=== PATIENT | male | born 1945 | race Caucasian/White ===

== ENCOUNTER 2016-06-09 14:55 | Emergency (ER) | payer MEDICARE ==
[2016-06-09 15:27] VITALS: BP 154/76; PULSE 91; RESP 18; TEMP 98.7
[2016-06-09] MEDS ORDERED: MAGNESIUM CITRATE 296 ML BOTTLE PO ONE (16:39)
--- NOTE | 2016-06-09 16:41 | ED ---
General Adult HPI - General Chief complaint: Abdominal Pain Stated complaint: constipation x 7 days Time Seen by Provider: 06/09/16 16:27 Source: patient, RN notes reviewed Mode of arrival: ambulatory Limitations: no limitations - History of Present Illness Initial comments: Patient is a 70-year-old male who presents emergency room today with chief complaint constipation. He does admit that he does take opiates for chronic back pain. Does admit that he has been trying stool softeners at home with little relief. States not had a bowel movement in one week. Does admit that he 's been passing gas. Denies any abdominal pain. Denies any other complaints or associated symptoms. Patient denies any recent fever, chills, shortness of breath, chest pain, back pain, abdominal pain, nausea or vomiting, numbness or tingling, dysuria or hematuria, diarrhea, headaches or visual changes, or any other complaints. - Related Data Home Medications Medication Instructions Recorded Confirmed Sertraline HCl [Zoloft] 200 mg PO HS 12/24/14 06/09/16 Methadone [Dolophine] 10 mg PO QID 11/04/15 06/09/16 clonazePAM [KlonoPIN] 0.5 mg PO Q12H 11/11/15 06/09/16 Vitamin B Complex 1 cap PO DAILY 12/30/15 06/09/16 Acetaminophen [Tylenol Arthritis] 1,300 mg PO DAILY 06/09/16 06/09/16 Mirabegron [Myrbetriq] 25 mg PO DAILY 06/09/16 06/09/16 Allergies Allergy/AdvReac Type Severity Reaction Status Date / Time aspirin AdvReac Intermediate ringing in Verified 06/09/16 17:16 the ears Antihistamines - Alkylamine AdvReac Mild shaking Verified 06/09/16 17:16 Review of Systems ROS Statement: Those systems with pertinent positive or pertinent negative responses have been documented in the HPI. ROS Other: All systems not noted in ROS Statement are negative. Past Medical History Past Medical History: GERD/Reflux, Musculoskeletal Disorder, Neurologic Disorder , Osteoarthritis (OA), Skin Disorder Additional Past Medical History / Comment(s): childhood polio, post polio syndrome, chronic low back pain, wounds both legs History of Any Multi-Drug Resistant Organisms: MRSA Date of last positivie culture/infection: 11/11/15 MDRO Source:: RIGHT LEG Past Surgical History: Back Surgery, Bowel Resection, Joint Replacement, Orthopedic Surgery Additional Past Surgical History / Comment(s): right hip replacement, bilateral carpal tunnel, surgery to legs and feet Past Anesthesia/Blood Transfusion Reactions: No Reported Reaction Past Psychological History: Anxiety Additional Psychological History / Comment(s): He is and has 2 children Smoking Status: Former smoker Past Alcohol Use History: None Reported Additional Past Alcohol Use History / Comment(s): has smoked since age 16 quit December 2015 Past Drug Use History: None Reported - Past Family History Mother Family Medical History: No Reported History Additional Family Medical History / Comment(s): pt 14 years of age at time of mothers Father Additional Family Medical History / Comment(s): heart arrythymia Brother(s) Family Medical History: Cancer General Exam - General Exam Comments Initial Comments: General: The patient is awake and alert, in no distress, and does not appear acutely ill. Eye: Pupils are equal, round and reactive to light, extra-ocular movements are intact. No nystagmus. There is normal conjunctiva bilaterally. No signs of icterus. Ears, nose, mouth and throat: There are moist mucous membranes and no oral lesions. Neck: The neck is supple, there is no tenderness or JVD. Cardiovascular: There is a regular rate and rhythm. No murmur, rub or gallop is appreciated. Respiratory: Lungs are clear to auscultation, respirations are non-labored, breath sounds are equal. No wheezes, stridor, rales, or rhonchi. Gastrointestinal: Soft, non-distended, non-tender abdomen without masses or organomegaly noted. There is no rebound or guarding present. No CVA tenderness. Bowel sounds are unremarkable. Musculoskeletal: Normal ROM, no tenderness. Strength 5/5. Sensation intact. Pulses equal bilaterally 2+. Neurological: A&O x 3. CN II-XII intact, There are no obvious motor or sensory deficits. Coordination appears grossly intact. Speech is normal. Skin: Skin is warm and dry and no rashes or lesions are noted. Psychiatric: Cooperative, appropriate mood & affect, normal judgment. Limitations: no limitations Course Vital Signs 06/09/16 15:22 Temperature 98.7 F Pulse Rate 91 Respiratory 18 Rate Blood Pressure 154/76 O2 Sat by Pulse 97 Oximetry Medical Decision Making - Medical Decision Making Patient reexamined at this time shows no signs of distress. Feeling much better after enema. Was able have large bowel movement. Patient denies any complaints currently at this time. Will be discharged home advised to use stool softener. Advised return for any other concerns. Disposition Clinical Impression: Constipation Disposition: HOME SELF-CARE Condition: Good Instructions: Constipation (ED) Additional Instructions: Please use medication as discussed. Please follow-up with family doctor in the next 2 days of symptoms have not improved. Please return to emergency room if the symptoms increase or worsen or for any other concerns. Time of Disposition: 19:19
--- NOTE | 2016-06-09 16:56 | XR ---
EXAMINATION TYPE: XR KUB DATE OF EXAM ORDERED: 06/09/2016 4:49 PM HISTORY: pain. COMPARISON: Previous study dated 02/29/2016. FINDINGS: There is a marked rotoscoliosis of the thoracic and lumbar spines. There is a right hip pr osthesis in place. The abdominal gas pattern is within normal limits. There is no evidence of obstruction or free air. N o unusual calcifications are seen. The lung bases appear clear. IMPRESSION: 1. SEVERE DEFORMITY OF THE SPINE. 2. NO ACUTE INTRA-ABDOMINAL ABNORMALITY.
== END 2016-06-09 20:23 | disposition home or self-care (01) ==
LOC: EC 14:55 → SUPCPDRO 14:55 → EC 20:23
DX: K59.00 Constipation, unspecified (principal); M54.9 Dorsalgia, unspecified; G89.29 Other chronic pain; K21.9 Gastro-esophageal reflux disease without esophagitis; M19.90 Unspecified osteoarthritis, unspecified site; F41.9 Anxiety disorder, unspecified; Z87.891 Personal history of nicotine dependence; Z79.891 Long term (current) use of opiate analgesic; Z79.899 Other long term (current) drug therapy; Z88.6 Allergy status to analgesic agent; Z88.8 Allergy status to other drugs, medicaments and biological substances
CPT/HCPCS: 74000; 99284

== ENCOUNTER 2016-12-07 18:21 | Emergency (ER) | payer MEDICARE ==
--- NOTE | 2016-12-07 18:56 | ED ---
General Adult HPI - General Chief complaint: Abdominal Pain Stated complaint: constipation Time Seen by Provider: 12/07/16 18:26 Source: patient Mode of arrival: ambulatory Limitations: physical limitation - History of Present Illness Initial comments: Is a 71-year-old male with a history of polio with chronic back pain as a result on methadone who presents emergency department for constipation. He states he has not had a bowel movement in 1 week. He has a history of fecal impactions in the past. He does take stool softeners however this has not helped his symptoms. He states he does not drink a lot of water. He does have some mild abdominal discomfort. No nausea or vomiting. He denies any other acute complaints at this time. - Related Data Home Medications Medication Instructions Recorded Confirmed Sertraline HCl [Zoloft] 100 mg PO BID 12/24/14 12/07/16 Methadone [Dolophine] 10 mg PO QID 11/04/15 12/07/16 Mirabegron [Myrbetriq] 50 mg PO DAILY 12/07/16 12/07/16 Tolterodine ER [Detrol LA] 4 mg PO DAILY 12/07/16 12/07/16 Previous Rx's Medication Instructions Recorded Bisacodyl [Dulcolax] 10 mg RECTAL DAILY #30 supp 12/07/16 Allergies Allergy/AdvReac Type Severity Reaction Status Date / Time aspirin AdvReac Intermediate ringing in Verified 12/07/16 18:50 the ears Antihistamines - Alkylamine AdvReac Mild shaking Verified 12/07/16 18:50 Review of Systems ROS Statement: Those systems with pertinent positive or pertinent negative responses have been documented in the HPI. ROS Other: All systems not noted in ROS Statement are negative. Past Medical History Past Medical History: GERD/Reflux, Musculoskeletal Disorder, Neurologic Disorder , Osteoarthritis (OA), Skin Disorder Additional Past Medical History / Comment(s): childhood polio, post polio syndrome, chronic low back pain, wounds both legs History of Any Multi-Drug Resistant Organisms: MRSA Date of last positivie culture/infection: 09/07/16 MDRO Source:: LEG Past Surgical History: Back Surgery, Bowel Resection, Joint Replacement, Orthopedic Surgery Additional Past Surgical History / Comment(s): right hip replacement, bilateral carpal tunnel, surgery to legs and feet Past Anesthesia/Blood Transfusion Reactions: No Reported Reaction Past Psychological History: Anxiety Smoking Status: Former smoker Past Alcohol Use History: None Reported Past Drug Use History: None Reported - Past Family History Mother Family Medical History: No Reported History Additional Family Medical History / Comment(s): pt 14 years of age at time of mothers Father Family Medical History: Coronary Artery Disease (CAD) Additional Family Medical History / Comment(s): heart arrythymia Brother(s) Family Medical History: Cancer General Exam - General Exam Comments Initial Comments: Constitutional: Awake alert Appears comfortable Head: Normocephalic atraumatic Eyes: no conjunctival injection No scleral icterus EOMI Neck: No JVD Supple Heart: Regular rate rhythm normal S1-S2 no murmurs Lungs: Clear to auscultation bilaterally No wheezing No rales Abdomen: Soft nondistended nontender, there is hard stool in the rectal vault Extremities: Non edematous DP pulses intact Radial pulses intact Neuro: A&Ox3 No focal neurologic deficits Psych: Appropriate mood and affect Limitations: physical limitation Course Vital Signs 12/07/16 18:23 Temperature 98.5 F Pulse Rate 96 Respiratory 20 Rate Blood Pressure 158/87 O2 Sat by Pulse 98 Oximetry - Reevaluation(s) Reevaluation #1: 12/07/16 18:56 Fecal disimpaction attempted at bedside. Stool removed however will require, administration as well. Medical Decision Making - Medical Decision Making Is a 71-year-old male who presents emergency department for constipation. Manual disimpaction was performed along with a local molasses enema. The patient had a very large bowel movement after this. Patient will be discharged home. Encouraged to drink plain water. I will give him Dulcolax suppositories as well. He can follow-up with his primary doctor for further evaluation if necessary. All questions are answered. Disposition Clinical Impression: Constipation Disposition: HOME SELF-CARE Condition: Stable Instructions: Constipation (ED) Prescriptions: Bisacodyl [Dulcolax] 10 mg RECTAL DAILY #30 supp Referrals: Holland Nye MD [Primary Care Provider] - 1-2 days
[2016-12-07 20:19] VITALS: BP 138/87; PULSE 87; RESP 18; TEMP 98.4
== END 2016-12-07 20:19 | disposition home or self-care (01) ==
LOC: EC 18:21
DX: K59.00 Constipation, unspecified (principal); F41.9 Anxiety disorder, unspecified; Z87.891 Personal history of nicotine dependence; Z79.891 Long term (current) use of opiate analgesic; Z79.899 Other long term (current) drug therapy; Z88.6 Allergy status to analgesic agent; Z88.8 Allergy status to other drugs, medicaments and biological substances; Z87.39 Personal history of other diseases of the musculoskeletal system and connective tissue; Z90.49 Acquired absence of other specified parts of digestive tract
CPT/HCPCS: 99283

== ENCOUNTER 2017-01-22 19:06 | Emergency (ER) | payer MEDICARE ==
--- NOTE | 2017-01-22 20:19 | XR ---
EXAMINATION TYPE: XR KUB portable DATE OF EXAM: 01/22/2017 COMPARISON: 06/09/2016 HISTORY: Constipation TECHNIQUE: Single view FINDINGS: There is no sign of intestinal obstruction or pneumoperitoneum. I see no significant retain ed fecal material. There is moderate thoracolumbar levoscoliosis. IMPRESSION: Nonacute abdomen. No significant retained fecal material. No adverse change compared to o ld exam.
[2017-01-22 21:50] VITALS: PULSE 91
--- NOTE | 2017-01-22 21:59 | ED ---
General Adult HPI - General Source: patient Mode of arrival: ambulatory Limitations: no limitations <Nash Gonzalez - Last Filed: 01/22/17 23:14> <Haroldo Grullon - Last Filed: 01/23/17 00:28> - General Chief complaint: Abdominal Pain Stated complaint: ABD Pain Time Seen by Provider: 01/22/17 19:15 - History of Present Illness Initial comments: 71-year-old male with past medical history of GERD, osteoarthritis, chronic low back pain, childhood polio, right hip replacement, bilateral carpal tunnel, scoliosis, previous back surgeries, and orthopedic surgeries presented for evaluation of constipation for the last 6-7 days. He states this is happened previously multiple times for the last year the most recent being on which required a digital disimpaction followed by enema. He states that he'll occasionally get colicky abdominal pain with this however he is most distressed by the constipation. Denies nausea vomiting fevers chills chest pain , shortness of breath dysuria. (Nash Gonzalez) - Related Data Home Medications Medication Instructions Recorded Confirmed Sertraline HCl [Zoloft] 200 mg PO DAILY 12/24/14 01/22/17 Methadone [Dolophine] 10 mg PO QID 11/04/15 01/22/17 Lubiprostone [Amitiza] 24 mcg PO BID 01/22/17 01/22/17 Allergies Allergy/AdvReac Type Severity Reaction Status Date / Time aspirin AdvReac Intermediate ringing in Verified 01/22/17 19:29 the ears Antihistamines - Alkylamine AdvReac Mild shaking Verified 01/22/17 19:29 Review of Systems ROS Other: All systems not noted in ROS Statement are negative. Constitutional: Denies: fever, chills Eyes: Denies: eye discharge, vision change ENT: Denies: ear pain, throat pain Respiratory: Denies: cough, dyspnea Cardiovascular: Denies: chest pain, palpitations Gastrointestinal: Reports: abdominal pain, constipation. Denies: nausea, vomiting, diarrhea Genitourinary: Denies: urgency, dysuria Musculoskeletal: Denies: back pain, arthralgia, myalgia Skin: Denies: rash, lesions Neurological: Denies: headache, weakness Psychiatric: Denies: anxiety, depression Hematological/Lymphatic: Denies: easy bleeding, easy bruising <Nash Gonzalez - Last Filed: 01/22/17 23:14> ROS Other: All systems not noted in ROS Statement are negative. <Haroldo Grullon - Last Filed: 01/23/17 00:28> ROS Statement: Those systems with pertinent positive or pertinent negative responses have been documented in the HPI. Past Medical History Past Medical History: GERD/Reflux, Musculoskeletal Disorder, Neurologic Disorder , Osteoarthritis (OA), Skin Disorder Additional Past Medical History / Comment(s): childhood polio, post polio syndrome, chronic low back pain, wounds both legs History of Any Multi-Drug Resistant Organisms: MRSA Date of last positivie culture/infection: 09/07/16 MDRO Source:: LEG Past Surgical History: Back Surgery, Bowel Resection, Joint Replacement, Orthopedic Surgery Additional Past Surgical History / Comment(s): right hip replacement, bilateral carpal tunnel, surgery to legs and feet Past Anesthesia/Blood Transfusion Reactions: No Reported Reaction Past Psychological History: Anxiety Smoking Status: Light tobacco smoker Past Alcohol Use History: None Reported Past Drug Use History: None Reported - Past Family History Mother Family Medical History: No Reported History Additional Family Medical History / Comment(s): pt 14 years of age at time of mothers Father Family Medical History: Coronary Artery Disease (CAD) Additional Family Medical History / Comment(s): heart arrythymia Brother(s) Family Medical History: Cancer <Nash Gonzalez - Last Filed: 01/22/17 23:14> General Exam Limitations: no limitations General appearance: alert, in no apparent distress Head exam: Present: atraumatic, normocephalic, normal inspection Eye exam: Present: normal appearance, PERRL, EOMI. Absent: scleral icterus, conjunctival injection, periorbital swelling ENT exam: Present: normal exam, mucous membranes moist Neck exam: Present: normal inspection. Absent: tenderness, meningismus, lymphadenopathy Respiratory exam: Present: normal lung sounds bilaterally. Absent: respiratory distress, wheezes, rales, rhonchi, stridor Cardiovascular Exam: Present: regular rate, normal rhythm, normal heart sounds. Absent: systolic murmur, diastolic murmur, rubs, gallop, clicks GI/Abdominal exam: Present: soft. Absent: distended, tenderness, guarding, rebound, rigid Rectal exam: Present: fecal impaction, tenderness. Absent: black stool, bloody stool, hemorrhoids Extremities exam: Present: normal inspection, full ROM, normal capillary refill. Absent: tenderness, pedal edema, joint swelling, calf tenderness Back exam: Present: tenderness, other (severe scoliosis) Neurological exam: Present: alert, oriented X3, CN II-XII intact Psychiatric exam: Present: normal affect, normal mood Skin exam: Present: warm, dry, intact, normal color. Absent: rash <Nash Gonzalez - Last Filed: 01/22/17 23:14> Vital Signs 01/22/17 01/22/17 19:09 21:49 Temperature 97.8 F 97.2 F L Pulse Rate 100 91 Respiratory 18 12 Rate Blood Pressure 130/72 119/63 O2 Sat by Pulse 98 98 Oximetry Medical Decision Making <Nash Gonzalez - Last Filed: 01/22/17 23:14> <Haroldo Grullon - Last Filed: 01/23/17 00:28> - Medical Decision Making 71-year-old male with past medical history as noted above presented for evaluation of constipation for the last 6-7 days. He states that there is been associated colicky abdominal pain intermittently present however his symptoms are consistent with previous presentation on 01/08/2017 when he was constipated and required disimpaction as well as an enema. This relieved his symptoms and he was discharged home. On physical examination his abdomen is soft and nontender without peritoneal signs of guarding, rigidity, rebound. Pt offered CT abdomen given recurrence of constipation but refused stating the most he would be comfortable with would be an xray. KUB shows no acute process. The digital rectal exam revealed a large impaction which was partially broken down however a considerable amount remains. We'll order MOM enema. Pt currently attempting to pass bowel movement with MOM enema. Will transfer care to Dr. Grullon at this time. (Nash Gonzalez) Disposition <Nash Gonzalez - Last Filed: 01/22/17 23:14> <Haroldo Grullon - Last Filed: 01/23/17 00:28> Clinical Impression: Constipation Disposition: HOME SELF-CARE Condition: Good Instructions: Constipation (ED) Referrals: Holland Nye MD [Primary Care Provider] - 1-2 days
[2017-01-23] MEDS ORDERED: PEG 3350-NA SULF,BICARB,CL/KCL 4,000 ML BOTTLE PO ONE (00:28)
[2017-01-23 01:02] VITALS: BP 126/78; RESP 18; TEMP 97.9
== END 2017-01-23 01:03 | disposition home or self-care (01) ==
LOC: EC 19:06
DX: K59.00 Constipation, unspecified (principal); F41.9 Anxiety disorder, unspecified; F17.200 Nicotine dependence, unspecified, uncomplicated; Z86.14 Personal history of Methicillin resistant Staphylococcus aureus infection; Z79.891 Long term (current) use of opiate analgesic; Z79.899 Other long term (current) drug therapy; Z88.6 Allergy status to analgesic agent; Z88.8 Allergy status to other drugs, medicaments and biological substances; Z53.29 Procedure and treatment not carried out because of patient's decision for other reasons
CPT/HCPCS: 74000; 99284

== ENCOUNTER 2017-01-24 17:05 | Emergency (ER) | payer MEDICARE ==
--- NOTE | 2017-01-24 17:56 | ED ---
General Adult HPI - General Chief complaint: Abdominal Pain Stated complaint: CONSTIPATION X 7 DAYS Time Seen by Provider: 01/24/17 17:49 Source: patient, RN notes reviewed Mode of arrival: ambulatory Limitations: no limitations - History of Present Illness Initial comments: 71-year-old male presents to the emergency department with a chief complaint of inability to have a bowel movement. Patient states he normally a bowel movement every 3 days with a stool softener however he is not on about 7 days. His doctor didn't x-ray the days ago that didn't show he was backed up he tried a laxative however he still does not have a bowel movement. He states having some pain in his rectum like he has to go he is just unable to. He states that he does not know what else to say came here. He denies any abdominal pain any nausea or vomiting with this. He states he was concerned due to his continued discomfort so he thought that he should be seen. Patient denies any recent fever , chills, shortness of breath, chest pain, back pain, abdominal pain, nausea vomiting, numbness or tingling, dysuria or hematuria, diarrhea, headaches or visual changes, or any other current symptoms. - Related Data Home Medications Medication Instructions Recorded Confirmed Sertraline HCl [Zoloft] 200 mg PO DAILY 12/24/14 01/24/17 Methadone [Dolophine] 10 mg PO QID 11/04/15 01/24/17 Lubiprostone [Amitiza] 24 mcg PO BID 01/22/17 01/24/17 Allergies Allergy/AdvReac Type Severity Reaction Status Date / Time aspirin AdvReac Intermediate ringing in Verified 01/24/17 18:31 the ears Antihistamines - Alkylamine AdvReac Mild shaking Verified 01/24/17 18:31 Review of Systems ROS Statement: Those systems with pertinent positive or pertinent negative responses have been documented in the HPI. ROS Other: All systems not noted in ROS Statement are negative. Past Medical History Past Medical History: GERD/Reflux, Musculoskeletal Disorder, Neurologic Disorder , Osteoarthritis (OA), Skin Disorder Additional Past Medical History / Comment(s): childhood polio, post polio syndrome, chronic low back pain, wounds both legs History of Any Multi-Drug Resistant Organisms: MRSA Date of last positivie culture/infection: 09/07/16 MDRO Source:: LEG Past Surgical History: Back Surgery, Bowel Resection, Joint Replacement, Orthopedic Surgery Additional Past Surgical History / Comment(s): right hip replacement, bilateral carpal tunnel, surgery to legs and feet Past Anesthesia/Blood Transfusion Reactions: No Reported Reaction Past Psychological History: Anxiety Smoking Status: Light tobacco smoker Past Alcohol Use History: None Reported Past Drug Use History: None Reported - Past Family History Mother Family Medical History: No Reported History Additional Family Medical History / Comment(s): pt 14 years of age at time of mothers Father Family Medical History: Coronary Artery Disease (CAD) Additional Family Medical History / Comment(s): heart arrythymia Brother(s) Family Medical History: Cancer General Exam - General Exam Comments Initial Comments: General: The patient is awake and alert, in no distress, and does not appear acutely ill. Eye: Pupils are equal, round and reactive to light, extra-ocular movements are intact; there is normal conjunctiva bilaterally. No signs of icterus. Ears, nose, mouth and throat: There are moist mucous membranes and no oral lesions. Neck: The neck is supple, there is no tenderness. Cardiovascular: There is a regular rate and rhythm. No murmur, rub or gallop is appreciated. Respiratory: Lungs are clear to auscultation, respirations are non-labored, breath sounds are equal. No wheezes, stridor, rales, or rhonchi. Gastrointestinal: Soft, non-distended, non-tender abdomen without masses or organomegaly noted. There is no rebound or guarding present. No CVA tenderness. Bowel sounds are unremarkable. Back: There is no tenderness to palpation in the midline. There is no obvious deformity. No rashes noted. Musculoskeletal: Normal ROM, no tenderness, There is no pedal edema. There is no calf tenderness or swelling. Sensation intact. Pulses equal bilaterally 2+. Neurological: CN II-XII intact, There are no obvious motor or sensory deficits. Coordination appears grossly intact. Speech is normal. Skin: Skin is warm and dry and no rashes or lesions are noted. Psychiatric: Cooperative, appropriate mood & affect, normal judgment. Limitations: no limitations Rectal exam: Present: normal inspection, normal rectal tone, other (impaction) Course Vital Signs 01/24/17 17:26 Temperature 98.8 F Pulse Rate 100 Respiratory 20 Rate Blood Pressure 138/93 O2 Sat by Pulse 98 Oximetry - Reevaluation(s) Reevaluation #1: 01/24/17 19:43 Following enema patient is feeling much better. Procedures - Rectal Disimpaction Consent Obtained: verbal consent Time Out Performed: Yes Indication: fecal impaction Procedural Sedation: No Sedation/Analgesia: none Technique: manual disimpaction with gloved finger Result: significant stool output Complications: none Patient Tolerated Procedure: well Medical Decision Making - Medical Decision Making 71-year-old male presents with chief complaint of constipation. This time x- rays reviewed that does not show an increased amount of stool however digital rectal exam does show impaction. He went with rectal disimpaction as well as enema placement. He is feeling better. We discussed continuing this. Parameters and follow-up and all questions. Patient stated that he understood and he is agreement this plan. All questions have been answered. He will be discharged. - Radiology Data Radiology results: report reviewed, image reviewed Disposition Clinical Impression: Constipation, Fecal impaction in rectum Disposition: HOME SELF-CARE Condition: Stable Instructions: Constipation (ED) Additional Instructions: Please use medication as discussed. Please follow up with family doctor if symptoms have not improved over the next two days. Please return to the emergency room if your symptoms increase or worsen or for any other concerns. Referrals: Holland Nye MD [Primary Care Provider] - 1-2 days Time of Disposition: 19:43
--- NOTE | 2017-01-24 18:14 | XR ---
EXAMINATION TYPE: XR abdomen 1V DATE OF EXAM: 01/24/2017 6:07 PM CLINICAL HISTORY: Abdominal pain per order. Constipation for 7 days. TECHNIQUE: 3 Upright KUB images of the abdomen are obtained. COMPARISON: Abdominal x-ray January 22, 2017. FINDINGS: There is redemonstration of marked underlying rotary scoliosis distorting normal anatomy ma marcos evaluation suboptimal. There is gas noted in scattered slightly prominent but not suspiciously d ilated small and large bowel loops. No pneumoperitoneum is clearly seen. Metallic hardware from right hip surgery is stable in position. Visualized lung bases are grossly clear. IMPRESSION: Suboptimal study. Overall nonspecific but likely nonobstructive bowel gas pattern. No dean ss change from prior.
[2017-01-24 20:27] VITALS: BP 154/89; PULSE 90; RESP 18; TEMP 98.9
== END 2017-01-24 20:27 | disposition home or self-care (01) ==
LOC: EC 17:05
DX: K56.41 Fecal impaction (principal); F41.9 Anxiety disorder, unspecified; F17.200 Nicotine dependence, unspecified, uncomplicated; Z86.14 Personal history of Methicillin resistant Staphylococcus aureus infection; Z79.891 Long term (current) use of opiate analgesic; Z79.899 Other long term (current) drug therapy; Z88.6 Allergy status to analgesic agent; Z88.8 Allergy status to other drugs, medicaments and biological substances
CPT/HCPCS: 74000; 99284

== ENCOUNTER 2017-03-18 00:08 | Emergency (ER) | payer MEDICARE ==
[2017-03-18 00:26] VITALS: TEMP 97.6
--- NOTE | 2017-03-18 01:22 | XR ---
EXAM: XR Cervical Spine, 2 or 3 Views CLINICAL HISTORY: Reason: Pain TECHNIQUE: Frontal and lateral views of the cervical spine. COMPARISON: CT 02/22/2017 FINDINGS: Vertebrae: There is been interval anterior fusion from C2-C6 level (please correlate with operative procedure) with anterior plate with coexisting telescoping interbody cage and corpectomy. There is improved reduction in the anterior angulation of C2 when compared to previous CT examination with diminished kyphosis. Degenerative changes are noted at C5-C6 level with marginal osteophyte formation. Anterior screws appear to be seated in the inferior aspect of C2 and C6. On the open-mouth view, the lateral masses of C1 appear to be well aligned. The odontoid process demonstrates no definite abnormalities. No definite fracture. Disc spaces: No acute findings. No significant narrowing. Soft tissues: Unremarkable. IMPRESSION: Anterior fusion cervical spine with reduced angulation of C2 when compared to preoperative CT.
--- NOTE | 2017-03-18 01:30 | ED ---
Fall HPI - General Chief Complaint: Fall Stated Complaint: fall Time Seen by Provider: 03/18/17 00:17 Source: patient, EMS, RN notes reviewed, old records reviewed Mode of arrival: EMS Limitations: physical limitation - History of Present Illness Initial Comments: 71-year-old male presents emergency Department with chief complaint of fall.. Patient states that he was on his chair lift states he went to move his legs over and states he slid off the chair lift on the ground struck the right side of his head. Patient denies headache, dizziness. Patient complains of neck pain and is concerned has he had cervical fusion 2 weeks ago. Patient states this was performed at [facility]. Patient denies any weakness of his upper extremities denies any paresthesias. Patient currently wears a soft collar states that he has not taken. Patient had anterior approach to his cervical fusion. - Related Data Home Medications Medication Instructions Recorded Confirmed Sertraline HCl [Zoloft] 200 mg PO DAILY 12/24/14 03/18/17 Methadone [Dolophine] 10 mg PO QID 11/04/15 03/18/17 Lubiprostone [Amitiza] 24 mcg PO BID 01/22/17 03/18/17 Tolterodine Tartrate [Detrol LA] 4 mg PO DAILY 02/15/17 03/18/17 Allergies Allergy/AdvReac Type Severity Reaction Status Date / Time aspirin AdvReac Intermediate ringing in Verified 03/18/17 00:27 the ears Antihistamines - Alkylamine AdvReac Mild shaking Verified 03/18/17 00:27 Review of Systems ROS Statement: Those systems with pertinent positive or pertinent negative responses have been documented in the HPI. ROS Other: All systems not noted in ROS Statement are negative. Past Medical History Past Medical History: GERD/Reflux, Musculoskeletal Disorder, Neurologic Disorder , Osteoarthritis (OA), Skin Disorder Additional Past Medical History / Comment(s): childhood polio, post polio syndrome, chronic low back pain, wounds both legs, cervical injury from fall 2016 History of Any Multi-Drug Resistant Organisms: MRSA Date of last positivie culture/infection: 03/2017 MDRO Source:: left LEG Past Surgical History: Back Surgery, Bowel Resection, Joint Replacement, Orthopedic Surgery Additional Past Surgical History / Comment(s): right hip replacement, bilateral carpal tunnel, surgery to legs and feet, cervical fusion of C3-4, spinal fusion as a child, yrs ago Past Anesthesia/Blood Transfusion Reactions: No Reported Reaction Past Psychological History: Anxiety Smoking Status: Light tobacco smoker Past Alcohol Use History: None Reported Past Drug Use History: None Reported - Past Family History Mother Family Medical History: No Reported History Additional Family Medical History / Comment(s): pt 14 years of age at time of mothers Father Family Medical History: Coronary Artery Disease (CAD) Additional Family Medical History / Comment(s): heart arrythymia Brother(s) Family Medical History: Cancer General Exam Limitations: no limitations General appearance: alert, in no apparent distress Head exam: Present: atraumatic, normocephalic, normal inspection Eye exam: Present: normal appearance, PERRL, EOMI. Absent: scleral icterus, conjunctival injection, periorbital swelling ENT exam: Present: normal exam, normal oropharynx, mucous membranes moist, TM's normal bilaterally, normal external ear exam Neck exam: Present: normal inspection (Anterior incision noted), tenderness ( Mild tenderness the posterior region). Absent: meningismus, full ROM ( Decreased range of motion from a recent cervical fusion), lymphadenopathy Respiratory exam: Present: normal lung sounds bilaterally. Absent: respiratory distress, wheezes, rales, rhonchi, stridor Cardiovascular Exam: Present: regular rate, normal rhythm, normal heart sounds. Absent: systolic murmur, diastolic murmur, rubs, gallop, clicks Neurological exam: Present: alert, oriented X3, CN II-XII intact, reflexes normal. Absent: motor sensory deficit Skin exam: Present: warm, dry, intact, normal color. Absent: rash Course Vital Signs 03/18/17 00:15 Temperature 97.6 F Pulse Rate 71 Respiratory 18 Rate Blood Pressure 137/72 O2 Sat by Pulse 96 Oximetry Medical Decision Making - Medical Decision Making 7-year-old male present emergency department for 7 fall off chairlift. Patient is just concerned has he had recent fusion. Patient has minimal increased pain. Patient has a soft collar on. X-ray shows no acute changes. Patient is no focal weakness. Patient will be discharged advised follow-up with surgeon on Sunday return for worsening symptoms. Disposition Clinical Impression: Fall, Neck pain Disposition: HOME SELF-CARE Condition: Stable Instructions: Neck Pain (ED) Additional Instructions: Please return to the Emergency Department if symptoms worsen or any other concerns. Referrals: Holland Nye MD [Primary Care Provider] - 1-2 days Time of Disposition: 01:28
[2017-03-18] MEDS ORDERED: HYDROcodone/APAP 7.5-325MG 1 EACH TAB PO ONE (01:35)
[2017-03-18 02:06] VITALS: BP 138/73; PULSE 73; RESP 16
== END 2017-03-18 02:12 | disposition home or self-care (01) ==
LOC: EC 00:08
DX: M54.2 Cervicalgia (principal); F41.9 Anxiety disorder, unspecified; F17.200 Nicotine dependence, unspecified, uncomplicated; Z86.14 Personal history of Methicillin resistant Staphylococcus aureus infection; Z98.1 Arthrodesis status; Z88.6 Allergy status to analgesic agent; Z88.8 Allergy status to other drugs, medicaments and biological substances; Z79.899 Other long term (current) drug therapy; W07.XXXA Fall from chair, initial encounter
CPT/HCPCS: 72040; 99284

== ENCOUNTER 2017-04-20 09:10 | Emergency (ER) | payer MEDICARE ==
[2017-04-20] MEDS ORDERED: SODIUM CHLORIDE 0.9% 500 ML IV STA (09:32)
[2017-04-20] MEDS ORDERED: MAGNESIUM CITRATE 296 ML BOTTLE PO ONE (09:32)
--- NOTE | 2017-04-20 10:10 | ED ---
General Adult HPI - General Chief complaint: Abdominal Pain Stated complaint: Constipation Time Seen by Provider: 04/20/17 09:21 Source: patient, RN notes reviewed Mode of arrival: EMS Limitations: no limitations - History of Present Illness Initial comments: Patient 71-year-old male who presents emergency room today by EMS, the chief complaint of constipation. He states she's not had a good bowel movement past 10 days. He does admit that he has a history of constipation and this feels similar to him. This that he is passing some gas but feels some pressure. Patient does not that he believes the constipation is due to medications that he is on. States he was not taking a stool softener last few days as his was in the hospital and he kind of lost track of things. Patient denies any other complaints or symptoms at this time. Patient denies any recent fever, chills, shortness of breath, chest pain, back pain, nausea or vomiting, numbness or tingling, dysuria or hematuria, diarrhea, headaches or visual changes, or any other complaints. - Related Data Home Medications Medication Instructions Recorded Confirmed Sertraline HCl [Zoloft] 200 mg PO DAILY 12/24/14 04/20/17 Methadone [Dolophine] 10 mg PO QID 11/04/15 04/20/17 Previous Rx's Medication Instructions Recorded Polyethylene Glycol 3350 [Miralax] 17 gm PO DAILY 7 Days packet 04/20/17 Allergies Allergy/AdvReac Type Severity Reaction Status Date / Time aspirin AdvReac Intermediate ringing in Verified 04/20/17 09:54 the ears Antihistamines - Alkylamine AdvReac Mild shaking Verified 04/20/17 09:54 Review of Systems ROS Statement: Those systems with pertinent positive or pertinent negative responses have been documented in the HPI. ROS Other: All systems not noted in ROS Statement are negative. Past Medical History Past Medical History: GERD/Reflux, Musculoskeletal Disorder, Neurologic Disorder , Osteoarthritis (OA), Skin Disorder Additional Past Medical History / Comment(s): childhood polio, post polio syndrome, chronic low back pain, wounds both legs, cervical injury from fall 2016 History of Any Multi-Drug Resistant Organisms: MRSA Date of last positivie culture/infection: 03/2017 MDRO Source:: left LEG Past Surgical History: Back Surgery, Bowel Resection, Joint Replacement, Orthopedic Surgery Additional Past Surgical History / Comment(s): right hip replacement, bilateral carpal tunnel, surgery to legs and feet, cervical fusion of C3-4, spinal fusion as a child, [id number] yrs ago Past Anesthesia/Blood Transfusion Reactions: No Reported Reaction Past Psychological History: Anxiety Smoking Status: Former smoker Past Alcohol Use History: None Reported Past Drug Use History: None Reported - Past Family History Mother Family Medical History: No Reported History Additional Family Medical History / Comment(s): pt 14 years of age at time of mothers Father Family Medical History: Coronary Artery Disease (CAD) Additional Family Medical History / Comment(s): heart arrythymia Brother(s) Family Medical History: Cancer General Exam - General Exam Comments Initial Comments: General: The patient is awake and alert, in no distress, and does not appear acutely ill. Eye: Pupils are equal, round and reactive to light, extra-ocular movements are intact. No nystagmus. There is normal conjunctiva bilaterally. No signs of icterus. Ears, nose, mouth and throat: There are moist mucous membranes and no oral lesions. Neck: The neck is supple, there is no tenderness or JVD. Cardiovascular: There is a regular rate and rhythm. No murmur, rub or gallop is appreciated. Respiratory: Lungs are clear to auscultation, respirations are non-labored, breath sounds are equal. No wheezes, stridor, rales, or rhonchi. Gastrointestinal: Soft, non-distended, non-tender abdomen without masses or organomegaly noted. There is no rebound or guarding present. No CVA tenderness. Musculoskeletal: Normal ROM, no tenderness. Strength 5/5. Sensation intact. Pulses equal bilaterally 2+. Neurological: A&O x 3. CN II-XII intact, There are no obvious motor or sensory deficits. Coordination appears grossly intact. Speech is normal. Skin: Skin is warm and dry and no rashes or lesions are noted. Psychiatric: Cooperative, appropriate mood & affect, normal judgment. Limitations: no limitations Course Vital Signs 04/20/17 09:17 Temperature 98.8 F Pulse Rate 66 Respiratory 16 Rate Blood Pressure 122/74 O2 Sat by Pulse 99 Oximetry Medical Decision Making - Medical Decision Making Patient reexamined this time shows no signs of distress. He did have minimal disimpaction along with enema. Patient was able have large bowel movement. Feeling much better at this time. Patient's labs and x-ray reviewed unremarkable. Patient discharged home. - Lab Data Result diagrams: 04/20/17 09:53 04/20/17 09:54 Lab Results 04/20/17 04/20/17 Range/Units 09:53 09:54 WBC 4.3 (3.8-10.6) k/uL RBC 3.22 L (4.30-5.90) m/uL Hgb 11.2 L (13.0-17.5) gm/dL Hct 35.4 L (39.0-53.0) % MCV 109.9 H (80.0-100.0) fL MCH 34.9 (25.0-35.0) pg MCHC 31.7 (31.0-37.0) g/dL RDW 15.6 H (11.5-15.5) % Plt Count 324 (150-450) k/uL Neutrophils % 79 % Lymphocytes % 10 % Monocytes % 7 % Eosinophils % 1 % Basophils % 1 % Neutrophils # 3.4 (1.3-7.7) k/uL Lymphocytes # 0.4 L (1.0-4.8) k/uL Monocytes # 0.3 (0-1.0) k/uL Eosinophils # 0.0 (0-0.7) k/uL Basophils # 0.1 (0-0.2) k/uL Poikilocytosis (manual Present Anisocytosis (manual) Present Macrocytosis Marked Sodium 141 (137-145) mmol/L Potassium 4.3 (3.5-5.1) mmol/L Chloride 100 (98-107) mmol/L Carbon Dioxide 32 H (22-30) mmol/L Anion Gap 9 mmol/L BUN 14 (9-20) mg/dL Creatinine 0.54 L (0.66-1.25) mg/dL Est GFR (MDRD) Af Amer >60 (>60 ml/min/1.73 sqM) Est GFR (MDRD) Non-Af >60 (>60 ml/min/1.73 sqM) Glucose 118 H (74-99) mg/dL Calcium 9.2 (8.4-10.2) mg/dL Total Bilirubin 0.6 (0.2-1.3) mg/dL AST 17 (17-59) U/L ALT 18 L (21-72) U/L Alkaline Phosphatase 105 (38-126) U/L Total Protein 6.2 L (6.3-8.2) g/dL Albumin 3.5 (3.5-5.0) g/dL Disposition Clinical Impression: Constipation Disposition: HOME SELF-CARE Condition: Good Instructions: Constipation (ED) Additional Instructions: Please use medication as discussed. Please follow-up with family doctor in the next 2 days of symptoms have not improved. Please return to emergency room if the symptoms increase or worsen or for any other concerns. Prescriptions: Polyethylene Glycol 3350 [Miralax] 17 gm PO DAILY 7 Days packet Referrals: Holland yNe MD [Primary Care Provider] - 1-2 days Time of Disposition: 11:17
[2017-04-20 10:15] LABS: Basophils # (A) 0.1 k/uL (0-0.2); Basophils % (A) 1 %; Eosinophils % (A) 1 %; HCT 35.4 % (39.0-53.0); HGB 11.2 gm/dL (13.0-17.5); Lymphocytes # (A) 0.4 k/uL (1.0-4.8); Lymphocytes % (A) 10 %; MCH 34.9 pg (25.0-35.0); MCHC 31.7 g/dL (31.0-37.0); MCV 109.9 fL (80.0-100.0); Macrocytosis Marked; Mean Platelet Volume 7.2; Monocytes # (A) 0.3 k/uL (0-1.0); Monocytes % (A) 7 %; Neutrophils # (A) 3.4 k/uL (1.3-7.7); Neutrophils % (A) 79 %; Platelet Count 324 k/uL (150-450); RBC 3.22 m/uL (4.30-5.90); RDW 15.6 % (11.5-15.5); WBC 4.3 k/uL (3.8-10.6)
[2017-04-20 10:17] LABS: ALT 18 U/L (21-72); AST 17 U/L (17-59); Albumin 3.5 g/dL (3.5-5.0); Alkaline Phosphatase 105 U/L (38-126); Anion Gap 9 mmol/L; Blood Urea Nitrogen 14 mg/dL (9-20); Calcium 9.2 mg/dL (8.4-10.2); Carbon Dioxide 32 mmol/L (22-30); Chloride 100 mmol/L (98-107); Glucose 118 mg/dL (74-99); Potassium 4.3 mmol/L (3.5-5.1); Sodium 141 mmol/L (137-145); Total Bilirubin 0.6 mg/dL (0.2-1.3); Total Protein 6.2 g/dL (6.3-8.2)
--- NOTE | 2017-04-20 10:22 | XR ---
EXAMINATION TYPE: XR KUB DATE OF EXAM: 04/20/2017 COMPARISON: 01/22/2017 INDICATION: Pain kyphosis constipation TECHNIQUE: Single view abdomen upright view FINDINGS: Nonspecific bowel gas is present. Psoas margins are indistinct. No organomegaly is present. Examination is limited due to patient body habitus. Right hip prosthesis is present. IMPRESSION: 1. Nonspecific abdomen.
[2017-04-20 11:05] LABS: Anisocytosis (M) Present; Poikilocytosis (M) Present
[2017-04-20] MEDS ORDERED: HYDROcodone/APAP 5-325MG 1 EACH TAB PO STA (12:02)
[2017-04-20 12:06] VITALS: BP 133/75; PULSE 70; RESP 18; TEMP 98.3
== END 2017-04-20 12:09 | disposition home or self-care (01) ==
LOC: EC 09:10
DX: K59.00 Constipation, unspecified (principal); M19.90 Unspecified osteoarthritis, unspecified site; F41.9 Anxiety disorder, unspecified; Z86.14 Personal history of Methicillin resistant Staphylococcus aureus infection; Z87.891 Personal history of nicotine dependence; Z79.891 Long term (current) use of opiate analgesic; Z79.899 Other long term (current) drug therapy; Z88.6 Allergy status to analgesic agent; Z88.8 Allergy status to other drugs, medicaments and biological substances
CPT/HCPCS: 36415; 74018; 80053; 85025; 99284

== ENCOUNTER → 2017-06-14 | Outpatient (CLI) | payer MEDICARE ==
--- NOTE | 2017-06-14 17:03 | CT ---
EXAMINATION TYPE: CT cervical spine wo con DATE OF EXAM: 06/14/2017 COMPARISON: 10/29/2015 HISTORY: Follow up cervical fusion, C1 fracture. CT DLP: 454 mGycm. Automated Exposure Control for Dose Reduction was Utilized. TECHNIQUE: CT scan of the cervical spine is obtained without contrast, axial images are obtained, sa gittal and coronal reformatted images are also reviewed. FINDINGS: There has been corpectomies of the C3 and C4 vertebral bodies with interval placement of a disc spacer and anterior fusion device. There remains anterior angulation of the 2 with slight anteri or listhesis in regards to the remaining peripheral C3 vertebral body. There is a reversal usual cerv ical lordosis is seen on the prior. No new acute fracture is seen. Extensive degenerative changes of the lower cervical spine from C5 5 through C7 are demonstrated. 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 Prevertebral tissues are prominent without measurable abnormal thickening. IMPRESSION: 1. Surgical fixation of the previously seen anterior subluxation of C2 on C3 with improved anatomic a lignment and persistent reversal of the usual cervical lordosis throughout the cervical spine. 2. 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 3. Extensive multilevel degenerative changes of the cervical spine.
== END | disposition home or self-care (01) ==
LOC: RADCTMAIN 16:01
PROVIDERS: ATTEND Neurological Surgery
DX: S12.000K Unspecified displaced fracture of first cervical vertebra, subsequent encounter for fracture with nonunion (principal); M47.812 Spondylosis without myelopathy or radiculopathy, cervical region; Z98.1 Arthrodesis status
CPT/HCPCS: 72125

== ENCOUNTER → 2017-06-19 | Outpatient (CLI) | payer MEDICARE ==
--- NOTE | 2017-06-19 15:05 | US ---
Exam: LOWER EXTREMITY BILATERAL VENOUS INSUFFICIENCY Doppler COMPARISON: 09/23/2015 SIDE PERFORMED: Bilateral Findings: 1) Color flow is present and patency is documented in the following vessels. No DVT or SVT is noted . EIV Common Femoral Vein Deep Femoral Vein Femoral Vein Popliteal Vein Proximal Calf Veins Greater Saph Vein Upper Small Saph Vein 2) There is venous reflux noted at the following venous levels: NONE Occupational Therapist'S Assistant notes: Patient would initially shake while doing valsalva maneuver but no reflux was seen throughout exam IMPRESSION: 1. No evidence for DVT within the bilateral lower extremities imaged from the groin to the upper calv es. 2. On the current exam, no venous reflux was identified. Given the findings on the patient's comparis on study, consider future follow-up.
== END | disposition home or self-care (01) ==
LOC: RADUSWWP 12:29
PROVIDERS: ATTEND Internal Medicine Infectious Disease
DX: M79.604 Pain in right leg (principal); M79.605 Pain in left leg
CPT/HCPCS: 93923; 93970

== ENCOUNTER 2017-08-07 16:05 | Emergency (ER) | payer MEDICARE ==
--- NOTE | 2017-08-07 17:16 | ED ---
Recheck HPI - General Chief Complaint: Recheck/Abnormal Lab/Rx Stated Complaint: Constipation Time Seen by Provider: 08/07/17 16:40 Source: patient, RN notes reviewed Mode of arrival: wheelchair Limitations: physical limitation - History of Present Illness Initial Comments: This is a 71-year-old male with a history of postpolio syndrome multiple low back surgeries and chronic pain who is here because of constipation is been going on for the past 10 days. He's had this in the past he has had they have enemas. He relates it to be secondary to his methadone that he takes for his chronic pain. He denies any fevers chills nausea vomiting sweats or other symptoms no other modifying factors MD Complaint: other - Related Data Home Medications Medication Instructions Recorded Confirmed Sertraline HCl [Zoloft] 100 mg PO QAM 12/24/14 08/07/17 Methadone [Dolophine] 10 mg PO QID 11/04/15 08/07/17 Omeprazole [PriLOSEC] 20 mg PO BID 06/18/17 08/07/17 Acetaminophen [Tylenol Extra 1,000 mg PO DAILY 08/07/17 08/07/17 Strength] Fesoterodine Fumarate [Toviaz] 4 mg PO DAILY 08/07/17 08/07/17 buPROPion XL [Wellbutrin Xl] 150 mg PO DAILY 08/07/17 08/07/17 Allergies Allergy/AdvReac Type Severity Reaction Status Date / Time aspirin AdvReac Intermediate ringing in Verified 08/07/17 16:56 the ears Antihistamines - Alkylamine AdvReac Mild shaking Verified 08/07/17 16:56 Review of Systems ROS Statement: Those systems with pertinent positive or pertinent negative responses have been documented in the HPI. ROS Other: All systems not noted in ROS Statement are negative. Past Medical History Past Medical History: GERD/Reflux, Musculoskeletal Disorder, Neurologic Disorder , Osteoarthritis (OA), Skin Disorder Additional Past Medical History / Comment(s): WOUNDS ON BILATERAL LOWER EXTREMITIES. Childhood polio, post polio syndrome, chronic low back pain, wounds both legs, cervical injury from fall 02/2017loose., uses crutches. History of Any Multi-Drug Resistant Organisms: MRSA Date of last positivie culture/infection: 03/2017 MDRO Source:: left LEG Past Surgical History: Back Surgery, Bowel Resection, Joint Replacement, Orthopedic Surgery Additional Past Surgical History / Comment(s): Right hip replacement. Bilateral carpal tunnel. Surgery to legs and feet. Cervical fusion of C3-4, spinal fusion as a child, laminecomy 30 yrs ago. Past Anesthesia/Blood Transfusion Reactions: No Reported Reaction Past Psychological History: Anxiety Smoking Status: Current some day smoker Past Alcohol Use History: None Reported Past Drug Use History: None Reported - Past Family History Mother Family Medical History: No Reported History Additional Family Medical History / Comment(s): pt 14 years of age at time of mothers Father Family Medical History: Coronary Artery Disease (CAD) Additional Family Medical History / Comment(s): heart arrythymia Brother(s) Family Medical History: Cancer General Exam - General Exam Comments Initial Comments: This is a well-developed well-nourished awake alert oriented times 3 male Limitations: physical limitation General appearance: alert, in no apparent distress Head exam: Present: atraumatic, normocephalic, normal inspection Eye exam: Present: normal appearance, PERRL, EOMI. Absent: scleral icterus, conjunctival injection, periorbital swelling ENT exam: Present: mucous membranes dry Neck exam: Present: normal inspection. Absent: tenderness, meningismus, lymphadenopathy Respiratory exam: Present: normal lung sounds bilaterally. Absent: respiratory distress, wheezes, rales, rhonchi, stridor Cardiovascular Exam: Present: regular rate, normal rhythm, normal heart sounds. Absent: systolic murmur, diastolic murmur, rubs, gallop, clicks GI/Abdominal exam: Present: soft, normal bowel sounds. Absent: distended, tenderness, guarding, rebound, rigid Rectal exam: Present: deferred Extremities exam: Present: full ROM, normal capillary refill. Absent: tenderness, pedal edema, joint swelling, calf tenderness Back exam: Absent: tenderness Neurological exam: Present: alert, oriented X3, CN II-XII intact Psychiatric exam: Present: normal affect, normal mood Skin exam: Present: warm, dry, intact, normal color. Absent: rash Course Vital Signs 08/07/17 16:07 Temperature 98.1 F Pulse Rate 90 Respiratory 20 Rate Blood Pressure 139/91 O2 Sat by Pulse 97 Oximetry Procedures - Procedures Initial comment: I did perform a rectal examination did attempt to digitally disimpact him. The patient has stool that is at the consistency of what mehreen it was brownish in color no gross blood. I was able to remove some. Patient did tolerate this well Medical Decision Making - Medical Decision Making The patient ficus some results from the enema. He would like to go home he will be discharged with a bottle of citrate of magnesium. He is a follow-up with his doctor and return when necessary Disposition Clinical Impression: Constipation Disposition: HOME SELF-CARE Condition: Good Instructions: Constipation (ED), High Fiber Diet (ED) Additional Instructions: Citrate of magnesium as directed Is patient prescribed a controlled substance at d/c from ED?: No Referrals: Holland Nye MD [Primary Care Provider] - 1-2 days
[2017-08-07] MEDS ORDERED: MAGNESIUM CITRATE 296 ML BOTTLE PO ONE (20:19)
[2017-08-07 20:31] VITALS: BP 165/76; PULSE 78; RESP 18; TEMP 98.4
== END 2017-08-07 20:42 | disposition home or self-care (01) ==
LOC: EC 16:05
DX: K59.00 Constipation, unspecified (principal); K21.9 Gastro-esophageal reflux disease without esophagitis; M19.90 Unspecified osteoarthritis, unspecified site; F41.9 Anxiety disorder, unspecified; F17.200 Nicotine dependence, unspecified, uncomplicated; Z79.891 Long term (current) use of opiate analgesic; Z79.899 Other long term (current) drug therapy; Z88.6 Allergy status to analgesic agent; Z88.8 Allergy status to other drugs, medicaments and biological substances; Z86.14 Personal history of Methicillin resistant Staphylococcus aureus infection
CPT/HCPCS: 99283

== ENCOUNTER 2017-10-20 11:06 | Emergency (ER) | payer MEDICARE ==
--- NOTE | 2017-10-20 11:47 | ED ---
General Adult HPI - General Chief complaint: Abdominal Pain Stated complaint: Constipation Time Seen by Provider: 10/20/17 11:21 Source: patient, EMS, RN notes reviewed, old records reviewed Mode of arrival: EMS Limitations: physical limitation - History of Present Illness Initial comments: Patient 72-year-old male with chronic pain who takes medications for this. Patient presenting for constipation. States not had a bowel movement 10 days. States he takes daily laxative and stool softeners. He states her last today she's not had a normal bowel movement. Patient does admit to passing gas. Patient denies any other complaints currently. Patient denies any recent fever, chills, shortness of breath, chest pain, back pain, abdominal pain, nausea or vomiting, headaches or visual changes, or any other complaints. - Related Data Home Medications Medication Instructions Recorded Confirmed Sertraline HCl [Zoloft] 100 mg PO QAM 12/24/14 09/25/17 Methadone [Dolophine] 10 mg PO QID 11/04/15 09/25/17 Omeprazole [PriLOSEC] 20 mg PO BID 06/18/17 09/25/17 Acetaminophen [Tylenol Extra 1,000 mg PO DAILY 08/07/17 09/25/17 Strength] Fesoterodine Fumarate [Toviaz] 4 mg PO DAILY 08/07/17 09/25/17 buPROPion XL [Wellbutrin Xl] 150 mg PO DAILY 08/07/17 09/25/17 Previous Rx's Medication Instructions Recorded Triamcinolone 0.1% Cream [Kenalog 1 applicatio TOPICAL BID #30 gm 08/28/17 0.1% Cream] Allergies Allergy/AdvReac Type Severity Reaction Status Date / Time aspirin AdvReac Intermediate ringing in Verified 10/20/17 11:09 the ears Antihistamines - Alkylamine AdvReac Mild shaking Verified 10/20/17 11:09 Review of Systems ROS Statement: Those systems with pertinent positive or pertinent negative responses have been documented in the HPI. ROS Other: All systems not noted in ROS Statement are negative. Past Medical History Past Medical History: GERD/Reflux, Musculoskeletal Disorder, Neurologic Disorder , Osteoarthritis (OA), Skin Disorder Additional Past Medical History / Comment(s): WOUNDS ON BILATERAL LOWER EXTREMITIES. Childhood polio, post polio syndrome, chronic low back pain, wounds both legs, cervical injury from fall 02/2017loose., uses crutches. History of Any Multi-Drug Resistant Organisms: MRSA Date of last positivie culture/infection: 03/2017 MDRO Source:: left LEG Past Surgical History: Back Surgery, Bowel Resection, Joint Replacement, Orthopedic Surgery Additional Past Surgical History / Comment(s): Right hip replacement. Bilateral carpal tunnel. Surgery to legs and feet. Cervical fusion of C3-4, spinal fusion as a child, laminecomy 30 yrs ago. Past Anesthesia/Blood Transfusion Reactions: No Reported Reaction Past Psychological History: Anxiety Smoking Status: Current some day smoker Past Alcohol Use History: None Reported Past Drug Use History: None Reported - Past Family History Mother Family Medical History: No Reported History Additional Family Medical History / Comment(s): pt 14 years of age at time of mothers Father Family Medical History: Coronary Artery Disease (CAD) Additional Family Medical History / Comment(s): heart arrythymia Brother(s) Family Medical History: Cancer General Exam - General Exam Comments Initial Comments: General: The patient is awake and alert, in no distress, and does not appear acutely ill. Eye: extra-ocular movements are intact. No nystagmus. There is normal conjunctiva bilaterally. No signs of icterus. Ears, nose, mouth and throat: There are moist mucous membranes and no oral lesions. Neck: The neck is supple, there is no tenderness or JVD. Cardiovascular: There is a regular rate and rhythm. No murmur, rub or gallop is appreciated. Respiratory: Lungs are clear to auscultation, respirations are non-labored, breath sounds are equal. No wheezes, stridor, rales, or rhonchi. Gastrointestinal: Soft, non-distended, non-tender abdomen without masses or organomegaly noted. There is no rebound or guarding present. No CVA tenderness. Neurological: A&O x 3. CN II-XII intact, There are no obvious motor or sensory deficits. Coordination appears grossly intact. Speech is normal. Skin: Skin is warm and dry and no rashes or lesions are noted. Psychiatric: Cooperative, appropriate mood & affect, normal judgment. Limitations: physical limitation Course Vital Signs 10/20/17 11:06 Temperature 99.4 F Pulse Rate 93 Respiratory 20 Rate Blood Pressure 156/106 O2 Sat by Pulse 97 Oximetry - Reevaluation(s) Reevaluation #1: 10/20/17 1130 Patient states been here to the hospital multiple times for constipation does not feel that there is anything different or new today. Patient refusing any labs or imaging. States needs to be disimpacted with a enema afterwards. 1155: Patient had manual disimpaction with moderate amount of hard firm stool removed. 1230: Nursing staff had started milk and molasses enema. They had some resistance. Another attempt for manual disimpaction was performed and small amount of firm stool removed. 13:10: Patient was able to have a large bowel movement here in the emergency room after enema. Patient feeling much better at this time. Has no complaints. Patient will be discharged home. Disposition Clinical Impression: Constipation Disposition: HOME SELF-CARE Condition: Good Instructions: Constipation (ED) Additional Instructions: Please increase oral fluids as discussed. Please continue with your laxatives and stool softeners. Please return to emergency room if any symptoms increase or worsen or for any other concerns. Is patient prescribed a controlled substance at d/c from ED?: No Referrals: Holland Nye MD [Primary Care Provider] - 1-2 days Time of Disposition: 13:11
[2017-10-20 13:50] VITALS: BP 138/70; PULSE 74; RESP 16; TEMP 97.8
== END 2017-10-20 13:49 | disposition home or self-care (01) ==
LOC: EC 11:06
DX: K59.00 Constipation, unspecified (principal); K21.9 Gastro-esophageal reflux disease without esophagitis; M19.90 Unspecified osteoarthritis, unspecified site; F41.9 Anxiety disorder, unspecified; F17.200 Nicotine dependence, unspecified, uncomplicated; Z86.14 Personal history of Methicillin resistant Staphylococcus aureus infection; Z96.641 Presence of right artificial hip joint; Z53.29 Procedure and treatment not carried out because of patient's decision for other reasons; Z79.891 Long term (current) use of opiate analgesic; Z79.899 Other long term (current) drug therapy; Z88.6 Allergy status to analgesic agent; Z88.8 Allergy status to other drugs, medicaments and biological substances
CPT/HCPCS: 99284

== ENCOUNTER 2017-12-25 09:10 | Emergency (ER) | payer MEDICARE ==
[2017-12-25 09:19] VITALS: RESP 18
[2017-12-25] MEDS ORDERED: SODIUM CHLORIDE 0.9% 1,000 ML IV STA (10:28)
--- NOTE | 2017-12-25 10:36 | ED ---
General Adult HPI - General Chief complaint: Abdominal Pain Stated complaint: Constipation Source: patient Mode of arrival: EMS Limitations: no limitations - History of Present Illness Initial comments: Dictation was produced using [employer] dictation software. please excuse any grammatical, word or spelling errors. Chief Complaint: 72-year-old male with past medical history of constipation, GERD, presents with constipation. History of Present Illness: Patient is 72-year-old male with history of constipation. He states he's had similar symptoms like this in the past. Patient is frequently in our emergency department. Last bowel movement was 10 days ago. He still sometimes passes gas. Denies any nausea vomiting. He does have diffuse abdominal pain. Denies any constitutional symptoms. The ROS documented in this emergency department record has been reviewed and confirmed by me. Those systems with pertinent positive or negative responses have been documented in the HPI. All other systems are other negative and/or noncontributory. - Related Data Home Medications Medication Instructions Recorded Confirmed Sertraline HCl [Zoloft] 100 mg PO QAM 12/24/14 12/25/17 Methadone [Dolophine] 10 mg PO QID PRN 11/04/15 12/25/17 Fesoterodine Fumarate [Toviaz] 8 mg PO DAILY 08/07/17 12/25/17 buPROPion XL [Wellbutrin Xl] 150 mg PO DAILY 08/07/17 12/25/17 Cholecalciferol [Vitamin D3] 5,000 unit PO DAILY 12/25/17 12/25/17 Previous Rx's Medication Instructions Recorded Docusate [Colace] 100 mg PO BID #30 capsule 12/25/17 Allergies Allergy/AdvReac Type Severity Reaction Status Date / Time aspirin AdvReac Intermediate ringing in Verified 12/25/17 09:41 the ears Antihistamines - Alkylamine AdvReac Mild shaking Verified 12/25/17 09:41 Review of Systems ROS Statement: Those systems with pertinent positive or pertinent negative responses have been documented in the HPI. ROS Other: All systems not noted in ROS Statement are negative. Past Medical History Past Medical History: GERD/Reflux, Musculoskeletal Disorder, Neurologic Disorder , Osteoarthritis (OA), Skin Disorder Additional Past Medical History / Comment(s): WOUNDS ON BILATERAL LOWER EXTREMITIES. Childhood polio, post polio syndrome, chronic low back pain, wounds both legs, cervical injury from fall 02/2017loose., uses crutches. History of Any Multi-Drug Resistant Organisms: MRSA Date of last positivie culture/infection: 03/2017 MDRO Source:: left LEG Past Surgical History: Back Surgery, Bowel Resection, Joint Replacement, Orthopedic Surgery Additional Past Surgical History / Comment(s): Right hip replacement. Bilateral carpal tunnel. Surgery to legs and feet. Cervical fusion of C3-4, spinal fusion as a child, laminecomy 30 yrs ago. Past Anesthesia/Blood Transfusion Reactions: No Reported Reaction Past Psychological History: Anxiety Smoking Status: Current some day smoker Past Alcohol Use History: None Reported Past Drug Use History: None Reported - Past Family History Mother Family Medical History: No Reported History Additional Family Medical History / Comment(s): pt 14 years of age at time of mothers Father Family Medical History: Coronary Artery Disease (CAD) Additional Family Medical History / Comment(s): heart arrythymia Brother(s) Family Medical History: Cancer General Exam - General Exam Comments Initial Comments: PHYSICAL EXAM: General Impression: Alert and oriented x3, not in acute distress HEENT: Normocephalic atraumatic, extra-ocular movements intact, pupils equal and reactive to light bilaterally, mucous membranes moist. Cardiovascular: Heart regular rate and rhythm, S1&S2 audible, no murmurs, rubs or gallops Chest: Lungs clear to auscultation bilaterally, no rhonchi, no wheeze, no rales Abdomen: Bowel sounds present, abdomen soft, non-tender, non-distended, no organomegaly Musculoskeletal: Pulses present and equal in all extremities, no peripheral edema Motor: Power 5/5 bilaterally, no focal deficits noted Neurological: CN II-XII grossly intact, no focal motor or sensory deficits noted Skin: Intact with no visualized rashes Psych: Normal affect and mood Limitations: no limitations Course Vital Signs 12/25/17 12/25/17 12/25/17 09:14 11:18 11:54 Temperature 98.8 F 98.5 F Pulse Rate 79 97 77 Respiratory 18 18 18 Rate Blood Pressure 152/95 151/99 127/91 O2 Sat by Pulse 98 97 96 Oximetry Medical Decision Making - Medical Decision Making ED course: 72-year-old male past medical history of constipation presents with lack of bowel movement since 10 days ago. As upon arrival are within acceptable limits. Patient is well-appearing and resting comfortably. Abdomen is soft. He does have some mild tenderness diffusely. X-ray obtained showing some retained stool. Rectal this impaction was performed at bedside patient there was a lot of hard stools that were retrieved manually. Patient reports feeling better after. Patient told to follow-up with his primary care physician. He is told that he needs to ambulate and take bowel regimen in order to prevent constipation future. Is understandable and agreeable to plan. Patient prescription for Colace. - Lab Data Result diagrams: 12/25/17 11:00 12/25/17 11:00 Lab Results 12/25/17 12/25/17 Range/Units 11:00 11:00 WBC 6.3 (3.8-10.6) k/uL RBC 3.93 L (4.30-5.90) m/uL Hgb 13.2 (13.0-17.5) gm/dL Hct 40.3 (39.0-53.0) % MCV 102.4 H (80.0-100.0) fL MCH 33.4 (25.0-35.0) pg MCHC 32.7 (31.0-37.0) g/dL RDW 13.3 (11.5-15.5) % Plt Count 378 (150-450) k/uL Neutrophils % 82 % Lymphocytes % 10 % Monocytes % 5 % Eosinophils % 0 % Basophils % 0 % Neutrophils # 5.1 (1.3-7.7) k/uL Lymphocytes # 0.6 L (1.0-4.8) k/uL Monocytes # 0.3 (0-1.0) k/uL Eosinophils # 0.0 (0-0.7) k/uL Basophils # 0.0 (0-0.2) k/uL Macrocytosis Slight Sodium 141 (137-145) mmol/L Potassium 4.3 (3.5-5.1) mmol/L Chloride 104 (98-107) mmol/L Carbon Dioxide 27 (22-30) mmol/L Anion Gap 10 mmol/L BUN 12 (9-20) mg/dL Creatinine 0.42 L (0.66-1.25) mg/dL Est GFR (CKD-EPI)AfAm >90 (>60 ml/min/1.73 sqM) Est GFR (CKD-EPI)NonAf >90 (>60 ml/min/1.73 sqM) Glucose 126 H (74-99) mg/dL Calcium 9.5 (8.4-10.2) mg/dL Total Bilirubin 0.6 (0.2-1.3) mg/dL AST 23 (17-59) U/L ALT 22 (21-72) U/L Alkaline Phosphatase 115 (38-126) U/L Total Protein 7.9 (6.3-8.2) g/dL Albumin 4.3 (3.5-5.0) g/dL Lipase 119 (23-300) U/L Disposition Clinical Impression: Constipation Disposition: HOME SELF-CARE Condition: Good Prescriptions: Docusate [Colace] 100 mg PO BID #30 capsule Is patient prescribed a controlled substance at d/c from ED?: No Referrals: Holland Nye MD [Primary Care Provider] - 1-2 days Time of Disposition: 13:21
[2017-12-25 11:24] VITALS: TEMP 98.5
[2017-12-25] MEDS ORDERED: MORPHINE SULFATE 2 MG/ML SYRINGE IVP STA (11:25)
[2017-12-25 11:33] LABS: Basophils % (A) 0 %; Eosinophils % (A) 0 %; HCT 40.3 % (39.0-53.0); HGB 13.2 gm/dL (13.0-17.5); Lymphocytes # (A) 0.6 k/uL (1.0-4.8); Lymphocytes % (A) 10 %; MCH 33.4 pg (25.0-35.0); MCHC 32.7 g/dL (31.0-37.0); MCV 102.4 fL (80.0-100.0); Macrocytosis Slight; Mean Platelet Volume 6.8; Monocytes # (A) 0.3 k/uL (0-1.0); Monocytes % (A) 5 %; Neutrophils # (A) 5.1 k/uL (1.3-7.7); Neutrophils % (A) 82 %; Platelet Count 378 k/uL (150-450); RBC 3.93 m/uL (4.30-5.90); RDW 13.3 % (11.5-15.5); WBC 6.3 k/uL (3.8-10.6)
[2017-12-25 11:37] LABS: ALT 22 U/L (21-72); AST 23 U/L (17-59); Albumin 4.3 g/dL (3.5-5.0); Alkaline Phosphatase 115 U/L (38-126); Anion Gap 10 mmol/L; Blood Urea Nitrogen 12 mg/dL (9-20); Calcium 9.5 mg/dL (8.4-10.2); Carbon Dioxide 27 mmol/L (22-30); Chloride 104 mmol/L (98-107); Glucose 126 mg/dL (74-99); Lipase 119 U/L (23-300); Potassium 4.3 mmol/L (3.5-5.1); Sodium 141 mmol/L (137-145); Total Bilirubin 0.6 mg/dL (0.2-1.3); Total Protein 7.9 g/dL (6.3-8.2)
[2017-12-25 11:56] VITALS: BP 127/91; PULSE 77
--- NOTE | 2017-12-25 12:08 | XR ---
Abdomen HISTORY: Constipation Frontal view of the abdomen submitted and correlated to prior exam 04/20/2009 exam is limited by patient body habitus. Large amount of retained fecal debris is thought present wit hin the distribution of the colon. Postop change noted to the right hip status post arthroplasty. Janelle g bases are clear. Surgical clips present in the abdomen. No evident pneumoperitoneum. IMPRESSION: Correlate for fecal stasis. Exam is limited. Postop changes.
--- NOTE | 2017-12-25 13:08 | XR ---
Addendum: Position requested additional views of the abdomen. A total of 2 views of the abdomen submi tted on 3 images. Marked scoliosis is noted. Lung bases are clear. No evident bowel obstruction. Bone mineralization is decreased. IMPRESSION: Marked scoliosis. Nonobstructive bowel gas pattern.
== END 2017-12-25 14:16 | disposition home or self-care (01) ==
LOC: EC 09:10
DX: K59.00 Constipation, unspecified (principal); R10.84 Generalized abdominal pain; F41.9 Anxiety disorder, unspecified; F17.200 Nicotine dependence, unspecified, uncomplicated; Z86.14 Personal history of Methicillin resistant Staphylococcus aureus infection; Z96.641 Presence of right artificial hip joint; Z98.1 Arthrodesis status; Z79.899 Other long term (current) drug therapy; Z88.6 Allergy status to analgesic agent; Z88.8 Allergy status to other drugs, medicaments and biological substances
CPT/HCPCS: 36415; 80053; 83690; 85025; 74018; 74019; 99284; 96374; J2270

== ENCOUNTER 2018-04-15 18:06 | Emergency (ER) | payer MEDICARE ==
[2018-04-15 18:28] VITALS: TEMP 97.9
--- NOTE | 2018-04-15 19:50 | XR ---
EXAMINATION TYPE: XR abdomen 1V DATE OF EXAM: 04/15/2018 7:38 PM CLINICAL HISTORY: Abdominal pain and constipation. TECHNIQUE: 3 upright KUB images of the abdomen are obtained. COMPARISON: Abdominal x-ray December 25, 2017 FINDINGS: Osseous structures are demineralized. There is marked rotary levoconvex scoliosis redemonst rated. There is marked deformity of the thorax with lungs overlying majority of abdomen making evalua tion suboptimal. 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 Visualized lung bases are clear. There is overall nonobstructive bowel gas pattern felt to present extending into the left portion of abdomen similar to prior. No pneumoperitoneum is identified. IMPRESSION: Suboptimal study with overall nonobstructive bowel gas pattern redemonstrated. No signifi cant change from prior x-ray.
[2018-04-15] MEDS ORDERED: NA PHOS,M-B/NA PHOS,DI-BA 133 ML ENEMA RECTAL STA (19:53)
--- NOTE | 2018-04-15 19:59 | ED ---
General Adult HPI - General Chief complaint: Abdominal Pain Stated complaint: Constipation Time Seen by Provider: 04/15/18 18:25 Source: patient, EMS, RN notes reviewed Mode of arrival: EMS Limitations: physical limitation - History of Present Illness Initial comments: Patient is a pleasant 72-year-old male presenting to the emergency Department with complaints of constipation. Patient states this is a chronic problem for him and he occasionally does need to come to the emergency department for enemas. Patient states last bowel movement was a proximally 7-10 days ago. Patient did take stool softeners without improvement. Patient complains of rectal spasms. No abdominal pain. No nausea vomiting. No fever. - Related Data Home Medications Medication Instructions Recorded Confirmed Sertraline HCl [Zoloft] 100 mg PO QAM 12/24/14 04/15/18 Methadone [Dolophine] 10 mg PO QID PRN 11/04/15 04/15/18 Fesoterodine Fumarate [Toviaz] 8 mg PO DAILY 08/07/17 04/15/18 buPROPion XL [Wellbutrin Xl] 150 mg PO DAILY 08/07/17 04/15/18 Cholecalciferol [Vitamin D3] 5,000 unit PO DAILY 12/25/17 04/15/18 Previous Rx's Medication Instructions Recorded Docusate [Colace] 100 mg PO BID #30 capsule 12/25/17 Allergies Allergy/AdvReac Type Severity Reaction Status Date / Time aspirin AdvReac Intermediate ringing in Verified 04/15/18 19:27 the ears Antihistamines - Alkylamine AdvReac Mild shaking Verified 04/15/18 19:27 Review of Systems ROS Statement: Those systems with pertinent positive or pertinent negative responses have been documented in the HPI. ROS Other: All systems not noted in ROS Statement are negative. Constitutional: Denies: fever Eyes: Denies: eye pain ENT: Denies: ear pain Respiratory: Denies: cough Cardiovascular: Denies: chest pain Endocrine: Denies: fatigue Gastrointestinal: Reports: constipation. Denies: abdominal pain, diarrhea Genitourinary: Denies: dysuria Musculoskeletal: Denies: arthralgia Skin: Denies: rash Past Medical History Past Medical History: GERD/Reflux, Musculoskeletal Disorder, Neurologic Disorder , Osteoarthritis (OA), Skin Disorder Additional Past Medical History / Comment(s): WOUNDS ON BILATERAL LOWER EXTREMITIES. Childhood polio, post polio syndrome, chronic low back pain, wounds both legs, cervical injury from fall 02/2017loose., uses crutches. History of Any Multi-Drug Resistant Organisms: MRSA Date of last positivie culture/infection: 01/15/18 MDRO Source:: left LEG Past Surgical History: Back Surgery, Bowel Resection, Joint Replacement, Orthopedic Surgery Additional Past Surgical History / Comment(s): Right hip replacement. Bilateral carpal tunnel. Surgery to legs and feet. Cervical fusion of C3-4, spinal fusion as a child, laminecomy 30 yrs ago. Past Anesthesia/Blood Transfusion Reactions: No Reported Reaction Past Psychological History: Anxiety Smoking Status: Current some day smoker Past Alcohol Use History: None Reported Past Drug Use History: None Reported - Past Family History Mother Family Medical History: No Reported History Additional Family Medical History / Comment(s): pt 14 years of age at time of mothers Father Family Medical History: Coronary Artery Disease (CAD) Additional Family Medical History / Comment(s): heart arrythymia Brother(s) Family Medical History: Cancer General Exam Limitations: physical limitation General appearance: alert, in no apparent distress Head exam: Present: atraumatic Eye exam: Present: normal appearance Neck exam: Present: normal inspection Respiratory exam: Present: normal lung sounds bilaterally Cardiovascular Exam: Present: regular rate, normal rhythm Rectal exam: Present: fecal impaction Extremities exam: Present: other (Bilateral lower extremity wraps.) Back exam: Present: other (Severe scoliosis) Neurological exam: Present: alert Psychiatric exam: Present: normal affect, normal mood Skin exam: Present: normal color Course Vital Signs 04/15/18 18:22 Temperature 97.9 F Pulse Rate 104 H Respiratory 16 Rate Blood Pressure 143/104 O2 Sat by Pulse 94 L Oximetry Procedures - Rectal Disimpaction Consent Obtained: verbal consent Indication: fecal impaction Sedation/Analgesia: none Technique: manual disimpaction with gloved finger Complications: none Patient Tolerated Procedure: well, no complications Additional Comments: Mild amount of stool was disimpacted. Medical Decision Making - Medical Decision Making Patient reevaluated and feels much better following bowel movement. Patient is comfortable with discharge home. - Radiology Data Radiology results: image reviewed (Abdominal x-ray is limited, nonobstructive pattern.) Disposition Clinical Impression: Constipation Disposition: HOME SELF-CARE Condition: Stable Instructions (If sedation given, give patient instructions): Constipation (ED) , High Fiber Diet (ED) Additional Instructions: Please follow-up with primary care physician in the next couple days for recheck. High-fiber diet. Return for abdominal pain, fevers, worsening symptoms or other concerns. Is patient prescribed a controlled substance at d/c from ED?: No Referrals: Holland Nye MD [Primary Care Provider] - 1-2 days Time of Disposition: 21:01
[2018-04-15 21:28] VITALS: BP 110/91; PULSE 102; RESP 14
== END 2018-04-15 21:30 | disposition home or self-care (01) ==
LOC: EC 18:06
DX: K59.00 Constipation, unspecified (principal); M41.9 Scoliosis, unspecified; M19.90 Unspecified osteoarthritis, unspecified site; G89.29 Other chronic pain; F41.9 Anxiety disorder, unspecified; F17.200 Nicotine dependence, unspecified, uncomplicated; Z79.891 Long term (current) use of opiate analgesic; Z79.899 Other long term (current) drug therapy; Z88.6 Allergy status to analgesic agent; Z88.8 Allergy status to other drugs, medicaments and biological substances; Z96.641 Presence of right artificial hip joint
CPT/HCPCS: 74018; 99284

== ENCOUNTER → 2018-07-17 | Outpatient (CLI) | payer MEDICARE ==
--- NOTE | 2018-07-17 15:47 | US ---
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 Bilateral wounds. No pain. No blood thinners. No red ness. No hx of DVT. SIDE PERFORMED: Bilateral TECHNIQUE: The lower extremity deep venous system is examined utilizing real time linear array sonog arfa with graded compression, doppler sonography and color-flow sonography. FINDINGS: VESSELS IMAGED: External Iliac Vein (EIV) Common Femoral Vein Deep Femoral Vein Greater Saphenous Vein * Femoral Vein Popliteal Vein Small Saphenous Vein * Proximal Calf Veins (* superficial vessels) Right Leg: Negative for DVT Left Leg: Negative for DVT IMPRESSION: No evidence for DVT within the bilateral lower extremities imaged from the groin to the upper calves. Some mild soft tissue swelling noted in the left popliteal region.
== END | disposition home or self-care (01) ==
LOC: RADUSWWP 13:56
PROVIDERS: ATTEND Nurse Practitioner Family
DX: M79.89 Other specified soft tissue disorders (principal)
CPT/HCPCS: 93922; 93970

== ENCOUNTER 2020-01-15 18:36 | Inpatient (IN) | payer MEDICARE ==
[2020-01-15] MEDS ORDERED: ACETAMINOPHEN TAB 500 MG TAB PO STA (18:45)
[2020-01-15] MEDS ORDERED: IPRATROPIUM-ALBUTEROL 3 ML NEB INHALATION PRN (18:45)
[2020-01-15] MEDS ORDERED: PNEUMONIA PROTOCOL UTILIZED 1 EACH MISC PO PRN (18:45)
[2020-01-15] MEDS ORDERED: IBUPROFEN 600 MG TAB PO STA (18:49)
--- NOTE | 2020-01-15 19:10 | ED ---
SOB HPI - General Chief Complaint: Shortness of Breath Stated Complaint: kali Time Seen by Provider: 01/15/20 18:44 Source: family, RN notes reviewed, old records reviewed Mode of arrival: wheelchair Limitations: physical limitation - History of Present Illness Initial Comments: this is a 74-year-old male DF for evaluation patient Dese for shortness of b reath and fever. Patient has had persistent fever for a day or 2 as well as antacid outpatient for coronavirus and was negative. Patient is without pain. Denying any other complaints sick contacts travel history nausea vomiting or diarrhea MD Complaint: shortness of breath, cough -: days(s) Severity: moderate Severity scale (1-10): 4 Consistency: constant Improves With: nothing Worsens With: nothing Known History Of: COPD, congestive heart failure Context: recent URI Associated Symptoms: denies other symptoms Treatments Prior to Arrival: none - Related Data Home Medications Medication Instructions Recorded Confirmed Sertraline HCl [Zoloft] 100 mg PO DAILY 12/24/14 01/15/20 Methadone [Dolophine] 10 mg PO QID 11/04/15 01/15/20 buPROPion XL [Wellbutrin Xl] 150 mg PO DAILY 01/15/20 01/15/20 Allergies Allergy/AdvReac Type Severity Reaction Status Date / Time aspirin AdvReac Intermediate ringing in Verified 01/15/20 19:49 the ears Antihistamines - Alkylamine AdvReac Mild shaking Verified 01/15/20 19:49 Review of Systems ROS Statement: Those systems with pertinent positive or pertinent negative responses have been documented in the HPI. ROS Other: All systems not noted in ROS Statement are negative. Past Medical History Past Medical History: GERD/Reflux, Musculoskeletal Disorder, Neurologic Disorder, Osteoarthritis (OA), Skin Disorder, Vascular Disorder Additional Past Medical History / Comment(s): WOUNDS ON BILATERAL LOWER EXTREMITIES and feet, Childhood polio, post polio syndrome, chronic low back pain, wounds both legs, cervical injury from fall 02/2017, uses crutches. History of Any Multi-Drug Resistant Organisms: MRSA Date of last positivie culture/infection: 09/03/18 MDRO Source:: left LEG Past Surgical History: Back Surgery, Bowel Resection, Joint Replacement, Orthopedic Surgery Additional Past Surgical History / Comment(s): Right hip replacement. Bilateral carpal tunnel. Surgery to legs and feet. Cervical fusion of C3-4, spinal fusion as a child, laminecomy 30 yrs ago. Past Anesthesia/Blood Transfusion Reactions: No Reported Reaction Past Psychological History: Anxiety Smoking Status: Current every day smoker Past Alcohol Use History: None Reported Past Drug Use History: None Reported - Past Family History Father Family Medical History: Coronary Artery Disease (CAD) Additional Family Medical History / Comment(s): heart arrythymia Brother(s) Family Medical History: Cancer General Exam Limitations: physical limitation General appearance: alert, in no apparent distress Head exam: Present: atraumatic, normocephalic, normal inspection Eye exam: Present: normal appearance, PERRL, EOMI. Absent: scleral icterus, conjunctival injection, periorbital swelling ENT exam: Present: normal exam, mucous membranes moist Neck exam: Present: normal inspection. Absent: tenderness, meningismus, lymphadenopathy Respiratory exam: Present: decreased breath sounds, prolonged expiratory. Absent: respiratory distress, wheezes, rales, rhonchi, stridor Cardiovascular Exam: Present: regular rate, normal rhythm, normal heart sounds. Absent: systolic murmur, diastolic murmur, rubs, gallop, clicks GI/Abdominal exam: Present: soft, normal bowel sounds. Absent: distended, te nderness, guarding, rebound, rigid Extremities exam: Present: normal inspection, full ROM, normal capillary refill. Absent: tenderness, pedal edema, joint swelling, calf tenderness Back exam: Present: normal inspection Neurological exam: Present: alert, oriented X3, CN II-XII intact Psychiatric exam: Present: normal affect, normal mood Skin exam: Present: warm, dry, intact, normal color. Absent: rash Course Vital Signs 01/15/20 18:38 Temperature 100.4 F H Pulse Rate 60 Respiratory 18 Rate Blood Pressure 159/88 O2 Sat by Pulse 93 L Oximetry - Reevaluation(s) Reevaluation #1: 01/15/20 19:09 medical records reviewed 01/15/20 19:09 prior negative coronavirus test Medical Decision Making - Medical Decision Making 74 male DF for evaluation patient has likely coronavirus, patient will be admitted cardiopulmonary support supportive care - Lab Data Result diagrams: 01/15/20 19:11 01/15/20 19:11 - EKG Data -: EKG Interpreted by Me (EKG is sinus rhythm 97. NC 120 QRS 88 QTc 482) - Radiology Data Radiology results: report reviewed (CXR BL infiltrates), image reviewed Critical Care Time Critical Care Time: Yes Total Critical Care Time: 31 Disposition Clinical Impression: Coronavirus infection, Pneumonia due to COVID-19 virus Disposition: ADMITTED IP TO THIS HOSP Condition: Serious Is patient prescribed a controlled substance at d/c from ED?: No
[2020-01-15 19:28] LABS: Basophils % (A) 0 %; Eosinophils % (A) 0 %; HCT 42.5 % (39.0-53.0); HGB 13.2 gm/dL (13.0-17.5); Lymphocytes # (A) 0.3 k/uL (1.0-4.8); Lymphocytes % (A) 5 %; MCH 32.5 pg (25.0-35.0); MCHC 31.1 g/dL (31.0-37.0); MCV 104.6 fL (80.0-100.0); Macrocytosis Slight; Mean Platelet Volume 7.6; Monocytes # (A) 0.4 k/uL (0-1.0); Monocytes % (A) 5 %; Neutrophils # (A) 6.1 k/uL (1.3-7.7); Neutrophils % (A) 87 %; Platelet Count 437 k/uL (150-450); RBC 4.06 m/uL (4.30-5.90); RDW 12.9 % (11.5-15.5); WBC 7.1 k/uL (3.8-10.6)
[2020-01-15 19:37] LABS: ALT 18 U/L (4-49); AST 27 U/L (17-59); African American GFR (CKD) >90 (>60 ml/min/1.73 sqM); Albumin 3.7 g/dL (3.5-5.0); Alkaline Phosphatase 87 U/L (38-126); Anion Gap 7 mmol/L; Blood Urea Nitrogen 12 mg/dL (9-20); Calcium 8.9 mg/dL (8.4-10.2); Carbon Dioxide 33 mmol/L (22-30); Chloride 96 mmol/L (98-107); Glucose 115 mg/dL (74-99); LDH 408 U/L (313-618); Magnesium 1.7 mg/dL (1.6-2.3); Non-African American GFR(CKD) >90 (>60 ml/min/1.73 sqM); Potassium 3.8 mmol/L (3.5-5.1); Sodium 136 mmol/L (137-145); Total Protein 7.3 g/dL (6.3-8.2)
[2020-01-15 19:40] LABS: INR 1.5 (<1.2); Partial Thromboplastin Time 36.4 sec (22.0-30.0); Prothrombin Time 15.2 sec (9.0-12.0)
--- NOTE | 2020-01-15 19:55 | XR ---
EXAMINATION: XR chest 2V portable DATE AND TIME: 01/15/2020 7:32 PM CLINICAL INDICATION: Dyspnea, chest congestion, cough for one week;suspected COVID-19 pneumonia TECHNIQUE: 2 AP upright portable radiographs were obtained. COMPARISON: No chest radiograph or CT available, but images from abdominal radiographs 04/15/2018 were utilized. FINDINGS: Chronic architectural distortion redemonstrated, providing artifactual summation of the lesly g bases. There is evidence suggesting left mid lung zone and right lower lung zone groundglass opacity. There are small scattered streak-like ill-defined added opacities in the lung bases bilaterally. The pleural spaces are negative. The cardiac silhouette appears mildly enlarged, similar to the 2019 radiographic appearance. The jennifer liang of the mediastinal silhouette is unremarkable as seen. The skeletal structures and soft tissues are negative for acute findings. IMPRESSION: Bilateral pulmonary findings evident, which can be further characterized with noncontrast CT if clini mary lou necessary.
[2020-01-15 20:06] LABS: C Reactive Protein 137.6 mg/L (<10.0)
[2020-01-15] MEDS ORDERED: AZITHROMYCIN 500 MG in SODIUM CHLORIDE 0.9% 250 ML IVPB STA (20:15)
--- NOTE | 2020-01-16 07:58 | XR ---
EXAMINATION TYPE: XR chest 1V portable DATE OF EXAM: 01/16/2020 COMPARISON: 01/15/2020 INDICATION: Pneumonia TECHNIQUE: Single frontal view of the chest is obtained. FINDINGS: The heart size is normal. The pulmonary vasculature is normal. Right lower lobe infiltrate is worsening. Some mild atelectasis may be at the left base. Scoliosis is present. IMPRESSION: 1. Bibasilar infiltrates, worsening on the right. Correlate for pneumonia. Small pleural effusion may be developing. Continued follow-up is recommended.
[2020-01-16] MEDS: ALBUTEROL HFA INHALER INHALATION PRN ×2 (08:37→12:08)
[2020-01-16] MEDS: ENOXAPARIN 40 MG/0.4 ML SYRINGE SQ SCH (08:55)
[2020-01-16] MEDS: SERTRALINE 100 MG TAB PO SCH (10:43)
[2020-01-16] MEDS: buPROPion XL 150 MG TAB.ER.24H PO SCH (10:43)
[2020-01-16] MEDS: METHADONE 10 MG TAB PO SCH ×3 (10:43→21:05)
[2020-01-16] MEDS: AZITHROMYCIN 500 MG TAB PO SCH (12:17)
[2020-01-16] MEDS ORDERED: IPRATROPIUM-ALBUTEROL 3 ML NEB INHALATION PRN (15:09)
--- NOTE | 2020-01-16 15:52 | P.HPIM ---
History of Present Illness H&P Date: 01/16/20 Chief Complaint: Fever, cough, shortness of breath His is a 74-year-old gentleman with history of gastroesophageal reflux disease, ankylosis spondylosis , osteoarthritis, vascular disorder, wounds on bilateral lower extremities and feet, chronic back pain, cervical injury 2016, gait dysfunction, uses crutches, anxiety, ongoing nicotine dependence and multiple other medical issues presented to the ER with worsening shortness of breath, cough, fever. Apparently over 1 week ago patient was having respiratory symptoms of cough congestion fevers and chills, followed up with his PCP reports testing negative for both influenza as well as covid. Denies chest pain, palpitations. On admission temperature is 100.4, blood cultures obtained, pending. Currently afebrile, normal WBC. Bilateral lower extremity dressings were placed by wound care center on Sunday. INR 1.5, sodium 136, BUN 12, creatinine 0.47. Glucose 1:15, lactic acid 1.8, magnesium 1.7. LDH 408, C-reac tive protein 137.6. Pro-calcitonin 0.05. Covid pending, influenza A and B not detected. Chest x-ray reporting left midlung zone and right lower lung zone groundglass opacity with small scattered streak-like ill-defined added opacity's in the bases bilaterally, pleural spaces negative. Follow-up chest x-ray reported bibasilar infiltrates worsening on the right, correlate for pneumonia with small pleural effusion developing. EKG reporting sinus rhythm with Review of Systems ROS Statement: Those systems with pertinent positive or pertinent negative responses have been documented in the HPI. ROS Other: All systems not noted in ROS Statement are negative. Past Medical History Past Medical History: GERD/Reflux, Musculoskeletal Disorder, Neurologic Disorder, Osteoarthritis (OA), Skin Disorder, Vascular Disorder Additional Past Medical History / Comment(s): WOUNDS ON BILATERAL LOWER EXTREMITIES and feet, Childhood polio, post polio syndrome, chronic low back pain, wounds both legs, cervical injury from fall 02/2017, uses crutches. History of Any Multi-Drug Resistant Organisms: MRSA Date of last positivie culture/infection: 09/03/18 MDRO Source:: left LEG Past Surgical History: Back Surgery, Bowel Resection, Joint Replacement, Orthopedic Surgery Additional Past Surgical History / Comment(s): Right hip replacement. Bilateral carpal tunnel. Surgery to legs and feet. Cervical fusion of C3-4, spinal fusion as a child, laminecomy 30 yrs ago. Past Anesthesia/Blood Transfusion Reactions: No Reported Reaction Past Psychological History: Anxiety Additional Psychological History / Comment(s): RECENTLY DIAGNOSED WITH BONE MARROW CANCER. Smoking Status: Current every day smoker Past Alcohol Use History: None Reported Additional Past Alcohol Use History / Comment(s): has smoked since age 16 less than 1ppd Past Drug Use History: None Reported - Past Family History Father Family Medical History: Coronary Artery Disease (CAD) Additional Family Medical History / Comment(s): heart arrythymia Brother(s) Family Medical History: Cancer Medications and Allergies Home Medications Medication Instructions Recorded Confirmed Type Sertraline HCl [Zoloft] 100 mg PO DAILY 12/24/14 01/15/20 History Methadone [Dolophine] 10 mg PO QID 11/04/15 01/15/20 History buPROPion XL [Wellbutrin Xl] 150 mg PO DAILY 01/15/20 01/15/20 History Allergies Allergy/AdvReac Type Severity Reaction Status Date / Time aspirin AdvReac Intermediate ringing in Verified 01/15/20 19:49 the ears Antihistamines - Alkylamine AdvReac Mild shaking Verified 01/15/20 19:49 Physical Exam Vitals: Vital Signs Temp Pulse Pulse Resp BP BP Pulse Ox 01/16/20 07:00 98.3 F 79 16 128/80 99 01/16/20 00:45 98.3 F 82 20 119/69 98 01/16/20 00:00 16 01/15/20 20:44 98.8 F 62 16 129/78 96 01/15/20 18:45 96 01/15/20 18:38 100.4 F H 60 18 159/88 93 L Intake and Output 01/15/20 01/16/20 01/16/20 22:59 06:59 14:59 Intake Total 300 400 120 Balance 300 400 120 Intake: Oral 300 400 120 Other: Voiding Method Diaper # Voids 2 Weight 58.967 kg PHYSICAL EXAM: VITAL SIGNS: [As above] GENERAL: Sitting up in bed, no acute distress HEENT: Conjunctivae normal. eyes normal. NECK: No JVD. No thyroid enlargement. No LNs CARDIOVASCULAR: S1, S2 regular.. No murmur RESPIRATION: Breath sounds diminished in the bases. No rhonchi or crackles. Prolonged expiration, weak cough. ABDOMEN: Soft, nontender . No guarding. no masses palpable. No ascites, No hepatosplenomegaly.Bowel sounds heard. LEGS: Bilateral lower extremities wrapped on Sunday at wound care center. Please refer to pictures as per nursing PSYCHIATRY: Alert and oriented X3, mood and affect normal. NERVOUS SYSTEM: Cranial N 2-12 grossly normal.Diffuse weakness No focal deficits. Strength and sensation grossly intact. Skin: Warm and dry, no rash Results CBC & Chem 7: 01/15/20 19:11 01/15/20 19:11 Labs: Abnormal Lab Results - Last 24 Hours (Table) 01/15/20 01/15/20 01/15/20 Range/Units 19:11 19:11 19:11 RBC 4.06 L (4.30-5.90) m/uL MCV 104.6 H (80.0-100.0) fL Lymphocytes # 0.3 L (1.0-4.8) k/uL PT 15.2 H (9.0-12.0) sec INR 1.5 H (<1.2) APTT 36.4 H (22.0-30.0) sec Sodium 136 L (137-145) mmol/L Chloride 96 L (98-107) mmol/L Carbon Dioxide 33 H (22-30) mmol/L Creatinine 0.47 L (0.66-1.25) mg/dL Glucose 115 H (74-99) mg/dL C-Reactive Protein 137.6 H (<10.0) mg/L Thrombosis Risk Factor Assmnt - Choose All That Apply Each Risk Factor Represents 2 Points: Age 61-74 years Thrombosis Risk Factor Assessment Total Risk Factor Score: 2 Thrombosis Risk Factor Assessment Level: Low Risk Assessment and Plan Assessment: Acute hypoxic respiratory failure, secondary to bibasilar pneumonia, COVID pending Gastroesophageal reflux disease Osteoarthritis Vascular disorder with chronic wounds on bilateral lower extremities. Pictures being obtained. Chronic back pain Chronic Cervical injury Anxiety Ongoing nicotine dependence ankylosis spondylosis Plan: Continue on current medication regime monitoring and symptomatic treatment. Maintain on gentle IV fluid hydration, Zithromax and Rocephin, nebulized bronchodilator treatments. Blood cultures obtained, pending. Sputum culture pending. ID and pulmonary consults in place, recommendations pending. The impression and plan of care has been dictated as directed. : I performed a history and examination of this patient, discussed the same with the dictator. I agree with the dictator's note ,documented as a scribe. Any additional findings or plans will be noted.
[2020-01-16] MEDS ORDERED: IPRATROPIUM-ALBUTEROL 3 ML NEB INHALATION SCH (16:00)
[2020-01-16] MEDS: ALBUTEROL HFA INHALER INHALATION SCH ×2 (16:34→18:51)
--- NOTE | 2020-01-16 16:49 | P.CNPUL ---
History of Present Illness Consult date: 01/16/20 Requesting physician: Holland Nye Reason for consult: dyspnea Chief complaint: Shortness of breath, fever History of present illness: This is a pleasant 74-year-old gentleman with a known history of childhood polio, post polio syndrome, ankylosing spondylosis, chronic low back pain, chronic wounds to the lower extremities, severe scoliosis, chronic and ongoing tobacco dependence. He follows with Dr. Nye is his primary care provider. He presented to the emergency room last evening with complaints of a persistent fever lasting over 2 days. He was admitted with suspicion of mondragon virus. Asked x-ray does show evidence of bibasilar infiltrates right greater than left. Small pleural effusion. T-max 100.4. O2 saturation 93% on room air. White count 7.1. Hemoglobin 13.2. Lymphocytes 0.3. Sodium 136. Potassium 3.8. Creatinine 0.47. LDH 408. C-reactive protein 137. Pro-calcitonin 0.05. Influenza screen negative. Covid 19 screen pending. He is seen today in consu ltation on the regular medical floor. He is currently sitting up in a chair at the bedside. Awake and alert in no acute distress. He has a loose nonproductive cough. Dyspnea with minimal exertion. Currently afebrile. He has been initiated on ceftriaxone, azithromycin, bronchodilators and Spiriva. He is on methadone. Lovenox for DVT prophylaxis. Review of Systems REVIEW OF SYSTEMS: CONSTITUTIONAL: Fever. Denies any recent significant weight loss or weight gain . EYES: Denies change in vision. EARS, NOSE, MOUTH, THROAT: Denies headaches, denies sore throat. CARDIOVASCULAR: Denies chest pain, palpitations or syncopal episodes. RESPIRATORY: Acid of 4 shortness of breath, cough, congestion no hemoptysis. GASTROINTESTINAL: Denies change in appetite, denies abdominal pain GENITOURINARY: Denies hematuria, denies infections. MUSKULOSKELETAL: Denies pain, denies swelling. INTEGUMENTARY: Denies rash, denies eczema. NEUROLOGICAL: Denies recent memory loss, no recent seizure activity. PSYCHIATRIC: Denies anxiety, denies depression. HEMATOLOGIC/LYMPHATIC: Denies anemia, denies enlarged lymph nodes. Past Medical History Past Medical History: GERD/Reflux, Musculoskeletal Disorder, Neurologic Disorder, Osteoarthritis (OA), Skin Disorder, Vascular Disorder Additional Past Medical History / Comment(s): WOUNDS ON BILATERAL LOWER EXTREMITIES and feet, Childhood polio, post polio syndrome, chronic low back pain, wounds both legs, cervical injury from fall 02/2017, uses crutches. History of Any Multi-Drug Resistant Organisms: MRSA Date of last positivie culture/infection: 09/03/18 MDRO Source:: left LEG Past Surgical History: Back Surgery, Bowel Resection, Joint Replacement, Orthopedic Surgery Additional Past Surgical History / Comment(s): Right hip replacement. Bilateral carpal tunnel. Surgery to legs and feet. Cervical fusion of C3-4, spinal fusion as a child, laminecomy 30 yrs ago. Past Anesthesia/Blood Transfusion Reactions: No Reported Reaction Past Psychological History: Anxiety Additional Psychological History / Comment(s): RECENTLY DIAGNOSED WITH BONE MARROW CANCER. Smoking Status: Current every day smoker Past Alcohol Use History: None Reported Additional Past Alcohol Use History / Comment(s): has smoked since age 16 less than 1ppd Past Drug Use History: None Reported - Past Family History Father Family Medical History: Coronary Artery Disease (CAD) Additional Family Medical History / Comment(s): heart arrythymia Brother(s) Family Medical History: Cancer Medications and Allergies Home Medications Medication Instructions Recorded Confirmed Type Sertraline HCl [Zoloft] 100 mg PO DAILY 12/24/14 01/15/20 History Methadone [Dolophine] 10 mg PO QID 11/04/15 01/15/20 History buPROPion XL [Wellbutrin Xl] 150 mg PO DAILY 01/15/20 01/15/20 History Allergies Allergy/AdvReac Type Severity Reaction Status Date / Time aspirin AdvReac Intermediate ringing in Verified 01/15/20 19:49 the ears Antihistamines - Alkylamine AdvReac Mild shaking Verified 01/15/20 19:49 Physical Exam Vitals: Vital Signs Temp Pulse Pulse Resp BP BP Pulse Ox 01/16/20 15:00 98.9 F 84 20 120/68 93 L 01/16/20 07:00 98.3 F 79 16 128/80 99 01/16/20 00:45 98.3 F 82 20 119/69 98 01/16/20 00:00 16 01/15/20 20:44 98.8 F 62 16 129/78 96 01/15/20 18:45 96 01/15/20 18:38 100.4 F H 60 18 159/88 93 L Intake and Output 01/16/20 01/16/20 01/16/20 06:59 14:59 22:59 Intake Total 400 170 Balance 400 170 Intake: IV 50 cefTRIAXone 1 gm In 50 Sodium Chloride 0.9% 50 ml @ 100 mls/hr IVPB Q24HR [facility] Rx#:[id number] Oral 400 120 Other: Voiding Method Diaper # Voids 2 GENERAL EXAM: Alert, pleasant 74-year-old gentleman, on 2 L nasal cannula, comfortable in no apparent distress. HEAD: Normocephalic. EYES: Normal reaction of pupils, equal size. NOSE: Clear with pink turbinates. THROAT: No erythema or exudates. NECK: No masses, no JVD. CHEST: No significant anterior chest wall abnormalities LUNGS: Equal air entry with basilar crackles, right greater than left. CVS: S1 and S2 normal with no audible murmur, regular rhythm. ABDOMEN: No hepatosplenomegaly, normal bowel sounds, no guarding or rigidity. SPINE: Positive for scoliosis, severe deformities SKIN: Her neck wounds of the lower extremities CENTRAL NERVOUS SYSTEM: No focal deficits, tone is normal in all 4 extremities. EXTREMITIES: Seen in the wound clinic for multiple areas of chronic wounds. There is no peripheral edema. No clubbing, no cyanosis. Peripheral pulses are intact. Results - Laboratory Findings CBC and BMP: 01/15/20 19:11 01/15/20 19:11 PT/INR, D-dimer PT 15.2 sec (9.0-12.0) H 01/15/20 19:11 INR 1.5 (<1.2) H 01/15/20 19:11 Abnormal lab findings: Abnormal Labs 01/15/20 01/15/20 01/15/20 19:11 19:11 19:11 RBC 4.06 L MCV 104.6 H Lymphocytes # 0.3 L PT 15.2 H INR 1.5 H APTT 36.4 H Sodium 136 L Chloride 96 L Carbon Dioxide 33 H Creatinine 0.47 L Glucose 115 H C-Reactive Protein 137.6 H - Diagnostic Findings Chest x-ray: image reviewed Assessment and Plan Assessment: 1 Acute hypoxic respiratory failure secondary to suspected community-acquired pneumonia versus CoVID 19 pneumonitis, testing pending, earlier outpatient testing negative 2 Febrile illness secondary to above 3 Ankylosing spondylitis 4 Chronic back pain with severe deformities 5 Chronic tobacco dependency 6 Chronic obstructive pulmonary disease 7 Chronic wounds of the lower extremities 8 Post polio syndrome 9 Multiple orthopedic surgeries 10 History of anxiety Plan: The patient was seen and evaluated by Dr. Obrien Chest x-ray and labs reviewed Suspect community-acquired pneumonia more so on the right lower lobe Continue ceftriaxone and azithromycin Covid 19 screen pending Continue isolation precautions for now Continue bronchodilators Titrate the FiO2 as tolerated Continue to follow make further recommendations based on his clinical status I, the cosigning physician, performed a history & physical examination of the patient. Lungs sounds basilar crackles right greater than left. Maintaining good O2 saturations in the 90s on 2 L/m per nasal cannula. I discussed the assessment and plan of care with my nurse practitioner, Latoya Mansfield. I attest to the above consultation as dictated by her. Time with Patient: Greater than 30
--- NOTE | 2020-01-16 23:27 | P.CONS ---
History of Present Illness - Reason for Consult Consult date: 01/16/20 Suspected Covid Requesting physician: Holland Nye - Chief Complaint Fever and cough x few days - History of Present Illness Patient is 74 year old male with a past medical history significant for childhood polio/post polio syndrome and cognizant spondylitis presenting to the ER with chief complaints of fever for the last 2 days patient is also complaining of cough which has been moderate intensity and bringing up some white sputum and no hemoptysis. Denies having any pleuritic chest pain, patient did mention some of the family member tested positive for Covid 19, patient on presentation the hospital did have a low-grade fever 100.4 patient did have a O2 sat of 93% on room air subsequently 99% on 2 L, patient did have a normal white count with lymphopenia liver enzymes are normal CRP is elevated and pro- calcitonin is normal, patient did have a chest x-ray with evidence of bibasilar infiltrate worsening on the right correlated for pneumonia, patient has been started on Rocephin and Zithromax patient did have a nasopharyngeal swab for Covid impending influenza screening was negative Review of Systems Positive point has been mentioned in the HPI rest of the systems are negative Past Medical History Past Medical History: GERD/Reflux, Musculoskeletal Disorder, Neurologic Dis order, Osteoarthritis (OA), Skin Disorder, Vascular Disorder Additional Past Medical History / Comment(s): WOUNDS ON BILATERAL LOWER EXTREMITIES and feet, Childhood polio, post polio syndrome, chronic low back pain, wounds both legs, cervical injury from fall 02/2017, uses crutches. History of Any Multi-Drug Resistant Organisms: MRSA Year Discovered:: 09/03/18 MDRO Source:: left LEG Past Surgical History: Back Surgery, Bowel Resection, Joint Replacement, Orthopedic Surgery Additional Past Surgical History / Comment(s): Right hip replacement. Bilateral carpal tunnel. Surgery to legs and feet. Cervical fusion of C3-4, spinal fusion as a child, laminecomy 30 yrs ago. Past Anesthesia/Blood Transfusion Reactions: No Reported Reaction Past Psychological History: Anxiety Additional Psychological History / Comment(s): RECENTLY DIAGNOSED WITH BONE MARROW CANCER. Smoking Status: Current every day smoker Past Alcohol Use History: None Reported Additional Past Alcohol Use History / Comment(s): has smoked since age 16 less than 1ppd Past Drug Use History: None Reported - Past Family History Father Family Medical History: Coronary Artery Disease (CAD) Additional Family Medical History / Comment(s): heart arrythymia Brother(s) Family Medical History: Cancer Medications and Allergies Home Medications Medication Instructions Recorded Confirmed Type Sertraline HCl [Zoloft] 100 mg PO DAILY 12/24/14 01/15/20 History Methadone [Dolophine] 10 mg PO QID 11/04/15 01/15/20 History buPROPion XL [Wellbutrin Xl] 150 mg PO DAILY 01/15/20 01/15/20 History Allergies Allergy/AdvReac Type Severity Reaction Status Date / Time aspirin AdvReac Intermediate ringing in Verified 01/15/20 19:49 the ears Antihistamines - Alkylamine AdvReac Mild shaking Verified 01/15/20 19:49 Physical Exam Vitals: Vital Signs Temp Pulse Resp BP Pulse Ox 01/16/20 19:35 99.4 F 87 20 129/70 94 L 01/16/20 15:00 98.9 F 84 20 120/68 93 L 01/16/20 07:00 98.3 F 79 16 128/80 99 01/16/20 00:45 98.3 F 82 20 119/69 98 01/16/20 00:00 16 Intake and Output 01/16/20 01/16/20 01/17/20 14:59 22:59 06:59 Intake Total 170 100 Balance 170 100 Intake: IV 50 cefTRIAXone 1 gm In 50 Sodium Chloride 0.9% 50 ml @ 100 mls/hr IVPB Q24HR [facility] Rx#:[id number] Oral 120 100 GENERAL DESCRIPTION: An elderly male up in the chair, no distress. No tachypnea or accessory muscle of respiration use. HEENT: Shows Pallor , no scleral icterus. Oral mucous membrane is dry. No pharyngeal erythema or thrush NECK: Trachea central, no thyromegaly. LUNGS: Unlabored breathing. Decreased intensity of breath sounds. No wheeze or crackle. HEART: S1, S2, regular rate and rhythm. No loud murmur ABDOMEN: Soft, no tenderness , guarding or rigidity, no organomegaly EXTREMITIES: No edema of feet. SKIN: No rash, no masses palpable. NEUROLOGICAL: The patient is awake, alert, oriented x3, mood and affect normal. Results CBC & Chem 7: 01/15/20 19:11 01/15/20 19:11 Labs: Microbiology - Last 24 Hours (Table) 01/15/20 19:11 Blood Culture - Preliminary Blood No Growth after 24 hours Assessment and Plan Assessment: 1- patient is 74-year-old male presenting to the hospital with fever increasing shortness of breath and cough in this patient who did have evidence of bilateral infiltrate normal white count with lymphopenia elevated CRP and normal pro-calcitonin high clinical suspicious for acute covid 19 infection (1) Pneumonia due to COVID-19 virus Current Visit: Yes Status: Acute Code(s): U07.1 - COVID-19; J12.89 - OTHER VIRAL PNEUMONIA SNOMED Code(s): 602558533864410967 Plan: 1- we will wait for the covid 19 test to be finalized 2- patient is currently on Zithromax. Will add dexamethasone lovenox and zinc sulfate 3- droplet isolation and respiratory support We will follow on clinical condition and cultures to further adjust medication if needed Thank you for this consultation will follow this patient with you Time with Patient: Greater than 30
[2020-01-17] MEDS: methylPREDNISolone SOD SUCCI 40 MG/ML 1 ML VIAL IV SCH ×3 (00:47→21:05)
[2020-01-17] MEDS: ACETAMINOPHEN TAB 325 MG TAB PO PRN ×2 (00:51→16:21)
[2020-01-17 07:14] LABS: Glucose,Whole Blood 160 mg/dL (75-99)
[2020-01-17] MEDS: SERTRALINE 100 MG TAB PO SCH (08:29)
[2020-01-17] MEDS: buPROPion XL 150 MG TAB.ER.24H PO SCH (08:29)
[2020-01-17] MEDS: ENOXAPARIN 40 MG/0.4 ML SYRINGE SQ SCH (08:29)
[2020-01-17] MEDS: METHADONE 10 MG TAB PO SCH ×4 (08:29→21:05)
[2020-01-17] MEDS: ZINC SULFATE 220 MG CAP PO SCH (08:29)
[2020-01-17] MEDS: AZITHROMYCIN 500 MG TAB PO SCH (08:30)
[2020-01-17] MEDS: ALBUTEROL HFA INHALER INHALATION SCH ×4 (08:45→20:48)
[2020-01-17] MEDS: TIOTROPIUM 18 MCG/PUFF INHALER INHALATION SCH (08:46)
--- NOTE | 2020-01-17 09:57 | XR ---
EXAMINATION TYPE: XR chest 1V portable DATE OF EXAM: 01/17/2020 CLINICAL HISTORY: Pneumonia. TECHNIQUE: Portable frontal view of the chest. COMPARISON: 01/16/2020 chest radiograph FINDINGS: Scoliosis. The cardiomediastinal silhouette is unchanged. Pulmonary vasculature is normal. There is increased haziness over the left mid lung versus 01/16/2020. Redemonstrated right basilar ai rspace and pleural opacities. No pneumothorax. IMPRESSION: 1. Increased haziness of the left midlung versus 01/16/2020. 2. Right basilar airspace opacities and right pleural effusion unchanged.
--- NOTE | 2020-01-17 13:12 | P.PN ---
Subjective Progress Note Date: 01/17/20 Principal diagnosis: Suspect covid 19 Known history of post polio syndrome, fever for the last 2 days with cough denies chest pain sats 99% on 2 L nasal cannula, normal white count and liver enzymes are normal CRP was elevated pro calcitonin was normal chest x-ray evidence of basilar infiltrates Objective - Vital Signs Vital signs: Vital Signs Temp 98.3 F 01/17/20 07:00 Pulse 76 01/17/20 01:45 Resp 16 01/17/20 08:00 BP 117/68 01/17/20 07:00 Pulse Ox 91 L 01/17/20 07:00 Intake & Output 01/16/20 01/17/20 01/17/20 18:59 06:59 18:59 Intake Total 170 300 Output Total 2 Balance 170 298 Intake: IV 50 cefTRIAXone 1 gm In 50 Sodium Chloride 0.9% 50 ml @ 100 mls/hr IVPB Q24HR [facility] Rx#:[id number] Oral 120 300 Output: Urine/Stool Mix 2 Other: Voiding Method Diaper Diaper # Voids 1 # Bowel Movements 1 - Exam General: [Patient awake, alert and oriented times 3. Patient in no acute distress.] HEENT: [PERRL. EOMI. No pharyngeal erythema or exudate.] Neck: [No adenopathy.] Cardiac: [Heart regular in rate and rhythm. No S3. No S4. No clicks, rubs. No murmur.] Lungs: [Clear to auscultation bilaterally.] Abdomen: [No mass. No organomegaly. Bowel sounds presnt and normoactive in all 4 quadrants.] Extremes: [No edema no cyanosis no claudication normal pulses] : Normal male genitalia Musculoskeletal: [No joint erythema, edema or tenderness.] Skin: [No rash.] Neurologic: [No lateralizing deficits. CN II - XII grossly intact.] Lymphatic: [No adenopathy.] - Labs CBC & Chem 7: 01/15/20 19:11 01/15/20 19:11 Labs: Abnormal Lab Results - Last 24 Hours (Table) 01/17/20 Range/Units 07:13 POC Glucose (mg/dL) 160 H (75-99) mg/dL Microbiology - Last 24 Hours (Table) 01/15/20 19:11 Blood Culture - Preliminary Blood No Growth after 24 hours Assessment and Plan (1) Coronavirus infection Current Visit: Yes Status: Acute Code(s): B34.2 - CORONAVIRUS INFECTION, UNSPECIFIED SNOMED Code(s): 890034414 (2) Pneumonia due to COVID-19 virus Current Visit: Yes Status: Acute Code(s): U07.1 - COVID-19; J12.89 - OTHER VIRAL PNEUMONIA SNOMED Code(s): 740392584792229993 (3) Cellulitis Current Visit: No Status: Acute Code(s): L03.90 - CELLULITIS, UNSPECIFIED SNOMED Code(s): 596817041 (4) Post-polio syndrome Current Visit: No Status: Acute Code(s): G14 - POSTPOLIO SYNDROME SNOMED Code(s): 56745976 Plan: Patient admitted to the hospital Consultation with pulmonary medicine Consultation with infectious disease Patient started on dexamethasone IV Lovenox zinc sulfate Continue droplet isolation Time with Patient: Greater than 30
--- NOTE | 2020-01-17 14:28 | P.PN ---
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 He follows with Dr. Nye is his primary care provider. He presented to the emergency room last evening with complaints of a persistent fever lasting over 2 days. He was admitted with suspicion of mondragon virus. Asked x-ray does show evidence of bibasilar infiltrates right greater than left. Small pleural effusion. T-max 100.4. O2 saturation 93% on room air. White count 7.1. Hemoglobin 13.2. Lymphocytes 0.3. Sodium 136. Potassium 3.8. Creatinine 0.47. LDH 408. C-reactive protein 137. Pro-calcitonin 0.05. Influenza screen negative. Covid 19 screen pending. He is seen today in c onsultation on the regular medical floor. He is currently sitting up in a chair at the bedside. Awake and alert in no acute distress. He has a loose nonproductive cough. Dyspnea with minimal exertion. Currently afebrile. He has been initiated on ceftriaxone, azithromycin, bronchodilators and Spiriva. He is on methadone. Lovenox for DVT prophylaxis. The patient is seen today 01/17/2020 in follow-up on the regular medical floor. He is currently resting comfortably in bed. Awake and alert in no acute distress. He denies any worsening shortness of breath, cough or congestion. He is maintaining O2 saturations in the 90s on 2 L/m per nasal cannula. He remains afebrile. Blood glucose 160. Covid 19 screen still pending. Chest x-ray reveals left midlung haziness and right basilar airspace opacities with right pleural effusion. He is continued on antibiotics in the form of ceftriaxone and azithromycin. Remains on Lovenox, IV Solu-Medrol, bronchodilators. Objective - Vital Signs Vital signs: Vital Signs Temp 98.3 F 01/17/20 07:00 Pulse 76 01/17/20 01:45 Resp 16 01/17/20 08:00 BP 117/68 01/17/20 07:00 Pulse Ox 91 L 01/17/20 07:00 Intake & Output 01/16/20 01/17/20 01/17/20 18:59 06:59 18:59 Intake Total 170 300 Output Total 2 Balance 170 298 Intake: IV 50 cefTRIAXone 1 gm In 50 Sodium Chloride 0.9% 50 ml @ 100 mls/hr IVPB Q24HR [facility] Rx#:[id number] Oral 120 300 Output: Urine/Stool Mix 2 Other: Voiding Method Diaper Diaper # Voids 1 # Bowel Movements 1 - Exam GENERAL EXAM: Alert, pleasant 74-year-old gentleman, on 2 L nasal cannula, comfortable in no apparent distress. HEAD: Normocephalic. EYES: Normal reaction of pupils, equal size. NOSE: Clear with pink turbinates. THROAT: No erythema or exudates. NECK: No masses, no JVD. CHEST: No significant anterior chest wall abnormalities LUNGS: Equal air entry with basilar crackles, right greater than left. CVS: S1 and S2 normal with no audible murmur, regular rhythm. ABDOMEN: No hepatosplenomegaly, normal bowel sounds, no guarding or rigidity. SPINE: Positive for scoliosis, severe deformities SKIN: Her neck wounds of the lower extremities CENTRAL NERVOUS SYSTEM: No focal deficits, tone is normal in all 4 extremities. EXTREMITIES: Seen in the wound clinic for multiple areas of chronic wounds. There is no peripheral edema. No clubbing, no cyanosis. Peripheral pulses are intact. - Labs CBC & Chem 7: 01/15/20 19:11 01/15/20 19:11 Labs: Abnormal Lab Results - Last 24 Hours (Table) 01/17/20 Range/Units 07:13 POC Glucose (mg/dL) 160 H (75-99) mg/dL Microbiology - Last 24 Hours (Table) 01/15/20 19:11 Blood Culture - Preliminary Blood No Growth after 24 hours Assessment and Plan Assessment: 1 Acute hypoxic respiratory failure secondary to suspected community-acquired pneumonia versus CoVID 19 pneumonitis, testing pending, earlier outpatient testing negative 2 Febrile illness secondary to above, recovered 3 Ankylosing spondylitis 4 Chronic back pain with severe deformities 5 Chronic tobacco dependency 6 Chronic obstructive pulmonary disease 7 Chronic wounds of the lower extremities 8 Post polio syndrome 9 Multiple orthopedic surgeries 10 History of anxiety Plan: The patient was seen and evaluated by Dr. Obrien Chest x-ray and labs reviewed Suspect community-acquired pneumonia Continue ceftriaxone and azithromycin Covid 19 screen pending Continue isolation precautions for now Continue bronchodilators Titrate the FiO2 as tolerated We will continue to follow and make further recommendations based on his clinical status I, the cosigning physician, performed a history & physical examination of the patient. Lungs sounds basilar crackles. Maintaining good O2 saturations in the 90s on 2 L/m per nasal cannula. I discussed the assessment and plan of care with my nurse practitioner, Latoya Mansfield. I attest to the above note as dictated by her.
[2020-01-17 21:33] LABS: Glucose,Whole Blood 122 mg/dL (75-99)
--- NOTE | 2020-01-17 23:56 | PN ---
PROGRESS NOTE DATE OF SERVICE: 01/17/2020. REASON FOR FOLLOWUP: Pneumonia. INTERVAL HISTORY: Patient is currently afebrile. The patient is breathing more comfortably. Denies any chest pain. Did have a cough, not bringing up any sputum. No nausea, no vomiting. No abdominal pain. No diarrhea. PHYSICAL EXAMINATION: Blood pressure 129/74 with a pulse of 87, temperature 98.1. He is 94% on 2 L nasal cannula. General description is an elderly male up in the bed in no distress. Respiratory system: Unlabored breathing, decreased intensity of breath sounds. No wheeze. Heart S1, S2. Regular rate and rhythm. ABDOMEN: Soft. No tenderness. LABS: No new labs have been obtained today. Blood culture has been negative. Hayes PCR is pending. DIAGNOSTIC IMPRESSION AND PLAN: Patient admitted to the hospital with pneumonia with concern for possible community- acquired versus Covid-19. Hayes PCR is still pending. Patient is currently covered on Rocephin and Zithromax with overall clinical improvement, to continue and monitor clinical course closely. MMODL / IJN: [id number] /
[2020-01-18] MEDS: SERTRALINE 100 MG TAB PO SCH (07:06)
[2020-01-18] MEDS: METHADONE 10 MG TAB PO SCH ×4 (07:06→20:55)
[2020-01-18] MEDS: ZINC SULFATE 220 MG CAP PO SCH (07:06)
[2020-01-18] MEDS: AZITHROMYCIN 500 MG TAB PO SCH (07:06)
[2020-01-18] MEDS: buPROPion XL 150 MG TAB.ER.24H PO SCH (07:06)
[2020-01-18] MEDS: methylPREDNISolone SOD SUCCI 40 MG/ML 1 ML VIAL IV SCH ×2 (07:07→20:55)
[2020-01-18] MEDS: ENOXAPARIN 40 MG/0.4 ML SYRINGE SQ SCH (07:07)
[2020-01-18 07:21] LABS: Glucose,Whole Blood 140 mg/dL (75-99)
[2020-01-18] MEDS: TIOTROPIUM 18 MCG/PUFF INHALER INHALATION SCH (07:44)
[2020-01-18] MEDS: ALBUTEROL HFA INHALER INHALATION SCH ×4 (07:44→20:49)
--- NOTE | 2020-01-18 11:55 | P.PN ---
Subjective Progress Note Date: 01/18/20 Principal diagnosis: Suspect covid 19 versus community-acquired pneumonia Known history of post polio syndrome, fever for the last 2 days with cough denies chest pain sats 99% on 2 L nasal cannula, normal white count and liver enzymes are normal CRP was elevated pro calcitonin was normal chest x-ray evidence of basilar infiltrates 01/18/2020 Patient symptoms have improved currently in isolation covid 19 PCR testing pending Objective - Vital Signs Vital signs: Vital Signs Temp 97.6 F 01/18/20 07:00 Pulse 88 01/18/20 07:07 Resp 18 01/18/20 07:07 BP 141/74 01/18/20 07:00 Pulse Ox 95 01/18/20 07:00 Intake & Output 01/17/20 01/18/20 01/18/20 18:59 06:59 18:59 Intake Total 100 1000 Balance 100 1000 Intake: Intake, IV Titration 100 Amount cefTRIAXone 1 gm In 100 Sodium Chloride 0.9% 50 ml @ 100 mls/hr IVPB Q24HR [facility] Rx#:[id number] Oral 1000 Other: Voiding Method Diaper Diaper Diaper # Voids 2 # Bowel Movements 1 - Exam General: [Patient awake, alert and oriented times 3. Patient in no acute distress.] HEENT: [PERRL. EOMI. No pharyngeal erythema or exudate.] Neck: [No adenopathy.] Cardiac: [Heart regular in rate and rhythm. No S3. No S4. No clicks, rubs. No murmur.] Lungs: Mild congestion bilateral lung [place] Abdomen: [No mass. No organomegaly. Bowel sounds presnt and normoactive in all 4 quadrants.] Extremes: [No edema no cyanosis no claudication normal pulses] : Normal male genitalia Musculoskeletal: [No joint erythema, edema or tenderness.] Skin: [No rash.] Neurologic: [No lateralizing deficits. CN II - XII grossly intact.] Lymphatic: [No adenopathy.] - Labs CBC & Chem 7: 01/15/20 19:11 01/15/20 19:11 Labs: Abnormal Lab Results - Last 24 Hours (Table) 01/17/20 01/18/20 Range/Units 21:31 07:20 POC Glucose (mg/dL) 122 H 140 H (75-99) mg/dL Microbiology - Last 24 Hours (Table) 01/15/20 19:11 Blood Culture - Preliminary Blood No Growth after 48 hours Assessment and Plan (1) Coronavirus infection Current Visit: Yes Status: Acute Code(s): B34.2 - CORONAVIRUS INFECTION, UNSPECIFIED SNOMED Code(s): 031415150 (2) Pneumonia due to COVID-19 virus Current Visit: Yes Status: Acute Code(s): U07.1 - COVID-19; J12.89 - OTHER VIRAL PNEUMONIA SNOMED Code(s): 521867587946970604 (3) Cellulitis Current Visit: No Status: Acute Code(s): L03.90 - CELLULITIS, UNSPECIFIED SNOMED Code(s): 505262167 (4) Post-polio syndrome Current Visit: No Status: Acute Code(s): G14 - POSTPOLIO SYNDROME SNOMED Code(s): 18318981 Plan: Patient admitted to the hospital Consultation with pulmonary medicine Consultation with infectious disease Patient started on dexamethasone IV Lovenox zinc sulfate Currently getting Rocephin and Zithromax her community-acquired pneumonia protocol Continue droplet isolation Waiting on Covid 19 PCR testing results Time with Patient: Greater than 30
--- NOTE | 2020-01-18 15:26 | P.PN ---
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 He follows with Dr. Nye is his primary care provider. He presented to the emergency room last evening with complaints of a persistent fever lasting over 2 days. He was admitted with suspicion of mondragon virus. Asked x-ray does show evidence of bibasilar infiltrates right greater than left. Small pleural effusion. T-max 100.4. O2 saturation 93% on room air. White count 7.1. Hemoglobin 13.2. Lymphocytes 0.3. Sodium 136. Potassium 3.8. Creatinine 0.47. LDH 408. C-reactive protein 137. Pro-calcitonin 0.05. Influenza screen negative. Covid 19 screen pending. He is seen today in c onsultation on the regular medical floor. He is currently sitting up in a chair at the bedside. Awake and alert in no acute distress. He has a loose nonproductive cough. Dyspnea with minimal exertion. Currently afebrile. He has been initiated on ceftriaxone, azithromycin, bronchodilators and Spiriva. He is on methadone. Lovenox for DVT prophylaxis. The patient is seen today 01/17/2020 in follow-up on the regular medical floor. He is currently resting comfortably in bed. Awake and alert in no acute distress. He denies any worsening shortness of breath, cough or congestion. He is maintaining O2 saturations in the 90s on 2 L/m per nasal cannula. He remains afebrile. Blood glucose 160. Covid 19 screen still pending. Chest x-ray reveals left midlung haziness and right basilar airspace opacities with right pleural effusion. He is continued on antibiotics in the form of ceftriaxone and azithromycin. Remains on Lovenox, IV Solu-Medrol, bronchodilators. The patient is seen today 01/18/2020 in follow-up on the regular medical floor. He is currently sitting up in bed. Awake and alert in no acute distress. No worsening shortness of breath, cough or congestion. Continues to maintain good O2 saturations in the 90s on room air. He's afebrile. Hemodynamically stable. Covid 19 screen still pending. He remains on ceftriaxone and azithromycin along with bronchodilators. Lovenox for DVT prophylaxis. IV Solu-Medrol. Objective - Vital Signs Vital signs: Vital Signs Temp 97.6 F 01/18/20 15:00 Pulse 77 01/18/20 15:00 Resp 16 01/18/20 15:00 BP 117/77 01/18/20 15:00 Pulse Ox 94 L 01/18/20 15:00 Intake & Output 01/17/20 01/18/20 01/18/20 18:59 06:59 18:59 Intake Total 100 1000 100 Balance 100 1000 100 Intake: Intake, IV Titration 100 100 Amount cefTRIAXone 1 gm In 100 100 Sodium Chloride 0.9% 50 ml @ 100 mls/hr IVPB Q24HR [facility] Rx#:[id number] Oral 1000 Other: Voiding Method Diaper Diaper Diaper # Voids 2 # Bowel Movements 1 - Exam GENERAL EXAM: Alert, pleasant 74-year-old gentleman, on room air, comfortable in no apparent distress. HEAD: Normocephalic. EYES: Normal reaction of pupils, equal size. NOSE: Clear with pink turbinates. THROAT: No erythema or exudates. NECK: No masses, no JVD. CHEST: No significant anterior chest wall abnormalities LUNGS: Equal air entry with basilar crackles, right greater than left. CVS: S1 and S2 normal with no audible murmur, regular rhythm. ABDOMEN: No hepatosplenomegaly, normal bowel sounds, no guarding or rigidity. SPINE: Positive for scoliosis, severe deformities SKIN: Her neck wounds of the lower extremities CENTRAL NERVOUS SYSTEM: No focal deficits, tone is normal in all 4 extremities. EXTREMITIES: Seen in the wound clinic for multiple areas of chronic wounds. There is no peripheral edema. No clubbing, no cyanosis. Peripheral pulses are intact. - Labs CBC & Chem 7: 01/15/20 19:11 01/15/20 19:11 Labs: Abnormal Lab Results - Last 24 Hours (Table) 01/17/20 01/18/20 Range/Units 21:31 07:20 POC Glucose (mg/dL) 122 H 140 H (75-99) mg/dL Microbiology - Last 24 Hours (Table) 01/15/20 19:11 Blood Culture - Preliminary Blood No Growth after 48 hours Assessment and Plan Assessment: 1 Acute hypoxic respiratory failure secondary to suspected community-acquired pneumonia versus CoVID 19 pneumonitis, testing pending, earlier outpatient te sting negative 2 Febrile illness secondary to above, recovered 3 Ankylosing spondylitis 4 Chronic back pain with severe deformities 5 Chronic tobacco dependency 6 Chronic obstructive pulmonary disease 7 Chronic wounds of the lower extremities 8 Post polio syndrome 9 Multiple orthopedic surgeries 10 History of anxiety Plan: The patient was seen and evaluated by Dr. Obrien Cleared for discharge from the pulmonary standpoint Covid 19 screen pending Continue isolation precautions for now Antibiotics per ID service I, the cosigning physician, performed a history & physical examination of the patient. Lungs sounds basilar crackles. Maintaining good O2 saturations in the 90s on room air. I discussed the assessment and plan of care with my nurse practitioner, Latoya Mansfield. I attest to the above note as dictated by her.
[2020-01-18] MEDS: ACETAMINOPHEN TAB 325 MG TAB PO PRN (20:56)
[2020-01-18 21:07] LABS: Glucose,Whole Blood 118 mg/dL (75-99)
--- NOTE | 2020-01-19 06:54 | PN ---
PROGRESS NOTE DATE OF SERVICE: 01/18/2020 REASON FOR FOLLOWUP: Pneumonia. INTERVAL HISTORY: The patient is currently afebrile. The patient is breathing comfortably. The patient denies having any chest pain. Did have a cough decreased intensity, but no purulent sputum. No hemoptysis. No nausea, no vomiting. No abdominal pain or diarrhea. PHYSICAL EXAMINATION: Blood pressure 117/77 with a pulse of 77, temperature 97.6. He is 94% on room air. General description is an elderly male up in the bed in no distress. RESPIRATORY SYSTEM: Unlabored breathing, decreased intensity of breath sounds. No wheeze. HEART: S1, S2. Regular rate and rhythm. ABDOMEN: Soft, no tenderness. LABS: No new labs have been obtained today. DIAGNOSTIC IMPRESSION AND PLAN: Patient admitted to the hospital with fever with pneumonia, possible community- acquired. This patient overall improvement with Rocephin and Zithromax. If patient continues to improve, finish therapy with a short course of Zithromax. Continue with supportive care. MMODL / IJN: [id number] /
[2020-01-19 07:09] LABS: Glucose,Whole Blood 123 mg/dL (75-99)
[2020-01-19] MEDS: methylPREDNISolone SOD SUCCI 40 MG/ML 1 ML VIAL IV SCH (07:35)
[2020-01-19] MEDS: SERTRALINE 100 MG TAB PO SCH (07:36)
[2020-01-19] MEDS: METHADONE 10 MG TAB PO SCH ×2 (07:36→11:48)
[2020-01-19] MEDS: ZINC SULFATE 220 MG CAP PO SCH (07:37)
[2020-01-19] MEDS: buPROPion XL 150 MG TAB.ER.24H PO SCH (07:38)
[2020-01-19] MEDS: AZITHROMYCIN 500 MG TAB PO SCH (07:38)
[2020-01-19] MEDS: ENOXAPARIN 40 MG/0.4 ML SYRINGE SQ SCH (07:38)
[2020-01-19] MEDS: ALBUTEROL HFA INHALER INHALATION SCH ×2 (07:56→11:21)
[2020-01-19] MEDS: TIOTROPIUM 18 MCG/PUFF INHALER INHALATION SCH (07:57)
[2020-01-19 11:29] LABS: Glucose,Whole Blood 98 mg/dL (75-99)
--- NOTE | 2020-01-19 12:29 | P.DS ---
Providers Date of admission: 01/15/20 18:47 Attending physician: Holland Nye Consults: 01/15/20 20:14 Consult Physician Routine Consulting Provider: Ladi Espinoza Consult Reason/Comments: covid Do you want consulting provider notified?: Yes Consult Physician Urgent Consulting Provider: Kristy Villagomez Consult Reason/Comments: covid Do you want consulting provider notified?: Yes Primary care physician: Holland Nye Hospital Course: Final Diagnoses: Acute hypoxic respiratory failure, secondary to bibasilar pneumonia, COVID pending, suspect community-acquired pneumonia, significantly improved. 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 Pictures being obtained. Chronic back pain Chronic Cervical injury Anxiety Ongoing nicotine dependence ankylosis spondylosis Hospital course:This is a 74-year-old gentleman with history of gastroesophageal reflux disease, ankylosis spondylosis , osteoarthritis, vascular disorder, wounds on bilateral lower extremities and feet, chronic back pain, cervical injury 2016, gait dysfunction, uses crutches, anxiety, ongoing nicotine dependence and multiple other medical issues presented to the ER with worsening shortness of breath, cough, fever. Apparently over 1 week ago patient was having respiratory symptoms of cough congestion fevers and chills, followed up with his PCP reports testing negative for both influenza as well as covid. Denies chest pain, palpitations. On admission temperature is 100.4, blood cultures obtained, pending. Currently afebrile, normal WBC. Bilateral lower extremity dressings were placed by wound care center on Sunday. INR 1.5, sodium 136, BUN 12, creatinine 0.47. Glucose 1:15, lactic acid 1.8, magnesium 1.7. LDH 408, C-reactive protein 137.6. Pro-calcitonin 0.05. Covid pending, influenza A and B not detected. Chest x-ray reporting left midlung zone and right lower lung zone groundglass opacity with small scattered streak-like ill- defined added opacity's in the bases bilaterally, pleural spaces negative. Follow-up chest x-ray reported bibasilar infiltrates worsening on the right, correlate for pneumonia with small pleural effusion developing. EKG reporting sinus rhythm with Evaluated by infectious disease and pulmonary. Maintained on IV antibiotics of ceftriaxone, azithromycin as per infectious disease, in addition to steroids, bronchodilators. Covid testing pending. Significant clinical improvement. Cleared by infectious disease and pulmonary for discharge. Patient is being discharged home in a stable condition with guarded prognosis. The impression and plan of care has been dictated as directed. : I performed a history and examination of this patient, discussed the same with the dictator. I agree with the dictator's note ,documented as a scribe. Any additional findings or plans will be noted. Patient Condition at Discharge: Stable Plan - Discharge Summary Discharge Rx Participant: No New Discharge Prescriptions: New Zinc Sulfate [Orazinc] 220 mg PO DAILY cap predniSONE 10 mg PO DIRECTED #30 tab Tiotropium 18 Mcg/Puff [Spiriva] 1 puff INHALATION RT-DAILY #1 inhaler Albuterol Inhaler [Ventolin Hfa Inhaler] 2 puff INHALATION RT-QID #1 inh Azithromycin [Zithromax] 500 mg PO DAILY #4 tab Continue Sertraline HCl [Zoloft] 100 mg PO DAILY Methadone [Dolophine] 10 mg PO QID buPROPion XL [Wellbutrin XL] 150 mg PO DAILY Discharge Medication List Sertraline HCl [Zoloft] 100 mg PO DAILY 12/24/14 [History] Methadone [Dolophine] 10 mg PO QID 11/04/15 [History] buPROPion XL [Wellbutrin XL] 150 mg PO DAILY 01/15/20 [History] Albuterol Inhaler [Ventolin Hfa Inhaler] 2 puff INHALATION RT-QID #1 inh 01/19/20 [Rx] Azithromycin [Zithromax] 500 mg PO DAILY #4 tab 01/19/20 [Rx] Tiotropium 18 Mcg/Puff [Spiriva] 1 puff INHALATION RT-DAILY #1 inhaler 01/19/20 [Rx] Zinc Sulfate [Orazinc] 220 mg PO DAILY cap 01/19/20 [Rx] predniSONE 10 mg PO DIRECTED #30 tab 01/19/20 [Rx] Follow up Appointment(s)/Referral(s): [facility] [NON-STAFF] - (Call to inquire about a bedside commode. ) [facility], [NON-STAFF] - Holland Nye MD [Primary Care Provider] - 1-2 days (Please call office after results from COVID test) [facility] [NON-STAFF] - (Call to inquire about a bedside commode. )
[2020-01-19 15:13] VITALS: BP 136/79; PULSE 82; RESP 16; TEMP 98.4
--- NOTE | 2020-01-19 16:46 | PN ---
PROGRESS NOTE DATE OF SERVICE: 01/19/2020 REASON FOR FOLLOWUP: Pneumonia. INTERVAL HISTORY: The patient is currently afebrile. The patient is feeling better and breathing comfortably. The patient's cough has decreased in intensity. No abdominal pain or diarrhea. Overall he is feeling better and wants to go home. PHYSICAL EXAMINATION: Blood pressure 113/73 with a pulse of 58, temperature 97.7. He is 97% on room air. General description is an elderly male decreased intensity of breath sounds. ABDOMEN: Soft. EXTREMITIES: No edema of the feet. LABS: White count 7.1. DIAGNOSTIC IMPRESSION AND PLAN: Patient with pneumonia, possibly community-acquired. responded to the close outpatient followup. MMODL / IJN: [id number] /
--- NOTE | 2020-01-19 22:58 | PN ---
PROGRESS NOTE PULMONARY/CRITICAL CARE PROGRESS NOTE: DATE OF SERVICE: 01/19/2020 This is a 74-year-old gentleman admitted on January 14. He was admitted with a diagnosis of acute hypoxemic respiratory failure secondary to community-acquired pneumonia versus COVID-19 pneumonitis. His current COVID-19 test is pending. In addition, the patient has a history of febrile illness secondary to #1 above, ankylosing spondylitis, chronic back pain, chronic tobacco dependence, COPD, chronic wounds of the lower extremities, post-polio syndrome and anxiety. Currently the patient is doing well. He has no major complaints. He is not requiring any oxygen therapy. Vital signs are stable. His temperature is 98.4, heart rate 82, respiratory rate 16, blood pressure 136/79, mean 98, and room-air saturation between 91% and 97%. GENERAL APPEARANCE: He appears in no acute distress. HEENT: Examination is grossly unremarkable. NECK: Supple. CARDIOVASCULAR: Examination reveals regular rhythm and rate. S1, S2 normal. No S3, S4 or murmur. LUNGS: Lungs are clear, breath sounds equal. No wheezes, rhonchi or crackles. ABDOMEN: Soft. EXTREMITIES: Intact. There is no cyanosis, clubbing or edema. SKIN: Without rash. NEUROLOGIC: Neurologic examination is brief but nonfocal. LABS/IMAGING: Reviewed. Nothing from today as yet. Microbiology is currently pending or negative. The most recent chest x-ray from January 16 shows left mid lung infiltrate and right basilar infiltrate. Medications are reviewed. ASSESSMENT: 1. Acute hypoxemic respiratory failure secondary to community-acquired pneumonia versus COVID-19 pneumonitis. Current COVID-19 test pending. 2. Stable respiratory status at this time. 3. History of ankylosing spondylitis. 4. Chronic back pain. 5. Chronic tobacco dependency. 6. Chronic obstructive pulmonary disease, stable. 7. Chronic wounds of the lower extremities. 8. Post-polio syndrome. 9. History of anxiety. PLAN: Currently the patient is doing well. Will continue to follow. Prognosis is guarded. Antibiotics per ID. Discharge planning underway. MMODL / IJN: [id number] /
--- NOTE | 2020-01-21 01:15 | CDI ---
Documentation Clarification Form Date: 01/21/2020 From: Celio Parker Phone: If you have a question about this query, please contact Gisella Macdonald, Senior Manufacturing Technician at [phone] between 8am and 5pm. Admit Date: 01/15/2020 Discharge Date: 01/19/2020 Patient Name: Carlin Garduno Visit Number: [id number] ATTENTION: The Clinical Documentation Specialists (CDI) and [facility] Coding Staff appreciate your assistance in clarifying documentation. Please respond to the clarification below the line at the bottom and electronically sign. The CDI & [facility] Coding staff will review the response and follow-up if needed. Please note: Queries are made part of the Legal Health Record. If you have any questions, please contact the author of this message via ITS. Dear Holland Medellin MD., Covid 19 suspected is documented in through out medical record. Patient history/risk factors: COPD, Acute respiratory failure. CXR:Right basilar airspace opacities and right pleural effusion unchanged. Labs: COVID- NOT DETECTED Vital Signs:01/16/20 07:00 98.3 F 79 16 128/80 99 Per 01/15 Consult note by Ladi Espinoza MD " patient is 74-year-old male presenting to the hospital with fever increasing shortness of breath and cough in this patient who did have evidence of bilateral infiltrate normal white count with lymphopenia elevated CRP and normal pro-calcitonin high clinical suspicious for acute covid 19 infection". Acute hypoxic respiratory failure, secondary to bibasilar pneumonia, COVID pending, suspect community-acquired pneumonia, significantly improved. In order to capture the severity of condition, please clarify if the above treatment/clinical indicators signify: COVID-19 Suspected COVID-19 ruled out COVID-19 confirmed Other, please specify Unable to determine ___ MTDD
--- NOTE | 2020-01-25 20:33 | CDI ---
Documentation Clarification Form Date: 02/09/2020 From: Celio Parker Phone: If you have a question about this query, please contact Gisella Macdonald, Power And Recovery Shift Engineer at [phone] between 8am and 5pm. Admit Date: 01/15/2020 Discharge Date: 01/19/2020 Patient Name: Carlin Garduno Visit Number: [id number] ATTENTION: The Clinical Documentation Specialists (CDI) and [facility] Coding Staff appreciate your assistance in clarifying documentation. Please respond to the clarification below the line at the bottom and electronically sign. The CDI & [facility] Coding staff will review the response and follow-up if needed. Please note: Queries are made part of the Legal Health Record. If you have any questions, please contact the author of this message via ITS. Dear Dr Bearden, Covid 19 suspected is documented in through out medical record. Patient history/risk factors: COPD, Acute respiratory failure. CXR:Right basilar airspace opacities and right pleural effusion unchanged. Labs: COVID- NOT DETECTED Vital Signs:01/16/20 07:00 98.3 F 79 16 128/80 99 Per 01/15 Consult note by Ladi Espinoza MD " patient is 74-year-old male presenting to the hospital with fever increasing shortness of breath and cough in this patient who did have evidence of bilateral infiltrate normal white count with lymphopenia elevated CRP and normal pro-calcitonin high clinical suspicious for acute covid 19 infection". Acute hypoxic respiratory failure, secondary to bibasilar pneumonia, COVID pending, suspect community-acquired pneumonia, significantly improved. In order to capture the severity of condition, please clarify if the above treatment/clinical indicators signify: COVID-19 Suspected COVID-19 ruled out COVID-19 confirmed Other, please specify Unable to determine _Novel coronavirus /covid19 initially suspected, ruled out, diagnosis of community acquired pneumonia confirmed appropriately treated patient appropriately discharged home on appropriate medications MTDD
== END 2020-01-19 15:36 | disposition home health service (06) | DRG 193 ==
LOC: EC 18:36 → 4SSUR 18:47
PROVIDERS: ADMIT Family Medicine; ATTEND Family Medicine
DX: J18.9 Pneumonia, unspecified organism (principal); J96.01 Acute respiratory failure with hypoxia; J44.0 Chronic obstructive pulmonary disease with (acute) lower respiratory infection; L03.90 Cellulitis, unspecified; K21.9 Gastro-esophageal reflux disease without esophagitis; M19.90 Unspecified osteoarthritis, unspecified site; Z96.641 Presence of right artificial hip joint; F17.200 Nicotine dependence, unspecified, uncomplicated; D72.810 Lymphocytopenia; F41.9 Anxiety disorder, unspecified; G89.29 Other chronic pain; Z20.828 Contact with and (suspected) exposure to other viral communicable diseases; M41.9 Scoliosis, unspecified; M45.9 Ankylosing spondylitis of unspecified sites in spine; G14 Postpolio syndrome; Z98.1 Arthrodesis status; Z79.899 Other long term (current) drug therapy; Z79.52 Long term (current) use of systemic steroids; Z88.6 Allergy status to analgesic agent; Z88.8 Allergy status to other drugs, medicaments and biological substances; Z82.49 Family history of ischemic heart disease and other diseases of the circulatory system; Z98.890 Other specified postprocedural states; Z86.14 Personal history of Methicillin resistant Staphylococcus aureus infection; Z80.9 Family history of malignant neoplasm, unspecified
CPT/HCPCS: 36415; 71045; 80053; 83605; 83615; 83735; 84145; 85025; 85610; 85730; 86140; 87040; 87502; 93005; 94640; 99291

== ENCOUNTER 2020-04-18 00:44 | Emergency (ER) | payer MEDICARE ==
[2020-04-18] MEDS ORDERED: SODIUM CHLORIDE 0.9% 500 ML 500 ML IV ONE (01:35)
--- NOTE | 2020-04-18 02:05 | ED ---
Skin/Abscess/FB HPI - General Chief complaint: Skin/Abscess/Foreign Body Stated complaint: cellulitis Time Seen by Provider: 04/18/20 00:49 Source: patient, EMS Mode of arrival: EMS Limitations: no limitations - History of Present Illness Initial comments: 74 year-old male patient with past history significant for chronic leg wounds and venous insufficiency presents to the emergency department for evaluation of possible cellulitis to the right lower extremity. Patient states that he receives care at the wound care center. He last saw them about a week ago and they wrapped his left leg, but wanted him to be seen in ER for redness to the right lower leg. Patient states that he has had weeping from the right leg. States that it does appear to be more red than usual. He denies any fever or chills. Denies nausea, vomiting, dizzines, or weakness. Patient denies any recent rash, cough, shortness of breath, chest pain, abdominal pain, diarrhea, constipation, back pain, numbness, tingling, hematuria, dysuria, urinary urgency, urinary frequency, headache, visual changes, or any other complaints. - Related Data Home Medications Medication Instructions Recorded Confirmed Sertraline HCl [Zoloft] 100 mg PO DAILY 12/24/14 01/15/20 Methadone [Dolophine] 10 mg PO QID 11/04/15 01/15/20 buPROPion XL [Wellbutrin XL] 150 mg PO DAILY 01/15/20 01/15/20 Previous Rx's Medication Instructions Recorded Albuterol Inhaler [Ventolin Hfa 2 puff INHALATION RT-QID #1 inh 01/19/20 Inhaler] Azithromycin [Zithromax] 500 mg PO DAILY #4 tab 01/19/20 Tiotropium 18 Mcg/Puff [Spiriva] 1 puff INHALATION RT-DAILY #1 01/19/20 inhaler Zinc Sulfate [Orazinc] 220 mg PO DAILY cap 01/19/20 predniSONE 10 mg PO DIRECTED #30 tab 01/19/20 Clindamycin [Cleocin] 450 mg PO Q6H #120 cap 04/18/20 Allergies Allergy/AdvReac Type Severity Reaction Status Date / Time aspirin AdvReac Intermediate ringing in Verified 04/18/20 01:53 the ears Antihistamines - Alkylamine AdvReac Mild shaking Verified 04/18/20 01:53 Review of Systems ROS Statement: Those systems with pertinent positive or pertinent negative responses have been documented in the HPI. ROS Other: All systems not noted in ROS Statement are negative. Past Medical History Past Medical History: GERD/Reflux, Musculoskeletal Disorder, Neurologic Disorder, Osteoarthritis (OA), Skin Disorder, Vascular Disorder Additional Past Medical History / Comment(s): WOUNDS ON BILATERAL LOWER EXTREMITIES and feet, Childhood polio, post polio syndrome, chronic low back pain, wounds both legs, cervical injury from fall 02/2017, uses crutches. History of Any Multi-Drug Resistant Organisms: MRSA Date of last positivie culture/infection: 09/03/18 MDRO Source:: left LEG Past Surgical History: Back Surgery, Bowel Resection, Joint Replacement, Orthopedic Surgery Additional Past Surgical History / Comment(s): Right hip replacement. Bilateral carpal tunnel. Surgery to legs and feet. Cervical fusion of C3-4, spinal fusion as a child, laminecomy 30 yrs ago. Past Anesthesia/Blood Transfusion Reactions: No Reported Reaction Past Psychological History: Anxiety Smoking Status: Current every day smoker Past Alcohol Use History: None Reported Past Drug Use History: None Reported - Past Family History Father Family Medical History: Coronary Artery Disease (CAD) Additional Family Medical History / Comment(s): heart arrythymia Brother(s) Family Medical History: Cancer General Exam Limitations: no limitations General appearance: alert, in no apparent distress, other (this is a well- developed, well-nourished adult male patient in no acute distress.) Eye exam: Present: normal appearance, PERRL, EOMI. Absent: scleral icterus, conjunctival injection, periorbital swelling Respiratory exam: Present: normal lung sounds bilaterally. Absent: respiratory distress, wheezes, rales, rhonchi, stridor Cardiovascular Exam: Present: regular rate, normal rhythm, normal heart sounds. Absent: systolic murmur, diastolic murmur, rubs, gallop, clicks GI/Abdominal exam: Present: soft, normal bowel sounds. Absent: distended, tenderness, guarding, rebound, rigid Extremities exam: Present: full ROM, normal capillary refill, other (Right lower extremity erythema, weeping, purulent drainage, skin flaking and crusting. Left lower extremity weeping, purulence, skin flaking and crusting.). Absent: normal inspection, tenderness, pedal edema, joint swelling, calf tenderness Neurological exam: Present: alert, oriented X3, CN II-XII intact Psychiatric exam: Present: normal affect, normal mood Skin exam: Present: warm, dry, intact, normal color. Absent: rash Course Vital Signs 04/18/20 04/18/20 04/18/20 00:45 01:56 03:50 Temperature 98.3 F 97.9 F 98.2 F Pulse Rate 106 H 98 91 Respiratory 16 16 18 Rate Blood Pressure 131/57 99/63 113/71 O2 Sat by Pulse 99 98 97 Oximetry Medical Decision Making - Medical Decision Making 74-year-old male patient presented to the emergency department today for evaluation of possible cellulitis to the right lower extremity. Patient has chronic wounds and changes related to chronic venous insufficiency to the lower extremities. Physical examination did reveal crusting, flaking of skin. There is erythema noted over the right lower leg with small areas of weeping and purulence. He is afebrile, vital signs. Labs reviewed and are unremarkable white blood cell count is normal. Patient was started on clindamycin. He'll be instructed to follow-up with the wound care center as soon as possible. I did offer admission for IV antibiotics however patient states his has cancer and he is her primary caregiver and would really like to be discharged home. Return parameters were discussed in detail. He verbalizes understanding and agrees with this plan. Case discussed with my attending Dr. Grullon. - Lab Data Result diagrams: 04/18/20 01:43 04/18/20 01:43 Lab Results 04/18/20 04/18/20 04/18/20 Range/Units 01:43 01:43 01:43 WBC 4.3 (3.8-10.6) k/uL RBC 4.00 L (4.30-5.90) m/uL Hgb 13.5 (13.0-17.5) gm/dL Hct 43.2 (39.0-53.0) % MCV 107.8 H (80.0-100.0) fL MCH 33.8 (25.0-35.0) pg MCHC 31.4 (31.0-37.0) g/dL RDW 14.2 (11.5-15.5) % Plt Count 311 (150-450) k/uL MPV 7.2 Neutrophils % (Manual) 60 % Band Neuts % (Manual) 1 % Lymphocytes % (Manual) 26 % Monocytes % (Manual) 7 % Eosinophils % (Manual) 6 % Neutrophils # (Manual) 2.60 (1.3-7.7) k/uL Lymphocytes # (Manual) 1.12 (1.0-4.8) k/uL Monocytes # (Manual) 0.30 (0-1.0) k/uL Eosinophils # (Manual) 0.26 (0-0.7) k/uL Nucleated RBCs 0 (0-0) /100 WBC Manual Slide Review Performed Large Platelets Present Anisocytosis (manual) Present Macrocytosis Moderate Sodium 139 (137-145) mmol/L Potassium 4.3 (3.5-5.1) mmol/L Chloride 100 (98-107) mmol/L Carbon Dioxide 31 H (22-30) mmol/L Anion Gap 8 mmol/L BUN 14 (9-20) mg/dL Creatinine 0.51 L (0.66-1.25) mg/dL Est GFR (CKD-EPI)AfAm >90 (>60 ml/min/1.73 sqM) Est GFR (CKD-EPI)NonAf >90 (>60 ml/min/1.73 sqM) Glucose 110 H (74-99) mg/dL Plasma Lactic Acid Kaden 1.5 (0.7-2.0) mmol/L Calcium 9.1 (8.4-10.2) mg/dL Total Bilirubin 0.4 (0.2-1.3) mg/dL AST 31 (17-59) U/L ALT 19 (4-49) U/L Alkaline Phosphatase 119 (38-126) U/L Total Protein 7.2 (6.3-8.2) g/dL Albumin 3.8 (3.5-5.0) g/dL Disposition Clinical Impression: Cellulitis of right lower extremity Disposition: HOME SELF-CARE Condition: Good Instructions (If sedation given, give patient instructions): Cellulitis (ED), Chronic Wound Care (ED) Additional Instructions: Follow up with wound care center as soon as possible. Return immediately if you develop fever or vomiting. Return for any new, worsening, or concerning symptoms. Prescriptions: Clindamycin [Cleocin] 450 mg PO Q6H #120 cap Is patient prescribed a controlled substance at d/c from ED?: No Referrals: Holland Nye MD [Primary Care Provider] - 1-2 days
[2020-04-18 02:17] LABS: ALT 19 U/L (4-49); AST 31 U/L (17-59); African American GFR (CKD) >90 (>60 ml/min/1.73 sqM); Albumin 3.8 g/dL (3.5-5.0); Alkaline Phosphatase 119 U/L (38-126); Anion Gap 8 mmol/L; Blood Urea Nitrogen 14 mg/dL (9-20); Calcium 9.1 mg/dL (8.4-10.2); Carbon Dioxide 31 mmol/L (22-30); Chloride 100 mmol/L (98-107); Glucose 110 mg/dL (74-99); Non-African American GFR(CKD) >90 (>60 ml/min/1.73 sqM); Potassium 4.3 mmol/L (3.5-5.1); Sodium 139 mmol/L (137-145); Total Bilirubin 0.4 mg/dL (0.2-1.3); Total Protein 7.2 g/dL (6.3-8.2)
[2020-04-18 03:07] LABS: HCT 43.2 % (39.0-53.0); HGB 13.5 gm/dL (13.0-17.5); MCH 33.8 pg (25.0-35.0); MCHC 31.4 g/dL (31.0-37.0); MCV 107.8 fL (80.0-100.0); Macrocytosis Moderate; Mean Platelet Volume 7.2; Platelet Count 311 k/uL (150-450); RDW 14.2 % (11.5-15.5); WBC 4.3 k/uL (3.8-10.6)
[2020-04-18 03:26] LABS: Band Neutrophils % 1 %; Eosinophils # (M) 0.26 k/uL (0-0.7); Lymphocytes # (M) 1.12 k/uL (1.0-4.8); Neutrophils % (M) 60 %; Nucleated Red Blood Cells 0 /100 WBC (0-0); Total Cells Counted 100
[2020-04-18 03:27] LABS: Anisocytosis (M) Present
[2020-04-18 03:29] LABS: Large Platelets Present
[2020-04-18 04:31] VITALS: BP 113/71; PULSE 91; RESP 18; TEMP 98.2
== END 2020-04-18 04:10 | disposition home or self-care (01) ==
LOC: EC 00:44
DX: L03.115 Cellulitis of right lower limb (principal); F41.9 Anxiety disorder, unspecified; M19.90 Unspecified osteoarthritis, unspecified site; F17.200 Nicotine dependence, unspecified, uncomplicated; Z79.899 Other long term (current) drug therapy; Z96.641 Presence of right artificial hip joint; Z88.6 Allergy status to analgesic agent; Z88.8 Allergy status to other drugs, medicaments and biological substances
CPT/HCPCS: 36415; 80053; 83605; 85025; 96360; 99283

== ENCOUNTER 2020-04-28 00:27 | Observation (INO) | payer MEDICARE ==
[2020-04-28] MEDS ORDERED: SODIUM CHLORIDE 0.9% 1,000 ML IV STA (00:38)
[2020-04-28 00:54] LABS: Basophils # (A) 0.1 k/uL (0-0.2); Basophils % (A) 1 %; Eosinophils # (A) 0.2 k/uL (0-0.7); Eosinophils % (A) 4 %; Lymphocytes # (A) 0.7 k/uL (1.0-4.8); Lymphocytes % (A) 14 %; MCH 34.7 pg (25.0-35.0); MCHC 32.5 g/dL (31.0-37.0); MCV 106.9 fL (80.0-100.0); Macrocytosis Moderate; Mean Platelet Volume 7.6; Monocytes # (A) 0.5 k/uL (0-1.0); Monocytes % (A) 10 %; Neutrophils # (A) 3.3 k/uL (1.3-7.7); Neutrophils % (A) 67 %; Platelet Count 430 k/uL (150-450); RBC 3.75 m/uL (4.30-5.90); RDW 13.1 % (11.5-15.5)
[2020-04-28 01:05] LABS: ALT 20 U/L (4-49); AST 33 U/L (17-59); African American GFR (CKD) >90 (>60 ml/min/1.73 sqM); Albumin 3.6 g/dL (3.5-5.0); Alkaline Phosphatase 119 U/L (38-126); Anion Gap 6 mmol/L; Blood Urea Nitrogen 11 mg/dL (9-20); Carbon Dioxide 31 mmol/L (22-30); Chloride 98 mmol/L (98-107); Creatine Kinase 223 U/L (55-170); Glucose 109 mg/dL (74-99); Non-African American GFR(CKD) >90 (>60 ml/min/1.73 sqM); Phosphorus 3.2 mg/dL (2.5-4.5); Potassium 4.4 mmol/L (3.5-5.1); Sodium 135 mmol/L (137-145); Total Bilirubin 0.4 mg/dL (0.2-1.3); Total Protein 7.2 g/dL (6.3-8.2)
[2020-04-28 01:08] LABS: Partial Thromboplastin Time 30.3 sec (22.0-30.0); Prothrombin Time 10.7 sec (9.0-12.0)
--- NOTE | 2020-04-28 01:08 | ED ---
Extremity Problem HPI - General Chief complaint: Extremity Problem,Nontraumatic Stated complaint: Weakness Time Seen by Provider: 04/28/20 00:31 Source: patient, EMS, RN notes reviewed, old records reviewed Mode of arrival: EMS Limitations: physical limitation - History of Present Illness Initial comments: This is a 74-year-old male DF for evaluation patient presents today for evaluation of altered mental status not acting appropriately argumentative and combative, patient is failure to thrive unable to give himself at home wasn't is alone sitting in his own stool and feces, his own urine. He cannot make it to the bathroom presents today with son son concerned for patient's well-being, patient does have clue fracture of lower extremities with altered mental status and failure to thrive MD Complaint: extremity pain, extremity swelling -: days(s) Location: left, right, bilateral lower extremity History of Same: Yes Radiation: proximal Severity scale (1-10): 5 Quality: aching Consistency: constant Improves with: nothing Worsens with: nothing Associated Symptoms: denies other symptoms - Related Data Home Medications Medication Instructions Recorded Confirmed Sertraline HCl [Zoloft] 100 mg PO DAILY 12/24/14 04/28/20 Methadone [Dolophine] 10 mg PO QID 11/04/15 04/28/20 buPROPion XL [Wellbutrin XL] 150 mg PO DAILY 01/15/20 04/28/20 Albuterol Inhaler [Ventolin Hfa 2 puff INHALATION RT-QID PRN 04/28/20 04/28/20 Inhaler] Previous Rx's Medication Instructions Recorded Acetaminophen Tab [Tylenol] 650 mg PO Q6HR PRN tab 04/29/20 Clopidogrel [Plavix] 75 mg PO DAILY tab 04/29/20 Menthol-Zinc Oxide Oint 1 applic TOPICAL DAILY applic 04/29/20 [Calmoseptine Oint] Metoprolol Succinate (ER) [Toprol 12.5 mg PO DAILY tab.er.24h 04/29/20 XL] Pantoprazole [Protonix] 40 mg PO [id number]-[id number] tablet. 04/29/20 Sulfamethox-Tmp 400-80Mg [Bactrim 1 tab PO Q12HR 14 Days #28 tablet 04/29/20 SS 400-80 mg] Allergies Allergy/AdvReac Type Severity Reaction Status Date / Time aspirin AdvReac Intermediate ringing in Verified 04/18/20 01:53 the ears Antihistamines - Alkylamine AdvReac Mild shaking Verified 04/18/20 01:53 Review of Systems ROS Statement: Those systems with pertinent positive or pertinent negative responses have been documented in the HPI. ROS Other: All systems not noted in ROS Statement are negative. Past Medical History Past Medical History: GERD/Reflux, Musculoskeletal Disorder, Neurologic Disorder, Osteoarthritis (OA), Skin Disorder, Vascular Disorder Additional Past Medical History / Comment(s): WOUNDS ON BILATERAL LOWER EXTREMITIES and feet, Childhood polio, post polio syndrome, chronic low back pain, wounds both legs, cervical injury from fall 02/2017, uses crutches. History of Any Multi-Drug Resistant Organisms: MRSA Date of last positivie culture/infection: 09/03/18 MDRO Source:: left LEG Past Surgical History: Back Surgery, Bowel Resection, Joint Replacement, Or thopedic Surgery Additional Past Surgical History / Comment(s): Right hip replacement. Bilateral carpal tunnel. Surgery to legs and feet. Cervical fusion of C3-4, spinal fusion as a child, laminecomy 30 yrs ago. Past Anesthesia/Blood Transfusion Reactions: No Reported Reaction Past Psychological History: Anxiety Smoking Status: Current every day smoker Past Alcohol Use History: None Reported Past Drug Use History: None Reported - Past Family History Father Family Medical History: Coronary Artery Disease (CAD) Additional Family Medical History / Comment(s): heart arrythymia Brother(s) Family Medical History: Cancer General Exam Limitations: physical limitation General appearance: alert, in no apparent distress Head exam: Present: atraumatic, normocephalic, normal inspection Eye exam: Present: normal appearance, PERRL, EOMI. Absent: scleral icterus, conjunctival injection, periorbital swelling ENT exam: Present: normal exam, mucous membranes moist Neck exam: Present: normal inspection. Absent: tenderness, meningismus, lymphadenopathy Respiratory exam: Present: normal lung sounds bilaterally. Absent: respiratory distress, wheezes, rales, rhonchi, stridor Cardiovascular Exam: Present: regular rate, normal rhythm, normal heart sounds. Absent: systolic murmur, diastolic murmur, rubs, gallop, clicks GI/Abdominal exam: Present: soft, normal bowel sounds. Absent: distended, tend erness, guarding, rebound, rigid Extremities exam: Present: normal inspection, full ROM, normal capillary refill, other (Bilateral lower extremity cellulitis infection wound drainage swelling). Absent: tenderness, pedal edema, joint swelling, calf tenderness Back exam: Present: normal inspection Neurological exam: Present: alert, oriented X3, CN II-XII intact Psychiatric exam: Present: normal affect, normal mood Skin exam: Present: warm, dry, intact, normal color. Absent: rash Course Vital Signs 04/28/20 04/28/20 00:29 03:42 Temperature 98.2 F Pulse Rate 104 H 93 Respiratory 17 16 Rate Blood Pressure 121/84 122/67 O2 Sat by Pulse 100 98 Oximetry - Reevaluation(s) Reevaluation #1: Medical record is reviewed Patient still having symptoms of altered mental status here in the ER Patient family informed of need for admission reviewed. - Consultations Consultation #1: Soap with Dr. Nye agrees to admit the patient Medical Decision Making - Medical Decision Making 74 male DF for evaluation of recheck lower extremity wounds. Patient has significant infection of lower extremity wounds with drainage inability to ambulate inability take care of himself patient's been sitting in his own stool and he does live alone. Patient is very agitated and admission but family does agree the necessity of this - Lab Data Result diagrams: 04/29/20 07:27 04/30/20 07:43 Lab Results 04/28/20 04/28/20 04/28/20 Range/Units 00:47 00:47 00:47 WBC 5.0 (3.8-10.6) k/uL RBC 3.75 L (4.30-5.90) m/uL Hgb 13.0 (13.0-17.5) gm/dL Hct 40.0 (39.0-53.0) % MCV 106.9 H (80.0-100.0) fL MCH 34.7 (25.0-35.0) pg MCHC 32.5 (31.0-37.0) g/dL RDW 13.1 (11.5-15.5) % Plt Count 430 (150-450) k/uL MPV 7.6 Neutrophils % 67 % Lymphocytes % 14 % Monocytes % 10 % Eosinophils % 4 % Basophils % 1 % Neutrophils # 3.3 (1.3-7.7) k/uL Lymphocytes # 0.7 L (1.0-4.8) k/uL Monocytes # 0.5 (0-1.0) k/uL Eosinophils # 0.2 (0-0.7) k/uL Basophils # 0.1 (0-0.2) k/uL Macrocytosis Moderate PT 10.7 (9.0-12.0) sec INR 1.0 (<1.2) APTT 30.3 H (22.0-30.0) sec Sodium 135 L (137-145) mmol/L Potassium 4.4 (3.5-5.1) mmol/L Chloride 98 (98-107) mmol/L Carbon Dioxide 31 H (22-30) mmol/L Anion Gap 6 mmol/L BUN 11 (9-20) mg/dL Creatinine 0.47 L (0.66-1.25) mg/dL Est GFR (CKD-EPI)AfAm >90 (>60 ml/min/1.73 sqM) Est GFR (CKD-EPI)NonAf >90 (>60 ml/min/1.73 sqM) Glucose 109 H (74-99) mg/dL Plasma Lactic Acid Kaden (0.7-2.0) mmol/L Calcium 9.0 (8.4-10.2) mg/dL Phosphorus 3.2 (2.5-4.5) mg/dL Magnesium 2.0 (1.6-2.3) mg/dL Total Bilirubin 0.4 (0.2-1.3) mg/dL AST 33 (17-59) U/L ALT 20 (4-49) U/L Alkaline Phosphatase 119 (38-126) U/L Creatine Kinase 223 H (55-170) U/L Troponin I (0.000-0.034) ng/mL NT-Pro-B Natriuret Pep pg/mL Total Protein 7.2 (6.3-8.2) g/dL Albumin 3.6 (3.5-5.0) g/dL TSH 1.960 (0.465-4.680) mIU/L Coronavirus (PCR) (Not Detectd) 04/28/20 04/28/20 04/28/20 Range/Units 00:47 00:47 00:47 WBC (3.8-10.6) k/uL RBC (4.30-5.90) m/uL Hgb (13.0-17.5) gm/dL Hct (39.0-53.0) % MCV (80.0-100.0) fL MCH (25.0-35.0) pg MCHC (31.0-37.0) g/dL RDW (11.5-15.5) % Plt Count (150-450) k/uL MPV Neutrophils % % Lymphocytes % % Monocytes % % Eosinophils % % Basophils % % Neutrophils # (1.3-7.7) k/uL Lymphocytes # (1.0-4.8) k/uL Monocytes # (0-1.0) k/uL Eosinophils # (0-0.7) k/uL Basophils # (0-0.2) k/uL Macrocytosis PT (9.0-12.0) sec INR (<1.2) APTT (22.0-30.0) sec Sodium (137-145) mmol/L Potassium (3.5-5.1) mmol/L Chloride (98-107) mmol/L Carbon Dioxide (22-30) mmol/L Anion Gap mmol/L BUN (9-20) mg/dL Creatinine (0.66-1.25) mg/dL Est GFR (CKD-EPI)AfAm (>60 ml/min/1.73 sqM) Est GFR (CKD-EPI)NonAf (>60 ml/min/1.73 sqM) Glucose (74-99) mg/dL Plasma Lactic Acid Kaden 1.7 (0.7-2.0) mmol/L Calcium (8.4-10.2) mg/dL Phosphorus (2.5-4.5) mg/dL Magnesium (1.6-2.3) mg/dL Total Bilirubin (0.2-1.3) mg/dL AST (17-59) U/L ALT (4-49) U/L Alkaline Phosphatase (38-126) U/L Creatine Kinase (55-170) U/L Troponin I 0.055 H* (0.000-0.034) ng/mL NT-Pro-B Natriuret Pep 3320 pg/mL Total Protein (6.3-8.2) g/dL Albumin (3.5-5.0) g/dL TSH (0.465-4.680) mIU/L Coronavirus (PCR) (Not Detectd) 04/28/20 Range/Units 01:44 WBC (3.8-10.6) k/uL RBC (4.30-5.90) m/uL Hgb (13.0-17.5) gm/dL Hct (39.0-53.0) % MCV (80.0-100.0) fL MCH (25.0-35.0) pg MCHC (31.0-37.0) g/dL RDW (11.5-15.5) % Plt Count (150-450) k/uL MPV Neutrophils % % Lymphocytes % % Monocytes % % Eosinophils % % Basophils % % Neutrophils # (1.3-7.7) k/uL Lymphocytes # (1.0-4.8) k/uL Monocytes # (0-1.0) k/uL Eosinophils # (0-0.7) k/uL Basophils # (0-0.2) k/uL Macrocytosis PT (9.0-12.0) sec INR (<1.2) APTT (22.0-30.0) sec Sodium (137-145) mmol/L Potassium (3.5-5.1) mmol/L Chloride (98-107) mmol/L Carbon Dioxide (22-30) mmol/L Anion Gap mmol/L BUN (9-20) mg/dL Creatinine (0.66-1.25) mg/dL Est GFR (CKD-EPI)AfAm (>60 ml/min/1.73 sqM) Est GFR (CKD-EPI)NonAf (>60 ml/min/1.73 sqM) Glucose (74-99) mg/dL Plasma Lactic Acid Kaden (0.7-2.0) mmol/L Calcium (8.4-10.2) mg/dL Phosphorus (2.5-4.5) mg/dL Magnesium (1.6-2.3) mg/dL Total Bilirubin (0.2-1.3) mg/dL AST (17-59) U/L ALT (4-49) U/L Alkaline Phosphatase (38-126) U/L Creatine Kinase (55-170) U/L Troponin I (0.000-0.034) ng/mL NT-Pro-B Natriuret Pep pg/mL Total Protein (6.3-8.2) g/dL Albumin (3.5-5.0) g/dL TSH (0.465-4.680) mIU/L Coronavirus (PCR) Not Detected (Not Detectd) - EKG Data -: EKG Interpreted by Me (EKG shows sinus rhythm 100 IN 140 QRS 84 QTc 479) - Radiology Data Radiology results: report reviewed (X-ray foot negative for acute disease), image reviewed Disposition Clinical Impression: Venous stasis of lower extremity, Venous insufficiency, Cellulitis, Cellulitis of right lower extremity, Venous stasis ulcer of right lower extremity, Post- polio syndrome Disposition: ADMITTED IP TO THIS HOSP Condition: Fair Is patient prescribed a controlled substance at d/c from ED?: No
[2020-04-28] MEDS ORDERED: VANCOMYCIN IV PER PHARMACY 1 EACH MISC MISCELLANE PRN (01:57)
--- NOTE | 2020-04-28 02:01 | XR ---
EXAM: XR Left Foot, 2 Views CLINICAL HISTORY: pain TECHNIQUE: Frontal and lateral views of the left foot. COMPARISON: No relevant prior studies available. FINDINGS: Limitations: Evaluation of the digits are limited by positioning and flexion. Bones/joints: Diffuse osteopenia noted. No obvious fracture. Suspected ankylosis at the first interphalangeal joint. A hallucis valgus configuration is noted involving the first digit. Soft tissues: Marked soft tissue swelling in the mid to forefoot noted on the lateral projection. No radiopaque foreign body. IMPRESSION: Diffuse osteopenia. No definite acute traumatic injury. Hallucis valgus configuration of the first digit. Prominent soft tissue fullness in the mid to forefoot. This may represent traumatic soft tissue injury or cellulitis. Please correlate clinically.
[2020-04-28] MEDS ORDERED: VANCOMYCIN 1,000 MG in SODIUM CHLORIDE 0.9% 250 ML IVPB STA (02:06)
[2020-04-28] MEDS ORDERED: NALOXONE 0.4 MG/ML 1 ML VIAL IV PRN (02:21)
[2020-04-28] MEDS ORDERED: ONDANSETRON 4 MG/2 ML VIAL IVP PRN (02:21)
[2020-04-28] MEDS ORDERED: MORPHINE SULFATE 4 MG/ML SYRINGE IV PRN (02:21)
[2020-04-28] MEDS ORDERED: PANTOPRAZOLE 40 MG/10 ML VIAL IVP SCH (10:45)
[2020-04-28 11:12] LABS: Appearance,Urine Clear (Clear); Bilirubin,Urine Negative (Negative); Blood,Urine Negative (Negative); Color,Urine Light Yellow; Glucose,Urine (UA) Negative (Negative); Ketones,Urine Negative (Negative); Leukocyte Esterase,Urine Negative (Negative); Nitrite,Urine Negative (Negative); Protein,Urine Negative (Negative)
[2020-04-28] MEDS ORDERED: MENTHOL-ZINC OXIDE OINT 113 GM TUBE TOPICAL PRN (12:42)
[2020-04-28] MEDS: SODIUM CHLORIDE 0.9% 1,000 ML IV SCH ×2 (12:49→23:04)
[2020-04-28] MEDS ORDERED: ALBUTEROL NEBULIZED 2.5 MG/3 ML INHALATION PRN (13:09)
--- NOTE | 2020-04-28 13:19 | P.HPIM ---
History of Present Illness H&P Date: 04/28/20 Chief Complaint: Chest pain, cellulitis bilateral lower extremities This is 74-year-old gentleman with past medical history of gastroesophageal reflux disease, ankylosis spondylosis , osteoarthritis, vascular disorder, chronic wounds on bilateral lower extremities and feet, chronic back pain, cervical injury 2017, gait dysfunction, uses crutches, anxiety, ongoing nicotine dependence and multiple other medical issues presented to the ER with chest pain, chronic bilateral lower extremity wounds with purulent drainage, odiferous. Son apparently discovered his father covered in feces, missed his wound care center appointments, stopped taking his antibiotics as they were causing him diarrhea and chest pain. Afebrile, normal WBC, lactic acid 1.7, creatinine kinase 223, BUN 11, creatinine 0.47. Electrolytes within normal limits. EKG reported sinus rhythm with PACs, septal infarct age undetermined .Troponins elevated 0.055, 0.061, BNP 3320. Received 1 L of IV fluids and antibiotics of Rocephin and vancomycin initiated. Left foot x-ray reports diffuse osteopenia, no definite acute traumatic injury, prominent soft tissue fullness in the mid to 4 foot representing possibly traumatic soft tissue injury or cellulitis. Denies chest pain, palpitations or shortness of breath currently. Reports increasing weakness, specifically right lower extremity. Vague historian, majority of information obtained from staff and chart. Review of Systems ROS Statement: Those systems with pertinent positive or pertinent negative responses have been documented in the HPI. ROS Other: All systems not noted in ROS Statement are negative. Past Medical History Past Medical History: GERD/Reflux, Musculoskeletal Disorder, Neurologic Disorder, Osteoarthritis (OA), Skin Disorder, Vascular Disorder Additional Past Medical History / Comment(s): WOUNDS ON BILATERAL LOWER EXTREMITIES and feet, Childhood polio, post polio syndrome, chronic low back pain, wounds both legs, cervical injury from fall 02/2017, uses crutches. History of Any Multi-Drug Resistant Organisms: MRSA Date of last positivie culture/infection: 09/03/18 MDRO Source:: left LEG Past Surgical History: Back Surgery, Bowel Resection, Joint Replacement, Orthopedic Surgery Additional Past Surgical History / Comment(s): Right hip replacement. Bilateral carpal tunnel. Surgery to legs and feet. Cervical fusion of C3-4, spinal fusion as a child, laminecomy 30 yrs ago. Past Anesthesia/Blood Transfusion Reactions: No Reported Reaction Past Psychological History: Anxiety Additional Psychological History / Comment(s): RECENTLY DIAGNOSED WITH BONE MARROW CANCER. Smoking Status: Current every day smoker Past Alcohol Use History: None Reported Additional Past Alcohol Use History / Comment(s): has smoked since age 16 less than 1ppd Past Drug Use History: None Reported - Past Family History Father Family Medical History: Coronary Artery Disease (CAD) Additional Family Medical History / Comment(s): heart arrythymia Brother(s) Family Medical History: Cancer Medications and Allergies Home Medications Medication Instructions Recorded Confirmed Type Sertraline HCl [Zoloft] 100 mg PO DAILY 12/24/14 04/28/20 History Methadone [Dolophine] 10 mg PO QID 11/04/15 04/28/20 History buPROPion XL [Wellbutrin XL] 150 mg PO DAILY 01/15/20 04/28/20 History Albuterol Inhaler [Ventolin Hfa 2 puff INHALATION RT-QID PRN 04/28/20 04/28/20 History Inhaler] Allergies Allergy/AdvReac Type Severity Reaction Status Date / Time aspirin AdvReac Intermediate ringing in Verified 04/18/20 01:53 the ears Antihistamines - Alkylamine AdvReac Mild shaking Verified 04/18/20 01:53 Physical Exam Vitals: Vital Signs Temp Pulse Pulse Resp BP BP Pulse Ox 04/28/20 04:19 98.2 F 100 16 145/70 96 04/28/20 03:42 93 16 122/67 98 04/28/20 00:29 98.2 F 104 H 17 121/84 100 Intake and Output 04/27/20 04/28/20 04/28/20 22:59 06:59 14:59 Other: Voiding Method Urinal Incontinent # Voids 4 Weight 66 kg PHYSICAL EXAM: VITAL SIGNS: [As above] GENERAL: Sitting up in chair, no acute distress HEENT: Conjunctivae normal. eyes normal. NECK: No JVD. No thyroid enlargement. No LNs CARDIOVASCULAR: S1, S2 regular..No murmur RESPIRATION: Breath sounds diminished in the bases. No rhonchi or crackle. No expiratory wheeze. ABDOMEN: Soft, nontender . No guarding. no masses palpable. No ascites, No hepatosplenomegaly.Bowel sounds heard. SPINE: Scoliosis. LEGS: Bilateral lower extremities mildly reddened,scaly, crusty PSYCHIATRY: Alert and oriented X3, mood and affect normal. NERVOUS SYSTEM: Cranial N 2-12 grossly normal. Generalized diffuse weakness, No focal deficits. Strength and sensation grossly intact. Skin: Warm and dry, no rash Results CBC & Chem 7: 04/28/20 00:47 04/28/20 00:47 Labs: Abnormal Lab Results - Last 24 Hours (Table) 04/28/20 04/28/20 04/28/20 Range/Units 00:47 00:47 00:47 RBC 3.75 L (4.30-5.90) m/uL MCV 106.9 H (80.0-100.0) fL Lymphocytes # 0.7 L (1.0-4.8) k/uL APTT 30.3 H (22.0-30.0) sec Sodium 135 L (137-145) mmol/L Carbon Dioxide 31 H (22-30) mmol/L Creatinine 0.47 L (0.66-1.25) mg/dL Glucose 109 H (74-99) mg/dL Creatine Kinase 223 H (55-170) U/L Troponin I (0.000-0.034) ng/mL 04/28/20 04/28/20 Range/Units 00:47 08:06 RBC (4.30-5.90) m/uL MCV (80.0-100.0) fL Lymphocytes # (1.0-4.8) k/uL APTT (22.0-30.0) sec Sodium (137-145) mmol/L Carbon Dioxide (22-30) mmol/L Creatinine (0.66-1.25) mg/dL Glucose (74-99) mg/dL Creatine Kinase (55-170) U/L Troponin I 0.055 H* 0.061 H* (0.000-0.034) ng/mL Thrombosis Risk Factor Assmnt - Choose All That Apply Each Risk Factor Represents 2 Points: Age 61-74 years Thrombosis Risk Factor Assessment Total Risk Factor Score: 2 Thrombosis Risk Factor Assessment Level: Low Risk Assessment and Plan Assessment: Chest pain, mildly elevated troponins, rule out acute coronary syndrome Vascular disorder with chronic wound cellulitis on bilateral lower extremities. Diffuse osteopenia. Possible early rhabdomyolysis, elevated CK COPD Ongoing nicotine dependence Gastroesophageal reflux disease Osteoarthritis Post Polio syndrome Chronic back pain with severe deformities Chronic Cervical injury Multiple orthopedic surgeries Anxiety Ongoing nicotine dependence Ankylosis spondylosis Anxiety Plan: Continue on current medication regime ,monitoring and symptomatic treatment. IV fluid hydration ordered. Maintain IV antibiotics of vancomycin, Rocephin. Wound cultures & wound care ordered . Cardiology consulted. PT/OT consulted. Discussed subacute rehab with patient at [facility], where his currently resides, and patient is agreeable to. The impression and plan of care has been dictated as directed. : I performed a history and examination of this patient, discussed the same with the dictator. I agree with the dictator's note ,documented as a scribe. Any additional findings or plans will be noted.
[2020-04-28] MEDS: buPROPion XL 150 MG TAB.ER.24H PO SCH (14:05)
[2020-04-28] MEDS: MENTHOL-ZINC OXIDE OINT 113 GM TUBE TOPICAL SCH (14:06)
[2020-04-28] MEDS: VANCOMYCIN 1,250 MG in SODIUM CHLORIDE 0.9% 250 ML IVPB SCH (14:06)
[2020-04-28] MEDS: METHADONE 10 MG TAB PO SCH ×3 (14:25→23:02)
--- NOTE | 2020-04-28 14:28 | P.CRDCN ---
History of Present Illness Consult date: 04/28/20 Chief complaint: Chest pain History of present illness: This is a 74-year-old gentleman who we requested to see as a consult for further evaluation of chest discomfort. The patient does have a history off ankylosis spondylitis as well as peripheral arterial disease and chronic lower extremities skin changes. We requested to see the patient for further evaluation of chest discomfort. When I came in to see the patient the patient was surprised that I need to see him because he stated that he never had any chest pain or chest discomfort and overall does not believe that I need to see him. On further questioning the patient denies any shortness of breath. Denies any dizziness or lightheadedness or any feeling of heart racing or fluttering or syncope. No history of coronary artery disease or congestive heart failure or cardiac arrhy thmia. The EKG showed sinus rhythm but the EKG was of poor quality. The cardiac enzymes were checked and came in to be slightly abnormal. The BNP came in to be also slightly abnormal. The rest of blood work overall came in to be unremarkable. The patient currently is chest pain-free. He stated that he never seen any machine room engineer in the past. Past Medical History Past Medical History: GERD/Reflux, Musculoskeletal Disorder, Neurologic Disorder, Osteoarthritis (OA), Skin Disorder, Vascular Disorder Additional Past Medical History / Comment(s): WOUNDS ON BILATERAL LOWER EXTREMITIES and feet, Childhood polio, post polio syndrome, chronic low back pain, wounds both legs, cervical injury from fall 02/2017, uses crutches. History of Any Multi-Drug Resistant Organisms: MRSA Date of last positivie culture/infection: 09/03/18 MDRO Source:: left LEG Past Surgical History: Back Surgery, Bowel Resection, Joint Replacement, Orthope dic Surgery Additional Past Surgical History / Comment(s): Right hip replacement. Bilateral carpal tunnel. Surgery to legs and feet. Cervical fusion of C3-4, spinal fusion as a child, laminecomy 30 yrs ago. Past Anesthesia/Blood Transfusion Reactions: No Reported Reaction Past Psychological History: Anxiety Additional Psychological History / Comment(s): RECENTLY DIAGNOSED WITH BONE MARROW CANCER. Smoking Status: Current every day smoker Past Alcohol Use History: None Reported Additional Past Alcohol Use History / Comment(s): has smoked since age 16 less than 1ppd Past Drug Use History: None Reported - Past Family History Father Family Medical History: Coronary Artery Disease (CAD) Additional Family Medical History / Comment(s): heart arrythymia Brother(s) Family Medical History: Cancer Medications and Allergies Home Medications Medication Instructions Recorded Confirmed Type Sertraline HCl [Zoloft] 100 mg PO DAILY 12/24/14 04/28/20 History Methadone [Dolophine] 10 mg PO QID 11/04/15 04/28/20 History buPROPion XL [Wellbutrin XL] 150 mg PO DAILY 01/15/20 04/28/20 History Albuterol Inhaler [Ventolin Hfa 2 puff INHALATION RT-QID PRN 04/28/20 04/28/20 History Inhaler] Allergies Allergy/AdvReac Type Severity Reaction Status Date / Time aspirin AdvReac Intermediate ringing in Verified 04/18/20 01:53 the ears Antihistamines - Alkylamine AdvReac Mild shaking Verified 04/18/20 01:53 Physical Exam Vitals: Vital Signs Temp Pulse Pulse Pulse Pulse Resp BP 04/28/20 12:00 98.6 F 104 H 16 04/28/20 09:57 74 04/28/20 08:00 98.3 F 102 H 16 04/28/20 04:19 98.2 F 100 16 04/28/20 03:42 93 16 122/67 04/28/20 00:29 98.2 F 104 H 17 121/84 BP Pulse Ox Pulse Ox 04/28/20 12:00 136/72 96 04/28/20 09:57 99 04/28/20 08:00 132/79 98 04/28/20 04:19 145/70 96 04/28/20 03:42 98 04/28/20 00:29 100 Intake and Output 04/27/20 04/28/20 04/28/20 22:59 06:59 14:59 Intake Total 280 Output Total 400 Balance -120 Intake: IV 20 Invasive Line 1 20 Oral 260 Output: Urine 400 Other: Voiding Method Urinal Urinal Incontinent # Voids 4 1 # Bowel Movements 1 Weight 66 kg - Constitutional General appearance: no acute distress - Respiratory Respiratory: bilateral: diminished - Cardiovascular Rhythm: regular Heart sounds: normal: S1, S2 Results 04/28/20 00:47 04/28/20 00:47 Cardiac Enzymes 04/28/20 04/28/2021 Range/Units 00:47 00:47 08:06 AST 33 (17-59) U/L Troponin I 0.055 H* 0.061 H* (0.000-0.034) ng/mL Coagulation 04/28/20 Range/Units 00:47 PT 10.7 (9.0-12.0) sec APTT 30.3 H (22.0-30.0) sec CBC 04/28/20 Range/Units 00:47 WBC 5.0 (3.8-10.6) k/uL RBC 3.75 L (4.30-5.90) m/uL Hgb 13.0 (13.0-17.5) gm/dL Hct 40.0 (39.0-53.0) % Plt Count 430 (150-450) k/uL Comprehensive Metabolic Panel 04/28/20 Range/Units 00:47 Sodium 135 L (137-145) mmol/L Potassium 4.4 (3.5-5.1) mmol/L Chloride 98 (98-107) mmol/L Carbon Dioxide 31 H (22-30) mmol/L BUN 11 (9-20) mg/dL Creatinine 0.47 L (0.66-1.25) mg/dL Glucose 109 H (74-99) mg/dL Calcium 9.0 (8.4-10.2) mg/dL AST 33 (17-59) U/L ALT 20 (4-49) U/L Alkaline Phosphatase 119 (38-126) U/L Total Protein 7.2 (6.3-8.2) g/dL Albumin 3.6 (3.5-5.0) g/dL Current Medications Generic Name Dose Route Start Last Admin Trade Name Freq PRN Reason Stop Dose Admin Albuterol Sulfate 2.5 mg 04/28/20 13:09 Albuterol Nebulized 2.5 Mg/3 Ml INHALATION RT-QID PRN Shortness Of Breath Bupropion HCl 150 mg 04/28/20 13:30 04/28/20 14:05 Bupropion Xl 150 Mg Tab.Er.24h PO 150 mg DAILY RANJEET Administration Calamine/Phenol 1 applic 04/28/20 12:45 04/28/20 14:06 Menthol-Zinc Oxide Oint 113 Gm Tube TOPICAL 1 applic DAILY RANJEET Administration Ceftriaxone Sodium 1 gm/ 50 mls @ 100 mls/hr 04/28/20 14:00 04/28/20 12:52 Sodium Chloride IVPB 100 mls/hr Q12H RANJEET Administration Vancomycin HCl 1,250 mg/ 250 mls @ 125 mls/hr 04/28/20 14:00 04/28/20 14:06 Sodium Chloride IVPB 125 mls/hr Q12H RANJEET Administration Sodium Chloride 1,000 mls @ 75 mls/hr 04/28/20 10:45 04/28/20 12:49 Saline 0.9% IV 75 mls/hr .[id number] RANJEET Administration Methadone HCl 10 mg 04/28/20 14:20 04/28/20 14:25 Methadone 10 Mg Tab PO 10 mg QID RANJEET Administration Naloxone HCl 0.2 mg 04/28/20 02:21 Naloxone 0.4 Mg/Ml 1 Ml Vial IV Q2M PRN Opioid Reversal Ondansetron HCl 4 mg 04/28/20 02:21 Ondansetron 4 Mg/2 Ml Vial IVP Q8HR PRN Nausea And Vomiting Pantoprazole Sodium 40 mg 04/29/20 07:30 Pantoprazole 40 Mg Tablet PO AC-BRKFST RANJEET Sertraline HCl 100 mg 04/29/20 09:00 Sertraline 100 Mg Tab PO DAILY RANJEET Intake and Output 04/27/20 04/28/20 04/28/20 22:59 06:59 14:59 Intake Total 280 Output Total 400 Balance -120 Intake: IV 20 Invasive Line 1 20 Oral 260 Output: Urine 400 Other: Voiding Method Urinal Urinal Incontinent # Voids 4 1 # Bowel Movements 1 Weight 66 kg 04/28/20 00:47 04/28/20 00:47 Assessment and Plan Assessment: Assessment #1 chronic bilateral lower extremities skin changes #2 mildly abnormal cardiac enzymes #3 ankylosis spondylitis #4 multiple comorbid conditions Plan #1 the patient reports no chest pain or chest discomfort #2 I am going to obtain an echocardiogram was Doppler #3 add aspirin to the current medical regimen #4 add a small dose of beta hamida to the current medical regimen #5 follow-up with the patient
[2020-04-28] MEDS: ACETAMINOPHEN TAB 325 MG TAB PO PRN ×2 (15:21→23:54)
[2020-04-28] MEDS: SERTRALINE 100 MG TAB PO SCH (15:26)
[2020-04-28] MEDS ORDERED: METHADONE 10 MG TAB PO SCH ×2 (18:00)
[2020-04-28 21:10] VITALS: RESP 18
[2020-04-29] MEDS: VANCOMYCIN 1,250 MG in SODIUM CHLORIDE 0.9% 250 ML IVPB SCH ×2 (02:18→14:27)
[2020-04-29] MEDS: ACETAMINOPHEN TAB 325 MG TAB PO PRN ×3 (06:03→23:16)
[2020-04-29] MEDS: METHADONE 10 MG TAB PO SCH ×4 (06:03→23:16)
[2020-04-29] MEDS: PANTOPRAZOLE 40 MG TABLET PO SCH (06:28)
[2020-04-29] MEDS: MENTHOL-ZINC OXIDE OINT 113 GM TUBE TOPICAL SCH (07:38)
[2020-04-29 08:21] LABS: Basophils % (A) 1 %; Eosinophils # (A) 0.1 k/uL (0-0.7); Eosinophils % (A) 3 %; HCT 34.2 % (39.0-53.0); HGB 10.9 gm/dL (13.0-17.5); Lymphocytes # (A) 0.5 k/uL (1.0-4.8); Lymphocytes % (A) 10 %; MCH 34.3 pg (25.0-35.0); MCHC 31.9 g/dL (31.0-37.0); MCV 107.6 fL (80.0-100.0); Macrocytosis Moderate; Mean Platelet Volume 7.4; Monocytes # (A) 0.4 k/uL (0-1.0); Monocytes % (A) 8 %; Neutrophils # (A) 3.6 k/uL (1.3-7.7); Neutrophils % (A) 77 %; Platelet Count 354 k/uL (150-450); RBC 3.17 m/uL (4.30-5.90); RDW 13.4 % (11.5-15.5); WBC 4.7 k/uL (3.8-10.6)
[2020-04-29 08:34] LABS: ALT 15 U/L (4-49); AST 23 U/L (17-59); African American GFR (CKD) >90 (>60 ml/min/1.73 sqM); Albumin 2.5 g/dL (3.5-5.0); Alkaline Phosphatase 85 U/L (38-126); Anion Gap 2 mmol/L; Blood Urea Nitrogen 6 mg/dL (9-20); Carbon Dioxide 29 mmol/L (22-30); Chloride 104 mmol/L (98-107); Glucose 98 mg/dL (74-99); Non-African American GFR(CKD) >90 (>60 ml/min/1.73 sqM); Potassium 3.9 mmol/L (3.5-5.1); Sodium 135 mmol/L (137-145); Total Bilirubin 0.3 mg/dL (0.2-1.3); Total Protein 5.2 g/dL (6.3-8.2)
[2020-04-29] MEDS: SERTRALINE 100 MG TAB PO SCH (08:53)
[2020-04-29] MEDS: METOPROLOL SUCCINATE (ER) 25 MG TAB.ER.24H PO SCH ×3 (08:53→11:29)
[2020-04-29] MEDS: buPROPion XL 150 MG TAB.ER.24H PO SCH (08:53)
[2020-04-29] MEDS: ASPIRIN 81 MG PO SCH ×2 (08:53→08:59)
[2020-04-29] MEDS ORDERED: SERTRALINE 100 MG TAB PO SCH (09:00)
--- NOTE | 2020-04-29 10:14 | P.PN ---
Progress Note - Text Progress Note Date: 04/29/20 This is a 74-year-old gentleman who we are consulted yesterday for further evaluation of abnormal cardiac enzymes and elevated troponin. I attempted to see the patient today. The patient was very inappropriate and refused any cardiac care. He refused to take any beta hamida. He did have mul tiple episodes of narrow complex tachycardia consistent with SVT last night. I explained to him the need to be on beta hamida but he refused. I explained to him the need for aspirin and he refused. Overall he refused to be seen by the cardiology service. With that being seen I am going to sign off on the patient
--- NOTE | 2020-04-29 10:59 | ECHOF ---
Referral Reason:LV fx MEASUREMENTS -------- HEIGHT: 167.6 cm WEIGHT: 65.8 kg BP: 145/70 RVIDd: 2.8 cm (< 3.3) IVSd: 1.6 cm (0.6 - 1.1) LVIDd: 3.9 cm (3.9 - 5.3) LVPWd: 1.5 cm (0.6 - 1.1) IVSs: 1.7 cm LVIDs: 3.5 cm LVPWs: 1.6 cm LA Diam: 2.4 cm (2.7 - 3.8) Ao Diam: 3.4 cm (2.0 - 3.7) AV Cusp: 1.9 cm (1.5 - 2.6) MV EXCURSION: 23.427 mm (> 18.000) MV EF SLOPE: 146 mm/s (70 - 150) EPSS: 0.8 cm MV E Orville: 0.82 m/s MV DecT: 234 ms MV A Orville: 0.72 m/s MV E/A Ratio: 1.14 RAP: 5.00 mmHg RVSP: 41.36 mmHg FINDINGS -------- This was a technically adequate study. The left ventricular size is normal. There is moderate concentric left ventricular hypertrophy. O verall left ventricular systolic function is mildly impaired with, an EF between 45 - 50 %. The right ventricle is normal in size. The left atrium is normal in size. The right atrium is normal in size. Interatrial and interventricular septum intact. Aortic valve is trileaflet and is mildly thickened. Mild mitral regurgitation is present. Mild tricuspid regurgitation present. There is mild pulmonary hypertension. The right ventricular systolic pressure, as measured by Doppler, is 41.36mmHg. Trace/mild (physiologic) pulmonic regurgitation. The aortic root size is normal. Normal inferior vena cava with normal inspiratory collapse consistent with estimated right atrial pre ssure of 5 mmHg. There is no pericardial effusion. CONCLUSIONS -------- 1. The left ventricular size is normal. 2. There is moderate concentric left ventricular hypertrophy. 3. Overall left ventricular systolic function is mildly impaired with, an EF between 45 - 50 %. 4. Aortic valve is trileaflet and is mildly thickened. 5. Mild mitral regurgitation is present. 6. Mild tricuspid regurgitation present. 7. There is mild pulmonary hypertension. 8. The right ventricular systolic pressure, as measured by Doppler, is 41.36mmHg. 9. Trace/mild (physiologic) pulmonic regurgitation. 10. Normal inferior vena cava with normal inspiratory collapse consistent with estimated right atrial pressure of 5 mmHg. 11. There is no pericardial effusion. MANUFACTURING ENGINEERING TECHNICIAN: Maira English RDCS
[2020-04-29] MEDS: CLOPIDOGREL 75 MG TAB PO SCH (11:29)
[2020-04-29] MEDS: SODIUM CHLORIDE 0.9% 1,000 ML IV SCH (11:30)
--- NOTE | 2020-04-29 12:21 | P.DS ---
Providers Date of admission: 04/28/20 02:22 Attending physician: Holland Nye Consults: 04/28/20 10:37 Consult Physician Routine Consulting Provider: Wayne Fernandez Consult Reason/Comments: CP Do you want consulting provider notified?: Yes Primary care physician: Holland Nye Hospital Course: Final Diagnoses: Chest pain, mildly elevated troponins, multiple runs of nonsustained SVT, beta hamida and Plavix initiated. Currently sinus rhythm. Vascular disorder with chronic wound cellulitis on bilateral lower extremities. Diffuse osteopenia. Possible early rhabdomyolysis, elevated CK COPD Ongoing nicotine dependence Gastroesophageal reflux disease Osteoarthritis Post Polio syndrome Chronic back pain with severe deformities Chronic Cervical injury Multiple orthopedic surgeries Anxiety Ongoing nicotine dependence Ankylosis spondylosis Anxiety Hospital course: This is 74-year-old gentleman with past medical history of gastroesophageal reflux disease, ankylosis spondylosis , osteoarthritis, vascular disorder, chronic wounds on bilateral lower extremities and feet, chronic back pain, cervical injury 2016, gait dysfunction, uses crutches, anxiety, ongoing nicotine dependence and multiple other medical issues presented to the ER with chest pain, chronic bilateral lower extremity wounds with purulent drainage, odiferous. Son apparently discovered his father covered in feces, missed his wound care center appointments, stopped taking his antibiotics as they were causing him diarrhea and chest pain. Afebrile, normal WBC, lactic acid 1.7, creatinine kinase 223, BUN 11, creatinine 0.47. Electrolytes within normal limits. EKG reported sinus rhythm with PACs, septal infarct age undetermined .Troponins elevated 0.055, 0.061, BNP 3320. Received 1 L of IV fluids and antibiotics of Rocephin and vancomycin initiated. Left foot x-ray reports diffuse osteopenia, no definite acute traumatic injury, prominent soft tissue fullness in the mid to 4 foot representing possibly traumatic soft tissue injury or cellulitis. Denies chest pain, palpitations or shortness of breath currently. Reports increasing weakness, specifically right lower extremity. Vague historian, majority of information obtained from staff and chart. 04/29/2020 Last night and this morning developed multiple runs of nonsustained narrow complex tachycardia/SVT, asymptomatic. Cardiology recommending beta b locker and baby aspirin. Patient inappropriate with cardiology and refused any further cardiac care. Patient currently consenting to beta hamida. States unable to take aspirin, causes, tinnunitis, therefore willing to try Plavix . Speech therapy consulted regarding patient reporting becoming more forgetfulness, in need of dementia workup. Denies chest pain, palpitations or shortness of breath. Wound cultures in progress currently reporting gram- negative bacilli. Maintained on Rocephin and vancomycin. Creatinine stable 0.44. Hemoglobin 10.9. Denies chest pain, palpitations or increased shortness of breath. Patient will be discharged to [facility] subacute rehab today in a stable condition with guarded prognosis. Final culture results to be faxed to Dr. Nye. Per Dr. Nye, patient will be discharged on single strength Bactrim twice a day 14 days, close monitoring of renal function. Microbiology 04/28/20 12:37 Leg - Right Gram Stain - Preliminary 04/28/20 12:37 Leg - Right Wound Culture - Preliminary Gram Neg Bacilli 04/28/20 12:37 Leg - Right Anaerobic Culture - Preliminary The impression and plan of care has been dictated as directed. : I performed a history and examination of this patient, discussed the same with the dictator. I agree with the dictator's note ,documented as a scribe. Any additional findings or plans will be noted. Patient Condition at Discharge: Stable Plan - Discharge Summary Discharge Rx Participant: No New Discharge Prescriptions: New Menthol-Zinc Oxide Oint [Calmoseptine Oint] 1 applic TOPICAL DAILY applic Clopidogrel [Plavix] 75 mg PO DAILY tab Pantoprazole [Protonix] 40 mg PO AC-BRKFST tablet. Metoprolol Succinate (ER) [Toprol XL] 12.5 mg PO DAILY tab.er.24h Acetaminophen Tab [Tylenol] 650 mg PO Q6HR PRN tab PRN Reason: Fever And/ Or Pain Sulfamethox-Tmp 400-80Mg [Bactrim SS 400-80 mg] 1 tab PO Q12HR 14 Days #28 tablet Continue Sertraline HCl [Zoloft] 100 mg PO DAILY Methadone [Dolophine] 10 mg PO QID buPROPion XL [Wellbutrin XL] 150 mg PO DAILY Albuterol Inhaler [Ventolin Hfa Inhaler] 2 puff INHALATION RT-QID PRN PRN Reason: Shortness Of Breath Discharge Medication List Sertraline HCl [Zoloft] 100 mg PO DAILY 12/24/14 [History] Methadone [Dolophine] 10 mg PO QID 11/04/15 [History] buPROPion XL [Wellbutrin XL] 150 mg PO DAILY 01/15/20 [History] Albuterol Inhaler [Ventolin Hfa Inhaler] 2 puff INHALATION RT-QID PRN 04/28/20 [History] Acetaminophen Tab [Tylenol] 650 mg PO Q6HR PRN tab 04/29/20 [Rx] Clopidogrel [Plavix] 75 mg PO DAILY tab 04/29/20 [Rx] Menthol-Zinc Oxide Oint [Calmoseptine Oint] 1 applic TOPICAL DAILY applic 04/29/20 [Rx] Metoprolol Succinate (ER) [Toprol XL] 12.5 mg PO DAILY tab.er.24h 04/29/20 [Rx] Pantoprazole [Protonix] 40 mg PO AC-BRKFST tablet. 04/29/20 [Rx] Sulfamethox-Tmp 400-80Mg [Bactrim SS 400-80 mg] 1 tab PO Q12HR 14 Days #28 tablet 04/29/20 [Rx] Follow up Appointment(s)/Referral(s): Holland Nye MD [Primary Care Provider] - 3 Days Activity/Diet/Wound Care/Special Instructions: Medi PH CBC,BMP in days Fax final Wound culture results to Dr. Nye Discharge Disposition: TRANSFER TO SNF/F
[2020-04-30] MEDS: SODIUM CHLORIDE 0.9% 1,000 ML IV SCH (02:10)
[2020-04-30] MEDS: VANCOMYCIN 1,250 MG in SODIUM CHLORIDE 0.9% 250 ML IVPB SCH (02:10)
[2020-04-30] MEDS: METHADONE 10 MG TAB PO SCH ×2 (06:28→11:00)
[2020-04-30] MEDS: ACETAMINOPHEN TAB 325 MG TAB PO PRN ×2 (06:28→11:00)
[2020-04-30] MEDS: PANTOPRAZOLE 40 MG TABLET PO SCH (06:30)
[2020-04-30 08:25] VITALS: BP 117/71; PULSE 68; TEMP 97
[2020-04-30] MEDS: MENTHOL-ZINC OXIDE OINT 113 GM TUBE TOPICAL SCH (08:25)
[2020-04-30] MEDS: buPROPion XL 150 MG TAB.ER.24H PO SCH (08:28)
[2020-04-30] MEDS: METOPROLOL SUCCINATE (ER) 25 MG TAB.ER.24H PO SCH (08:29)
[2020-04-30] MEDS: CLOPIDOGREL 75 MG TAB PO SCH (08:29)
[2020-04-30] MEDS: SERTRALINE 100 MG TAB PO SCH (08:29)
[2020-04-30 08:31] LABS: African American GFR (CKD) >90 (>60 ml/min/1.73 sqM); Non-African American GFR(CKD) >90 (>60 ml/min/1.73 sqM)
[2020-04-30] MEDS ORDERED: VANCOMYCIN TROUGH DUE 1 EACH MISC MISCELLANE ONE (13:00)
== END 2020-04-30 14:22 ==
LOC: EC 00:27 → INTOOBSV 02:22 → 3SCARD 02:22 → UNDODISIN 04-30 14:22
PROVIDERS: ADMIT Family Medicine; ATTEND Family Medicine
DX: R07.89 Other chest pain (principal); I47.1 Supraventricular tachycardia; L03.116 Cellulitis of left lower limb; L03.115 Cellulitis of right lower limb; I87.2 Venous insufficiency (chronic) (peripheral); R79.89 Other specified abnormal findings of blood chemistry; F03.90 Unspecified dementia, unspecified severity, without behavioral disturbance, psychotic disturbance, mood disturbance, and anxiety; I73.9 Peripheral vascular disease, unspecified; G14 Postpolio syndrome; R74.8 Abnormal levels of other serum enzymes; M85.80 Other specified disorders of bone density and structure, unspecified site; M19.90 Unspecified osteoarthritis, unspecified site; J44.9 Chronic obstructive pulmonary disease, unspecified; F17.210 Nicotine dependence, cigarettes, uncomplicated; K21.9 Gastro-esophageal reflux disease without esophagitis; G89.29 Other chronic pain; M54.5 Low back pain; M47.9 Spondylosis, unspecified; F41.9 Anxiety disorder, unspecified; R62.7 Adult failure to thrive; Z20.822 Contact with and (suspected) exposure to COVID-19; Z79.02 Long term (current) use of antithrombotics/antiplatelets; Z79.899 Other long term (current) drug therapy; Z88.6 Allergy status to analgesic agent; Z88.8 Allergy status to other drugs, medicaments and biological substances; Z86.14 Personal history of Methicillin resistant Staphylococcus aureus infection; Z96.641 Presence of right artificial hip joint; Z98.1 Arthrodesis status; Z98.890 Other specified postprocedural states; Z80.9 Family history of malignant neoplasm, unspecified; Z82.49 Family history of ischemic heart disease and other diseases of the circulatory system
CPT/HCPCS: 96361 ×3; 96366 ×3; 96375; 96365; 96367; 99285; 36415; 93005; 93306; 97162; 97535; 97166; 92523; 83880; 80053 ×2; 82565; 82550; 83605; 83735 ×2; 84100; 84443; 84484; 85025 ×2; 85610; 85730; 81003; 87070; 87205; 87075; 87077; 87186; 87635; 73620; G0378 ×3; J3370 ×3; J0696 ×4; S0109 ×3; C9113

== ENCOUNTER 2021-02-22 12:47 | Inpatient (IN) | payer MEDICARE ==
[2021-02-22] MEDS ORDERED: SODIUM CHLORIDE 0.9% 1,000 ML IV ONE (13:32)
[2021-02-22] MEDS ORDERED: ONDANSETRON 4 MG/2 ML VIAL IVP STA ×2 (13:32→15:31)
[2021-02-22 13:53] LABS: Basophils % (A) 0 %; Eosinophils % (A) 0 %; HCT 47.3 % (39.0-53.0); HGB 15.4 gm/dL (13.0-17.5); Lymphocytes # (A) 0.3 k/uL (1.0-4.8); Lymphocytes % (A) 3 %; MCHC 32.5 g/dL (31.0-37.0); MCV 101.7 fL (80.0-100.0); Mean Platelet Volume 7.4; Monocytes # (A) 0.5 k/uL (0-1.0); Monocytes % (A) 6 %; Neutrophils # (A) 7.7 k/uL (1.3-7.7); Neutrophils % (A) 89 %; Platelet Count 492 k/uL (150-450); RBC 4.65 m/uL (4.30-5.90); RDW 12.8 % (11.5-15.5); WBC 8.6 k/uL (3.8-10.6)
--- NOTE | 2021-02-22 13:59 | ED ---
General Adult HPI - General Source: patient, EMS, RN notes reviewed, old records reviewed Mode of arrival: EMS Limitations: physical limitation <Juaquin Butler - Last Filed: 02/22/21 13:56> <Carlin Haider - Last Filed: 02/22/21 18:49> - General Chief complaint: Nausea/Vomiting/Diarrhea Stated complaint: failure to thrive Time Seen by Provider: 02/22/21 12:55 - History of Present Illness Initial comments: This is a 75-year-old male with a post polio syndrome. Patient comes in today because she's been nauseated and vomiting over the last 3 days. Patient denies any fever chills. Patient denies cough patient denies any shortness of breath or difficulty breathing. Patient states he has some abdominal achiness. Patient denies any diarrhea. Patient denies any dysuria or hematuria. Patient states he does not ambulate. Patient denies any headache patient denies numbness weakness. (Juaquin Butler) - Related Data Home Medications Medication Instructions Recorded Confirmed Sertraline HCl [Zoloft] 100 mg PO DAILY 12/24/14 02/22/21 Methadone [Dolophine] 10 mg PO Q6H 11/04/15 02/22/21 Albuterol Nebulized [Ventolin 2.5 mg INHALATION RT-Q6H PRN 02/22/21 02/22/21 Nebulized] Healthshake 1 dose PO TID-W/MEALS 02/22/21 02/22/21 Magic Cup 1 dose PO TID-W/MEALS 02/22/21 02/22/21 Magnesium Hydroxide [Milk of 2,400 mg PO DAILY PRN 02/22/21 02/22/21 Magnesia] Multivitamins, Thera [Multivitamin 1 tab PO DAILY@0800 02/22/21 02/22/21 (formulary)] Proheal 30 ml PO BID 02/22/21 02/22/21 Sennosides-Docusate Sodium 1 tab PO DAILY 02/22/21 02/22/21 [Senokot-S] Sertraline [Zoloft] 50 mg PO DAILY 02/22/21 02/22/21 buPROPion HCL [Wellbutrin XL] 300 mg PO DAILY@0500 02/22/21 02/22/21 Previous Rx's Medication Instructions Recorded Acetaminophen Tab [Tylenol] 650 mg PO Q6HR PRN tab 04/29/20 Clopidogrel [Plavix] 75 mg PO DAILY tab 04/29/20 Metoprolol Succinate (ER) [Toprol 12.5 mg PO DAILY tab.er.24h 04/29/20 XL] Pantoprazole [Protonix] 40 mg PO AC-BRKFST tablet. 04/29/20 Allergies Allergy/AdvReac Type Severity Reaction Status Date / Time aspirin AdvReac Intermediate ringing in Verified 04/18/20 01:53 the ears Antihistamines - Alkylamine AdvReac Mild shaking Verified 04/18/20 01:53 Review of Systems ROS Other: All systems not noted in ROS Statement are negative. <Juaquin Butler - Last Filed: 02/22/21 13:56> ROS Other: All systems not noted in ROS Statement are negative. <Carlin Haider - Last Filed: 02/22/21 18:49> ROS Statement: Those systems with pertinent positive or pertinent negative responses have been documented in the HPI. Past Medical History Past Medical History: GERD/Reflux, Musculoskeletal Disorder, Neurologic Disorder, Osteoarthritis (OA), Skin Disorder, Vascular Disorder Additional Past Medical History / Comment(s): WOUNDS ON BILATERAL LOWER EXTREMITIES and feet, Childhood polio, post polio syndrome, chronic low back pain, wounds both legs, cervical injury from fall 02/2017, uses crutches. History of Any Multi-Drug Resistant Organisms: MRSA Date of last positivie culture/infection: 09/03/18 MDRO Source:: left LEG Past Surgical History: Back Surgery, Bowel Resection, Joint Replacement, Orthopedic Surgery Additional Past Surgical History / Comment(s): Right hip replacement. Bilateral carpal tunnel. Surgery to legs and feet. Cervical fusion of C3-4, spinal fusion as a child, laminecomy 30 yrs ago. Past Anesthesia/Blood Transfusion Reactions: No Reported Reaction Past Psychological History: Anxiety Smoking Status: Former smoker Past Alcohol Use History: None Reported Past Drug Use History: None Reported - Past Family History Father Family Medical History: Coronary Artery Disease (CAD) Additional Family Medical History / Comment(s): heart arrythymia Brother(s) Family Medical History: Cancer <Juaquin Butler - Last Filed: 02/22/21 13:56> General Exam Limitations: physical limitation <Juaquin Butler - Last Filed: 02/22/21 13:56> - General Exam Comments Initial Comments: GENERAL: Patient is very cachectic in appearance.. Patient is nontoxic and well-hydrated and is in mild distress. ENT: Neck is soft and supple. No significant lymphadenopathy is noted. Oropharynx is clear. Moist mucous membranes. Neck has full range of motion without eliciting any pain. EYES: The sclera were anicteric and conjunctiva were pink and moist. Extraocular movements were intact and pupils were equal round and reactive to light. Eyelids were unremarkable. PULMONARY: Unlabored respirations. Good breath sounds bilaterally. No audible rales rhonchi or wheezing was noted. CARDIOVASCULAR: There is a regular rate and rhythm without any murmurs gallops or rubs. ABDOMEN: Patient has a soft left flank mass which is tender to palpation SKIN: Skin is clear with no lesions or rashes and otherwise unremarkable. NEUROLOGIC: Patient is alert and oriented x3. Cranial nerves II through XII are grossly intact. Motor and sensory are also intact. Normal speech, volume and content. Symmetrical smile. MUSCULOSKELETAL: Normal extremities with adequate strength and full range of motion. LYMPHATICS: No significant lymphadenopathy is noted PSYCHIATRIC: Normal psychiatric evaluation. (Juaquin Butler) Course Vital Signs 02/22/21 12:53 Temperature 97.5 F L Pulse Rate 69 Respiratory 16 Rate Blood Pressure 152/87 O2 Sat by Pulse 97 Oximetry Medical Decision Making - Lab Data Result diagrams: 02/22/21 13:44 <Juaquin Butler - Last Filed: 02/22/21 13:56> - Lab Data Result diagrams: 02/22/21 13:44 02/22/21 13:44 <Carlin Haider - Last Filed: 02/22/21 18:49> - Medical Decision Making The patient was seen and examined. All diagnostics are reviewed. The laboratory shows some minor abnormalities. Patient is unable to give a urinalysis as of yet. The patient also had a computed tomography scan of the abdomen and pelvis. This showed evidence of left hydronephrosis and suspected distal ureteral stone. It also showed some fecal impaction. It showed possible dilation of the biliary system but his liver function studies are normal and he is nontender in this region. He does appear to be tender of his left flank and kidney region. He appears to be dehydrated. He receives 2 L of IV fluids. He was having increased pain and receives 4 mg of morphine with some moderate relief. He received Zofran for nausea. Case is discussed with Dr. Emery and he would like patient admitted and have urology consult, IV hydration, and Rocephin daily. The patient also does have fecal impaction noted on the computed tomography scan. Upon questioning the patient further he does relate a long history of constipation. Medications will be ordered in this regard. Patient is agreeable with this plan and will be admitted to the general medical floor for further treatment. (Carlin Haider) - Lab Data Lab Results 02/22/21 02/22/21 02/22/21 Range/Units 13:44 13:44 13:44 WBC 8.6 (3.8-10.6) k/uL RBC 4.65 (4.30-5.90) m/uL Hgb 15.4 (13.0-17.5) gm/dL Hct 47.3 (39.0-53.0) % MCV 101.7 H (80.0-100.0) fL MCH 33.0 (25.0-35.0) pg MCHC 32.5 (31.0-37.0) g/dL RDW 12.8 (11.5-15.5) % Plt Count 492 H (150-450) k/uL MPV 7.4 Neutrophils % 89 % Lymphocytes % 3 % Monocytes % 6 % Eosinophils % 0 % Basophils % 0 % Neutrophils # 7.7 (1.3-7.7) k/uL Lymphocytes # 0.3 L (1.0-4.8) k/uL Monocytes # 0.5 (0-1.0) k/uL Eosinophils # 0.0 (0-0.7) k/uL Basophils # 0.0 (0-0.2) k/uL Sodium 141 (137-145) mmol/L Potassium 3.1 L (3.5-5.1) mmol/L Chloride 95 L (98-107) mmol/L Carbon Dioxide 31 H (22-30) mmol/L Anion Gap 15 mmol/L BUN 26 H (9-20) mg/dL Creatinine 0.52 L (0.66-1.25) mg/dL Est GFR (CKD-EPI)AfAm >90 (>60 ml/min/1.73 sqM) Est GFR (CKD-EPI)NonAf >90 (>60 ml/min/1.73 sqM) Glucose 116 H (74-99) mg/dL Plasma Lactic Acid Kaden 1.1 (0.7-2.0) mmol/L Calcium 8.9 (8.4-10.2) mg/dL Total Bilirubin 0.6 (0.2-1.3) mg/dL AST 24 (17-59) U/L ALT 16 (4-49) U/L Alkaline Phosphatase 113 (38-126) U/L Total Protein 7.3 (6.3-8.2) g/dL Albumin 3.6 (3.5-5.0) g/dL Disposition <Juaquin Butler - Last Filed: 02/22/21 13:56> Is patient prescribed a controlled substance at d/c from ED?: No Time of Disposition: 18:49 <Carlin Haider - Last Filed: 02/22/21 18:49> Clinical Impression: Ureteral stone, Hydronephrosis, Nausea and vomiting, Flank pain, Constipation, Fecal impaction, Dehydration Disposition: ADMITTED IP TO THIS HOSP Condition: Fair Referrals: Holland Nye MD [Primary Care Provider] - 1-2 days
[2021-02-22 14:10] LABS: ALT 16 U/L (4-49); AST 24 U/L (17-59); African American GFR (CKD) >90 (>60 ml/min/1.73 sqM); Albumin 3.6 g/dL (3.5-5.0); Alkaline Phosphatase 113 U/L (38-126); Anion Gap 15 mmol/L; Blood Urea Nitrogen 26 mg/dL (9-20); Calcium 8.9 mg/dL (8.4-10.2); Carbon Dioxide 31 mmol/L (22-30); Chloride 95 mmol/L (98-107); Glucose 116 mg/dL (74-99); Non-African American GFR(CKD) >90 (>60 ml/min/1.73 sqM); Potassium 3.1 mmol/L (3.5-5.1); Sodium 141 mmol/L (137-145); Total Bilirubin 0.6 mg/dL (0.2-1.3); Total Protein 7.3 g/dL (6.3-8.2)
[2021-02-22] MEDS ORDERED: MORPHINE SULFATE 4 MG/ML SYRINGE IV STA (16:20)
--- NOTE | 2021-02-22 17:43 | CT ---
Note that there was a technical error with this exam. It was retrieved as an incomplete dictation. So me additions are being made and it is being signed off by a different radiologist. EXAMINATION TYPE: CT abdomen pelvis w con DATE OF EXAM: 02/22/2021 COMPARISON: None HISTORY: failure to thrive, abdominal pain CT DLP: 799.1 mGycm Automated exposure control for dose reduction was used. CONTRAST: CT scan of the abdomen pelvis is performed with IV Contrast, patient injected with 100 mL of Isovue 3 00. FINDINGS- Exam limited due to artifact and motion. Rotatory scoliosis noted. There is hydronephrosis noted on t he left. Postsurgical change involving the right hip and severe arthropathy of the left hip. Artifact from the hip prostheses obscures the pelvis and results are nondiagnostic exam. Correlate for fecal impaction of the rectum. Appendix not seen. Exam essentially nondiagnostic. Mild intrahepatic biliary ductal dilation. Spleen limited in assessment. Aorta of normal caliber. Adrenal glands and pancreas are nondiagnostic. IMPRESSION- 1. Nearly nondiagnostic exam due to motion and artifact. There appears to be evidence of a moderate l eft hydronephrosis with is 3 mm calcification seen posterior to the bladder on the left which could p otentially be in the course of the distal left ureter or UVJ resulting in ureteral obstruction. 2. Mild central intrahepatic biliary ductal dilation. This may be chronic for the patient. Correlate with alkaline phosphatase and bilirubin levels to exclude biliary obstruction. 3. Correlate for fecal impaction of the rectum which is distended up to 7.9 cm wide with stool. The p atient may need rectal fecal disimpaction.
[2021-02-22] MEDS ORDERED: SODIUM CHLORIDE 0.9% 1,000 ML IV STA (18:02)
[2021-02-22] MEDS ORDERED: MAGNESIUM CITRATE 296 ML BOTTLE PO ONE (18:49)
[2021-02-22] MEDS ORDERED: ONDANSETRON 4 MG/2 ML VIAL IVP PRN (18:50)
[2021-02-22] MEDS ORDERED: DOCUSATE 100 MG CAP PO PRN (18:50)
[2021-02-22] MEDS ORDERED: MORPHINE ORAL SOLN 10 MG/5 ML CUP PO PRN (18:50)
[2021-02-22] MEDS ORDERED: ACETAMINOPHEN TAB 325 MG TAB PO PRN (18:50)
[2021-02-22] MEDS ORDERED: NALOXONE 0.4 MG/ML 1 ML VIAL IV PRN (18:50)
[2021-02-22] MEDS ORDERED: MAGNESIUM HYDROXIDE 2,400 MG/10 ML CUP PO PRN (18:55)
[2021-02-22] MEDS ORDERED: ALBUTEROL NEBULIZED 2.5 MG/3 ML INHALATION PRN (18:55)
[2021-02-22 19:13] LABS: Appearance,Urine Cloudy (Clear); Bilirubin,Urine Negative (Negative); Blood,Urine Large (Negative); Color,Urine Light Red; Glucose,Urine (UA) Negative (Negative); Hyaline Casts,Urine 12 /lpf (0-2); Ketones,Urine 2+ (Negative); Leukocyte Esterase,Urine Small (Negative); Mucus,Urine Rare /hpf; Nitrite,Urine Negative (Negative); PH, Urine 5.5 (5.0-8.0); Protein,Urine 1+ (Negative); RBC,Urine >182 /hpf (0-5); Squamous Epithelial Cell,Urine 1 /hpf (0-4); Urobilinogen,Urine <2.0 mg/dL (<2.0); WBC,Urine 32 /hpf (0-5)
[2021-02-22 19:33] LABS: Specific Gravity,Urine 1.048 (1.001-1.035)
[2021-02-22] MEDS: PANTOPRAZOLE 40 MG/10 ML VIAL IV SCH (20:30)
[2021-02-22] MEDS: SODIUM CHLORIDE 0.9% 1,000 ML IV SCH (20:30)
[2021-02-22] MEDS: METHADONE 10 MG TAB PO SCH (20:37)
[2021-02-22] MEDS ORDERED: PROHEAL PO SCH (21:00)
[2021-02-23] MEDS: METHADONE 10 MG TAB PO SCH ×4 (03:33→19:50)
[2021-02-23] MEDS: SODIUM CHLORIDE 0.9% 1,000 ML IV SCH ×3 (03:34→16:35)
[2021-02-23] MEDS: buPROPion XL 300 MG TAB.ER.24H PO SCH (05:43)
[2021-02-23] MEDS: HYDROmorphone 0.5 MG/0.5 ML SYRINGE IVP PRN ×2 (05:43→20:01)
[2021-02-23] MEDS ORDERED: PANTOPRAZOLE 40 MG TABLET PO SCH (07:30)
[2021-02-23] MEDS ORDERED: NON FORMULARY DRUG (Magic Cup 1 EACH Ml) PO SCH (07:30)
[2021-02-23] MEDS ORDERED: NON FORMULARY DRUG (Healthshake 1 DOSE) PO SCH (07:30)
[2021-02-23] MEDS: METOPROLOL SUCCINATE (ER) 25 MG TAB.ER.24H PO SCH (10:03)
[2021-02-23] MEDS: SERTRALINE 100 MG TAB PO SCH (10:03)
[2021-02-23] MEDS: MULTIVITAMINS, THERA 1 EACH TAB PO SCH (10:03)
[2021-02-23] MEDS: PANTOPRAZOLE 40 MG/10 ML VIAL IV SCH (10:03)
[2021-02-23] MEDS: CLOPIDOGREL 75 MG TAB PO SCH (10:24)
[2021-02-23] MEDS: SERTRALINE 50 MG TAB PO SCH (10:40)
[2021-02-23] MEDS: ENOXAPARIN 40 MG/0.4 ML SYRINGE SQ SCH (10:40)
[2021-02-23] MEDS: SENNOSIDES-DOCUSATE SODIUM 1 EACH TAB PO SCH (14:13)
[2021-02-23] MEDS: TAMSULOSIN 0.4 MG CAP.ER.24H PO SCH (14:42)
[2021-02-23] MEDS ORDERED: Potassium Replacement Protocol 1 EACH MISC MISCELLANE PRN ×2 (14:49→16:20)
[2021-02-23 14:53] VITALS: BMI 17.4
--- NOTE | 2021-02-23 15:13 | P.HPIM ---
History of Present Illness H&P Date: 02/23/21 This is 74-year-old gentleman with past medical history of gastroesophageal reflux disease, ankylosis spondylosis , osteoarthritis, vascular disorder, chronic wounds on bilateral lower extremities and feet, chronic back pain, cervical injury 2016, gait dysfunction, uses crutches, anxiety, ongoing ni cotine dependence and multiple other medical issues presented to the ER with left flank abdominal pain, nausea, vomiting 3 days. Tested negative for coronavirus.Patient denies any dysuria or hematuria. Denies any lightheadedness dizziness or focal deficits.CT of abdomen and pelvis reported evidence of moderate left hydronephrosis with a 3 mm calcification seen posterior to the bladder on the left which could potentially be in the course of the distal left ureter or UVJ resulting in ureteral obstruction, mild central intrahepatic biliary ductal dilation, maybe chronic possible biliary obstruction-LFTs within normal limits., Fecal impaction of the rectum. Afebrile, normal WBCs. Potassium 3.1, bicarbonate 31, BUN 26, creatinine 0.52. Lactic acid 1.1. Repeat BMP pending. UA reporting small leukocytes, 32 wbc's, negative nitrates. Denies any chest pain, palpitations or shortness of breath. Received IV fluid hydration with Rocephin initiated. Nausea and emesis has subsided. Review of Systems ROS Statement: Those systems with pertinent positive or pertinent negative responses have been documented in the HPI. ROS Other: All systems not noted in ROS Statement are negative. 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/they use [employer] every 3 days, pt has skin wounds L knee, ankylosis spondylosis, constipation/last BM 02/20/21, diverticulitis, History of Any Multi-Drug Resistant Organisms: MRSA Date of last positivie culture/infection: 09/03/18 MDRO Source:: left LEG Past Surgical History: Back Surgery, Bowel Resection, Joint Replacement, O rthopedic Surgery Additional Past Surgical History / Comment(s): Back laminectomy, spinal fusion as a child, pt denies cervical surgery as documented in previous record, total R hip arthroplasty, multiple bilateral legs/feet surgery, back pain procedures, bowel resection d/t diverticulitis, colonoscopy, incontinence of urine/stool. Past Anesthesia/Blood Transfusion Reactions: No Reported Reaction Smoking Status: Former smoker - Past Family History Father Family Medical History: Coronary Artery Disease (CAD) Additional Family Medical History / Comment(s): heart arrythymia Brother(s) Family Medical History: Cancer Medications and Allergies Home Medications Medication Instructions Recorded Confirmed Type Sertraline HCl [Zoloft] 100 mg PO DAILY 12/24/14 02/22/21 History Methadone [Dolophine] 10 mg PO Q6H 11/04/15 02/22/21 History Acetaminophen Tab [Tylenol] 650 mg PO Q6HR PRN tab 04/29/20 02/22/21 Rx Clopidogrel [Plavix] 75 mg PO DAILY tab 04/29/20 02/22/21 Rx Metoprolol Succinate (ER) [Toprol 12.5 mg PO DAILY tab.er.24h 04/29/20 02/22/21 Rx XL] Pantoprazole [Protonix] 40 mg PO AC-BRKFST tablet.dr 04/29/20 02/22/21 Rx Albuterol Nebulized [Ventolin 2.5 mg INHALATION RT-Q6H PRN 02/22/21 02/22/21 History Nebulized] Healthshake 1 dose PO TID-W/MEALS 02/22/21 02/22/21 History Magic Cup 1 dose PO TID-W/MEALS 02/22/21 02/22/21 History Magnesium Hydroxide [Milk of 2,400 mg PO DAILY PRN 02/22/21 02/22/21 History Magnesia] Multivitamins, Thera [Multivitamin 1 tab PO DAILY@0800 02/22/21 02/22/21 History (formulary)] Proheal 30 ml PO BID 02/22/21 02/22/21 History Sennosides-Docusate Sodium 1 tab PO DAILY 02/22/21 02/22/21 History [Senokot-S] Sertraline [Zoloft] 50 mg PO DAILY 02/22/21 02/22/21 History buPROPion HCL [Wellbutrin XL] 300 mg PO DAILY@0500 02/22/21 02/22/21 History Allergies Allergy/AdvReac Type Severity Reaction Status Date / Time aspirin AdvReac Intermediate ringing in Verified 02/23/21 09:24 the ears Antihistamines - Alkylamine AdvReac Mild shaking Verified 02/23/21 09:24 Physical Exam Vitals: Vital Signs Temp Pulse Pulse Resp BP BP BP 02/23/21 09:47 16 02/23/21 09:27 97.9 F 77 16 159/81 02/23/21 08:34 98.4 F 76 18 154/104 02/23/21 03:32 98.1 F 80 16 150/72 02/23/21 00:03 97.8 F 80 18 137/107 02/22/21 23:00 18 Pulse Ox 02/23/21 09:47 02/23/21 09:27 96 02/23/21 08:34 98 02/23/21 03:32 96 02/23/21 00:03 97 02/22/21 23:00 Intake and Output 02/22/21 02/23/21 02/23/21 22:59 06:59 14:59 Intake Total 1560 200 Balance 1560 200 Intake: Intake, IV Titration 1560 Amount Sodium Chloride 0.9% 1, 1560 000 ml @ 130 mls/hr IV . Q7H42M [facility] Rx#:[id number] Oral 200 Other: Voiding Method Diaper Diaper Incontinent # Voids 1 Weight 50.349 kg PHYSICAL EXAM: VITAL SIGNS: [As above] GENERAL: Sitting up in chair, no acute distress HEENT: Conjunctivae normal. eyes normal. NECK: No JVD. No thyroid enlargement. No LNs CARDIOVASCULAR: S1, S2 regular..No murmur RESPIRATION: Breath sounds diminished in the bases. No rhonchi or crackle. No expiratory wheeze. ABDOMEN: Soft, nontender . No guarding. no masses palpable. No ascites, No hepatosplenomegaly.Bowel sounds heard. SPINE: Scoliosis. LEGS: Bilateral lower extremities mildly reddened,scaly, crusty PSYCHIATRY: Alert and oriented X3, mood and affect normal. NERVOUS SYSTEM: Cranial N 2-12 grossly normal. Generalized diffuse weakness, No focal deficits. Strength and sensation grossly intact. Skin: Warm and dry, scrotum redness with barrier cream. Left back optifoam dressing, coccyx reddened with barrier cream, Bilateral lower extremities dry. Bilateral feet with very dry cracked skin. Results CBC & Chem 7: 02/22/21 13:44 02/22/21 13:44 Labs: Abnormal Lab Results - Last 24 Hours (Table) 02/22/21 02/22/21 Range/Units 13:44 19:00 Potassium 3.1 L (3.5-5.1) mmol/L Chloride 95 L (98-107) mmol/L Carbon Dioxide 31 H (22-30) mmol/L BUN 26 H (9-20) mg/dL Creatinine 0.52 L (0.66-1.25) mg/dL Glucose 116 H (74-99) mg/dL Ur Specific Commerce 1.048 H (1.001-1.035) Urine Protein 1+ H (Negative) Urine Ketones 2+ H (Negative) Urine Blood Large H (Negative) Ur Leukocyte Esterase Small H (Negative) Urine RBC >182 H (0-5) /hpf Urine WBC 32 H (0-5) /hpf Urine WBC Clumps Occasional H (None) /hpf Hyaline Casts 12 H (0-2) /lpf Urine Mucus Rare H (None) /hpf Thrombosis Risk Factor Assmnt - Choose All That Apply Any of the Below Risk Factors Present?: Yes Each Factor Represents 1 point: Abnormal pulmonary function (COPD) Other Risk Factors: Yes Each Risk Factor Represents 3 Points: Age 75 years or older Other congenital or acquired thrombophilia - If yes, enter type in comment: No Thrombosis Risk Factor Assessment Total Risk Factor Score: 4 Thrombosis Risk Factor Assessment Level: Moderate Risk Assessment and Plan Assessment: Diffuse abdominal pain ,moderate left hydronephrosis with a 3 mm calcification seen posterior to the bladder on the left , possible obstruction Possible acute UTI, culture pending. Denies dysuria or hematuria. Constipation, in a patient on methadone with history of chronic constipation. Dehydration Vascular disorder with chronic cellulitis bilateral lower extremities. COPD Ongoing nicotine dependence Gastroesophageal reflux disease Osteoarthritis Post Polio syndrome Chronic back pain with severe deformities Chronic Cervical injury Multiple orthopedic surgeries Anxiety Ongoing nicotine dependence Ankylosis spondylosis Anxiety Plan: Continue on current medication regime ,monitoring and symptomatic treatment. Urology consult in place. Maintain IV fluid hydration with Flomax added to med regimen. Potassium replacement protocol ordered. Discharge planning in progress for return back to [facility] pending labs ,urology recommendations, clearance. The impression and plan of care has been dictated as directed. : I performed a history and examination of this patient, discussed the same with the dictator. I agree with the dictator's note ,documented as a scribe. Any additional findings or plans will be noted.
[2021-02-23 16:09] LABS: African American GFR (CKD) >90 (>60 ml/min/1.73 sqM); Anion Gap 10 mmol/L; Blood Urea Nitrogen 15 mg/dL (9-20); Calcium 7.9 mg/dL (8.4-10.2); Carbon Dioxide 31 mmol/L (22-30); Chloride 98 mmol/L (98-107); Glucose 122 mg/dL (74-99); Non-African American GFR(CKD) >90 (>60 ml/min/1.73 sqM); Sodium 139 mmol/L (137-145)
[2021-02-23 16:12] LABS: Potassium 2.1 mmol/L (3.5-5.1)
[2021-02-23] MEDS: POTASSIUM CHLORIDE 10 MEQ in WATER FOR INJECTION 1 100ML.BAG IVPB SCH ×4 (18:14→23:05)
[2021-02-23] MEDS: bisacodyL 10 MG SUPP RECTAL SCH (19:51)
[2021-02-24] MEDS: POTASSIUM CHLORIDE 10 MEQ in WATER FOR INJECTION 1 100ML.BAG IVPB SCH ×8 (00:29→23:21)
[2021-02-24] MEDS: METHADONE 10 MG TAB PO SCH ×4 (02:47→21:02)
[2021-02-24] MEDS: SODIUM CHLORIDE 0.9% 1,000 ML IV SCH ×3 (02:50→23:20)
[2021-02-24] MEDS: buPROPion XL 300 MG TAB.ER.24H PO SCH (04:47)
[2021-02-24 06:18] LABS: Basophils % (A) 0 %; Eosinophils % (A) 0 %; Lymphocytes # (A) 0.3 k/uL (1.0-4.8); Lymphocytes % (A) 2 %; MCH 32.5 pg (25.0-35.0); MCHC 31.5 g/dL (31.0-37.0); Macrocytosis Slight; Mean Platelet Volume 7.7; Monocytes # (A) 0.6 k/uL (0-1.0); Monocytes % (A) 4 %; Neutrophils % (A) 92 %; Platelet Count 356 k/uL (150-450); RBC 3.78 m/uL (4.30-5.90); RDW 12.8 % (11.5-15.5); WBC 14.1 k/uL (3.8-10.6)
[2021-02-24 06:34] LABS: HGB 12.3 gm/dL (13.0-17.5)
[2021-02-24] MEDS: ENOXAPARIN 40 MG/0.4 ML SYRINGE SQ SCH (08:11)
[2021-02-24] MEDS: PANTOPRAZOLE 40 MG/10 ML VIAL IV SCH (08:12)
[2021-02-24] MEDS: METOPROLOL SUCCINATE (ER) 25 MG TAB.ER.24H PO SCH (08:13)
[2021-02-24] MEDS: TAMSULOSIN 0.4 MG CAP.ER.24H PO SCH (08:13)
[2021-02-24] MEDS: MULTIVITAMINS, THERA 1 EACH TAB PO SCH (08:57)
[2021-02-24] MEDS: SENNOSIDES-DOCUSATE SODIUM 1 EACH TAB PO SCH (08:58)
[2021-02-24] MEDS: CLOPIDOGREL 75 MG TAB PO SCH (08:58)
[2021-02-24] MEDS: SERTRALINE 100 MG TAB PO SCH (08:58)
[2021-02-24] MEDS: SERTRALINE 50 MG TAB PO SCH (08:58)
[2021-02-24 10:21] LABS: Anion Gap 17.3 mmol/L (10.00-18.00); BUN/Creat Ratio 18.67 Ratio (12.00-20.00); Blood Urea Nitrogen 11.2 mg/dL (9.0-27.0); Calcium 8.3 mg/dL (8.7-10.3); Carbon Dioxide 24.7 mmol/L (20.0-27.5); Non-African American GFR(CKD) 98.4 (60.0-200.0); Potassium 2.9 mmol/L (3.5-5.5)
[2021-02-24] MEDS ORDERED: Potassium Replacement Protocol 1 EACH MISC MISCELLANE PRN (12:54)
--- NOTE | 2021-02-24 15:12 | P.PN ---
Subjective Progress Note Date: 02/24/21 This is 74-year-old gentleman with past medical history of gastroesophageal reflux disease, ankylosis spondylosis , osteoarthritis, vascular disorder, chronic wounds on bilateral lower extremities and feet, chronic back pain, cervical injury 2017, gait dysfunction, uses crutches, anxiety, ongoing nicotine dependence and multiple other medical issues presented to the ER with left flank abdominal pain, nausea, vomiting 3 days. Tested negative for coronavirus.Patient denies any dysuria or hematuria. Denies any lightheadedness dizziness or focal deficits.CT of abdomen and pelvis reported evidence of moderate left hydronephrosis with a 3 mm calcification seen posterior to the bladder on the left which could potentially be in the course of the distal left ureter or UVJ resulting in ureteral obstruction, mild central intrahepatic biliary ductal dilation, maybe chronic possible biliary obstruction-LFTs within normal limits., Fecal impaction of the rectum. Afebrile, normal WBCs. Potassium 3.1, bicarbonate 31, BUN 26, creatinine 0.52. Lactic acid 1.1. Repeat BMP pending. UA reporting small leukocytes, 32 wbc's, negative nitrates. Denies any chest pain, palpitations or shortness of breath. Received IV fluid hydration with Rocephin initiated. Nausea and emesis has subsided. 02/24/2021 maintained on IV fluids, Rocephin. Afebrile, WBC increased up to 14.1. UA suggestive of possible UTI, culture pending. Potassium 2.9, potassium supplements in progress. Renal function stable. Urology consult in place, recommendations pending. Continues to have left flank pain. Objective - Vital Signs Vital signs: Vital Signs Temp 98.9 F 02/24/21 12:46 Pulse 84 02/24/21 12:46 Resp 18 02/24/21 12:46 BP 149/73 02/24/21 12:46 Pulse Ox 97 02/24/21 12:46 Intake & Output 02/23/21 02/24/21 02/24/21 18:59 06:59 18:59 Intake Total 200 Balance 200 Weight 50.349 kg Intake: Oral 200 Other: Voiding Method Diaper Diaper Diaper # Voids 1 2 - Exam PHYSICAL EXAM: VITAL SIGNS: [As above] GENERAL: Alert and oriented 3, Sitting up in bed, no acute distress HEENT: Conjunctivae normal. eyes normal. NECK: No JVD. No thyroid enlargement. No LNs CARDIOVASCULAR: S1, S2 regular.No murmur RESPIRATION: Breath sounds diminished in the bases. No rhonchi or crackle. No expiratory wheeze. ABDOMEN: Soft, nontender . No guarding. no masses palpable. Left flank tenderness Bowel sounds heard. SPINE: Scoliosis. LEGS: Bilateral lower extremities dressings clean dry and intact NERVOUS SYSTEM: Cranial N 2-12 grossly normal. Generalized diffuse weakness. Skin: Warm and dry, scrotum redness with barrier cream. Left back optifoam dressing, coccyx reddened with barrier cream. - Labs CBC & Chem 7: 02/24/21 05:39 02/24/21 05:39 Labs: Abnormal Lab Results - Last 24 Hours (Table) 02/23/21 02/24/21 02/24/21 Range/Units 15:40 05:39 05:39 WBC 14.1 H (3.8-10.6) k/uL RBC 3.78 L (4.30-5.90) m/uL Hgb 12.3 L D (13.0-17.5) gm/dL MCV 103.0 H (80.0-100.0) fL Neutrophils # 13.0 H (1.3-7.7) k/uL Lymphocytes # 0.3 L (1.0-4.8) k/uL Potassium 2.1 L* 2.9 L (3.5-5.1) mmol/L Carbon Dioxide 31 H (22-30) mmol/L Glucose 122 H (74-99) mg/dL Calcium 7.9 L 8.3 L (8.4-10.2) mg/dL Assessment and Plan Assessment: Diffuse abdominal pain , positive renal colic ,moderate left hydronephrosis with a 3 mm calcification seen posterior to the bladder on the left , possible obstruction Possible acute UTI, culture pending. Denies dysuria or hematuria. Constipation, in a patient on methadone with history of chronic constipation. Dehydration Vascular disorder with chronic cellulitis bilateral lower extremities. COPD Ongoing nicotine dependence Gastroesophageal reflux disease Osteoarthritis Post Polio syndrome Chronic back pain with severe deformities Chronic Cervical injury Multiple orthopedic surgeries Anxiety Ongoing nicotine dependence Ankylosis spondylosis Anxiety Hypokalemic Plan: Continue on current medication regime ,monitoring and symptomatic treat ment. Urology consult in place, recommendations pending. Maintain IV fluid hydration with Flomax added to med regimen. Potassium replacement as per protocol prev.ordered. Discharge planning in progress for tomorrow for return back to [facility] pending urology recommendations, clearance. The impression and plan of care has been dictated as directed. : I performed a history and examination of this patient, discussed the same with the dictator. I agree with the dictator's note ,documented as a scribe. Any additional findings or plans will be noted.
--- NOTE | 2021-02-24 15:13 | P.GSCN ---
History of Present Illness Consult date: 02/24/21 History of present illness: This is 74-year-old gentleman with post polio syndrome. that is admitted to the hospital with 3mm left sided ureteral stone associated with nausea/vomiting. .Patient denies any dysuria or hematuria. He indicated he's having persistent left lower quadrant abdominal pain, with nausea and vomiting. No previous history of stones. Denies any fevers, chills Review of Systems - Constitutional Denies chills, Denies fever, Denies weight loss - EENT Ears, nose, mouth and throat: Denies dysphagia - Cardiovascular Denies chest pain, Denies shortness of breath - Respiratory Denies cough, Denies 7 - Gastrointestinal Reports abdominal pain, Reports nausea, Reports vomiting - Genitourinary Reports flank pain, Denies dysuria, Denies kidney stones - Neurological Denies headaches, Denies syncope Past Medical History Past Medical History: COPD, GERD/Reflux, Musculoskeletal Disorder, Neurologic Disorder, Osteoarthritis (OA), Pneumonia, Skin Disorder, Vascular Disorder Additional Past Medical History / Comment(s): Diagnosed with childhood polio at age 7 yrs, scoliosis/deformity, osteopenia, chronic back pain but pt denies cervical injury/pain d/t fall as stated in previous medical records, vascular disorder/has had wounds to bilateral feet and legs in past, current L back ulcer/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/they use [employer] every 3 days, pt has skin wounds L knee, ankylosis spondylosis, constipation/last BM 02/20/21, diverticulitis, History of Any Multi-Drug Resistant Organisms: MRSA Year Discovered:: 09/03/18 MDRO Source:: left LEG Past Surgical History: Back Surgery, Bowel Resection, Joint Replacement, Orthopedic Surgery Additional Past Surgical History / Comment(s): Back laminectomy, spinal fusion as a child, pt denies cervical surgery as documented in previous record, total R hip arthroplasty, multiple bilateral legs/feet surgery, back pain procedures, bowel resection d/t diverticulitis, colonoscopy, incontinence of urine/stool. Past Anesthesia/Blood Transfusion Reactions: No Reported Reaction Smoking Status: Former smoker - Past Family History Father Family Medical History: Coronary Artery Disease (CAD) Additional Family Medical History / Comment(s): heart arrythymia Brother(s) Family Medical History: Cancer Medications and Allergies Home Medications Medication Instructions Recorded Confirmed Type Sertraline HCl [Zoloft] 100 mg PO DAILY 12/24/14 02/22/21 History Methadone [Dolophine] 10 mg PO Q6H 11/04/15 02/22/21 History Acetaminophen Tab [Tylenol] 650 mg PO Q6HR PRN tab 04/29/20 02/22/21 Rx Clopidogrel [Plavix] 75 mg PO DAILY tab 04/29/20 02/22/21 Rx Metoprolol Succinate (ER) [Toprol 12.5 mg PO DAILY tab.er.24h 04/29/20 02/22/21 Rx XL] Pantoprazole [Protonix] 40 mg PO AC-BRKFST tablet. 04/29/20 02/22/21 Rx Albuterol Nebulized [Ventolin 2.5 mg INHALATION RT-Q6H PRN 02/22/21 02/22/21 History Nebulized] Healthshake 1 dose PO TID-W/MEALS 02/22/21 02/22/21 History Magic Cup 1 dose PO TID-W/MEALS 02/22/21 02/22/21 History Magnesium Hydroxide [Milk of 2,400 mg PO DAILY PRN 02/22/21 02/22/21 History Magnesia] Multivitamins, Thera [Multivitamin 1 tab PO DAILY@0800 02/22/21 02/22/21 History (formulary)] Proheal 30 ml PO BID 02/22/21 02/22/21 History Sennosides-Docusate Sodium 1 tab PO DAILY 02/22/21 02/22/21 History [Senokot-S] Sertraline [Zoloft] 50 mg PO DAILY 02/22/21 02/22/21 History buPROPion HCL [Wellbutrin XL] 300 mg PO DAILY@0500 02/22/21 02/22/21 History Allergies Allergy/AdvReac Type Severity Reaction Status Date / Time aspirin AdvReac Intermediate ringing in Verified 02/23/21 09:24 the ears Antihistamines - Alkylamine AdvReac Mild shaking Verified 02/23/21 09:24 Surgical - Exam Vital Signs Temp Pulse Resp BP Pulse Ox 97.5 F L 69 16 152/87 97 02/22/21 12:53 02/22/21 12:53 02/22/21 12:53 02/22/21 12:53 02/22/21 12:53 - General no distress, no pain - Eyes PERRL, normal ocular movement - ENT normal nares, normal mucosa - Respiratory normal expansion, normal respiratory effort - Abdomen Abdomen: soft, non tender - Psychiatric oriented to time, oriented to person, oriented to place, speech is normal Results - Labs 02/24/21 05:39 02/24/21 05:39 Abnormal Lab Results - Last 24 Hours (Table) 02/23/21 Range/Units 15:40 Potassium 2.1 L* (3.5-5.1) mmol/L Carbon Dioxide 31 H (22-30) mmol/L Glucose 122 H (74-99) mg/dL Calcium 7.9 L (8.4-10.2) mg/dL Diabetes panel 02/23/21 Range/Units 15:40 Sodium 139 (137-145) mmol/L Potassium 2.1 L* (3.5-5.1) mmol/L Chloride 98 (98-107) mmol/L Carbon Dioxide 31 H (22-30) mmol/L BUN 15 (9-20) mg/dL Creatinine 0.66 (0.66-1.25) mg/dL Glucose 122 H (74-99) mg/dL Calcium 7.9 L (8.4-10.2) mg/dL Calcium panel 02/23/21 Range/Units 15:40 Calcium 7.9 L (8.4-10.2) mg/dL Pituitary panel 02/23/21 Range/Units 15:40 Sodium 139 (137-145) mmol/L Potassium 2.1 L* (3.5-5.1) mmol/L Chloride 98 (98-107) mmol/L Carbon Dioxide 31 H (22-30) mmol/L BUN 15 (9-20) mg/dL Creatinine 0.66 (0.66-1.25) mg/dL Glucose 122 H (74-99) mg/dL Calcium 7.9 L (8.4-10.2) mg/dL Adrenal panel 02/23/21 Range/Units 15:40 Sodium 139 (137-145) mmol/L Potassium 2.1 L* (3.5-5.1) mmol/L Chloride 98 (98-107) mmol/L Carbon Dioxide 31 H (22-30) mmol/L BUN 15 (9-20) mg/dL Creatinine 0.66 (0.66-1.25) mg/dL Glucose 122 H (74-99) mg/dL Calcium 7.9 L (8.4-10.2) mg/dL Assessment and Plan Assessment: 75 yo male admitted to the hospital with 3mm left sided ureteral stone. Patient continues to have pain with nausea and vomiting. He has been on ceftriaxone for greater than 24 hours. Discussed with him given his intractable pain and recommend proceeding with left-sided ureteroscopy. Discussed the risk which includes but not limited to bleeding, infection, injury to the ureter -Keep NPO -Continue ceftriaxone -Or for left-sided ureteroscopy with holmium laser lithotripsy, stone basketing and stent insertion
[2021-02-24] MEDS ORDERED: fentaNYL (PF) 50 MCG/ML 2 ML AMP ONE (19:13)
[2021-02-24] MEDS ORDERED: LIDOCAINE 1% INJ 10MG/ML (20 ML MDV) ONE (19:13)
[2021-02-24] MEDS ORDERED: ROCURONIUM 10 MG/ML (5 ML VIAL) IV ONE (19:13)
[2021-02-24] MEDS ORDERED: ETOMIDATE 2 MG/ML 10 ML VIAL ONE (19:13)
[2021-02-24] MEDS ORDERED: LACTATED RINGERS 1,000 ML IV ONE (19:16)
[2021-02-24] MEDS ORDERED: SODIUM CHLORIDE 0.9% 1,000 ML IV ONE ×2 (19:16→20:02)
[2021-02-24] MEDS ORDERED: SODIUM CHLORIDE 0.9% 100 ML with ceFAZolin 2,000 MG IV ONE ×2 (19:29)
--- NOTE | 2021-02-24 20:11 | P.OP ---
Date of Procedure: 02/24/21 Preoperative Diagnosis: Left-sided ureteral stone Postoperative Diagnosis: Same Procedure(s) Performed: Cystoscopy, left ureteroscopy, holmium laser lithotripsy, stone basketing and stent insertion Implants: 6-Czech by 26 cm stent in the left ureter, left on a string Anesthesia: GRETCHEN Surgeon: Gabe Green Estimated Blood Loss (ml): 5 Pathology: other (Left ureteral stone) Condition: stable Disposition: PACU Indications for Procedure: 75 yo male admitted to the hospital with 3mm left sided ureteral stone. Patient continues to have pain with nausea and vomiting. He has been on ceftriaxone for greater than 24 hours. Discussed with him given his intractable pain and recommend proceeding with left-sided ureteroscopy. Discussed the risk which includes but not limited to bleeding, infection, injury to the ureter Operative Findings: Left distal ureteral stone Description of Procedure: Patient was brought to the operating room, general anesthesia was induced. He was prepped and draped in sterile fashion a placement dorsal lithotomy position. Cystoscopy fitted with 21-Czech sheath was inserted per urethra, cystoscopy was performed showed a heavily trabeculated bladder, but there was no suspicious lesions. Attention was then carried to the left ureteral orifice which was intubated with a sensor wire. Next a ureteral catheter was passed over the wire, the renal urine was aspirated, it was hematuric but it was not cloudy. At this time the wire was readvanced and the catheter was removed with the wire in place. Next a semirigid ureteroscope was inserted and advanced up the left ureteral orifice, a stone was seen in the distal ureter. Using the holmium laser the stone was fragmented into small fragments, sizable fragments were removed and sent to pathology. The the ureteroscope was advanced to the proximal ureter which showed no additional stones, pullback ureteroscopy showed no injury to the ureter or sizable fragments. At this time a ureteral stent was passed over the wire, the proximal curl was visualized on fluoroscopy and the distal curl was visualized using the cystoscope. The stent was left on a string and taped to the patient penis. Patient tolerated the procedure well was taken to recovery in stable condition
[2021-02-24] MEDS ORDERED: ONDANSETRON 4 MG/2 ML VIAL IVP ONE (20:12)
[2021-02-24] MEDS: HYDROmorphone 0.5 MG/0.5 ML SYRINGE IVP PRN ×6 (20:20→23:51)
[2021-02-24] MEDS: fentaNYL (PF) 50 MCG/ML 5 ML AMP IV ONE ×2 (20:41→20:49)
[2021-02-25] MEDS: bisacodyL 10 MG SUPP RECTAL SCH (03:03)
[2021-02-25] MEDS: METHADONE 10 MG TAB PO SCH ×3 (03:05→14:05)
[2021-02-25] MEDS: SODIUM CHLORIDE 0.9% 1,000 ML IV SCH ×2 (03:08→09:29)
[2021-02-25] MEDS: HYDROmorphone 0.5 MG/0.5 ML SYRINGE IVP PRN (03:29)
[2021-02-25 04:33] VITALS: RESP 20
[2021-02-25] MEDS ORDERED: POTASSIUM CHLORIDE ER 20 MEQ TAB.ER PO STA (06:06)
--- NOTE | 2021-02-25 06:10 | FL ---
EXAMINATION TYPE: FL guidance operating room DATE OF EXAM: 02/24/2021 CLINICAL HISTORY: Kidney stone TECHNIQUE: Fluoroscopy. COMPARISON: CT abdomen and pelvis 2 days earlier. FINDINGS: Fluoroscopic guidance was provided during left sided lithotripsy and ureter stent insertio n procedure performed by Dr. Jenkins. A total of 4 seconds of fluoroscopic time was utilized during t he procedure and 2 spot images was acquired. Images acquired show partial visualization of left urete r stent. IMPRESSION: As Above.
[2021-02-25] MEDS: buPROPion XL 300 MG TAB.ER.24H PO SCH (06:28)
[2021-02-25] MEDS: PANTOPRAZOLE 40 MG/10 ML VIAL IV SCH (09:25)
[2021-02-25] MEDS: SERTRALINE 50 MG TAB PO SCH ×2 (09:26→09:27)
[2021-02-25] MEDS: MULTIVITAMINS, THERA 1 EACH TAB PO SCH (09:27)
[2021-02-25] MEDS: SERTRALINE 100 MG TAB PO SCH (09:28)
[2021-02-25] MEDS: TAMSULOSIN 0.4 MG CAP.ER.24H PO SCH (09:28)
[2021-02-25] MEDS: CLOPIDOGREL 75 MG TAB PO SCH (09:28)
[2021-02-25] MEDS: METOPROLOL SUCCINATE (ER) 25 MG TAB.ER.24H PO SCH (09:28)
[2021-02-25] MEDS: SENNOSIDES-DOCUSATE SODIUM 1 EACH TAB PO SCH (09:29)
[2021-02-25] MEDS: ENOXAPARIN 40 MG/0.4 ML SYRINGE SQ SCH (09:30)
--- NOTE | 2021-02-25 10:22 | P.DS ---
Providers Date of admission: 02/22/21 18:50 Expected date of discharge: 02/25/21 Attending physician: Kev Bearden Consults: 02/22/21 18:51 Consult Physician Routine Consulting Provider: Gabe Green Consult Reason/Comments: ureteral stone Do you want consulting provider notified?: Yes Primary care physician: [facility] Course: Diffuse abdominal pain , positive renal colic ,moderate left hydronephrosis with a 3 mm calcification seen posterior to the bladder on the left , possible obstruction Possible acute UTI, culture pending. Urinary retention, post cystoscopy, left ureteroscopy, lithotripsy, stone basketing and stent placement. Goldstein catheter placed and to be left in, stent removal pending with follow-up in one week with urology-. Constipation, in a patient on methadone with history of chronic constipation. Dehydration Vascular disorder with chronic cellulitis bilateral lower extremities. COPD Ongoing nicotine dependence Gastroesophageal reflux disease Osteoarthritis Post Polio syndrome Chronic back pain with severe deformities Chronic Cervical injury Multiple orthopedic surgeries Anxiety Ongoing nicotine dependence Ankylosis spondylosis Anxiety Hypokalemic Hospital course:This is 74-year-old gentleman with past medical history of gastroesophageal reflux disease, ankylosis spondylosis , osteoarthritis, vascular disorder, chronic wounds on bilateral lower extremities and feet, chronic back pain, cervical injury 2016, gait dysfunction, uses crutches, anxiety, ongoing nicotine dependence and multiple other medical issues presented to the ER with left flank abdominal pain, nausea, vomiting 3 days. Tested negative for coronavirus.Patient denies any dysuria or hematuria. Denies any lightheadedness dizziness or focal deficits.CT of abdomen and pelvis reported evidence of moderate left hydronephrosis with a 3 mm calcification seen posterior to the bladder on the left which could potentially be in the course of the distal left ureter or UVJ resulting in ureteral obstruction, mild central intrahepatic biliary ductal dilation, maybe chronic possible biliary obstruction-LFTs within normal limits., Fecal impaction of the rectum. Afebrile, normal WBCs. Potassium 3.1, bicarbonate 31, BUN 26, creatinine 0.52. Lactic acid 1.1. Repeat BMP pending. UA reporting small leukocytes, 32 wbc's, negative nitrates. Denies any chest pain, palpitations or shortness of breath. Received IV fluid hydration with Rocephin initiated. Nausea and emesis has subsided. 02/24/2021 maintained on IV fluids, Rocephin. Afebrile, WBC increased up to 14.1. UA suggestive of possible UTI, culture pending. Potassium 2.9, potassium supplements in progress. Renal function stable. Urology consult in place, recommendations pending. Continues to have left flank pain. Evaluated by urology, underwent cystoscopy, left ureteroscopy, lithotripsy, stone basketing and stent placement. The stent was left on a string and taped to the patient penis.Tolerated procedure well. Developed urinary retention. Goldstein catheter inserted and to be left in place, cleared for discharge with follow-up in 1 week as per urology. Since Goldstein catheter insertion, the patient denies pain. Patient will be discharged to [facility] in a stable condition with guarded prognosis pending labs. The impression and plan of care has been dictated as directed. : I performed a history and examination of this patient, discussed the same with the dictator. I agree with the dictator's note ,documented as a scribe. Any additional findings or plans will be noted. Patient Condition at Discharge: Stable Plan - Discharge Summary Discharge Rx Participant: No New Discharge Prescriptions: New Cefuroxime Axetil [Ceftin] 500 mg PO BID 7 Days #14 tab Docusate [Colace] 100 mg PO BID PRN cap PRN Reason: Constipation Tamsulosin [Flomax] 0.4 mg PO PC-BRKFST capsule Continue Sertraline HCl [Zoloft] 100 mg PO DAILY Methadone [Dolophine] 10 mg PO Q6H Clopidogrel [Plavix] 75 mg PO DAILY tab Pantoprazole [Protonix] 40 mg PO AC-BRKFST tablet. Metoprolol Succinate (ER) [Toprol XL] 12.5 mg PO DAILY tab.er.24h Acetaminophen Tab [Tylenol] 650 mg PO Q6HR PRN tab PRN Reason: Fever And/ Or Pain Healthshake 1 dose PO TID-W/MEALS Proheal 30 ml PO BID Sertraline [Zoloft] 50 mg PO DAILY buPROPion HCL [Wellbutrin XL] 300 mg PO DAILY@0500 Albuterol Nebulized [Ventolin Nebulized] 2.5 mg INHALATION RT-Q6H PRN PRN Reason: Wheezing Magic Cup 1 dose PO TID-W/MEALS Sennosides-Docusate Sodium [Senokot-S] 1 tab PO DAILY Multivitamins, Thera [Multivitamin (formulary)] 1 tab PO DAILY@0800 Magnesium Hydroxide [Milk of Magnesia] 2,400 mg PO DAILY PRN PRN Reason: Constipation Discharge Medication List Sertraline HCl [Zoloft] 100 mg PO DAILY 12/24/14 [History] Methadone [Dolophine] 10 mg PO Q6H 11/04/15 [History] Acetaminophen Tab [Tylenol] 650 mg PO Q6HR PRN tab 04/29/20 [Rx] Clopidogrel [Plavix] 75 mg PO DAILY tab 04/29/20 [Rx] Metoprolol Succinate (ER) [Toprol XL] 12.5 mg PO DAILY tab.er.24h 04/29/20 [Rx] Pantoprazole [Protonix] 40 mg PO AC-BRKFST tablet.dr 04/29/20 [Rx] Albuterol Nebulized [Ventolin Nebulized] 2.5 mg INHALATION RT-Q6H PRN 02/22/21 [History] Healthshake 1 dose PO TID-W/MEALS 02/22/21 [History] Magic Cup 1 dose PO TID-W/MEALS 02/22/21 [History] Magnesium Hydroxide [Milk of Magnesia] 2,400 mg PO DAILY PRN 02/22/21 [History] Multivitamins, Thera [Multivitamin (formulary)] 1 tab PO DAILY@0800 02/22/21 [History] Proheal 30 ml PO BID 02/22/21 [History] Sennosides-Docusate Sodium [Senokot-S] 1 tab PO DAILY 02/22/21 [History] Sertraline [Zoloft] 50 mg PO DAILY 02/22/21 [History] buPROPion HCL [Wellbutrin XL] 300 mg PO DAILY@0500 02/22/21 [History] Cefuroxime Axetil [Ceftin] 500 mg PO BID 7 Days #14 tab 02/25/21 [Rx] Docusate [Colace] 100 mg PO BID PRN cap 02/25/21 [Rx] Tamsulosin [Flomax] 0.4 mg PO PC-BRKFST capsule 02/25/21 [Rx] Follow up Appointment(s)/Referral(s): Gabe Green MD [STAFF PHYSICIAN] - 1 Week Holland Nye MD [Primary Care Provider] - 3 Days Activity/Diet/Wound Care/Special Instructions: [facility] Leave goldstein in and F/U with urology in week for stent removal Empiric antibiotics, final urine culture pending. CBC BMP in 3 days. Discharge Disposition: TRANSFER TO SNF/ECF
[2021-02-25] MEDS ORDERED: NA PHOS,M-B/NA PHOS,DI-BA 133 ML ENEMA RECTAL ONE (11:06)
[2021-02-25 11:08] LABS: HCT 38.7 % (39.0-53.0); HGB 12.2 gm/dL (13.0-17.5); Hypochromasia Slight; MCH 32.8 pg (25.0-35.0); MCHC 31.5 g/dL (31.0-37.0); MCV 104.2 fL (80.0-100.0); Macrocytosis Slight; Mean Platelet Volume 7.7; Platelet Count 378 k/uL (150-450); RBC 3.72 m/uL (4.30-5.90); RDW 13.5 % (11.5-15.5)
[2021-02-25 11:28] LABS: African American GFR (CKD) >90 (>60 ml/min/1.73 sqM); Anion Gap 15 mmol/L; Blood Urea Nitrogen 10 mg/dL (9-20); Carbon Dioxide 23 mmol/L (22-30); Chloride 99 mmol/L (98-107); Glucose 94 mg/dL (74-99); Non-African American GFR(CKD) >90 (>60 ml/min/1.73 sqM); Potassium 3.1 mmol/L (3.5-5.1); Sodium 137 mmol/L (137-145)
[2021-02-25 12:08] VITALS: BP 158/80; PULSE 89; TEMP 98
--- NOTE | 2021-02-25 15:46 | CDI ---
Documentation Clarification Form Date: 02/25/2021 03:25:01 PM From: Elodia Flores RN, CCDS Admit Date: 02/22/2021 06:50:00 PM Patient Name: Carlin Garduno Visit Number: [id number] Discharge Date: ATTENTION: The Clinical Documentation Specialists (CDI) and [facility] Coding Staff appreciate your assistance in clarifying documentation. Please respond to the clarification below the line at the bottom and electronically sign. The CDI & [facility] Coding staff will review the response and follow-up if needed. Please note: Queries are made part of the Legal Health Record. If you have any questions, please contact the author of this message via ITS. Dr. Kev Bearden The Registered Dietitian assessment on 02/23/21, indicates this patient meets criteria for malnutrition, severe chronic. Based on this information and the findings below, is there an additional diagnosis that is clinically appropriate for this patient? History/Risk Factors: GERD, Polio syndrome, Skin Disorder, Vascular Disorder Clinical Indicators: 12-opak-cooy present with nausea and vomiting over the last 3 days. He appears to be dehydrated and very cachectic in appearance per emergency department assessment RD Consult Assessment: Emaciated, severe temporal, orbital, clavicle wasting 02/22 Labs BUN 26, CR 0.52, Current BMI: 17.4 Insufficient energy intake: Yes, Poor Weight Loss: Underweight Loss of subcutaneous fat: Yes Loss of muscle mass: Yes Treatment: Dietary Consult: Yes Supplements: Ensure Enlive TID .9NS IV X2 Liters Zofran 4MG IV Q4 H PRN Is there an additional diagnosis that is clinically appropriate for this patient? [ ] Mild Protein-Calorie Malnutrition [ ] Moderate Protein-Calorie Malnutrition [ ] Severe Protein-Calorie Malnutrition [ ] Other condition, please specify [ ] Unable to Determine (Template Last Revised: May 2020) ____Patient has post polio syndrome requiring enormous amounts of energy to survive _and move subsequently developed kidney stones which were obstructive in nature causing him to vomit and not eat over the past week MTDD
--- NOTE | 2021-02-25 19:28 | P.PN ---
Subjective Progress Note Date: 02/25/21 patient's left lower quadrant abdominal pain, nausea has improved. He accidentally removed his stent this morning, postvoid residual is 900 this a.m. Objective - Vital Signs Vital signs: Vital Signs Temp 98 F 02/25/21 12:07 Pulse 89 02/25/21 12:07 Resp 20 02/25/21 12:07 BP 158/80 02/25/21 12:07 Pulse Ox 98 02/25/21 12:07 Intake & Output 02/25/21 02/25/21 02/26/21 06:59 18:59 06:59 Intake Total 1900 Output Total 5 500 Balance 1895 -500 Weight 50.349 kg Intake: IV 1500 Oral 400 Output: Urine 500 Estimated Blood Loss 5 Other: Voiding Method Diaper Diaper # Voids 5 - Constitutional General appearance: Present: no acute distress - Labs CBC & Chem 7: 02/25/21 09:55 02/25/21 09:49 Labs: Abnormal Lab Results - Last 24 Hours (Table) 02/25/21 02/25/21 Range/Units 09:49 09:55 WBC 20.0 H (3.8-10.6) k/uL RBC 3.72 L (4.30-5.90) m/uL Hgb 12.2 L (13.0-17.5) gm/dL Hct 38.7 L (39.0-53.0) % MCV 104.2 H (80.0-100.0) fL Potassium 3.1 L (3.5-5.1) mmol/L Creatinine 0.57 L (0.66-1.25) mg/dL Calcium 8.0 L (8.4-10.2) mg/dL Assessment and Plan Assessment: 75 yo male admitted to the hospital with 3mm left sided ureteral stone. patient underwent left-sided ureteroscopy on 02/24 for intractable pain and nausea. accidentally remove his stent this morning. also developed postoperative urinary retention -place a Moore catheter, given the elevated postvoid residual, we'll start him on Flomax. Can follow-up in 1 week for trial of void -okay for discharge from urology standpoint
--- NOTE | 2021-03-01 10:22 | CDI ---
Documentation Clarification Form Date: 03/01/2021 09:48:29 AM From: Elodia Flores RN, CCDS Admit Date: 02/22/2021 06:50:00 PM Patient Name: Carlin Garduno Visit Number: [id number] Discharge Date: 02/25/2021 04:16:00 PM ATTENTION: The Clinical Documentation Specialists (CDI) and [facility] Coding Staff appreciate your assistance in clarifying documentation. Please respond to the clarification below the line at the bottom and electronically sign. The CDI & [facility] Coding staff will review the response and follow-up if needed. Please note: Queries are made part of the Legal Health Record. If you have any questions, please contact the author of this message via ITS. Dr. Gabe Green Postoperative Urinary retention, is documented progress note on 02/25/21 and patient had Cystoscopy, Left-sided ureteroscopy, holmium laser lithotripsy, stone basketing and stent insertion. Additional clarification is requested regarding the relationship, if any, that exists between the diagnosis and the procedure. Patients Admitting Diagnosis: Left-sided ureteral stone Post-Operative Diagnosis: same Procedure performed: Cystoscopy, Left-sided ureteroscopy, holmium laser lithotripsy, stone basketing and stent insertion. History/Risk Factors: Post-Polio syndrome, Osteoarthritis, cervical injury from fall 02/2017 Clinical Indicators: 75-year-old male present with complaints of nausea and vomiting over the last 3 days. He denies any dysuria or hematuria. 02/22 CT abdomen/pelvis: Left hydronephrosis and suspected distal ureteral stone. He indicated he's having persistent left lower quadrant abdominal pain. He appears to be dehydrated . Labs: BUN 26, CR 0, 52 Treatment: Monitor I/O Moore catheter placement 02/25/21 Rocephin 1 GM IVPB Daily 02/22-02/25 Flomax 0.4 MP PO PC-BRKFST 02/23 Follow up in 1 week for trial of void What relationship, if any, exists between the diagnosis of Postoperative urinary retention and the procedure? [ ] Postoperative urinary retention is a complication of surgical procedure [ ] Postoperative urinary retention is an expected outcome of the surgical procedure [ ] Postoperative urinary retention] is related to patients co-morbid condition(s) of [insert co-morbid dxs] & not a complication of the procedure [ ] Other please specify ____ [ ] Unable to determine (Template Last Revised: May 2020) Complication of the procedure, patient increased risk of post operative complication given his immobility MTDD
== END 2021-02-25 16:16 | DRG 660 ==
LOC: EC 12:47 → 5NMEDONC 18:50 → 3NCARDOBS 02-23 08:03 → 5NMEDONC 02-23 18:00
PROVIDERS: ADMIT Family Medicine; ATTEND Family Medicine
PROC: 0T778DZ Dilation of Left Ureter with Intraluminal Device, Via Natural or Artificial Opening Endoscopic (ICD-10-PCS; principal; 2021-02-24 12:45)
PROC: 0TC78ZZ Extirpation of Matter from Left Ureter, Via Natural or Artificial Opening Endoscopic (ICD-10-PCS; principal; 2021-02-24 12:45)
DX: N13.6 Pyonephrosis (principal); R64 Cachexia; Z68.1 Body mass index [BMI] 19.9 or less, adult; L03.115 Cellulitis of right lower limb; L03.116 Cellulitis of left lower limb; L89.142 Pressure ulcer of left lower back, stage 2; M41.40 Neuromuscular scoliosis, site unspecified; R62.7 Adult failure to thrive; K56.41 Fecal impaction; J44.9 Chronic obstructive pulmonary disease, unspecified; N99.89 Other postprocedural complications and disorders of genitourinary system; R33.8 Other retention of urine; Z20.822 Contact with and (suspected) exposure to COVID-19; G14 Postpolio syndrome; E86.0 Dehydration; R32 Unspecified urinary incontinence; E87.6 Hypokalemia; K21.9 Gastro-esophageal reflux disease without esophagitis; G89.29 Other chronic pain; F41.9 Anxiety disorder, unspecified; M54.50 Low back pain, unspecified; M85.88 Other specified disorders of bone density and structure, other site; R26.9 Unspecified abnormalities of gait and mobility; I99.9 Unspecified disorder of circulatory system; M19.90 Unspecified osteoarthritis, unspecified site; Z79.02 Long term (current) use of antithrombotics/antiplatelets; Z79.899 Other long term (current) drug therapy; Z87.891 Personal history of nicotine dependence; Z86.14 Personal history of Methicillin resistant Staphylococcus aureus infection; Z90.49 Acquired absence of other specified parts of digestive tract; Z87.19 Personal history of other diseases of the digestive system; Z96.641 Presence of right artificial hip joint; Z98.1 Arthrodesis status; Z87.39 Personal history of other diseases of the musculoskeletal system and connective tissue; Z87.01 Personal history of pneumonia (recurrent); Z87.2 Personal history of diseases of the skin and subcutaneous tissue; Z98.890 Other specified postprocedural states; Z88.6 Allergy status to analgesic agent; Z88.8 Allergy status to other drugs, medicaments and biological substances; Z82.49 Family history of ischemic heart disease and other diseases of the circulatory system; Z80.9 Family history of malignant neoplasm, unspecified
CPT/HCPCS: 36415; 74177; 80048; 80053; 81001; 82365; 83605; 83735; 84132; 85025; 85027; 87635; 93005; 96365; 96375; 99284

== ENCOUNTER 2021-03-02 05:51 | Inpatient (IN) | payer MEDICARE ==
--- NOTE | 2021-03-02 06:03 | ED ---
GI Bleed HPI <Curry Whittington - Last Filed: 03/02/21 11:52> - History of Present Illness MD complaint: gross hematochezia -: hour(s) Quality: cramping Consistency: constant Improves with: none Worsens with: none Associated Symptoms: denies other symptoms <Haroldo Grullon - Last Filed: 03/08/21 10:26> - General Stated complaint: GI Bleed Time Seen by Provider: 03/02/21 05:55 - History of Present Illness Initial comments: 's patient is a 75-year-old man sent here from his long-term care facility after he had passed 2 bloody bowel movements with dark red blood. Patient states she has been having some abdominal crampy type pain. penitentiary staff also noticed blood in patient's Moore catheter output, but he did have recent ureteral stent placement for ureteral stone. Patient denies chest pain or dyspnea. (Haroldo Grullon) - Related Data Home Medications Medication Instructions Recorded Confirmed Sertraline HCl [Zoloft] 100 mg PO DAILY@0800 12/24/14 03/02/21 Methadone [Dolophine] 10 mg PO Q6H 11/04/15 03/02/21 Albuterol Nebulized [Ventolin 2.5 mg INHALATION RT-QID PRN 02/22/21 03/02/21 Nebulized] Healthshake 1 dose PO TID@0800,1200,1800 02/22/21 03/02/21 Magic Cup 1 dose PO TID@0800,1200,1800 02/22/21 03/02/21 Magnesium Hydroxide [Milk of 2,400 mg PO DAILY PRN 02/22/21 03/02/21 Magnesia] Multivitamins, Thera [Multivitamin 1 tab PO DAILY 02/22/21 03/02/21 (formulary)] Proheal 30 ml PO BID 02/22/21 03/02/21 Sennosides-Docusate Sodium 1 tab PO DAILY 02/22/21 03/02/21 [Senokot-S] Sertraline [Zoloft] 50 mg PO DAILY@0800 02/22/21 03/02/21 buPROPion HCL [Wellbutrin XL] 300 mg PO DAILY@0500 02/22/21 03/02/21 Acetaminophen Tab [Tylenol] 650 mg PO Q6H PRN 03/02/21 03/02/21 Clopidogrel [Plavix] 75 mg PO DAILY@0800 03/02/21 03/02/21 Docusate [Colace] 100 mg PO BID 03/02/21 03/02/21 Metoprolol Succinate (ER) [Toprol 12.5 mg PO DAILY@0800 03/02/21 03/02/21 XL] Omeprazole 20 mg PO DAILY 03/02/21 03/02/21 Tamsulosin [Flomax] 0.4 mg PO DAILY 03/02/21 03/02/21 Previous Rx's Medication Instructions Recorded Cefuroxime Axetil [Ceftin] 500 mg PO BID 7 Days #14 tab 02/25/21 Allergies Allergy/AdvReac Type Severity Reaction Status Date / Time aspirin AdvReac Intermediate ringing in Verified 03/02/21 07:38 the ears Antihistamines - Alkylamine AdvReac Mild shaking Verified 03/02/21 07:38 Review of Systems ROS Other: All systems not noted in ROS Statement are negative. <Curry Whittington - Last Filed: 03/02/21 11:52> ROS Other: All systems not noted in ROS Statement are negative. Constitutional: Denies: fever Respiratory: Denies: cough, dyspnea Cardiovascular: Denies: chest pain, syncope Gastrointestinal: Reports: abdominal pain, constipation, hematochezia. Denies: vomiting, melena Genitourinary: Reports: other (Moore catheter present) Musculoskeletal: Denies: back pain Skin: Denies: rash Neurological: Denies: headache, weakness <Haroldo Grullon - Last Filed: 03/08/21 10:26> ROS Statement: Those systems with pertinent positive or pertinent negative responses have been documented in the HPI. Past Medical History Past Medical History: COPD, GERD/Reflux, Musculoskeletal Disorder, Neurologic Disorder, Osteoarthritis (OA), Pneumonia, Skin Disorder, Vascular Disorder Additional Past Medical History / Comment(s): Diagnosed with childhood polio at age 7 yrs, scoliosis/deformity, osteopenia, chronic back pain but pt denies cervical injury/pain d/t fall as stated in previous medical records, vascular disorder/has had wounds to bilateral feet and legs in past, current L back ulcer/staff at [facility] state it is a stage II/they use [employer] every 3 days, pt has skin wounds L knee, ankylosis spondylosis, constipation/last BM 02/20/21, diverticulitis, History of Any Multi-Drug Resistant Organisms: MRSA Date of last positivie culture/infection: 09/03/18 MDRO Source:: left LEG Past Surgical History: Back Surgery, Bowel Resection, Joint Replacement, Orthopedic Surgery Additional Past Surgical History / Comment(s): Back laminectomy, spinal fusion as a child, pt denies cervical surgery as documented in previous record, total R hip arthroplasty, multiple bilateral legs/feet surgery, back pain procedures, bowel resection d/t diverticulitis, colonoscopy, incontinence of urine/stool. Past Anesthesia/Blood Transfusion Reactions: No Reported Reaction Smoking Status: Former smoker - Past Family History Father Family Medical History: Coronary Artery Disease (CAD) Additional Family Medical History / Comment(s): heart arrythymia Brother(s) Family Medical History: Cancer <Haroldo Grullon - Last Filed: 03/08/21 10:26> General Exam General appearance: alert, in no apparent distress, cachectic Head exam: Present: atraumatic, normocephalic Eye exam: Present: normal appearance Respiratory exam: Present: normal lung sounds bilaterally. Absent: respiratory distress, wheezes, rales, rhonchi, stridor Cardiovascular Exam: Present: tachycardia, irregular rhythm, normal heart so unds. Absent: systolic murmur, diastolic murmur, rubs, gallop GI/Abdominal exam: Present: soft. Absent: distended, tenderness, guarding, rebound, rigid, mass Rectal exam: Present: bloody stool. Absent: hemorrhoids, mass, tenderness By manual exam: Present: other (Moore catheter present with bloody urine present) Extremities exam: Present: normal capillary refill. Absent: pedal edema, calf tenderness Back exam: Present: other (Scoliosis) Neurological exam: Present: alert Skin exam: Present: warm, dry, normal color, other (Stage II decubitus left mid back. Bilateral lower extremity decubitus.) <Haroldo Grullon - Last Filed: 03/08/21 10:26> Course Vital Signs 03/02/21 03/02/21 03/02/21 05:53 06:33 07:24 Temperature 97.8 F Pulse Rate 111 H 123 H 122 H Pulse Rate [ Domestic Maid ] Respiratory 18 18 18 Rate Blood Pressure 95/81 97/52 104/81 Blood Pressure [Right Arm] O2 Sat by Pulse 97 97 98 Oximetry 03/02/21 03/02/21 03/02/21 08:34 10:02 10:12 Temperature 97.7 F 97.6 F Pulse Rate 105 H 113 H 112 H Pulse Rate [ Domestic Maid ] Respiratory 18 18 18 Rate Blood Pressure 114/84 113/90 91/51 Blood Pressure [Right Arm] O2 Sat by Pulse 95 94 L 97 Oximetry 03/02/21 03/02/21 03/02/21 10:42 12:10 14:26 Temperature 98 F Pulse Rate 126 H 106 H 116 H Pulse Rate [ Domestic Maid ] Respiratory 16 18 18 Rate Blood Pressure 104/75 111/87 112/96 Blood Pressure [Right Arm] O2 Sat by Pulse 97 94 L Oximetry 03/02/21 15:06 Temperature 97.2 F L Pulse Rate Pulse Rate [ 106 H Domestic Maid ] Respiratory 16 Rate Blood Pressure Blood Pressure 142/95 [Right Arm] O2 Sat by Pulse 93 L Oximetry Medical Decision Making - Lab Data Result diagrams: 03/02/21 06:02 03/02/21 06:02 <Curry Whittington - Last Filed: 03/02/21 11:52> - Lab Data Result diagrams: 03/07/21 06:51 03/07/21 06:51 <Haroldo Grullon - Last Filed: 03/08/21 10:26> - Medical Decision Making Patient was signed out to me pending results of imaging, laboratory studies. Patient was already admitted under Dr. Nye by the previous physician. There is concern for melanotic stools. She also has new-onset atrial fibrillation for which he was started on amiodarone. Laboratory studies were remarkable for a stable hemoglobin of 11.7 with a history of macrocytic anemia. This is slightly below his baseline of 12.2. Patient has an elevated INR of unknown etiology as he is not on Coumadin and does not appear to have liver dysfunction based on labs. INR is over 10. He was administered Kcentra as well as vitamin K by myself due to the elevated INR, as the patient's PCP was concerned that he may have accidentally been receiving Coumadin at his nursing facility. Laboratory studies are as are remarkable for a mild hypokalemia of 2.4 which is replenished. Patient's troponin is elevated to 0.8-2. No acute ischemic changes on EKG. UDS is positive for methadone and opiates. Occult blood of the stool is negative. Covid is negative. Patient's CT imaging did not reveal any obvious sign of acute GI bleed. There is mild intrahepatic ductal dilation. There is also distention of the rectum with wall thickening which could be related to neoplastic or inflammatory process. Recommend direct visualization per radiology. After the patient results of his labs and imaging. He is already admitted to the hospital. I spoke with Dr. Padgett of general surgery who agreed to evaluate the patient is a consult. I also spoke with Dr. Clark cardiology who agreed to evaluate patient as a consult. Patient was therefore admitted in serious condition. (Curry Whittington) - Lab Data Lab Results 03/02/21 03/02/21 03/02/21 Range/Units 06:02 06:02 06:02 WBC 8.9 (3.8-10.6) k/uL RBC 3.61 L (4.30-5.90) m/uL Hgb 11.7 L (13.0-17.5) gm/dL Hct 36.2 L (39.0-53.0) % MCV 100.3 H (80.0-100.0) fL MCH 32.5 (25.0-35.0) pg MCHC 32.4 (31.0-37.0) g/dL RDW 13.1 (11.5-15.5) % Plt Count 546 H (150-450) k/uL MPV 7.8 Neutrophils % 89 % Lymphocytes % 5 % Monocytes % 4 % Eosinophils % 1 % Basophils % 0 % Neutrophils # 7.9 H (1.3-7.7) k/uL Lymphocytes # 0.5 L (1.0-4.8) k/uL Monocytes # 0.4 (0-1.0) k/uL Eosinophils # 0.1 (0-0.7) k/uL Basophils # 0.0 (0-0.2) k/uL PT >130.0 H (9.0-12.0) sec INR >10.0 H* (<1.2) APTT 93.7 H (22.0-30.0) sec Sodium 137 (137-145) mmol/L Potassium 2.4 L* (3.5-5.1) mmol/L Chloride 95 L (98-107) mmol/L Carbon Dioxide 33 H (22-30) mmol/L Anion Gap 9 mmol/L BUN 19 (9-20) mg/dL Creatinine 0.73 (0.66-1.25) mg/dL Est GFR (CKD-EPI)AfAm >90 (>60 ml/min/1.73 sqM) Est GFR (CKD-EPI)NonAf >90 (>60 ml/min/1.73 sqM) Glucose 88 (74-99) mg/dL Plasma Lactic Acid Kaden (0.7-2.0) mmol/L Calcium 7.8 L (8.4-10.2) mg/dL Total Bilirubin 0.8 (0.2-1.3) mg/dL AST 21 (17-59) U/L ALT 14 (4-49) U/L Alkaline Phosphatase 98 (38-126) U/L Troponin I (0.000-0.034) ng/mL Total Protein 6.0 L (6.3-8.2) g/dL Albumin 2.9 L (3.5-5.0) g/dL Stool Occult Blood (Negative) Blood Type Blood Type Confirm Blood Type Recheck Bld Type Recheck Status Antibody Screen Crossmatch Spec Expiration Date 03/02/21 03/02/21 03/02/21 Range/Units 06:02 06:02 06:02 WBC (3.8-10.6) k/uL RBC (4.30-5.90) m/uL Hgb (13.0-17.5) gm/dL Hct (39.0-53.0) % MCV (80.0-100.0) fL MCH (25.0-35.0) pg MCHC (31.0-37.0) g/dL RDW (11.5-15.5) % Plt Count (150-450) k/uL MPV Neutrophils % % Lymphocytes % % Monocytes % % Eosinophils % % Basophils % % Neutrophils # (1.3-7.7) k/uL Lymphocytes # (1.0-4.8) k/uL Monocytes # (0-1.0) k/uL Eosinophils # (0-0.7) k/uL Basophils # (0-0.2) k/uL PT (9.0-12.0) sec INR (<1.2) APTT (22.0-30.0) sec Sodium (137-145) mmol/L Potassium (3.5-5.1) mmol/L Chloride (98-107) mmol/L Carbon Dioxide (22-30) mmol/L Anion Gap mmol/L BUN (9-20) mg/dL Creatinine (0.66-1.25) mg/dL Est GFR (CKD-EPI)AfAm (>60 ml/min/1.73 sqM) Est GFR (CKD-EPI)NonAf (>60 ml/min/1.73 sqM) Glucose (74-99) mg/dL Plasma Lactic Acid Kaden 1.3 (0.7-2.0) mmol/L Calcium (8.4-10.2) mg/dL Total Bilirubin (0.2-1.3) mg/dL AST (17-59) U/L ALT (4-49) U/L Alkaline Phosphatase (38-126) U/L Troponin I 0.822 H* (0.000-0.034) ng/mL Total Protein (6.3-8.2) g/dL Albumin (3.5-5.0) g/dL Stool Occult Blood (Negative) Blood Type O Positive Blood Type Confirm Blood Type Recheck No Previous Record Bld Type Recheck Status CABO Indicated Antibody Screen NEGATIVE Crossmatch See Detail Spec Expiration Date 03/05/2021 - 230103/02/21 03/02/21 Range/Units 06:05 06:40 WBC (3.8-10.6) k/uL RBC (4.30-5.90) m/uL Hgb (13.0-17.5) gm/dL Hct (39.0-53.0) % MCV (80.0-100.0) fL MCH (25.0-35.0) pg MCHC (31.0-37.0) g/dL RDW (11.5-15.5) % Plt Count (150-450) k/uL MPV Neutrophils % % Lymphocytes % % Monocytes % % Eosinophils % % Basophils % % Neutrophils # (1.3-7.7) k/uL Lymphocytes # (1.0-4.8) k/uL Monocytes # (0-1.0) k/uL Eosinophils # (0-0.7) k/uL Basophils # (0-0.2) k/uL PT (9.0-12.0) sec INR (<1.2) APTT (22.0-30.0) sec Sodium (137-145) mmol/L Potassium (3.5-5.1) mmol/L Chloride (98-107) mmol/L Carbon Dioxide (22-30) mmol/L Anion Gap mmol/L BUN (9-20) mg/dL Creatinine (0.66-1.25) mg/dL Est GFR (CKD-EPI)AfAm (>60 ml/min/1.73 sqM) Est GFR (CKD-EPI)NonAf (>60 ml/min/1.73 sqM) Glucose (74-99) mg/dL Plasma Lactic Acid Kaden (0.7-2.0) mmol/L Calcium (8.4-10.2) mg/dL Total Bilirubin (0.2-1.3) mg/dL AST (17-59) U/L ALT (4-49) U/L Alkaline Phosphatase (38-126) U/L Troponin I (0.000-0.034) ng/mL Total Protein (6.3-8.2) g/dL Albumin (3.5-5.0) g/dL Stool Occult Blood Negative (Negative) Blood Type Blood Type Confirm O Positive Blood Type Recheck Bld Type Recheck Status Antibody Screen Crossmatch Spec Expiration Date Critical Care Time Critical Care Time: Yes (30 minutes) <Haroldo Grullon - Last Filed: 03/08/21 10:26> Disposition <Curry Whittington - Last Filed: 03/02/21 11:52> <Haroldo Grullon - Last Filed: 03/08/21 10:26> Clinical Impression: Hematochezia, Melena, Elevated INR, Atrial fibrillation Disposition: ADMITTED IP TO THIS [facility] Condition: Serious
[2021-03-02] MEDS ORDERED: DEXTROSE 5% IN WATER 100 ML with AMIODARONE 150 MG IV ONE (06:45)
[2021-03-02] MEDS ORDERED: SODIUM CHLORIDE 0.9% 500 ML 500 ML IV STA ×3 (06:46→08:18)
[2021-03-02 06:49] LABS: Basophils % (A) 0 %; Eosinophils # (A) 0.1 k/uL (0-0.7); Eosinophils % (A) 1 %; HCT 36.2 % (39.0-53.0); HGB 11.7 gm/dL (13.0-17.5); Lymphocytes # (A) 0.5 k/uL (1.0-4.8); Lymphocytes % (A) 5 %; MCH 32.5 pg (25.0-35.0); MCHC 32.4 g/dL (31.0-37.0); MCV 100.3 fL (80.0-100.0); Mean Platelet Volume 7.8; Monocytes # (A) 0.4 k/uL (0-1.0); Monocytes % (A) 4 %; Neutrophils # (A) 7.9 k/uL (1.3-7.7); Neutrophils % (A) 89 %; Platelet Count 546 k/uL (150-450); RBC 3.61 m/uL (4.30-5.90); RDW 13.1 % (11.5-15.5); WBC 8.9 k/uL (3.8-10.6)
[2021-03-02] MEDS ORDERED: AMIODARONE IN DEXTROSE,ISO-OSM 150 MG/100 ML PLAST..BAG IV ONE (07:22)
[2021-03-02] MEDS ORDERED: AMIODARONE IN DEXTROSE,ISO-OSM 360 MG/200 ML PLAST..BAG IV ONE (07:22)
[2021-03-02] MEDS ORDERED: fentaNYL (PF) 50 MCG/ML 2 ML AMP IV STA (07:27)
[2021-03-02] MEDS ORDERED: AMIODARONE 360 MG in DEXTROSE 5% IN WATER 200 ML IV ONE ×2 (07:29)
[2021-03-02] MEDS ORDERED: NALOXONE 0.4 MG/ML 1 ML VIAL IV PRN (07:30)
[2021-03-02] MEDS ORDERED: ONDANSETRON 4 MG/2 ML VIAL IVP PRN (07:30)
[2021-03-02 07:36] LABS: ALT 14 U/L (4-49); AST 21 U/L (17-59); African American GFR (CKD) >90 (>60 ml/min/1.73 sqM); Albumin 2.9 g/dL (3.5-5.0); Alkaline Phosphatase 98 U/L (38-126); Anion Gap 9 mmol/L; Blood Urea Nitrogen 19 mg/dL (9-20); Calcium 7.8 mg/dL (8.4-10.2); Carbon Dioxide 33 mmol/L (22-30); Chloride 95 mmol/L (98-107); Glucose 88 mg/dL (74-99); Non-African American GFR(CKD) >90 (>60 ml/min/1.73 sqM); Prothrombin Time >130.0 sec (9.0-12.0); Sodium 137 mmol/L (137-145); Total Bilirubin 0.8 mg/dL (0.2-1.3)
[2021-03-02 07:37] LABS: INR >10.0 (<1.2)
[2021-03-02 07:38] LABS: Partial Thromboplastin Time 93.7 sec (22.0-30.0)
[2021-03-02 07:42] LABS: Potassium 2.4 mmol/L (3.5-5.1)
[2021-03-02] MEDS ORDERED: Kcentra PER PHARMACY 1 EACH MISC MISCELLANE PRN (07:52)
[2021-03-02] MEDS ORDERED: PHYTONADIONE 10 MG in SODIUM CHLORIDE 0.9% 50 ML IVPB STA (07:52)
[2021-03-02] MEDS ORDERED: HUMAN PROTHROMBIN COMPLX IV ONE (08:15)
[2021-03-02] MEDS ORDERED: HUMAN PROTHROMBIN COMPLX 500 UNIT/16 ML VIAL IV ONE (08:23)
[2021-03-02] MEDS: SODIUM CHLORIDE 0.9% 1,000 ML IV SCH ×2 (08:28→21:52)
--- NOTE | 2021-03-02 08:32 | CT ---
EXAMINATION TYPE: CT angio abdomen pelvis DATE OF EXAM: 03/02/2021 COMPARISON: 02/22/2021 HISTORY: GI bleed CT DLP: 1950.9 mGycm Automated exposure control for dose reduction was used. CONTRAST: Performed without and with IV Contrast, patient injected with 100 mL of Isovue 370. FINDINGS: Exam is severely limited due to extreme motion artifact. Bilateral consolidation and pleural effusion noted. Rotatory scoliosis seen. Heart size is stable. Mi ld intrahepatic biliary dilation is seen. There is left-sided mild hydronephrosis. Assessment of the bowel is severely limited grossly no evidence of obstruction. Artifact from patient's hip prostheses results in nondiagnostic assessment of the lower abdomen and pelvis. There is a fluid-filled structur e in the pelvis which appear to represent the bladder with a Moore catheter and air contained within the bladder. Marked prominence of the rectoanal junction correlate clinically is recommended. This ar ea is obscured by artifact. Visualized portion of the aorta is of normal caliber. Adrenal glands not well seen. Spleen appears ho mogeneous. Pancreas markedly limited.. IMPRESSION: 1. Nearly nondiagnostic exam due to motion and severe artifact particular limitation of the lower abd omen and pelvis due to the hip prostheses and artifact. 2. Bilateral lower lobe infiltrate and small effusion. 3. Mild intrahepatic ductal dilation. 4. Persistent distention of the rectum and possible wall thickening which is obscured by artifact. Fe chris impaction as well as inflammatory or neoplastic conditions in the differential diagnosis. Recomme nd clinical correlation to exclude abnormality of the rectum or rectosigmoid junction. Perhaps direct visualization could BE obtained. 5. Mild left hydronephrosis.
[2021-03-02] MEDS: PANTOPRAZOLE 40 MG/10 ML VIAL IV SCH (08:34)
[2021-03-02] MEDS: METOPROLOL SUCCINATE (ER) 25 MG TAB.ER.24H PO SCH (08:39)
[2021-03-02] MEDS: POTASSIUM CHLORIDE 10 MEQ in WATER FOR INJECTION 1 100ML.BAG IVPB SCH ×4 (08:48→14:25)
[2021-03-02 10:01] LABS: Amphetamine Screen,Urine Not Detected (NotDetected); Barbiturate Screen,Urine Not Detected (NotDetected); Benzodiazepines Screen,Urine Not Detected (NotDetected); Cocaine Screen,Urine Not Detected (NotDetected); Methadone Screen, Urine Detected (NotDetected); Opiate Screen,Urine Detected (NotDetected); Oxycodone Screen, Urine Not Detected (NotDetected); Phencyclidine Screen,Urine Not Detected (NotDetected); Tricyclic Antidepressant,Urine Not Detected (NotDetected); Urn Cannabinoid Scrn Not Detected (NotDetected)
--- NOTE | 2021-03-02 10:24 | CONS ---
ALANNAH Gillis is a 75-year-old gentleman with history of COPD and dementia who currently lives in a half-way. He is brought into hospital because of two episodes of dark red blood. Cardiology has been consulted because of new-onset atrial fibrillation. Patient was in the hospital in the last two weeks, had urinary stones and had a stent placed within the ureter. At the time of my evaluation, patient is in atrial fibrillation with rapid ventricular rate, which is responding with the intravenous amiodarone that was started by the ER physician. Patient is not a candidate for anticoagulation because of the concern with GI bleed. PAST MEDICAL HISTORY: Significant for COPD, GERD, musculoskeletal disorder, neurological disorder, polio. There is history of back surgery, joint replacement, laminectomy and spinal fusion, total right hip arthroplasty and bowel resection. He recently had urinary stent placed. MEDICATIONS: Medications at home included Zoloft, Ventolin, Senokot and Wellbutrin. ALLERGIC: ASPIRIN and ANTIHISTAMINES. Family history, social history, review of systems: I am unable to obtain from the patient. PHYSICAL EXAMINATION: Heart rate is 105 beats per minute, irregular. Blood pressure is 114/84, respiratory 18, O2 saturation is 95% on room air. There is no jugular venous distention. Carotid upstroke is normal. There is no bruit. Chest exam reveals diminished air entry at the bases. Heart exam reveals first and second heart sounds, irregular rhythm, and a systolic murmur at the apex. Abdomen is soft. Examination of extremities revealed mild edema bilaterally. LABS: The troponin is 0.8, creatinine is 0.7, hemoglobin is 11.7. INR is elevated at more than 10. EKG shows atrial fibrillation with nonspecific ST-T wave changes of subendocardial ischemia. Patient had an echocardiogram in April of this year that revealed mild LV dysfunction, aortic sclerosis without any stenosis. ASSESSMENT: 1. Persistent atrial fibrillation with poorly controlled ventricular rate. 2. Elevated troponin, probably related to supply/demand mismatch. 3. Multiple musculoskeletal debilities. 4. Melanotic stools. Rule out GI bleed. PLAN: Patient is not a candidate for anticoagulation. I will obtain a 2D echo to assess LV function. I will put him on Toprol-XL for rate control and continue the amiodarone that he is currently on. MMODL / IJN: [id number] /
--- NOTE | 2021-03-02 11:57 | P.GSCN ---
<Emilia Atwood - Last Filed: 03/02/21 11:41> History of Present Illness Consult date: 03/02/21 History of present illness: CHIEF COMPLAINT: GI bleed HISTORY OF PRESENT ILLNESS: This is a 75-year-old male who presented from [facility]. He had 2 bloody bowel movements with dark red blood. He did have lower crampy abdominal pain. Patient has also had hematuria through his Moore catheter. He had recent ureteral stent placed for ureteral stone. Patient was hypotensive and tachycardic on admission. He's had no further bloody bowel movements since being in the ER. He did have some bright red blood noted around the rectum per nursing staff. His last colonoscopy was 4-5 years ago. Patient denies any history of peptic ulcer disease or alcohol use. He does have a prior history of diverticulitis with bowel resection. Hemoglobin on admission is 11.7 INR greater than 10. Patient also has atrial fibrillation with rapid ventricular response and cardiology is placed him on IV amiodarone. Patient denies being on any blood thinners. Surgical service consulted for GI bleed. PAST MEDICAL HISTORY: See list. PAST SURGICAL HISTORY: See list. MEDICATIONS: See list. ALLERGIES: See list. SOCIAL HISTORY: No illicit drug use. REVIEW OF SYSTEMS: CONSTITUTIONAL: Denies fever or chills. HEENT: Denies blurred vision, vision changes, or eye pain. Denies hemoptysis CARDIOVASCULAR: Denies chest pain or pressure. RESPIRATORY: No shortness of breath. GASTROINTESTINAL: See HPI for pertinent findings HEMATOLOGIC: Denies bleeding disorders. GENITOURINARY: Denies any blood in urine or increased urinary frequency. SKIN: Denies pruitis. Denies rash. PHYSICAL EXAM: VITAL SIGNS: Reviewed GENERAL: Well-developed in no acute distress. HEENT: No sclera icterus. Extraocular movements grossly intact. Moist buccal mucosa. Head is atraumatic, normocephalic. No nasal drainage. ABDOMEN: Soft. Nondistended. Minimal tenderness to palpation of lower abdomen NEUROLOGIC: Alert and oriented. Cranial nerves II through XII grossly intact. LABORATORY DATA: WBC 8.9 Hgb 11.7 platelets 456 INR greater than 10 Sodium 137 potassium 2.4 BUN 19 creatinine 0.73 LFTs normal Lactic acid 1.3 Troponin 0.8-2 Fecal occult blood negative Urine drug screen positive for opiates and methadone Covid not detected IMAGING: CT abdomen and pelvis nearly nondiagnostic exam due to motion and severe artifact particularly limitation of lower abdomen and pelvis due to hip prosthesis and artifact. Bilateral lower lobe infiltrate and small effusion. Mild intrahepatic ductal dilation. Persistent distention of the rectum and possible wall thickening which is obscured by artifact. Fecal impaction as well as inflammatory or neoplastic conditions is in the differential diagnosis. Recommend clinical correlation to exclude abnormality of the rectum or rectosigmoid junction. Mild left hydronephrosis ASSESSMENT: 1. Acute GI bleed 2. Distention of the rectum and possible wall thickening noted on computed tomography scan 2. Atrial fibrillation followed by cardiology 3. Coagulopathy 4. History of diverticulosis PLAN: -No endoscopies planned at this time -Continue to monitor for signs or symptoms of bleeding -Continue to monitor hemoglobin -Patient will eventually need colonoscopy -Start clear liquids -Continue supportive care -Continue IV fluids -Hold off on any anticoagulation -Patient receiving 1 unit of blood -Agree with vitamin K -Atrial fibrillation management per cardiology Thank you for this consultation Physician Technical Data Analyst note has been reviewed by physician. Signing provider agrees with the documented findings, assessment, and plan of care. Past Medical History Past Medical History: COPD, GERD/Reflux, Musculoskeletal Disorder, Neurologic Disorder, Osteoarthritis (OA), Pneumonia, Skin Disorder, Vascular Disorder Additional Past Medical History / Comment(s): Diagnosed with childhood polio at age 7 yrs, scoliosis/deformity, osteopenia, chronic back pain but pt denies cervical injury/pain d/t fall as stated in previous medical records, vascular disorder/has had wounds to bilateral feet and legs in past, current L back ulcer/staff at [facility] state it is a stage II/they use [employer] every 3 days, pt has skin wounds L knee, ankylosis spondylosis, constipation/last BM 02/20/21, diverticulitis, History of Any Multi-Drug Resistant Organisms: MRSA Year Discovered:: 09/03/18 MDRO Source:: left LEG Past Surgical History: Back Surgery, Bowel Resection, Joint Replacement, Orthopedic Surgery Additional Past Surgical History / Comment(s): Back laminectomy, spinal fusion as a child, pt denies cervical surgery as documented in previous record, total R hip arthroplasty, multiple bilateral legs/feet surgery, back pain procedures, bowel resection d/t diverticulitis, colonoscopy, incontinence of urine/stool. Past Anesthesia/Blood Transfusion Reactions: No Reported Reaction Smoking Status: Former smoker - Past Family History Father Family Medical History: Coronary Artery Disease (CAD) Additional Family Medical History / Comment(s): heart arrythymia Brother(s) Family Medical History: Cancer Medications and Allergies Home Medications Medication Instructions Recorded Confirmed Type Sertraline HCl [Zoloft] 100 mg PO DAILY@0800 12/24/14 03/02/21 History Methadone [Dolophine] 10 mg PO Q6H 11/04/15 03/02/21 History Albuterol Nebulized [Ventolin 2.5 mg INHALATION RT-QID PRN 02/22/21 03/02/21 History Nebulized] Healthshake 1 dose PO TID@0800,1200,1800 02/22/21 03/02/21 History Magic Cup 1 dose PO TID@0800,1200,1800 02/22/21 03/02/21 History Magnesium Hydroxide [Milk of 2,400 mg PO DAILY PRN 02/22/21 03/02/21 History Magnesia] Multivitamins, Thera [Multivitamin 1 tab PO DAILY 02/22/21 03/02/21 History (formulary)] Proheal 30 ml PO BID 02/22/21 03/02/21 History Sennosides-Docusate Sodium 1 tab PO DAILY 02/22/21 03/02/21 History [Senokot-S] Sertraline [Zoloft] 50 mg PO DAILY@0800 02/22/21 03/02/21 History buPROPion HCL [Wellbutrin XL] 300 mg PO DAILY@0500 02/22/21 03/02/21 History Cefuroxime Axetil [Ceftin] 500 mg PO BID 7 Days #14 tab 02/25/21 03/02/21 Rx Acetaminophen Tab [Tylenol] 650 mg PO Q6H PRN 03/02/21 03/02/21 History Clopidogrel [Plavix] 75 mg PO DAILY@0800 03/02/21 03/02/21 History Docusate [Colace] 100 mg PO BID 03/02/21 03/02/21 History Metoprolol Succinate (ER) [Toprol 12.5 mg PO DAILY@0800 03/02/21 03/02/21 History XL] Omeprazole 20 mg PO DAILY 03/02/21 03/02/21 History Tamsulosin [Flomax] 0.4 mg PO DAILY 03/02/21 03/02/21 History Allergies Allergy/AdvReac Type Severity Reaction Status Date / Time aspirin AdvReac Intermediate ringing in Verified 03/02/21 07:38 the ears Antihistamines - Alkylamine AdvReac Mild shaking Verified 03/02/21 07:38 Surgical - Exam Vital Signs Temp Pulse Resp BP Pulse Ox 97.8 F 111 H 18 95/81 97 03/02/21 05:53 03/02/21 05:53 03/02/21 05:53 03/02/21 05:53 03/02/21 05:53 Results - Labs 03/02/21 06:02 03/02/21 06:02 Abnormal Lab Results - Last 24 Hours (Table) 03/02/21 03/02/21 03/02/21 Range/Units 06:02 06:02 06:02 RBC 3.61 L (4.30-5.90) m/uL Hgb 11.7 L (13.0-17.5) gm/dL Hct 36.2 L (39.0-53.0) % MCV 100.3 H (80.0-100.0) fL Plt Count 546 H (150-450) k/uL Neutrophils # 7.9 H (1.3-7.7) k/uL Lymphocytes # 0.5 L (1.0-4.8) k/uL PT >130.0 H (9.0-12.0) sec INR >10.0 H* (<1.2) APTT 93.7 H (22.0-30.0) sec Potassium 2.4 L* (3.5-5.1) mmol/L Chloride 95 L (98-107) mmol/L Carbon Dioxide 33 H (22-30) mmol/L Calcium 7.8 L (8.4-10.2) mg/dL Troponin I (0.000-0.034) ng/mL Total Protein 6.0 L (6.3-8.2) g/dL Albumin 2.9 L (3.5-5.0) g/dL Urine Opiates Screen (NotDetected) Urine Methadone Screen (NotDetected) Crossmatch 03/02/21 03/02/21 03/02/21 Range/Units 06:02 06:02 09:28 RBC (4.30-5.90) m/uL Hgb (13.0-17.5) gm/dL Hct (39.0-53.0) % MCV (80.0-100.0) fL Plt Count (150-450) k/uL Neutrophils # (1.3-7.7) k/uL Lymphocytes # (1.0-4.8) k/uL PT (9.0-12.0) sec INR (<1.2) APTT (22.0-30.0) sec Potassium (3.5-5.1) mmol/L Chloride (98-107) mmol/L Carbon Dioxide (22-30) mmol/L Calcium (8.4-10.2) mg/dL Troponin I 0.822 H* (0.000-0.034) ng/mL Total Protein (6.3-8.2) g/dL Albumin (3.5-5.0) g/dL Urine Opiates Screen Detected H (NotDetected) Urine Methadone Screen Detected H (NotDetected) Crossmatch See Detail Diabetes panel 03/02/21 Range/Units 06:02 Sodium 137 (137-145) mmol/L Potassium 2.4 L* (3.5-5.1) mmol/L Chloride 95 L (98-107) mmol/L Carbon Dioxide 33 H (22-30) mmol/L BUN 19 (9-20) mg/dL Creatinine 0.73 (0.66-1.25) mg/dL Glucose 88 (74-99) mg/dL Calcium 7.8 L (8.4-10.2) mg/dL AST 21 (17-59) U/L ALT 14 (4-49) U/L Alkaline Phosphatase 98 (38-126) U/L Total Protein 6.0 L (6.3-8.2) g/dL Albumin 2.9 L (3.5-5.0) g/dL Calcium panel 03/02/21 Range/Units 06:02 Calcium 7.8 L (8.4-10.2) mg/dL Albumin 2.9 L (3.5-5.0) g/dL Pituitary panel 03/02/21 Range/Units 06:02 Sodium 137 (137-145) mmol/L Potassium 2.4 L* (3.5-5.1) mmol/L Chloride 95 L (98-107) mmol/L Carbon Dioxide 33 H (22-30) mmol/L BUN 19 (9-20) mg/dL Creatinine 0.73 (0.66-1.25) mg/dL Glucose 88 (74-99) mg/dL Calcium 7.8 L (8.4-10.2) mg/dL Adrenal panel 03/02/21 Range/Units 06:02 Sodium 137 (137-145) mmol/L Potassium 2.4 L* (3.5-5.1) mmol/L Chloride 95 L (98-107) mmol/L Carbon Dioxide 33 H (22-30) mmol/L BUN 19 (9-20) mg/dL Creatinine 0.73 (0.66-1.25) mg/dL Glucose 88 (74-99) mg/dL Calcium 7.8 L (8.4-10.2) mg/dL Total Bilirubin 0.8 (0.2-1.3) mg/dL AST 21 (17-59) U/L ALT 14 (4-49) U/L Alkaline Phosphatase 98 (38-126) U/L Total Protein 6.0 L (6.3-8.2) g/dL Albumin 2.9 L (3.5-5.0) g/dL <Ja Padgett - Last Filed: 03/02/21 12:03> History of Present Illness History of present illness: As above. Patient presents with significant colonic a lot but the. Was having some bloody stools. CAT scan from admission demonstrates marked thickening of the rectum. Recent CAT scan showed possible impaction. Agree that endoscopic evaluation will be necessary at some point in the near future. We'll follow to determine whether that will be during this hospitalization or not. Surgical - Exam Vital Signs Temp Pulse Resp BP Pulse Ox 97.8 F 111 H 18 95/81 97 03/02/21 05:53 03/02/21 05:53 03/02/21 05:53 03/02/21 05:53 03/02/21 05:53 Results - Labs 03/02/21 06:02 03/02/21 06:02 Abnormal Lab Results - Last 24 Hours (Table) 12/03/02/21 03/02/21 Range/Units 06:02 06:02 06:02 RBC 3.61 L (4.30-5.90) m/uL Hgb 11.7 L (13.0-17.5) gm/dL Hct 36.2 L (39.0-53.0) % MCV 100.3 H (80.0-100.0) fL Plt Count 546 H (150-450) k/uL Neutrophils # 7.9 H (1.3-7.7) k/uL Lymphocytes # 0.5 L (1.0-4.8) k/uL PT >130.0 H (9.0-12.0) sec INR >10.0 H* (<1.2) APTT 93.7 H (22.0-30.0) sec Potassium 2.4 L* (3.5-5.1) mmol/L Chloride 95 L (98-107) mmol/L Carbon Dioxide 33 H (22-30) mmol/L Calcium 7.8 L (8.4-10.2) mg/dL Troponin I (0.000-0.034) ng/mL Total Protein 6.0 L (6.3-8.2) g/dL Albumin 2.9 L (3.5-5.0) g/dL Urine Opiates Screen (NotDetected) Urine Methadone Screen (NotDetected) Crossmatch 03/02/21 03/02/21 03/02/21 Range/Units 06:02 06:02 09:28 RBC (4.30-5.90) m/uL Hgb (13.0-17.5) gm/dL Hct (39.0-53.0) % MCV (80.0-100.0) fL Plt Count (150-450) k/uL Neutrophils # (1.3-7.7) k/uL Lymphocytes # (1.0-4.8) k/uL PT (9.0-12.0) sec INR (<1.2) APTT (22.0-30.0) sec Potassium (3.5-5.1) mmol/L Chloride (98-107) mmol/L Carbon Dioxide (22-30) mmol/L Calcium (8.4-10.2) mg/dL Troponin I 0.822 H* (0.000-0.034) ng/mL Total Protein (6.3-8.2) g/dL Albumin (3.5-5.0) g/dL Urine Opiates Screen Detected H (NotDetected) Urine Methadone Screen Detected H (NotDetected) Crossmatch See Detail Diabetes panel 03/02/21 Range/Units 06:02 Sodium 137 (137-145) mmol/L Potassium 2.4 L* (3.5-5.1) mmol/L Chloride 95 L (98-107) mmol/L Carbon Dioxide 33 H (22-30) mmol/L BUN 19 (9-20) mg/dL Creatinine 0.73 (0.66-1.25) mg/dL Glucose 88 (74-99) mg/dL Calcium 7.8 L (8.4-10.2) mg/dL AST 21 (17-59) U/L ALT 14 (4-49) U/L Alkaline Phosphatase 98 (38-126) U/L Total Protein 6.0 L (6.3-8.2) g/dL Albumin 2.9 L (3.5-5.0) g/dL Calcium panel 03/02/21 Range/Units 06:02 Calcium 7.8 L (8.4-10.2) mg/dL Albumin 2.9 L (3.5-5.0) g/dL Pituitary panel 03/02/21 Range/Units 06:02 Sodium 137 (137-145) mmol/L Potassium 2.4 L* (3.5-5.1) mmol/L Chloride 95 L (98-107) mmol/L Carbon Dioxide 33 H (22-30) mmol/L BUN 19 (9-20) mg/dL Creatinine 0.73 (0.66-1.25) mg/dL Glucose 88 (74-99) mg/dL Calcium 7.8 L (8.4-10.2) mg/dL Adrenal panel 03/02/21 Range/Units 06:02 Sodium 137 (137-145) mmol/L Potassium 2.4 L* (3.5-5.1) mmol/L Chloride 95 L (98-107) mmol/L Carbon Dioxide 33 H (22-30) mmol/L BUN 19 (9-20) mg/dL Creatinine 0.73 (0.66-1.25) mg/dL Glucose 88 (74-99) mg/dL Calcium 7.8 L (8.4-10.2) mg/dL Total Bilirubin 0.8 (0.2-1.3) mg/dL AST 21 (17-59) U/L ALT 14 (4-49) U/L Alkaline Phosphatase 98 (38-126) U/L Total Protein 6.0 L (6.3-8.2) g/dL Albumin 2.9 L (3.5-5.0) g/dL
[2021-03-02 12:20] LABS: Basophils % (A) 0 %; Eosinophils % (A) 0 %; HCT 34.5 % (39.0-53.0); HGB 11.5 gm/dL (13.0-17.5); Lymphocytes # (A) 0.3 k/uL (1.0-4.8); Lymphocytes % (A) 3 %; MCH 33.1 pg (25.0-35.0); MCHC 33.2 g/dL (31.0-37.0); MCV 99.9 fL (80.0-100.0); Macrocytosis Slight; Mean Platelet Volume 7.7; Monocytes # (A) 0.4 k/uL (0-1.0); Monocytes % (A) 5 %; Neutrophils # (A) 7.5 k/uL (1.3-7.7); Neutrophils % (A) 90 %; Platelet Count 466 k/uL (150-450); RBC 3.46 m/uL (4.30-5.90); RDW 14.4 % (11.5-15.5); WBC 8.4 k/uL (3.8-10.6)
[2021-03-02] MEDS: AMIODARONE 450 MG in DEXTROSE 5% IN WATER 250 ML IV SCH ×2 (16:04)
--- NOTE | 2021-03-02 17:18 | P.HPIM ---
History of Present Illness Chief Complaint: hematochezia Paddy is a 75-year-old white male well known to me. He was in the hospital last month for abdominal pain. He was found to have right sided hydronephrosis and stone. He underwent a uretal stent placement and stone retrieval. He had a Goldstein catheter placed and had some gross hematuria noted.HE is a resident of [facility] since 04/2020. Staff contacted me early this morning about several large blood clots passed per rectum. Hes not had anything like this before. He is not on any Coumadin or other anticoagulation. At the nursing facility he was found to be tachycardic and borderline hypotensive. He was sent to the emergency room to be seen in evaluated. His INR was found to be greater than 10. Hemoglobin at that time was 11.7. He was significantly hypokalemic a 2.4. His heart rate was tachycardic and found to be in atrial fibrillation per EKG.His last colonoscopy was 5+ years ago. Since hes been in the facility does not drink it does not have any issues other than the recent pain from hydronephrosis and stone. Currently he denies any chest pains pressures or shortness of breath. He has midepigastric abdominal pain. Hes been on Plavix for SVT and NSTEMI since April 2020 Review of Systems All systems: negative Past Medical History Past Medical History: COPD, GERD/Reflux, Musculoskeletal Disorder, Neurologic Disorder, Osteoarthritis (OA), Pneumonia, Renal Disease, Skin Disorder, Vascular Disorder Additional Past Medical History / Comment(s): Pt recently admitted to [facility] on 02/22/21 with abdominal pain/renal colic/moderate L hydronephrosis/stone/possible UTI/urinary retention with goldstein/constipation/chronic bilateral lower extremity cellulitis. 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, scoliosis/deformity, osteopenia, chronic back pain but pt denies cervical injury/pain d/t fall as stated in previous medical records, vascular disorder/has had wounds to bilateral feet and legs in past, current L back ulcer/staff at [facility] state it is a stage II/they use [employer] every 3 days, pt has skin wounds L knee, ankylosis spondylosis, constipation/last BM 02/20/21, diverticulitis, History of Any Multi-Drug Resistant Organisms: MRSA Date of last positivie culture/infection: 09/03/18 MDRO Source:: left LEG Past Surgical History: Back Surgery, Bowel Resection, Joint Replacement, Orthopedic Surgery Additional Past Surgical History / Comment(s): 02/24/21 L ureteroscopy with laser lithotripsy/stone basketing/stenting, back laminectomy, spinal fusion as a child, pt denies cervical surgery as documented in previous record, total R hip arthroplasty, multiple bilateral legs/feet surgery, back pain procedures, bowel resection d/t diverticulitis, colonoscopy, incontinence of urine/stool. Past Anesthesia/Blood Transfusion Reactions: No Reported Reaction Smoking Status: Former smoker - Past Family History Father Family Medical History: Coronary Artery Disease (CAD) Additional Family Medical History / Comment(s): heart arrythymia Brother(s) Family Medical History: Cancer Medications and Allergies Home Medications Medication Instructions Recorded Confirmed Type Sertraline HCl [Zoloft] 100 mg PO DAILY@0800 12/24/14 03/02/21 History Methadone [Dolophine] 10 mg PO Q6H 11/04/15 03/02/21 History Albuterol Nebulized [Ventolin 2.5 mg INHALATION RT-QID PRN 02/22/21 03/02/21 History Nebulized] Healthshake 1 dose PO TID@0800,1200,1800 02/22/21 03/02/21 History Magic Cup 1 dose PO TID@0800,1200,1800 02/22/21 03/02/21 History Magnesium Hydroxide [Milk of 2,400 mg PO DAILY PRN 02/22/21 03/02/21 History Magnesia] Multivitamins, Thera [Multivitamin 1 tab PO DAILY 02/22/21 03/02/21 History (formulary)] Proheal 30 ml PO BID 02/22/21 03/02/21 History Sennosides-Docusate Sodium 1 tab PO DAILY 02/22/21 03/02/21 History [Senokot-S] Sertraline [Zoloft] 50 mg PO DAILY@0800 02/22/21 03/02/21 History buPROPion HCL [Wellbutrin XL] 300 mg PO DAILY@0500 02/22/21 03/02/21 History Cefuroxime Axetil [Ceftin] 500 mg PO BID 7 Days #14 tab 02/25/21 03/02/21 Rx Acetaminophen Tab [Tylenol] 650 mg PO Q6H PRN 03/02/21 03/02/21 History Clopidogrel [Plavix] 75 mg PO DAILY@0800 03/02/21 03/02/21 History Docusate [Colace] 100 mg PO BID 03/02/21 03/02/21 History Metoprolol Succinate (ER) [Toprol 12.5 mg PO DAILY@0800 03/02/21 03/02/21 History XL] Omeprazole 20 mg PO DAILY 03/02/21 03/02/21 History Tamsulosin [Flomax] 0.4 mg PO DAILY 03/02/21 03/02/21 History Allergies Allergy/AdvReac Type Severity Reaction Status Date / Time aspirin AdvReac Intermediate ringing in Verified 03/02/21 07:38 the ears Antihistamines - Alkylamine AdvReac Mild shaking Verified 03/02/21 07:38 Physical Exam Vitals: Vital Signs Temp Pulse Pulse Resp BP BP Pulse Ox 03/02/21 15:06 97.2 F L 106 H 16 142/95 93 L 03/02/21 14:26 116 H 18 112/96 94 L 03/02/21 12:10 98 F 106 H 18 111/87 03/02/21 10:42 126 H 16 104/75 97 03/02/21 10:12 97.6 F 112 H 18 91/51 97 03/02/21 10:02 97.7 F 113 H 18 113/90 94 L 03/02/21 08:34 105 H 18 114/84 95 03/02/21 07:24 122 H 18 104/81 98 03/02/21 06:33 123 H 18 97/52 97 03/02/21 05:53 97.8 F 111 H 18 95/81 97 Intake and Output 03/02/21 03/02/21 03/02/21 06:59 14:59 22:59 Intake Total 310 Balance 310 Intake: Blood Product 310 Rc Pheresis 2 As3 Unit 310 [id number] Other: Voiding Method Indwelling Catheter Weight 58.967 kg 58.967 kg General: The patient is awake in no distress, and appears fatigued. 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 Cardiovascular: S1S2is normal, There is a tachy rate and apparent regular rhythm. No murmur, rub or gallop is appreciated. Respiratory: Lungs clear to auscultation bilaterally, respirations are non- labored, breath sounds are equal. No wheezes, rales or crackles. Gastrointestinal: Soft,distended tender abdomen to the midepigatrum without masses or organomegaly noted. There is no rebound tenderness or guarding present. Bowel sounds are unremarkable. Musculoskeletal: Limited ROM (post polio syndrome), thoracic spine contracted, lower extremities withmuscle atrophy. no tenderness, There is no pedal edema. There is no calf tenderness or swelling. No cords were appreciated. Wheelchair dependent, can transfer independently. Neurological: CNII-XII intact, there are no obvious motor or sensory deficits.Coordination appears grossly intact. Speech is normal. He is awake alert and oriented 3 today. groin: goldstein to gravity, blood noted Skin: Bilateral chronic vascular leg wounds, resolved at this time. left lower back pressure ulcer dressing intact (stage 3) Results CBC & Chem 7: 03/02/21 11:57 03/02/21 06:02 Labs: Abnormal Lab Results - Last 24 Hours (Table) 03/02/21 03/02/21 03/02/21 Range/Units 06:02 06:02 06:02 RBC 3.61 L (4.30-5.90) m/uL Hgb 11.7 L (13.0-17.5) gm/dL Hct 36.2 L (39.0-53.0) % MCV 100.3 H (80.0-100.0) fL Plt Count 546 H (150-450) k/uL Neutrophils # 7.9 H (1.3-7.7) k/uL Lymphocytes # 0.5 L (1.0-4.8) k/uL PT >130.0 H (9.0-12.0) sec INR >10.0 H* (<1.2) APTT 93.7 H (22.0-30.0) sec Potassium 2.4 L* (3.5-5.1) mmol/L Chloride 95 L (98-107) mmol/L Carbon Dioxide 33 H (22-30) mmol/L Calcium 7.8 L (8.4-10.2) mg/dL Troponin I (0.000-0.034) ng/mL Total Protein 6.0 L (6.3-8.2) g/dL Albumin 2.9 L (3.5-5.0) g/dL Urine Opiates Screen (NotDetected) Urine Methadone Screen (NotDetected) Crossmatch 03/02/21 03/02/21 03/02/21 Range/Units 06:02 06:02 09:28 RBC (4.30-5.90) m/uL Hgb (13.0-17.5) gm/dL Hct (39.0-53.0) % MCV (80.0-100.0) fL Plt Count (150-450) k/uL Neutrophils # (1.3-7.7) k/uL Lymphocytes # (1.0-4.8) k/uL PT (9.0-12.0) sec INR (<1.2) APTT (22.0-30.0) sec Potassium (3.5-5.1) mmol/L Chloride (98-107) mmol/L Carbon Dioxide (22-30) mmol/L Calcium (8.4-10.2) mg/dL Troponin I 0.822 H* (0.000-0.034) ng/mL Total Protein (6.3-8.2) g/dL Albumin (3.5-5.0) g/dL Urine Opiates Screen Detected H (NotDetected) Urine Methadone Screen Detected H (NotDetected) Crossmatch See Detail 03/02/21 Range/Units 11:57 RBC 3.46 L (4.30-5.90) m/uL Hgb 11.5 L (13.0-17.5) gm/dL Hct 34.5 L (39.0-53.0) % MCV (80.0-100.0) fL Plt Count 466 H (150-450) k/uL Neutrophils # (1.3-7.7) k/uL Lymphocytes # 0.3 L (1.0-4.8) k/uL PT (9.0-12.0) sec INR (<1.2) APTT (22.0-30.0) sec Potassium (3.5-5.1) mmol/L Chloride (98-107) mmol/L Carbon Dioxide (22-30) mmol/L Calcium (8.4-10.2) mg/dL Troponin I (0.000-0.034) ng/mL Total Protein (6.3-8.2) g/dL Albumin (3.5-5.0) g/dL Urine Opiates Screen (NotDetected) Urine Methadone Screen (NotDetected) Crossmatch CT scan - abdomen: report reviewed Thrombosis Risk Factor Assmnt - DVT/VTE Prophylaxis DVT/VTE Prophylaxis: Contraindicated - See note (active bleeding) - Choose All That Apply Any of the Below Risk Factors Present?: Yes Each Factor Represents 1 point: Abnormal pulmonary function (COPD), Medical pt on bed rest Other Risk Factors: Yes Each Risk Factor Represents 3 Points: Age 75 years or older Other congenital or acquired thrombophilia - If yes, enter type in comment: No Thrombosis Risk Factor Assessment Total Risk Factor Score: 5 Thrombosis Risk Factor Assessment Level: High Risk Assessment and Plan (1) Acute GI bleeding Current Visit: Yes Status: Acute Code(s): K92.2 - GASTROINTESTINAL HEMORRHAGE, UNSPECIFIED SNOMED Code(s): 70984871 (2) Hypokalemia Current Visit: Yes Status: Acute Code(s): E87.6 - HYPOKALEMIA SNOMED Code(s): 79478290 (3) New onset atrial fibrillation Current Visit: Yes Status: Acute Code(s): I48.91 - UNSPECIFIED ATRIAL FIBRILLATION SNOMED Code(s): 49091584 (4) Elevated INR Current Visit: Yes Status: Acute Code(s): R79.1 - ABNORMAL COAGULATION PROFILE SNOMED Code(s): 993398977 (5) buttermaker prescription opiate use Current Visit: Yes Status: Acute Code(s): Z79.891 - ASSISTED (CURRENT) USE OF OPIATE ANALGESIC SNOMED Code(s): 698123087 (6) Stage III pressure ulcer of back Current Visit: Yes Status: Acute Code(s): L89.103 - PRESSURE ULCER OF UNSPECIFIED PART OF BACK, STAGE 3 SNOMED Code(s): 224422204 (7) Protein calorie malnutrition Current Visit: Yes Status: Acute Code(s): E46 - UNSPECIFIED PROTEIN-CALORIE MALNUTRITION SNOMED Code(s): 779393124 (8) Fecal impaction Current Visit: No Status: Acute Code(s): K56.41 - FECAL IMPACTION SNOMED Code(s): 94573718 (9) Post-polio syndrome Current Visit: No Status: Acute Code(s): G14 - POSTPOLIO SYNDROME SNOMED Code(s): 51581354 (10) Venous stasis ulcer of left lower extremity Current Visit: No Status: Acute Code(s): I83.029 - VARICOSE VEINS OF LEFT LOWER EXTREMITY W ULCER OF UNSP SITE SNOMED Code(s): 615228719 (11) Venous stasis ulcer of right lower extremity Current Visit: No Status: Acute Code(s): I83.019 - VARICOSE VEINS OF RIGHT LOWER EXTREMITY W ULCER OF UNSP SITE SNOMED Code(s): 544213661 (12) GERD (gastroesophageal reflux disease) Current Visit: Yes Status: Acute Code(s): K21.9 - GASTRO-ESOPHAGEAL REFLUX DISEASE WITHOUT ESOPHAGITIS SNOMED Code(s): 278472946 Plan: consult Surgery regarding furhter eval for GIBLEED contule cvardiology for new Afib stop plavix due to active bleeding s/p Kcentra infusion vitamin K Potassium replacement repeat labs q12hrs and H+H q6hrs x 4 I will reevaulate in 24 hours
--- NOTE | 2021-03-02 17:25 | ECHOF ---
Referral Reason:afib MEASUREMENTS -------- HEIGHT: 170.2 cm WEIGHT: 59.0 kg BP: 91/51 IVSd: 1.8 cm (0.6 - 1.1) LVIDd: 3.5 cm (3.9 - 5.3) LVPWd: 1.6 cm (0.6 - 1.1) IVSs: 2.4 cm LVIDs: 2.7 cm LVPWs: 1.8 cm Ao Diam: 3.0 cm (2.0 - 3.7) AV Cusp: 1.7 cm (1.5 - 2.6) LA Diam: 3.8 cm (2.7 - 3.8) RAP: 5.00 mmHg RVSP: 31.26 mmHg FINDINGS -------- Sinus rhythm. This was a technically adequate study. Pt. has a pectus chest. Parasternal and apical views unabl e to be obtained. Entire study performed from subcostal window. The left ventricular size is normal. There is severe concentric left ventricular hypertrophy. Ove rall left ventricular systolic function is mildly impaired with, an EF between 45 - 50 %. The RV was not well visualized. Normal LA size by volume 22+/-6 ml/m2. The right atrium was not well visualized. Interatrial and interventricular septum intact. There is no evidence of aortic regurgitation. There is no evidence of aortic stenosis. Mild mitral regurgitation is present. Moderate tricuspid regurgitation present. There is no evidence of pulmonary hypertension. The rig ht ventricular systolic pressure, as measured by Doppler, is 31.26mmHg. There is no pulmonic regurgitation present. The aortic root size is normal. IVC Not well visulized. There is a small pericardial effusion located near the left ventricle. CONCLUSIONS -------- 1. The left ventricular size is normal. 2. There is severe concentric left ventricular hypertrophy. 3. Overall left ventricular systolic function is mildly impaired with, an EF between 45 - 50 %. 4. Mild mitral regurgitation is present. 5. Moderate tricuspid regurgitation present. 6. There is a small pericardial effusion located near the left ventricle. CORPORATE STRATEGY ANALYST: Adry Rodriguez RUBIN
[2021-03-02 20:38] LABS: Glucose,Whole Blood 123 mg/dL (75-99)
[2021-03-02 21:11] LABS: Basophils % (A) 0 %; Eosinophils % (A) 0 %; HCT 38.3 % (39.0-53.0); HGB 12.2 gm/dL (13.0-17.5); INR 1.1 (<1.2); Lymphocytes # (A) 0.3 k/uL (1.0-4.8); Lymphocytes % (A) 3 %; MCH 32.4 pg (25.0-35.0); MCV 101.2 fL (80.0-100.0); Macrocytosis Slight; Mean Platelet Volume 7.7; Monocytes # (A) 0.4 k/uL (0-1.0); Monocytes % (A) 4 %; Neutrophils # (A) 8.2 k/uL (1.3-7.7); Neutrophils % (A) 92 %; Platelet Count 510 k/uL (150-450); Prothrombin Time 11.2 sec (9.0-12.0); RBC 3.78 m/uL (4.30-5.90); RDW 14.6 % (11.5-15.5)
[2021-03-02] MEDS: Acetaminophen-Codeine 300-30mg TAB PO PRN (21:53)
[2021-03-03 06:18] LABS: Glucose,Whole Blood 119 mg/dL (75-99)
[2021-03-03 07:28] LABS: Basophils % (A) 0 %; Eosinophils # (A) 0.1 k/uL (0-0.7); Eosinophils % (A) 1 %; HCT 36.8 % (39.0-53.0); HGB 11.7 gm/dL (13.0-17.5); Lymphocytes # (A) 0.3 k/uL (1.0-4.8); Lymphocytes % (A) 3 %; MCH 31.9 pg (25.0-35.0); MCHC 31.8 g/dL (31.0-37.0); MCV 100.5 fL (80.0-100.0); Mean Platelet Volume 7.7; Monocytes # (A) 0.4 k/uL (0-1.0); Monocytes % (A) 5 %; Neutrophils # (A) 7.6 k/uL (1.3-7.7); Neutrophils % (A) 89 %; Platelet Count 465 k/uL (150-450); RBC 3.66 m/uL (4.30-5.90); RDW 13.8 % (11.5-15.5); WBC 8.5 k/uL (3.8-10.6)
[2021-03-03 07:44] LABS: ALT 13 U/L (4-49); AST 19 U/L (17-59); African American GFR (CKD) >90 (>60 ml/min/1.73 sqM); Albumin 2.5 g/dL (3.5-5.0); Alkaline Phosphatase 83 U/L (38-126); Anion Gap 7 mmol/L; Blood Urea Nitrogen 12 mg/dL (9-20); Calcium 7.2 mg/dL (8.4-10.2); Carbon Dioxide 31 mmol/L (22-30); Chloride 99 mmol/L (98-107); Glucose 101 mg/dL (74-99); Magnesium 1.3 mg/dL (1.6-2.3); Non-African American GFR(CKD) >90 (>60 ml/min/1.73 sqM); Sodium 137 mmol/L (137-145); Total Bilirubin 0.8 mg/dL (0.2-1.3); Total Protein 5.3 g/dL (6.3-8.2)
[2021-03-03 08:13] LABS: Potassium 2.7 mmol/L (3.5-5.1)
[2021-03-03] MEDS: SODIUM CHLORIDE 0.9% 1,000 ML IV SCH (08:16)
[2021-03-03] MEDS: METOPROLOL SUCCINATE (ER) 25 MG TAB.ER.24H PO SCH (08:17)
[2021-03-03] MEDS: PANTOPRAZOLE 40 MG/10 ML VIAL IV SCH (08:17)
[2021-03-03] MEDS: AMIODARONE 450 MG in DEXTROSE 5% IN WATER 250 ML IV SCH ×2 (08:22)
--- NOTE | 2021-03-03 08:22 | US ---
EXAMINATION TYPE: US abdomen complete DATE OF EXAM: 03/03/2021 COMPARISON: Correlation CT 03/02/2021 CLINICAL HISTORY: 75-year-old male GI bleeding, abnormal INR. TECHNIQUE: Multiple sonographic images of the abdomen are obtained. FINDINGS: EXAM MEASUREMENTS: Liver Length: 12.0 cm Gallbladder Wall: 0.2 cm CBD: 0.8 cm Spleen: 8.2 cm Right Kidney: 10.6 x 5.8 x 5.4 cm Left Kidney: 13.8 x 5.8 x 5.4 cm Project Associate notes: Extremely difficult and limited study due to patient thin Pancreas: obscured by overlying midline bowel gas Liver: limited visualization, mildly heterogeneous. Some images suggest slight contour nodularity. N o focal lesion identified. Gallbladder: No abnormal distention, wall thickening, pericholecystic fluid, shadowing calculi. Evidence for sonographic Hanson's sign: no CBD: dilated, may be chronic, age related change. Spleen: wnl Right Kidney: wnl Left Kidney: enlarged, moderate hydronephrosis Upper IVC: obscured by overlying midline bowel gas Abd Aorta: obscured by overlying midline bowel gas Mild right upper quadrant perihepatic ascites. IMPRESSION: 1. Limited visualization of the liver due to technically difficult scan. Some images suggest slight c ontour nodularity. Assess for possible underlying cirrhosis. 2. Bile duct mildly dilated at 8 mm. This may be chronic, age related change. Correlate with alkaline phosphatase and bilirubin levels. 3. Moderate left-sided hydronephrosis. Further workup as clinically indicated. 4. The moderate to severe rectal wall thickening seen on the patient's recent CT is not assessed on u ltrasound. Further workup for colitis or neoplasm recommended. 5. Mild perihepatic ascites.
[2021-03-03] MEDS ORDERED: Potassium Replacement Protocol 1 EACH MISC MISCELLANE PRN (08:28)
[2021-03-03] MEDS: POTASSIUM CHLORIDE ER 20 MEQ TAB.ER PO SCH ×5 (08:34→12:21)
[2021-03-03 08:41] LABS: HCT 41.3 % (39.0-53.0); MCH 32.2 pg (25.0-35.0); MCHC 31.4 g/dL (31.0-37.0); MCV 102.6 fL (80.0-100.0); Macrocytosis Slight; Mean Platelet Volume 7.7; Platelet Count 508 k/uL (150-450); RBC 4.02 m/uL (4.30-5.90); RDW 14.6 % (11.5-15.5); WBC 10.6 k/uL (3.8-10.6)
[2021-03-03] MEDS ORDERED: METOPROLOL SUCCINATE (ER) 25 MG TAB.ER.24H PO STA (10:00)
--- NOTE | 2021-03-03 10:03 | P.PN ---
<Emilia Atwood - Last Filed: 03/03/21 09:46> Subjective Progress Note Date: 03/03/21 CHIEF COMPLAINT: GI bleeding HISTORY OF PRESENT ILLNESS: The patient sitting up in bed comfortably. Patient reports that occasionally has lower abdominal discomfort. He did tolerate his breakfast. Per nursing staff no further bleeding reported. He did have a bowel movement yesterday afebrile. Hemoglobin 13 INR normalized at 1.1 from 10. potassium remains low at 2.7 and magnesium 1.3 Abdominal ultrasound limited visualization of the liver due to technically difficult scan. Some images suggest slight contour nodularity. Assessment possible underling cirrhosis. Bile duct mildly dilated at 8 mm. This may be chronic, age-related change. Moderate left-sided hydronephrosis. Moderate severe rectal wall thickening seen on patient's recent CT not assessed on ultrasound mild perihepatic ascites PHYSICAL EXAM: VITAL SIGNS: Reviewed. GENERAL: Well-developed in no acute distress. HEENT: No sclera icterus. Extraocular movements grossly intact. Moist buccal mucosa. Head is atraumatic, normocephalic. ABDOMEN: Soft. Nondistended. Nontender. NEUROLOGIC: Alert and alert. Confused Cranial nerves II through XII grossly intact. ASSESSMENT: 1. Acute GI bleed 2. Distention of the rectum and possible wall thickening and fecal impaction noted on computed tomography scan 2. Atrial fibrillation followed by cardiology 3. Coagulopathy 4. History of diverticulosis 5. Hypokalemia and hypomagnesemia PLAN: -No endoscopies planned at this time -Patient will need colonoscopy in the near future for further evaluation of rectum thickening -Continue to monitor for signs or symptoms of bleeding -Continue to monitor hemoglobin -Advance to full liquids -Continue supportive care -Hold off on any anticoagulation -Electrolytes being replaced Physician Director Of Property Management note has been reviewed by physician. Signing provider agrees with the documented findings, assessment, and plan of care. Objective - Vital Signs Vital signs: Vital Signs Temp 98.2 F 03/03/21 08:00 Pulse 117 H 03/03/21 08:00 Resp 18 03/03/21 08:00 BP 129/93 03/03/21 08:00 Pulse Ox 99 03/03/21 08:00 Intake & Output 03/02/21 03/03/21 03/03/21 18:59 06:59 18:59 Intake Total 310 370 Output Total 725 1350 Balance -415 -1350 370 Weight 58.967 kg Intake: Intake, IV Titration 250 Amount Amiodarone 450 mg In 250 Dextrose 5% in Water 250 ml @ 0.5 MG/MIN 16.667 mls/hr IV .Q15H [facility] Rx#: [id number] Oral 120 Blood Product 310 Rc Pheresis 2 As3 Unit 310 [id number] Output: Urine 726 1350 Other: Voiding Method Indwelling Catheter Indwelling Catheter # Voids 1 # Bowel Movements 1 - Labs CBC & Chem 7: 03/03/21 08:30 03/03/21 06:35 Labs: Abnormal Lab Results - Last 24 Hours (Table) 03/02/21 03/02/21 03/02/21 Range/Units 06:02 09:28 11:57 RBC 3.46 L (4.30-5.90) m/uL Hgb 11.5 L (13.0-17.5) gm/dL Hct 34.5 L (39.0-53.0) % MCV (80.0-100.0) fL Plt Count 466 H (150-450) k/uL Neutrophils # (1.3-7.7) k/uL Lymphocytes # 0.3 L (1.0-4.8) k/uL Potassium (3.5-5.1) mmol/L Carbon Dioxide (22-30) mmol/L Creatinine (0.66-1.25) mg/dL Glucose (74-99) mg/dL POC Glucose (mg/dL) (75-99) mg/dL Calcium (8.4-10.2) mg/dL Magnesium (1.6-2.3) mg/dL Total Protein (6.3-8.2) g/dL Albumin (3.5-5.0) g/dL Urine Opiates Screen Detected H (NotDetected) Urine Methadone Screen Detected H (NotDetected) Crossmatch See Detail 03/02/21 03/02/21 03/03/21 Range/Units 20:33 20:36 06:12 RBC 3.78 L (4.30-5.90) m/uL Hgb 12.2 L (13.0-17.5) gm/dL Hct 38.3 L (39.0-53.0) % MCV 101.2 H (80.0-100.0) fL Plt Count 510 H (150-450) k/uL Neutrophils # 8.2 H (1.3-7.7) k/uL Lymphocytes # 0.3 L (1.0-4.8) k/uL Potassium (3.5-5.1) mmol/L Carbon Dioxide (22-30) mmol/L Creatinine (0.66-1.25) mg/dL Glucose (74-99) mg/dL POC Glucose (mg/dL) 123 H 119 H (75-99) mg/dL Calcium (8.4-10.2) mg/dL Magnesium (1.6-2.3) mg/dL Total Protein (6.3-8.2) g/dL Albumin (3.5-5.0) g/dL Urine Opiates Screen (NotDetected) Urine Methadone Screen (NotDetected) Crossmatch 03/03/21 03/03/21 03/03/21 Range/Units 06:35 06:35 08:30 RBC 3.66 L 4.02 L (4.30-5.90) m/uL Hgb 11.7 L (13.0-17.5) gm/dL Hct 36.8 L (39.0-53.0) % MCV 100.5 H 102.6 H (80.0-100.0) fL Plt Count 465 H 508 H (150-450) k/uL Neutrophils # (1.3-7.7) k/uL Lymphocytes # 0.3 L (1.0-4.8) k/uL Potassium 2.7 L* (3.5-5.1) mmol/L Carbon Dioxide 31 H (22-30) mmol/L Creatinine 0.51 L (0.66-1.25) mg/dL Glucose 101 H (74-99) mg/dL POC Glucose (mg/dL) (75-99) mg/dL Calcium 7.2 L (8.4-10.2) mg/dL Magnesium 1.3 L (1.6-2.3) mg/dL Total Protein 5.3 L (6.3-8.2) g/dL Albumin 2.5 L (3.5-5.0) g/dL Urine Opiates Screen (NotDetected) Urine Methadone Screen (NotDetected) Crossmatch <Ja Padgett - Last Filed: 03/03/21 17:39> Subjective As above. Patient complaining of shoulder discomfort and joint pain. Has had some loose brown stools today. No abdominal pain. Hemoglobin is stable. Advanced to regular diet. Possible colonoscopy later during this hospitalization. Objective - Vital Signs Vital signs: Vital Signs Temp 98.6 F 03/03/21 12:00 Pulse 109 H 03/03/21 16:00 Resp 18 03/03/21 16:00 BP 124/74 03/03/21 16:00 Pulse Ox 99 03/03/21 16:00 Intake & Output 03/02/21 03/03/21 03/03/21 18:59 06:59 18:59 Intake Total 310 1070 Output Total 725 1350 Balance -415 -1350 1070 Weight 58.967 kg 58.967 kg Intake: IV 40 Invasive Line 1 20 Invasive Line 3 20 Intake, IV Titration 250 Amount Amiodarone 450 mg In 250 Dextrose 5% in Water 250 ml @ 0.5 MG/MIN 16.667 mls/hr IV .Q15H [facility] Rx#: [id number] Oral 780 Blood Product 310 Rc Pheresis 2 As3 Unit 310 [id number] Output: Urine 725 1350 Other: Voiding Method Indwelling Catheter Indwelling Catheter Indwelling Catheter # Voids 1 # Bowel Movements 1 2 - Labs CBC & Chem 7: 03/03/21 08:30 03/03/21 06:35 Labs: Abnormal Lab Results - Last 24 Hours (Table) 03/02/21 03/02/21 03/03/21 Range/Units 20:33 20:36 06:12 RBC 3.78 L (4.30-5.90) m/uL Hgb 12.2 L (13.0-17.5) gm/dL Hct 38.3 L (39.0-53.0) % MCV 101.2 H (80.0-100.0) fL Plt Count 510 H (150-450) k/uL Neutrophils # 8.2 H (1.3-7.7) k/uL Lymphocytes # 0.3 L (1.0-4.8) k/uL Potassium (3.5-5.1) mmol/L Carbon Dioxide (22-30) mmol/L Creatinine (0.66-1.25) mg/dL Glucose (74-99) mg/dL POC Glucose (mg/dL) 123 H 119 H (75-99) mg/dL Calcium (8.4-10.2) mg/dL Magnesium (1.6-2.3) mg/dL Total Protein (6.3-8.2) g/dL Albumin (3.5-5.0) g/dL Prealbumin (18.0-42.0) mg/dL 03/03/21 03/03/21 03/03/21 Range/Units 06:35 06:35 08:30 RBC 3.66 L 4.02 L (4.30-5.90) m/uL Hgb 11.7 L (13.0-17.5) gm/dL Hct 36.8 L (39.0-53.0) % MCV 100.5 H 102.6 H (80.0-100.0) fL Plt Count 465 H 508 H (150-450) k/uL Neutrophils # (1.3-7.7) k/uL Lymphocytes # 0.3 L (1.0-4.8) k/uL Potassium 2.7 L* (3.5-5.1) mmol/L Carbon Dioxide 31 H (22-30) mmol/L Creatinine 0.51 L (0.66-1.25) mg/dL Glucose 101 H (74-99) mg/dL POC Glucose (mg/dL) (75-99) mg/dL Calcium 7.2 L (8.4-10.2) mg/dL Magnesium 1.3 L (1.6-2.3) mg/dL Total Protein 5.3 L (6.3-8.2) g/dL Albumin 2.5 L (3.5-5.0) g/dL Prealbumin 6.5 L (18.0-42.0) mg/dL 03/03/21 Range/Units 12:26 RBC (4.30-5.90) m/uL Hgb (13.0-17.5) gm/dL Hct (39.0-53.0) % MCV (80.0-100.0) fL Plt Count (150-450) k/uL Neutrophils # (1.3-7.7) k/uL Lymphocytes # (1.0-4.8) k/uL Potassium (3.5-5.1) mmol/L Carbon Dioxide (22-30) mmol/L Creatinine (0.66-1.25) mg/dL Glucose (74-99) mg/dL POC Glucose (mg/dL) 160 H (75-99) mg/dL Calcium (8.4-10.2) mg/dL Magnesium (1.6-2.3) mg/dL Total Protein (6.3-8.2) g/dL Albumin (3.5-5.0) g/dL Prealbumin (18.0-42.0) mg/dL
--- NOTE | 2021-03-03 10:29 | CDI ---
Documentation Clarification Form Date: 03/03/2021 10:06:11 AM From: Elodia Flores RN, CCDS Admit Date: 03/02/2021 07:30:00 AM Patient Name: Carlin Garduno Visit Number: [id number] Discharge Date: ATTENTION: The Clinical Documentation Specialists (CDI) and [facility] Coding Staff appreciate your assistance in clarifying documentation. Please respond to the clarification below the line at the bottom and electronically sign. The CDI & [facility] Coding staff will review the response and follow-up if needed. Please note: Queries are made part of the Legal Health Record. If you have any questions, please contact the author of this message via ITS. Dr. Holland Nye Protein calorie malnutrition documented in your H/P ON 03/02/21. Additional clarification regarding the severity of malnutrition is requested. History/Risk Factors: GERD, Pressure ulcer stage III back, post-polio syndrome, COPD, Constipation Clinical Indicators: 75-year-old male present form [facility] for bloody bowel movements, abdominal cramping, midepigastric abdominal pain. He has post-polio syndrome thoracic spine contracted, lower extremities with muscle atrophy, 03/02 Labs K+ 2.4, protein 6.0, Albumin 2.9 Current BMI: 20.4 Treatment: Dietary Consult: Pending Monitor I/O per protocol Prealbumin Daily x1 (03/03 Comprehensive Metabolic panel (03/03 Please clarify the type of malnutrition, if known: [ ] Mild Protein-Calorie Malnutrition [ X] Moderate Protein-Calorie Malnutrition [ ] Severe Protein-Calorie Malnutrition [ ] Other condition, please specify [ ] Unable to Determine (Template Last Revised: May 2020) MTDD
[2021-03-03] MEDS: MAGNESIUM SULFATE-D5W PMX 1 GM in DEXTROSE/WATER 1 100ML.BAG IVPB SCH ×2 (10:36→12:21)
[2021-03-03] MEDS: AMIODARONE 200 MG TAB PO SCH ×2 (12:24→21:46)
[2021-03-03 12:28] LABS: Glucose,Whole Blood 160 mg/dL (75-99)
--- NOTE | 2021-03-03 13:01 | P.PN ---
Subjective This is a 75 year old male with a past medical history of COPD, dementia, GERD. Recent ureteral stone s/p ureteral stent placement, peripheral artery disease on Plavix. 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 He is from [facility]. He presents emergency department with complaints of 2 bloody bowel movements dark red blood, abdominal cramping pain, hematuria via his Moore catheter. We are consulted for new onset atrial fibrillation with RVR. Patient was started on IV amiodarone with good response in heart rate. Anticoagulation was held due to possible GI bleed. On admission, his INR was >10.0, Hgb 11.7, Hct 36.2, Plt 546, Potassium 2.4, troponin mildly elevated at 0.82. Patient seen and examined at bedside, no acute distress. Vitals are stable. He continues to be in a fib with better controlled rates. He is on IV amiodarone 0.5 mg/hr, the Toprol succinate 25 mg daily LabsWBC 10.6, hemoglobin 13, platelets 508, sodium 137, potassium 2.7, BUN 12, serum creatinine 0.5, magnesium 1.3 Echocardiogram revealed EF of 4550 percent, mild maturity, moderate tricuspid rotation, small pericardial effusion near the left ventricle. Vitals: Reviewed GENERAL: In no acute distress. NECK: Supple without JVD or thyromegaly. LUNGS: Breath sounds clear to auscultation bilaterally. Respiration equal and unlabored. No wheezes, rales or rhonchi. HEART: Irregular rate and rhythm without murmurs, rubs or gallops. S1 and S2 heard. EXTREMITIES: Normal range of motion, no edema. No clubbing or cyanosis. Peripheral pulses intact. ASSESSMENT Paroxysmal atrial fibrillation with RVR , anticoagulation on hold due to GI bleed Cardiomyopathy, likely non-ishemic cannot rule out CAD Elevated troponin, likely related to supply/demand mismatch Melanotic stools, rule out GI bleed Hypokalemia Hypomagnesemia Elevated INR PLAN Increase metoprolol succinate to 50mg daily. Discontinue IV amiodarone and transition to PO amiodarone Anticoagulation on hold due to potential GI bleed Replace electrolytes per protocol, monitor BMP Further recommendations based on clinical course Nurse Practitioner note has been reviewed, I agree with a documented findings and plan of care. Patient was seen and examined. Objective - Vital Signs Vital signs: Vital Signs Temp 98 F 03/02/21 12:10 Pulse 106 H 03/02/21 12:10 Resp 18 03/02/21 12:10 BP 111/87 03/02/21 12:10 Pulse Ox 97 03/02/21 10:42 Intake & Output 03/01/21 03/02/21 03/02/21 18:59 06:59 18:59 Intake Total 310 Balance 310 Weight 58.967 kg Intake: Blood Product 310 Rc Pheresis 2 As3 Unit 310 [id number] - Labs CBC & Chem 7: 03/03/21 08:30 03/03/21 06:35 Labs: Abnormal Lab Results - Last 24 Hours (Table) 03/02/21 03/02/21 03/02/21 Range/Units 06:02 06:02 06:02 RBC 3.61 L (4.30-5.90) m/uL Hgb 11.7 L (13.0-17.5) gm/dL Hct 36.2 L (39.0-53.0) % MCV 100.3 H (80.0-100.0) fL Plt Count 546 H (150-450) k/uL Neutrophils # 7.9 H (1.3-7.7) k/uL Lymphocytes # 0.5 L (1.0-4.8) k/uL PT >130.0 H (9.0-12.0) sec INR >10.0 H* (<1.2) APTT 93.7 H (22.0-30.0) sec Potassium 2.4 L* (3.5-5.1) mmol/L Chloride 95 L (98-107) mmol/L Carbon Dioxide 33 H (22-30) mmol/L Calcium 7.8 L (8.4-10.2) mg/dL Troponin I (0.000-0.034) ng/mL Total Protein 6.0 L (6.3-8.2) g/dL Albumin 2.9 L (3.5-5.0) g/dL Urine Opiates Screen (NotDetected) Urine Methadone Screen (NotDetected) Crossmatch 03/02/21 03/02/21 03/02/21 Range/Units 06:02 06:02 09:28 RBC (4.30-5.90) m/uL Hgb (13.0-17.5) gm/dL Hct (39.0-53.0) % MCV (80.0-100.0) fL Plt Count (150-450) k/uL Neutrophils # (1.3-7.7) k/uL Lymphocytes # (1.0-4.8) k/uL PT (9.0-12.0) sec INR (<1.2) APTT (22.0-30.0) sec Potassium (3.5-5.1) mmol/L Chloride (98-107) mmol/L Carbon Dioxide (22-30) mmol/L Calcium (8.4-10.2) mg/dL Troponin I 0.822 H* (0.000-0.034) ng/mL Total Protein (6.3-8.2) g/dL Albumin (3.5-5.0) g/dL Urine Opiates Screen Detected H (NotDetected) Urine Methadone Screen Detected H (NotDetected) Crossmatch See Detail 03/02/21 Range/Units 11:57 RBC 3.46 L (4.30-5.90) m/uL Hgb 11.5 L (13.0-17.5) gm/dL Hct 34.5 L (39.0-53.0) % MCV (80.0-100.0) fL Plt Count 466 H (150-450) k/uL Neutrophils # (1.3-7.7) k/uL Lymphocytes # 0.3 L (1.0-4.8) k/uL PT (9.0-12.0) sec INR (<1.2) APTT (22.0-30.0) sec Potassium (3.5-5.1) mmol/L Chloride (98-107) mmol/L Carbon Dioxide (22-30) mmol/L Calcium (8.4-10.2) mg/dL Troponin I (0.000-0.034) ng/mL Total Protein (6.3-8.2) g/dL Albumin (3.5-5.0) g/dL Urine Opiates Screen (NotDetected) Urine Methadone Screen (NotDetected) Crossmatch
[2021-03-03] MEDS ORDERED: Magnesium Replacement Protocol 1 EACH MISC MISCELLANE PRN (13:03)
[2021-03-03] MEDS ORDERED: ALBUTEROL NEBULIZED 2.5 MG/3 ML INHALATION PRN (13:17)
--- NOTE | 2021-03-03 13:17 | P.PN ---
Cornelio Thomason is a 75-year-old white male well known to me. He was in the hospital last month for abdominal pain. He was found to have right sided hydronephrosis and stone. He underwent a uretal stent placement and stone retrieval. He had a Goldstein catheter placed and had some gross hematuria noted.HE is a resident of [facility] since 04/2020. Staff contacted me early this morning about several large blood clots passed per rectum. Whitney not had anything like this before. He is not on any Coumadin or other anticoagulation. At the nursing facility he was found to be tachycardic and borderline hypotensive. He was sent to the emergency room to be seen in evaluated. His INR was found to be greater than 10. Hemoglobin at that time was 11.7. He was significantly hypokalemic a 2.4. His heart rate was tachycardic and found to be in atrial fibrillation per EKG.His last colonoscopy was 5+ years ago. Since whitney been in the facility does not drink it does not have any issues other than the recent pain from hydronephrosis and stone. Currently he denies any chest pains pressures or shortness of breath. He has midepigastric abdominal pain. Hes been on Plavix for SVT and NSTEMI since April 2020 March 03, 2021:Cardiology is following this patient for his new onset atrial fibrillation. General surgery is following him for the G.I. bleed Vital signs remain stable. Heart rate is controlled. Patient afebrile. Pulse ox symmetry high 90s on room air. Laboratory studies show that hemoglobin is stable today at 13. Platelets are 508. Chemistry show an ongoing hypokalemia of 2.7 and a low magnesium of 1.3. Total protein and albumin are Low. ALT and AST are normal. Alkaline phosphatase is normal. Ultrasound of the liver showed questionable heterogeneously. PTINR is normal now at 1.1.He was transfused one unit of packed red blood cells yesterday. Cardiology &.General surgery evaluation is pending for today. He is being trans referred over from IV amiodarone to oral amiodarone. Potassium and magnesium protocol are ordered for replacement. Overall he feels OK. He continues to have some midepigastric abdominal pain to palpation. He has some back pain due to significant scoliosis. He denies any nausea or vomiting. Denies any chest pain or shortness of breath at this time. Objective - Vital Signs Vital signs: Vital Signs Temp 98.2 F 03/03/21 08:00 Pulse 117 H 03/03/21 08:00 Resp 18 03/03/21 08:00 BP 129/93 03/03/21 08:00 Pulse Ox 99 03/03/21 08:00 Intake & Output 03/02/21 03/03/21 03/03/21 18:59 06:59 18:59 Intake Total 310 370 Output Total 725 1350 Balance -415 -1350 370 Weight 58.967 kg 58.967 kg Intake: Intake, IV Titration 250 Amount Amiodarone 450 mg In 250 Dextrose 5% in Water 250 ml @ 0.5 MG/MIN 16.667 mls/hr IV .Q15H [facility] Rx#: [id number] Oral 120 Blood Product 310 Rc Pheresis 2 As3 Unit 310 [id number] Output: Urine 725 1350 Other: Voiding Method Indwelling Catheter Indwelling Catheter # Voids 1 # Bowel Movements 1 2 - Exam General: The patient is awake in no distress, and appears fatigued. 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 Cardiovascular: S1S2is normal, There is a tachy rate and apparent regular rhythm. No murmur, rub or gallop is appreciated. Respiratory: Lungs clear to auscultation bilaterally, respirations are non- labored, breath sounds are equal. No wheezes, rales or crackles. Gastrointestinal: Soft,non distended tender abdomen to the midepigatrum without masses or organomegaly noted. There is no rebound tenderness or guarding present. Bowel sounds are unremarkable. Musculoskeletal: Limited ROM (post polio syndrome), thoracic spine contracted, lower extremities withmuscle atrophy. no tenderness, There is no pedal edema. There is no calf tenderness or swelling. No cords were appreciated. Wheelchair dependent, can transfer independently. Neurological: CNII-XII intact, there are no obvious motor or sensory deficits.Coordination appears grossly intact. Speech is normal. He is awake alert and oriented 3 today. groin: goldstein to gravity, blood noted Skin: Bilateral chronic vascular leg wounds, resolved at this time. left lower back pressure ulcer dressing intact (stage 3) - Labs CBC & Chem 7: 03/03/21 08:30 03/03/21 06:35 Labs: Abnormal Lab Results - Last 24 Hours (Table) 03/02/21 03/02/21 03/03/21 Range/Units 20:33 20:36 06:12 RBC 3.78 L (4.30-5.90) m/uL Hgb 12.2 L (13.0-17.5) gm/dL Hct 38.3 L (39.0-53.0) % MCV 101.2 H (80.0-100.0) fL Plt Count 510 H (150-450) k/uL Neutrophils # 8.2 H (1.3-7.7) k/uL Lymphocytes # 0.3 L (1.0-4.8) k/uL Potassium (3.5-5.1) mmol/L Carbon Dioxide (22-30) mmol/L Creatinine (0.66-1.25) mg/dL Glucose (74-99) mg/dL POC Glucose (mg/dL) 123 H 119 H (75-99) mg/dL Calcium (8.4-10.2) mg/dL Magnesium (1.6-2.3) mg/dL Total Protein (6.3-8.2) g/dL Albumin (3.5-5.0) g/dL 03/03/21 03/03/21 03/03/21 Range/Units 06:35 06:35 08:30 RBC 3.66 L 4.02 L (4.30-5.90) m/uL Hgb 11.7 L (13.0-17.5) gm/dL Hct 36.8 L (39.0-53.0) % MCV 100.5 H 102.6 H (80.0-100.0) fL Plt Count 465 H 508 H (150-450) k/uL Neutrophils # (1.3-7.7) k/uL Lymphocytes # 0.3 L (1.0-4.8) k/uL Potassium 2.7 L* (3.5-5.1) mmol/L Carbon Dioxide 31 H (22-30) mmol/L Creatinine 0.51 L (0.66-1.25) mg/dL Glucose 101 H (74-99) mg/dL POC Glucose (mg/dL) (75-99) mg/dL Calcium 7.2 L (8.4-10.2) mg/dL Magnesium 1.3 L (1.6-2.3) mg/dL Total Protein 5.3 L (6.3-8.2) g/dL Albumin 2.5 L (3.5-5.0) g/dL 03/03/21 Range/Units 12:26 RBC (4.30-5.90) m/uL Hgb (13.0-17.5) gm/dL Hct (39.0-53.0) % MCV (80.0-100.0) fL Plt Count (150-450) k/uL Neutrophils # (1.3-7.7) k/uL Lymphocytes # (1.0-4.8) k/uL Potassium (3.5-5.1) mmol/L Carbon Dioxide (22-30) mmol/L Creatinine (0.66-1.25) mg/dL Glucose (74-99) mg/dL POC Glucose (mg/dL) 160 H (75-99) mg/dL Calcium (8.4-10.2) mg/dL Magnesium (1.6-2.3) mg/dL Total Protein (6.3-8.2) g/dL Albumin (3.5-5.0) g/dL Assessment and Plan (1) Acute GI bleeding Current Visit: Yes Status: Acute Code(s): K92.2 - GASTROINTESTINAL HEMORRHAGE, UNSPECIFIED SNOMED Code(s): 39348911 (2) Hypokalemia Current Visit: Yes Status: Acute Code(s): E87.6 - HYPOKALEMIA SNOMED Code(s): 85477067 (3) New onset atrial fibrillation Current Visit: Yes Status: Acute Code(s): I48.91 - UNSPECIFIED ATRIAL FIBRILLATION SNOMED Code(s): 13462908 (4) Elevated INR Current Visit: Yes Status: Acute Code(s): R79.1 - ABNORMAL COAGULATION PROFILE SNOMED Code(s): 709683365 (5) retirement prescription opiate use Current Visit: Yes Status: Acute Code(s): Z79.891 - SKILLED NURSING (CURRENT) USE OF OPIATE ANALGESIC SNOMED Code(s): 938511393 (6) Stage III pressure ulcer of back Current Visit: Yes Status: Acute Code(s): L89.103 - PRESSURE ULCER OF UNSPECIFIED PART OF BACK, STAGE 3 SNOMED Code(s): 773540184 (7) Protein calorie malnutrition Current Visit: Yes Status: Acute Code(s): E46 - UNSPECIFIED PROTEIN-CALORIE MALNUTRITION SNOMED Code(s): 712216097 (8) Fecal impaction Current Visit: No Status: Acute Code(s): K56.41 - FECAL IMPACTION SNOMED Code(s): 91124608 (9) Post-polio syndrome Current Visit: No Status: Acute Code(s): G14 - POSTPOLIO SYNDROME SNOMED Code(s): 04343223 (10) Venous stasis ulcer of left lower extremity Current Visit: No Status: Acute Code(s): I83.029 - VARICOSE VEINS OF LEFT LOWER EXTREMITY W ULCER OF UNSP SITE SNOMED Code(s): 425679009 (11) Venous stasis ulcer of right lower extremity Current Visit: No Status: Acute Code(s): I83.019 - VARICOSE VEINS OF RIGHT LOWER EXTREMITY W ULCER OF UNSP SITE SNOMED Code(s): 111460673 (12) GERD (gastroesophageal reflux disease) Current Visit: Yes Status: Acute Code(s): K21.9 - GASTRO-ESOPHAGEAL REFLUX DISEASE WITHOUT ESOPHAGITIS SNOMED Code(s): 875662374 (13) Hypomagnesemia Current Visit: Yes Status: Acute Code(s): E83.42 - HYPOMAGNESEMIA SNOMED Code(s): 342535632 (14) Cardiomyopathy Current Visit: Yes Status: Acute Code(s): I42.9 - CARDIOMYOPATHY, UNSPECIFIED SNOMED Code(s): 04933833 (15) Hydronephrosis Current Visit: No Status: Acute Code(s): N13.30 - UNSPECIFIED HYDRONEPHROSIS SNOMED Code(s): 41415580 Plan: We done for the recommendations from cardiology and general surgery. Y Potassium And magnesium replacement Repeat labs in a.m. I will reevaulate in 24 hours
[2021-03-03] MEDS ORDERED: MAGNESIUM SULFATE-D5W PMX 1 GM in DEXTROSE/WATER 1 100ML.BAG IVPB ONE (13:30)
[2021-03-03] MEDS: DOCUSATE 100 MG CAP PO SCH ×2 (14:00→20:56)
[2021-03-03 15:06] LABS: Prealbumin 6.5 mg/dL (18.0-42.0)
[2021-03-03] MEDS: TAMSULOSIN 0.4 MG CAP.ER.24H PO SCH (15:24)
--- NOTE | 2021-03-03 16:00 | P.CONS ---
History of Present Illness - Reason for Consult Consult date: 03/03/21 elevated coags, not on anticoagulants Requesting physician: Holland Nye - Chief Complaint black stool - History of Present Illness Mr. Garduno is a pleasant man who is a resident of [facility] since Apr this year. He is currently admitted for staff reporting large blood clots per rectum this AM, associated with tachycardia and hypotension. Pt denies any known bleeding. He was brought to hospital, found to have significantly elevated coags, Hgb was normal on admit. Pt was given kcentra and 10mg of vit K, all coags are now normal. Occult negative. Pt denies fever, nausea, vomiting, nose bleeding, chest pain, abd pain, cramping. Pt not able to give me complete answers about his medical history or recent event, I am not certain of his baseline Review of Systems Focused ROS is neg ROS unobtainable: due to mental status Past Medical History Past Medical History: COPD, GERD/Reflux, Musculoskeletal Disorder, Neurologic Disorder, Osteoarthritis (OA), Pneumonia, Renal Disease, Skin Disorder, Vascular Disorder Additional Past Medical History / Comment(s): Pt recently admitted to [facility] on 02/22/21 with abdominal pain/renal colic/moderate L hydronephrosis/stone/possible UTI/urinary retention with fole y/constipation/chronic bilateral lower extremity cellulitis. 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, scoliosis/deformity, osteopenia, chronic back pain but pt denies cervical injury/pain d/t fall as stated in previous medical records, vascular disorder/has had wounds to bilateral feet and legs in past, current L back ulcer/staff at [facility] state it is a stage II/they use Kato every 3 days, pt has skin wounds L knee, ankylosis spondylosis, constipation/last BM 02/20/21, diverticulitis, History of Any Multi-Drug Resistant Organisms: MRSA Year Discovered:: 09/03/18 MDRO Source:: left LEG Past Surgical History: Back Surgery, Bowel Resection, Joint Replacement, Orthopedic Surgery Additional Past Surgical History / Comment(s): 02/24/21 L ureteroscopy with laser lithotripsy/stone basketing/stenting, back laminectomy, spinal fusion as a child, pt denies cervical surgery as documented in previous record, total R hip arthroplasty, multiple bilateral legs/feet surgery, back pain procedures, bowel resection d/t diverticulitis, colonoscopy, incontinence of urine/stool. Past Anesthesia/Blood Transfusion Reactions: No Reported Reaction Past Psychological History: Unable to Obtain Smoking Status: Former smoker Past Alcohol Use History: Unable to Obtain Past Drug Use History: Unable to Obtain - Past Family History Father Family Medical History: Coronary Artery Disease (CAD) Additional Family Medical History / Comment(s): heart arrythymia Brother(s) Family Medical History: Cancer Medications and Allergies Home Medications Medication Instructions Recorded Confirmed Type Sertraline HCl [Zoloft] 100 mg PO DAILY@0800 12/24/14 03/02/21 History Methadone [Dolophine] 10 mg PO Q6H 11/04/15 03/02/21 History Albuterol Nebulized [Ventolin 2.5 mg INHALATION RT-QID PRN 02/22/21 03/02/21 History Nebulized] Healthshake 1 dose PO TID@0800,1200,1800 02/22/21 03/02/21 History Magic Cup 1 dose PO TID@0800,1200,1800 02/22/21 03/02/21 History Magnesium Hydroxide [Milk of 2,400 mg PO DAILY PRN 02/22/21 03/02/21 History Magnesia] Multivitamins, Thera [Multivitamin 1 tab PO DAILY 02/22/21 03/02/21 History (formulary)] Proheal 30 ml PO BID 02/22/21 03/02/21 History Sennosides-Docusate Sodium 1 tab PO DAILY 02/22/21 03/02/21 History [Senokot-S] Sertraline [Zoloft] 50 mg PO DAILY@0800 02/22/21 03/02/21 History buPROPion HCL [Wellbutrin XL] 300 mg PO DAILY@0500 02/22/21 03/02/21 History Cefuroxime Axetil [Ceftin] 500 mg PO BID 7 Days #14 tab 02/25/21 03/02/21 Rx Acetaminophen Tab [Tylenol] 650 mg PO Q6H PRN 03/02/21 03/02/21 History Clopidogrel [Plavix] 75 mg PO DAILY@0800 03/02/21 03/02/21 History Docusate [Colace] 100 mg PO BID 03/02/21 03/02/21 History Metoprolol Succinate (ER) [Toprol 12.5 mg PO DAILY@0800 03/02/21 03/02/21 History XL] Omeprazole 20 mg PO DAILY 03/02/21 03/02/21 History Tamsulosin [Flomax] 0.4 mg PO DAILY 03/02/21 03/02/21 History Allergies Allergy/AdvReac Type Severity Reaction Status Date / Time aspirin AdvReac Intermediate ringing in Verified 03/02/21 07:38 the ears Antihistamines - Alkylamine AdvReac Mild shaking Verified 03/02/21 07:38 Physical Exam Vitals: Vital Signs Temp Pulse Resp BP Pulse Ox 03/03/21 08:00 98.2 F 117 H 18 129/93 99 03/03/21 04:00 97.9 F 116 H 18 132/82 98 03/03/21 02:00 82 18 03/03/21 00:00 97.8 F 103 H 18 130/79 96 03/02/21 20:00 97.9 F 82 18 132/88 97 03/02/21 15:06 97.2 F L 106 H 16 142/95 93 L Intake and Output 03/03/21 03/03/21 03/03/21 06:59 14:59 22:59 Intake Total 1070 Output Total 1350 Balance -1350 1070 Intake: IV 40 Invasive Line 1 20 Invasive Line 3 20 Intake, IV Titration 250 Amount Amiodarone 450 mg In 250 Dextrose 5% in Water 250 ml @ 0.5 MG/MIN 16.667 mls/hr IV .Q15H [facility] Rx#: [id number] Oral 780 Output: Urine 1350 Other: Voiding Method Indwelling Catheter Indwelling Catheter # Bowel Movements 2 Weight 58.967 kg - Constitutional General appearance: cooperative, no acute distress, thin - EENT Eyes: anicteric sclerae, EOMI, poor dentition ENT: hearing grossly normal - Neck Neck: no lymphadenopathy - Respiratory Respiratory: bilateral: CTA - Cardiovascular Rhythm: regular Heart sounds: normal: S1, S2 Abnormal Heart Sounds: no systolic murmur, no diastolic murmur, no rub, no S3 Gallop, no S4 Gallop, no click, no other - Gastrointestinal General gastrointestinal: no absent bowel sounds, no decreased bowel sounds, no distended, no hepatomegaly, no hyperactive bowel sounds, normal bowel sounds, no organomegaly, no rigid, no scaphoid, soft, no splenomegaly, no tenderness, no umbilical hernia, no ventral hernia - Neurologic Neurologic: CNII-XII intact - Musculoskeletal Musculoskeletal: generalized weakness - Psychiatric Psychiatric: appropriate affect Results CBC & Chem 7: 03/03/21 08:30 03/03/21 06:35 Labs: Abnormal Lab Results - Last 24 Hours (Table) 03/02/21 03/02/21 03/03/21 Range/Units 20:33 20:36 06:12 RBC 3.78 L (4.30-5.90) m/uL Hgb 12.2 L (13.0-17.5) gm/dL Hct 38.3 L (39.0-53.0) % MCV 101.2 H (80.0-100.0) fL Plt Count 510 H (150-450) k/uL Neutrophils # 8.2 H (1.3-7.7) k/uL Lymphocytes # 0.3 L (1.0-4.8) k/uL Potassium (3.5-5.1) mmol/L Carbon Dioxide (22-30) mmol/L Creatinine (0.66-1.25) mg/dL Glucose (74-99) mg/dL POC Glucose (mg/dL) 123 H 119 H (75-99) mg/dL Calcium (8.4-10.2) mg/dL Magnesium (1.6-2.3) mg/dL Total Protein (6.3-8.2) g/dL Albumin (3.5-5.0) g/dL 03/03/21 03/03/21 03/03/21 Range/Units 06:35 06:35 08:30 RBC 3.66 L 4.02 L (4.30-5.90) m/uL Hgb 11.7 L (13.0-17.5) gm/dL Hct 36.8 L (39.0-53.0) % MCV 100.5 H 102.6 H (80.0-100.0) fL Plt Count 465 H 508 H (150-450) k/uL Neutrophils # (1.3-7.7) k/uL Lymphocytes # 0.3 L (1.0-4.8) k/uL Potassium 2.7 L* (3.5-5.1) mmol/L Carbon Dioxide 31 H (22-30) mmol/L Creatinine 0.51 L (0.66-1.25) mg/dL Glucose 101 H (74-99) mg/dL POC Glucose (mg/dL) (75-99) mg/dL Calcium 7.2 L (8.4-10.2) mg/dL Magnesium 1.3 L (1.6-2.3) mg/dL Total Protein 5.3 L (6.3-8.2) g/dL Albumin 2.5 L (3.5-5.0) g/dL 03/03/21 Range/Units 12:26 RBC (4.30-5.90) m/uL Hgb (13.0-17.5) gm/dL Hct (39.0-53.0) % MCV (80.0-100.0) fL Plt Count (150-450) k/uL Neutrophils # (1.3-7.7) k/uL Lymphocytes # (1.0-4.8) k/uL Potassium (3.5-5.1) mmol/L Carbon Dioxide (22-30) mmol/L Creatinine (0.66-1.25) mg/dL Glucose (74-99) mg/dL POC Glucose (mg/dL) 160 H (75-99) mg/dL Calcium (8.4-10.2) mg/dL Magnesium (1.6-2.3) mg/dL Total Protein (6.3-8.2) g/dL Albumin (3.5-5.0) g/dL Comments: Abd/pelvis CTA report reviewed ECHO LVEF 40-50% US - abdomen: report reviewed Assessment and Plan (1) Coagulopathy Narrative/Plan: PT/INR/PTT all WNL s/p kcentra and vit K administration with normalization of all labs. Cont to monitor coags, if begin to increase will order mixing study to assess for factor ab. Monitor CBC daily Iron studies for suspected recent bleeding Current Visit: Yes Status: Acute Priority: High Code(s): D68.9 - COAGULATION DEFECT, UNSPECIFIED SNOMED Code(s): 17155738 Plan: Surgery consulted. Plans for endo near future re: colon thickening and report of rectal bleeding
[2021-03-03] MEDS: Acetaminophen-Codeine 300-30mg TAB PO PRN ×2 (17:22→21:46)
[2021-03-03] MEDS: ACETAMINOPHEN TAB 325 MG TAB PO PRN (19:02)
[2021-03-03] MEDS ORDERED: HALOPERIDOL LACTATE 5 MG/ML 1 ML VIAL ONE (20:25)
[2021-03-03] MEDS: HALOPERIDOL LACTATE 5 MG/ML 1 ML VIAL IM PRN (20:36)
[2021-03-04] MEDS: HALOPERIDOL LACTATE 5 MG/ML 1 ML VIAL IM PRN ×2 (04:34→23:33)
[2021-03-04] MEDS ORDERED: buPROPion XL 300 MG TAB.ER.24H PO SCH (05:00)
[2021-03-04] MEDS: SODIUM CHLORIDE 0.9% 1,000 ML IV SCH ×2 (06:12→08:17)
[2021-03-04 06:48] LABS: Basophils % (A) 0 %; Eosinophils % (A) 0 %; HGB 12.1 gm/dL (13.0-17.5); Lymphocytes # (A) 0.3 k/uL (1.0-4.8); Lymphocytes % (A) 1 %; MCH 32.2 pg (25.0-35.0); MCHC 31.9 g/dL (31.0-37.0); MCV 101.1 fL (80.0-100.0); Macrocytosis Slight; Mean Platelet Volume 7.9; Monocytes # (A) 0.8 k/uL (0-1.0); Monocytes % (A) 4 %; Neutrophils % (A) 94 %; Platelet Count 585 k/uL (150-450); RBC 3.76 m/uL (4.30-5.90); RDW 13.9 % (11.5-15.5); WBC 22.3 k/uL (3.8-10.6)
[2021-03-04 07:03] LABS: ALT 17 U/L (4-49); AST 28 U/L (17-59); African American GFR (CKD) >90 (>60 ml/min/1.73 sqM); Albumin 2.9 g/dL (3.5-5.0); Alkaline Phosphatase 107 U/L (38-126); Anion Gap 9 mmol/L; Blood Urea Nitrogen 21 mg/dL (9-20); Carbon Dioxide 25 mmol/L (22-30); Chloride 104 mmol/L (98-107); Glucose 103 mg/dL (74-99); Magnesium 1.7 mg/dL (1.6-2.3); Non-African American GFR(CKD) >90 (>60 ml/min/1.73 sqM); Potassium 5.8 mmol/L (3.5-5.1); Sodium 138 mmol/L (137-145); Total Bilirubin 1.4 mg/dL (0.2-1.3); Total Protein 5.9 g/dL (6.3-8.2)
[2021-03-04 07:06] LABS: INR 1.1 (<1.2)
[2021-03-04 07:07] LABS: Prothrombin Time 11.6 sec (9.0-12.0)
[2021-03-04] MEDS: TAMSULOSIN 0.4 MG CAP.ER.24H PO SCH (08:14)
[2021-03-04] MEDS: SERTRALINE 100 MG TAB PO SCH (08:14)
[2021-03-04] MEDS: AMIODARONE 200 MG TAB PO SCH ×2 (08:14→20:53)
[2021-03-04] MEDS: DOCUSATE 100 MG CAP PO SCH ×2 (08:14→20:53)
[2021-03-04] MEDS: PANTOPRAZOLE 40 MG/10 ML VIAL IV SCH (08:14)
[2021-03-04] MEDS: METOPROLOL SUCCINATE (ER) 50 MG TAB.ER.24H PO SCH (08:15)
[2021-03-04] MEDS: Acetaminophen-Codeine 300-30mg TAB PO PRN ×3 (08:18→20:52)
[2021-03-04] MEDS: ACETAMINOPHEN TAB 325 MG TAB PO PRN ×3 (08:18→23:32)
--- NOTE | 2021-03-04 09:16 | P.PN ---
Subjective Progress Note Date: 03/04/21 Principal diagnosis: Proctitis Patient complaining of pain involving all of his joints at this time. Had multiple loose stools overnight that were brown in color. White blood cell count increased to 22.3, hemoglobin stable at 12.1. Potassium was low yesterday at 2.7 today is 5.8. INR is normal at 1.1 still. Ultrasound performed yesterday showed left-sided hydronephrosis and possible cirrhosis. Hematuria improved. Denies any particular abdominal discomforts currently. Objective - Vital Signs Vital signs: Vital Signs Temp 97.2 F L 03/04/21 07:50 Pulse 131 H 03/04/21 07:50 Resp 24 03/04/21 07:50 BP 90/57 03/04/21 07:50 Pulse Ox 96 03/04/21 07:50 Intake & Output 03/03/21 03/04/21 03/04/21 18:59 06:59 18:59 Intake Total 3228 600 658 Balance 3228 600 658 Weight 58.967 kg Intake: IV 1240 600 Invasive Line 1 20 Invasive Line 3 20 Magnesium Sulfate-D5w Pmx 300 1 gm In Dextrose/Water 1 100ml.bag @ 100 mls/hr IVPB ONCE ONE Rx#: [id number] Sodium Chloride 0.9% 1, 900 600 000 ml @ 75 mls/hr IV . [id number] [facility] Rx#:[id number] Intake, IV Titration 250 Amount Amiodarone 450 mg In 250 Dextrose 5% in Water 250 ml @ 0.5 MG/MIN 16.667 mls/hr IV .Q15H [facility] Rx#: [id number] Oral 1738 658 Other: Voiding Method Indwelling Catheter Indwelling Catheter Indwelling Catheter # Bowel Movements 2 1 - Exam Abdomen: Soft, mild diffuse tenderness, no rebound or guarding - Labs CBC & Chem 7: 03/04/21 05:30 03/04/21 05:30 Labs: Abnormal Lab Results - Last 24 Hours (Table) 03/03/21 03/03/21 03/04/21 Range/Units 06:35 12:26 05:30 WBC 22.3 H (3.8-10.6) k/uL RBC 3.76 L (4.30-5.90) m/uL Hgb 12.1 L (13.0-17.5) gm/dL Hct 38.0 L (39.0-53.0) % MCV 101.1 H (80.0-100.0) fL Plt Count 585 H (150-450) k/uL Neutrophils # 21.0 H (1.3-7.7) k/uL Lymphocytes # 0.3 L (1.0-4.8) k/uL Potassium (3.5-5.1) mmol/L BUN (9-20) mg/dL Creatinine (0.66-1.25) mg/dL Glucose (74-99) mg/dL POC Glucose (mg/dL) 160 H (75-99) mg/dL Calcium (8.4-10.2) mg/dL Total Bilirubin (0.2-1.3) mg/dL Total Protein (6.3-8.2) g/dL Albumin (3.5-5.0) g/dL Prealbumin 6.5 L (18.0-42.0) mg/dL 03/04/21 Range/Units 05:30 WBC (3.8-10.6) k/uL RBC (4.30-5.90) m/uL Hgb (13.0-17.5) gm/dL Hct (39.0-53.0) % MCV (80.0-100.0) fL Plt Count (150-450) k/uL Neutrophils # (1.3-7.7) k/uL Lymphocytes # (1.0-4.8) k/uL Potassium 5.8 H (3.5-5.1) mmol/L BUN 21 H (9-20) mg/dL Creatinine 0.49 L (0.66-1.25) mg/dL Glucose 103 H (74-99) mg/dL POC Glucose (mg/dL) (75-99) mg/dL Calcium 8.0 L (8.4-10.2) mg/dL Total Bilirubin 1.4 H (0.2-1.3) mg/dL Total Protein 5.9 L (6.3-8.2) g/dL Albumin 2.9 L (3.5-5.0) g/dL Prealbumin (18.0-42.0) mg/dL Assessment and Plan (1) Hematochezia Narrative/Plan: From a bleeding point of view patient is improved. Coagulopathy has resolved. Patient now with significant leukocytosis. Ultrasound showing left-sided hydronephrosis. Consider reconsult urology. Continue diet as tolerated. Possible endoscopy prior to discharge. Current Visit: Yes Status: Acute Code(s): K92.1 - MELENA SNOMED Code(s): 149604669
--- NOTE | 2021-03-04 11:30 | P.PN ---
Cornelio Thomason is a 75-year-old white male well known to me. He was in the hospital last month for abdominal pain. He was found to have right sided hydronephrosis and stone. He underwent a uretal stent placement and stone retrieval. He had a Goldstein catheter placed and had some gross hematuria noted.HE is a resident of [facility] since 04/2020. Staff contacted me early this morning about several large blood clots passed per rectum. Whitney not had anything like this before. He is not on any Coumadin or other anticoagulation. At the nursing facility he was found to be tachycardic and borderline hypotensive. He was sent to the emergency room to be seen in evaluated. His INR was found to be greater than 10. Hemoglobin at that time was 11.7. He was significantly hypokalemic a 2.4. His heart rate was tachycardic and found to be in atrial fibrillation per EKG.His last colonoscopy was 5+ years ago. Since whitney been in the facility does not drink it does not have any issues other than the recent pain from hydronephrosis and stone. Currently he denies any chest pains pressures or shortness of breath. He has midepigastric abdominal pain. Hes been on Plavix for SVT and NSTEMI since April 2020 March 03, 2021:Cardiology is following this patient for his new onset atrial fibrillation. General surgery is following him for the G.I. bleed Vital signs remain stable. Heart rate is controlled. Patient afebrile. Pulse ox symmetry high 90s on room air. Laboratory studies show that hemoglobin is stable today at 13. Platelets are 508. Chemistry show an ongoing hypokalemia of 2.7 and a low magnesium of 1.3. Total protein and albumin are Low. ALT and AST are normal. Alkaline phosphatase is normal. Ultrasound of the liver showed questionable heterogeneously. PTINR is normal now at 1.1.He was transfused one unit of packed red blood cells yesterday. Cardiology &.General surgery evaluation is pending for today. He is being trans referred over from IV amiodarone to oral amiodarone. Potassium and magnesium protocol are ordered for replacement. Overall he feels OK. He continues to have some midepigastric abdominal pain to palpation. He has some back pain due to significant scoliosis. He denies any nausea or vomiting. Denies any chest pain or shortness of breath at this time. 03/04/2021: Staff report patient acting out this morning complaining of joint aches and pains. Yelling a lot 1 and care. He also had considerable diarrhea. After his Tylenol with codeine dose though he seemed to have improved. I believe he may be suffering from withdrawals. I will restart his methadone at a lower dose than previous to help control his symptoms. He continues to have some mild abdominal pain. Now more on the left side than the right. He denies any chest pains, shortness breath, nausea or vomiting this time. Stools have been brown in color. Vitals were normal overnight however he is been tachycardic this morning. Rest her rate and blood pressures and controlled. Pulse oximetry is normal 96% on room air. Laboratory studies showed to be discounted 22.3 with hemoglobin 12.1 hematocrit 38 platelets are 585. Neutrophil count is now 21,000. INR is normal is 41.1. His potassium is 5.8 this morning. He has C ALT and alkaline phosphatase are normal. Consultation from hematology reviewed regarding his hypercoagulable state. General surgery notes reviewed. They're considering endoscopy before discharge. Cardiology is following for the new onset atrial fibrillation. He remains on Tylenol and Tylenol with Codeine No. 3, 2 every 4 hours when necessary. He has albuterol ordered. He remains on amiodarone and metoprolol for heart rate control. He continues on his home medications ibuprofen around. He remains on pantoprazole for GI prophylaxis and bleeding. He continues on tamsulosin for his left-sided hydronephrosis with recent stent placement. Electrolytes and magnesium have been replaced. Objective - Vital Signs Vital signs: Vital Signs Temp 97.2 F L 03/04/21 07:50 Pulse 131 H 03/04/21 07:50 Resp 24 03/04/21 07:50 BP 90/57 03/04/21 07:50 Pulse Ox 96 03/04/21 07:50 Intake & Output 03/03/21 03/04/21 03/04/21 18:59 06:59 18:59 Intake Total 3228 600 658 Output Total 850 Balance 3228 600 -192 Weight 58.967 kg 56.2 kg Intake: IV 1240 600 Invasive Line 1 20 Invasive Line 3 20 Magnesium Sulfate-D5w Pmx 300 1 gm In Dextrose/Water 1 100ml.bag @ 100 mls/hr IVPB ONCE ONE Rx#: [id number] Sodium Chloride 0.9% 1, 900 600 000 ml @ 75 mls/hr IV . [id number] [facility] Rx#:[id number] Intake, IV Titration 250 Amount Amiodarone 450 mg In 250 Dextrose 5% in Water 250 ml @ 0.5 MG/MIN 16.667 mls/hr IV .Q15H [facility] Rx#: [id number] Oral 1738 658 Output: Urine 850 Other: Voiding Method Indwelling Catheter Indwelling Catheter Indwelling Catheter # Bowel Movements 2 1 - Exam General: The patient is awake in no distress, and appears fatigued. 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 Cardiovascular: S1S2is normal, There is a tachy rate and apparent regular rhythm. No murmur, rub or gallop is appreciated. Respiratory: Lungs clear to auscultation bilaterally, respirations are non- labored, breath sounds are equal. No wheezes, rales or crackles. Gastrointestinal: Soft,non distended tender abdomen to the midepigatrum and more left upper quadrant today without masses or organomegaly noted. There is no rebound tenderness or guarding present. Bowel sounds are unremarkable. Musculoskeletal: Limited ROM (post polio syndrome), thoracic spine contracted, lower extremities with muscle atrophy. no tenderness, There is no pedal edema. There is no calf tenderness or swelling. No cords were appreciated. Wheelchair dependent, can transfer independently. Neurological: CNII-XII intact, there are no obvious motor or sensory deficits.Coordination appears grossly intact. Speech is normal. He is awake alert and oriented 3 today. groin: goldstein to gravity, blood noted Skin: Bilateral chronic vascular leg wounds, resolved at this time. left lower back pressure ulcer dressing intact (stage 3), right elbow and coccyx show stage I pressure ulcers developing - Labs CBC & Chem 7: 03/04/21 05:30 03/04/21 05:30 Labs: Abnormal Lab Results - Last 24 Hours (Table) 03/03/21 03/03/21 03/04/21 Range/Units 06:35 12:26 05:30 WBC 22.3 H (3.8-10.6) k/uL RBC 3.76 L (4.30-5.90) m/uL Hgb 12.1 L (13.0-17.5) gm/dL Hct 38.0 L (39.0-53.0) % MCV 101.1 H (80.0-100.0) fL Plt Count 585 H (150-450) k/uL Neutrophils # 21.0 H (1.3-7.7) k/uL Lymphocytes # 0.3 L (1.0-4.8) k/uL Potassium (3.5-5.1) mmol/L BUN (9-20) mg/dL Creatinine (0.66-1.25) mg/dL Glucose (74-99) mg/dL POC Glucose (mg/dL) 160 H (75-99) mg/dL Calcium (8.4-10.2) mg/dL Total Bilirubin (0.2-1.3) mg/dL Total Protein (6.3-8.2) g/dL Albumin (3.5-5.0) g/dL Prealbumin 6.5 L (18.0-42.0) mg/dL 03/04/21 Range/Units 05:30 WBC (3.8-10.6) k/uL RBC (4.30-5.90) m/uL Hgb (13.0-17.5) gm/dL Hct (39.0-53.0) % MCV (80.0-100.0) fL Plt Count (150-450) k/uL Neutrophils # (1.3-7.7) k/uL Lymphocytes # (1.0-4.8) k/uL Potassium 5.8 H (3.5-5.1) mmol/L BUN 21 H (9-20) mg/dL Creatinine 0.49 L (0.66-1.25) mg/dL Glucose 103 H (74-99) mg/dL POC Glucose (mg/dL) (75-99) mg/dL Calcium 8.0 L (8.4-10.2) mg/dL Total Bilirubin 1.4 H (0.2-1.3) mg/dL Total Protein 5.9 L (6.3-8.2) g/dL Albumin 2.9 L (3.5-5.0) g/dL Prealbumin (18.0-42.0) mg/dL Assessment and Plan (1) Acute GI bleeding Current Visit: Yes Status: Acute Code(s): K92.2 - GASTROINTESTINAL HEMORRHAGE, UNSPECIFIED SNOMED Code(s): 57994133 (2) Hypokalemia Current Visit: Yes Status: Acute Code(s): E87.6 - HYPOKALEMIA SNOMED Code(s): 28788259 (3) New onset atrial fibrillation Current Visit: Yes Status: Acute Code(s): I48.91 - UNSPECIFIED ATRIAL FIBRILLATION SNOMED Code(s): 07469271 (4) Elevated INR Current Visit: Yes Status: Acute Code(s): R79.1 - ABNORMAL COAGULATION PROFILE SNOMED Code(s): 791329673 (5) USP prescription opiate use Current Visit: Yes Status: Acute Code(s): Z79.891 - ALF (CURRENT) USE OF OPIATE ANALGESIC SNOMED Code(s): 207727364 (6) Stage III pressure ulcer of back Current Visit: Yes Status: Acute Code(s): L89.103 - PRESSURE ULCER OF UNSPECIFIED PART OF BACK, STAGE 3 SNOMED Code(s): 104160833 (7) Protein calorie malnutrition Current Visit: Yes Status: Acute Code(s): E46 - UNSPECIFIED PROTEIN-CALORIE MALNUTRITION SNOMED Code(s): 328372694 (8) Fecal impaction Current Visit: No Status: Acute Code(s): K56.41 - FECAL IMPACTION SNOMED Code(s): 44062834 (9) Post-polio syndrome Current Visit: No Status: Acute Code(s): G14 - POSTPOLIO SYNDROME SNOMED Code(s): 89732285 (10) Venous stasis ulcer of left lower extremity Current Visit: No Status: Acute Code(s): I83.029 - VARICOSE VEINS OF LEFT LOWER EXTREMITY W ULCER OF UNSP SITE SNOMED Code(s): 502656151 (11) Venous stasis ulcer of right lower extremity Current Visit: No Status: Acute Code(s): I83.019 - VARICOSE VEINS OF RIGHT LOWER EXTREMITY W ULCER OF UNSP SITE SNOMED Code(s): 571004197 (12) GERD (gastroesophageal reflux disease) Current Visit: Yes Status: Acute Code(s): K21.9 - GASTRO-ESOPHAGEAL REFLUX DISEASE WITHOUT ESOPHAGITIS SNOMED Code(s): 799110363 (13) Hypomagnesemia Current Visit: Yes Status: Acute Code(s): E83.42 - HYPOMAGNESEMIA SNOMED Code(s): 773923566 (14) Cardiomyopathy Current Visit: Yes Status: Acute Code(s): I42.9 - CARDIOMYOPATHY, UNSPEC IFIED SNOMED Code(s): 72388892 (15) Hydronephrosis Current Visit: No Status: Acute Code(s): N13.30 - UNSPECIFIED HYDRONEPHROSIS SNOMED Code(s): 11998447 (16) Leukocytosis Current Visit: Yes Status: Acute Code(s): D72.829 - ELEVATED WHITE BLOOD CELL COUNT, UNSPECIFIED SNOMED Code(s): 998290143 Plan: wait for the recommendations from cardiolog, general surgery, Hematology Reconsult urology this time. I will obtain urine culture, blood cultures, start him on antibiotics of ceftriaxone prophylactically. Continue magnesium replacement Stat repeat potassium to rule out lab diagnostic error or Repeat labs in a.m. We'll restart his methadone at a lower dose from his previous I will reevaulate in 24 hours
[2021-03-04] MEDS: METHADONE 5 MG TAB PO SCH ×3 (12:36→23:33)
[2021-03-04 15:02] LABS: Appearance,Urine Turbid (Clear); Bacteria,Urine Rare /hpf; Bilirubin,Urine Negative (Negative); Blood,Urine Large (Negative); Budding Yeast,Urine Moderate /hpf; Color,Urine Light Red; Glucose,Urine (UA) Negative (Negative); Ketones,Urine Trace (Negative); Leukocyte Esterase,Urine Large (Negative); Mucus,Urine Few /hpf; Nitrite,Urine Negative (Negative); PH, Urine 6.5 (5.0-8.0); Protein,Urine 1+ (Negative); RBC,Urine 65 /hpf (0-5); Specific Gravity,Urine 1.024 (1.001-1.035); Urobilinogen,Urine <2.0 mg/dL (<2.0); WBC,Urine 161 /hpf (0-5)
--- NOTE | 2021-03-04 16:25 | P.PN ---
Subjective Progress Note Date: 03/04/21 This is a 75-year-old gentleman with history of COPD, dementia with recent ureteral stent placement, peripheral vascular disease on Plavix who is transferred from [facility] with complaints of bloody bowel movements and dark red blood and abdominal cramping pain. Patient also has some hematuria. He was also noted to have new-onset atrial fibrillation with rapid ventricular response. Patient was treated with IV amiodarone and metoprolol. His anticoagulation is held because of GI bleeding and hematuria. His hemoglobin remained stable. Patient has several loose bowel movements last night. He is also complaining of severe joint pains and showing some signs of withdrawal. Patient is initiated on methadone by family physician. His heart rate is in the 100s to 110 range. I'm going to increase the dose of the amiodarone to 600 mg. Some of the tachycardia could be related to withdrawal. We will hold off on anticoagulation until cleared by urology and also general surgery. His INR has become normal range. Further recommendations depend upon the clinical course Objective - Vital Signs Vital signs: Vital Signs Temp 97.4 F L 03/04/21 15:14 Pulse 110 H 03/04/21 15:14 Resp 24 03/04/21 15:14 BP 90/63 03/04/21 15:14 Pulse Ox 99 03/04/21 15:14 Intake & Output 03/03/21 03/04/21 03/04/21 18:59 06:59 18:59 Intake Total 3228 600 858 Output Total 850 Balance 3228 600 8 Weight 58.967 kg 56.2 kg Intake: IV 1240 600 Invasive Line 1 20 Invasive Line 3 20 Magnesium Sulfate-D5w Pmx 300 1 gm In Dextrose/Water 1 100ml.bag @ 100 mls/hr IVPB ONCE ONE Rx#: [id number] Sodium Chloride 0.9% 1, 900 600 000 ml @ 75 mls/hr IV . [id number] [facility] Rx#:[id number] Intake, IV Titration 250 Amount Amiodarone 450 mg In 250 Dextrose 5% in Water 250 ml @ 0.5 MG/MIN 16.667 mls/hr IV .Q15H [facility] Rx#: [id number] Oral 1738 858 Output: Urine 850 Other: Voiding Method Indwelling Catheter Indwelling Catheter Indwelling Catheter # Bowel Movements 2 1 - Exam Patient is agitated, complaining of generalized pain, tachycardic. Neck is supple. No JVD. Heart S1 and S2 heard. No Sigmund murmurs or gallops. No sig nificant edema - Labs CBC & Chem 7: 03/04/21 05:30 03/04/21 05:30 Labs: Abnormal Lab Results - Last 24 Hours (Table) 03/04/21 03/04/21 03/04/21 Range/Units 05:30 05:30 12:55 WBC 22.3 H (3.8-10.6) k/uL RBC 3.76 L (4.30-5.90) m/uL Hgb 12.1 L (13.0-17.5) gm/dL Hct 38.0 L (39.0-53.0) % MCV 101.1 H (80.0-100.0) fL Plt Count 585 H (150-450) k/uL Neutrophils # 21.0 H (1.3-7.7) k/uL Lymphocytes # 0.3 L (1.0-4.8) k/uL Potassium 5.8 H (3.5-5.1) mmol/L BUN 21 H (9-20) mg/dL Creatinine 0.49 L (0.66-1.25) mg/dL Glucose 103 H (74-99) mg/dL Calcium 8.0 L (8.4-10.2) mg/dL Total Bilirubin 1.4 H (0.2-1.3) mg/dL Total Protein 5.9 L (6.3-8.2) g/dL Albumin 2.9 L (3.5-5.0) g/dL Urine Protein 1+ H (Negative) Urine Ketones Trace H (Negative) Urine Blood Large H (Negative) Ur Leukocyte Esterase Large H (Negative) Urine RBC 65 H (0-5) /hpf Urine WBC 161 H (0-5) /hpf Urine Bacteria Rare H (None) /hpf Urine Mucus Few H (None) /hpf Urine Yeast (Budding) Moderate H (None) /hpf Assessment and Plan (1) Acute GI bleeding Current Visit: Yes Status: Acute Code(s): K92.2 - GASTROINTESTINAL HEMORRHAGE, UNSPECIFIED SNOMED Code(s): 37333551 (2) Atrial fibrillation Current Visit: Yes Status: Acute Code(s): I48.91 - UNSPECIFIED ATRIAL FIBRILLATION SNOMED Code(s): 13378056 (3) Cardiomyopathy Current Visit: Yes Status: Acute Code(s): I42.9 - CARDIOMYOPATHY, UNSPECIFIED SNOMED Code(s): 10365685 Plan: Continue current treatment. Increase the dose of the amiodarone. Continue beta hamida. May consider adding a CATA inhibitor because of cardiomyopathy. Further recommendation depend upon the clinical course. Anti-cognition held because of suspected GI bleeding and also hematuria
[2021-03-05] MEDS: Acetaminophen-Codeine 300-30mg TAB PO PRN (05:59)
[2021-03-05] MEDS: ACETAMINOPHEN TAB 325 MG TAB PO PRN (05:59)
[2021-03-05] MEDS: buPROPion XL 300 MG TAB.ER.24H PO SCH (06:00)
[2021-03-05 06:25] LABS: Basophils % (A) 0 %; Eosinophils # (A) 0.1 k/uL (0-0.7); Eosinophils % (A) 0 %; HCT 34.9 % (39.0-53.0); HGB 10.9 gm/dL (13.0-17.5); Hypochromasia Slight; Lymphocytes # (A) 0.4 k/uL (1.0-4.8); Lymphocytes % (A) 2 %; MCH 32.5 pg (25.0-35.0); MCHC 31.3 g/dL (31.0-37.0); MCV 103.8 fL (80.0-100.0); Macrocytosis Slight; Mean Platelet Volume 7.9; Monocytes # (A) 0.6 k/uL (0-1.0); Monocytes % (A) 3 %; Neutrophils # (A) 18.2 k/uL (1.3-7.7); Neutrophils % (A) 94 %; Platelet Count 436 k/uL (150-450); RBC 3.37 m/uL (4.30-5.90); RDW 13.6 % (11.5-15.5); WBC 19.4 k/uL (3.8-10.6)
[2021-03-05] MEDS: SODIUM CHLORIDE 0.9% 1,000 ML IV SCH ×2 (06:36→11:48)
[2021-03-05 06:42] LABS: INR 1.1 (<1.2); Partial Thromboplastin Time 31.6 sec (22.0-30.0); Prothrombin Time 11.9 sec (9.0-12.0)
[2021-03-05 06:57] LABS: ALT 13 U/L (4-49); AST 20 U/L (17-59); African American GFR (CKD) >90 (>60 ml/min/1.73 sqM); Albumin 2.3 g/dL (3.5-5.0); Alkaline Phosphatase 91 U/L (38-126); Amylase <30 U/L (30-110); Anion Gap 5 mmol/L; Blood Urea Nitrogen 23 mg/dL (9-20); Calcium 7.7 mg/dL (8.4-10.2); Carbon Dioxide 28 mmol/L (22-30); Chloride 105 mmol/L (98-107); Glucose 72 mg/dL (74-99); Lipase 27 U/L (23-300); Magnesium 1.5 mg/dL (1.6-2.3); Non-African American GFR(CKD) >90 (>60 ml/min/1.73 sqM); Sodium 138 mmol/L (137-145); Total Bilirubin 0.6 mg/dL (0.2-1.3); Total Protein 4.9 g/dL (6.3-8.2)
--- NOTE | 2021-03-05 09:20 | P.PN ---
Subjective Progress Note Date: 03/05/21 Principal diagnosis: Proctitis Patient seems to be doing better today. He is more comfortable. Denies abdominal pain. No rectal bleeding. Tolerating diet. Urinalysis suggests colonization or infection. White blood cell count remains elevated although improved from yesterday. He is afebrile. Objective - Vital Signs Vital signs: Vital Signs Temp 97.6 F 03/05/21 04:00 Pulse 100 03/05/21 04:00 Resp 16 03/05/21 04:00 BP 105/74 03/05/21 04:00 Pulse Ox 97 03/05/21 04:00 Intake & Output 03/04/21 03/05/21 03/05/21 18:59 06:59 18:59 Intake Total 1808 Output Total 950 400 Balance 858 -400 Weight 56.2 kg Intake: IV 950 Sodium Chloride 0.9% 1, 900 000 ml @ 75 mls/hr IV . [id number] [facility] Rx#:[id number] cefTRIAXone 1 gm In 50 Sodium Chloride 0.9% 50 ml @ 100 mls/hr IVPB Q24HR [facility] Rx#:[id number] Oral 858 Output: Urine 950 400 Uretheral (Moore) 100 Other: Voiding Method Indwelling Catheter Indwelling Catheter # Bowel Movements 1 - Exam Abdomen: Soft, nontender, nondistended - Labs CBC & Chem 7: 03/05/21 05:55 03/05/21 05:55 Labs: Abnormal Lab Results - Last 24 Hours (Table) 03/04/21 03/04/21 03/05/21 Range/Units 10:30 12:55 05:55 WBC 19.4 H (3.8-10.6) k/uL RBC 3.37 L (4.30-5.90) m/uL Hgb 10.9 L (13.0-17.5) gm/dL Hct 34.9 L (39.0-53.0) % MCV 103.8 H (80.0-100.0) fL Neutrophils # 18.2 H (1.3-7.7) k/uL Lymphocytes # 0.4 L (1.0-4.8) k/uL APTT (22.0-30.0) sec BUN (9-20) mg/dL Creatinine (0.66-1.25) mg/dL Glucose (74-99) mg/dL Calcium (8.4-10.2) mg/dL Magnesium (1.6-2.3) mg/dL Total Protein (6.3-8.2) g/dL Albumin (3.5-5.0) g/dL Amylase (30-110) U/L Procalcitonin 0.32 H (0.02-0.09) ng/mL Urine Protein 1+ H (Negative) Urine Ketones Trace H (Negative) Urine Blood Large H (Negative) Ur Leukocyte Esterase Large H (Negative) Urine RBC 65 H (0-5) /hpf Urine WBC 161 H (0-5) /hpf Urine Bacteria Rare H (None) /hpf Urine Mucus Few H (None) /hpf Urine Yeast (Budding) Moderate H (None) /hpf 03/05/21 03/05/21 Range/Units 05:55 05:55 WBC (3.8-10.6) k/uL RBC (4.30-5.90) m/uL Hgb (13.0-17.5) gm/dL Hct (39.0-53.0) % MCV (80.0-100.0) fL Neutrophils # (1.3-7.7) k/uL Lymphocytes # (1.0-4.8) k/uL APTT 31.6 H (22.0-30.0) sec BUN 23 H (9-20) mg/dL Creatinine 0.49 L (0.66-1.25) mg/dL Glucose 72 L (74-99) mg/dL Calcium 7.7 L (8.4-10.2) mg/dL Magnesium 1.5 L (1.6-2.3) mg/dL Total Protein 4.9 L (6.3-8.2) g/dL Albumin 2.3 L (3.5-5.0) g/dL Amylase <30 L (30-110) U/L Procalcitonin (0.02-0.09) ng/mL Urine Protein (Negative) Urine Ketones (Negative) Urine Blood (Negative) Ur Leukocyte Esterase (Negative) Urine RBC (0-5) /hpf Urine WBC (0-5) /hpf Urine Bacteria (None) /hpf Urine Mucus (None) /hpf Urine Yeast (Budding) (None) /hpf Microbiology - Last 24 Hours (Table) 03/04/21 12:55 Urine Culture - Preliminary Urine,Voided Assessment and Plan (1) Hematochezia Narrative/Plan: Patient without further bleeding. Advance diet to regular at this point. Patient with leukocytosis that is new. Possibly related to urinary infection. Continue antibiotics. Tentatively plan colonoscopy later this hospitalization. Current Visit: Yes Status: Acute Code(s): K92.1 - MELENA SNOMED Code(s): 686602335
[2021-03-05] MEDS: AMIODARONE 200 MG TAB PO SCH ×3 (10:01→21:55)
[2021-03-05] MEDS: PANTOPRAZOLE 40 MG/10 ML VIAL IV SCH (10:01)
[2021-03-05] MEDS: TAMSULOSIN 0.4 MG CAP.ER.24H PO SCH (10:01)
[2021-03-05] MEDS: METHADONE 5 MG TAB PO SCH ×3 (10:01→23:39)
[2021-03-05] MEDS: DOCUSATE 100 MG CAP PO SCH ×2 (10:01→21:55)
[2021-03-05] MEDS: SERTRALINE 100 MG TAB PO SCH (10:01)
[2021-03-05] MEDS: METOPROLOL SUCCINATE (ER) 50 MG TAB.ER.24H PO SCH (10:01)
--- NOTE | 2021-03-05 10:47 | P.GSCN ---
History of Present Illness Consult date: 03/05/21 History of present illness: We were asked to see the patient for left-sided hydronephrosis. The patient was evaluated and treated by over one week ago for a distal left ureteral stone. He underwent ureteroscopy laser lithotripsy and stent placement. The stent was subsequently removed. The patient came in the hospital for a GI bleed. He had a computed tomography scan of the abdomen and then an ultrasound of the abdomen. Some mild left hydronephrosis which would be expected after his recent surgical procedure and stone obstruction. Apparently the patient also had some urine retention which is probably related to his immobility and his GI bleed. Review of Systems All systems: negative - Constitutional Denies fever, Denies weight loss - EENT Eyes: denies blurred vision Ears, nose, mouth and throat: Denies dysphagia - Cardiovascular Denies chest pain, Denies shortness of breath - Respiratory Denies cough, Denies 7 - Gastrointestinal Reports as per HPI - Genitourinary Denies dysuria, Denies hematuria - Integumentary Denies rash, Denies unusual bruising - Neurological Denies headaches, Denies syncope - Hematologic/Lymphatic Denies easy bleeding, Denies easy bruising Past Medical History Past Medical History: COPD, GERD/Reflux, Musculoskeletal Disorder, Neurologic Disorder, Osteoarthritis (OA), Pneumonia, Renal Disease, Skin Disorder, Vascular Disorder Additional Past Medical History / Comment(s): Pt recently admitted to [facility] on 02/22/21 with abdominal pain/renal colic/moderate L hydronephrosis/stone/possible UTI/urinary retention with goldstein/constipation/chr onic bilateral lower extremity cellulitis. 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, scoliosis/deformity, osteopenia, chronic back pain but pt denies cervical injury/pain d/t fall as stated in previous medical records, vascular disorder/has had wounds to bilateral feet and legs in past, current L back ulcer/staff at [facility] state it is a stage II/they use [employer] every 3 days, pt has skin wounds L knee, ankylosis spondylosis, constipation/last BM 02/20/21, diverticulitis, History of Any Multi-Drug Resistant Organisms: MRSA Year Discovered:: 09/03/18 MDRO Source:: left LEG Past Surgical History: Back Surgery, Bowel Resection, Joint Replacement, Orthopedic Surgery Additional Past Surgical History / Comment(s): 02/24/21 L ureteroscopy with laser lithotripsy/stone basketing/stenting, back laminectomy, spinal fusion as a child, pt denies cervical surgery as documented in previous record, total R hip arthroplasty, multiple bilateral legs/feet surgery, back pain procedures, bowel resection d/t diverticulitis, colonoscopy, incontinence of urine/stool. Past Anesthesia/Blood Transfusion Reactions: No Reported Reaction Past Psychological History: Unable to Obtain Smoking Status: Former smoker Past Alcohol Use History: Unable to Obtain Past Drug Use History: Unable to Obtain - Past Family History Father Family Medical History: Coronary Artery Disease (CAD) Additional Family Medical History / Comment(s): heart arrythymia Brother(s) Family Medical History: Cancer Medications and Allergies Home Medications Medication Instructions Recorded Confirmed Type Sertraline HCl [Zoloft] 100 mg PO DAILY@0800 12/24/14 03/02/21 History Methadone [Dolophine] 10 mg PO Q6H 11/04/15 03/02/21 History Albuterol Nebulized [Ventolin 2.5 mg INHALATION RT-QID PRN 02/22/21 03/02/21 History Nebulized] Healthshake 1 dose PO TID@0800,1200,1800 02/22/21 03/02/21 History Magic Cup 1 dose PO TID@0800,1200,1800 02/22/21 03/02/21 History Magnesium Hydroxide [Milk of 2,400 mg PO DAILY PRN 02/22/21 03/02/21 History Magnesia] Multivitamins, Thera [Multivitamin 1 tab PO DAILY 02/22/21 03/02/21 History (formulary)] Proheal 30 ml PO BID 02/22/21 03/02/21 History Sennosides-Docusate Sodium 1 tab PO DAILY 02/22/21 03/02/21 History [Senokot-S] Sertraline [Zoloft] 50 mg PO DAILY@0800 02/22/21 03/02/21 History buPROPion HCL [Wellbutrin XL] 300 mg PO DAILY@0500 02/22/21 03/02/21 History Cefuroxime Axetil [Ceftin] 500 mg PO BID 7 Days #14 tab 02/25/21 03/02/21 Rx Acetaminophen Tab [Tylenol] 650 mg PO Q6H PRN 03/02/21 03/02/21 History Clopidogrel [Plavix] 75 mg PO DAILY@0800 03/02/21 03/02/21 History Docusate [Colace] 100 mg PO BID 03/02/21 03/02/21 History Metoprolol Succinate (ER) [Toprol 12.5 mg PO DAILY@0800 03/02/21 03/02/21 History XL] Omeprazole 20 mg PO DAILY 03/02/21 03/02/21 History Tamsulosin [Flomax] 0.4 mg PO DAILY 03/02/21 03/02/21 History Allergies Allergy/AdvReac Type Severity Reaction Status Date / Time aspirin AdvReac Intermediate ringing in Verified 03/02/21 07:38 the ears Antihistamines - Alkylamine AdvReac Mild shaking Verified 03/02/21 07:38 Surgical - Exam Vital Signs Temp Pulse Resp BP Pulse Ox 97.8 F 111 H 18 95/81 97 03/02/21 05:53 03/02/21 05:53 03/02/21 05:53 03/02/21 05:53 03/02/21 05:53 - General well developed, well nourished, no distress - Eyes PERRL - ENT no hearing loss - Respiratory normal respiratory effort - Cardiovascular Rhythm: regular - Abdomen Abdomen: soft, non tender - Genitourinary Indwelling catheter normal penis with no external lesions, testicles present - Musculoskeletal Chronic venous stasis edema. Marked kyphoscoliosis. Results - Labs 03/05/21 05:55 03/05/21 05:55 Abnormal Lab Results - Last 24 Hours (Table) 03/04/21 03/04/21 03/05/21 Range/Units 10:30 12:55 05:55 WBC 19.4 H (3.8-10.6) k/uL RBC 3.37 L (4.30-5.90) m/uL Hgb 10.9 L (13.0-17.5) gm/dL Hct 34.9 L (39.0-53.0) % MCV 103.8 H (80.0-100.0) fL Neutrophils # 18.2 H (1.3-7.7) k/uL Lymphocytes # 0.4 L (1.0-4.8) k/uL APTT (22.0-30.0) sec BUN (9-20) mg/dL Creatinine (0.66-1.25) mg/dL Glucose (74-99) mg/dL Calcium (8.4-10.2) mg/dL Magnesium (1.6-2.3) mg/dL Total Protein (6.3-8.2) g/dL Albumin (3.5-5.0) g/dL Amylase (30-110) U/L Procalcitonin 0.32 H (0.02-0.09) ng/mL Urine Protein 1+ H (Negative) Urine Ketones Trace H (Negative) Urine Blood Large H (Negative) Ur Leukocyte Esterase Large H (Negative) Urine RBC 65 H (0-5) /hpf Urine WBC 161 H (0-5) /hpf Urine Bacteria Rare H (None) /hpf Urine Mucus Few H (None) /hpf Urine Yeast (Budding) Moderate H (None) /hpf 03/05/21 03/05/21 Range/Units 05:55 05:55 WBC (3.8-10.6) k/uL RBC (4.30-5.90) m/uL Hgb (13.0-17.5) gm/dL Hct (39.0-53.0) % MCV (80.0-100.0) fL Neutrophils # (1.3-7.7) k/uL Lymphocytes # (1.0-4.8) k/uL APTT 31.6 H (22.0-30.0) sec BUN 23 H (9-20) mg/dL Creatinine 0.49 L (0.66-1.25) mg/dL Glucose 72 L (74-99) mg/dL Calcium 7.7 L (8.4-10.2) mg/dL Magnesium 1.5 L (1.6-2.3) mg/dL Total Protein 4.9 L (6.3-8.2) g/dL Albumin 2.3 L (3.5-5.0) g/dL Amylase <30 L (30-110) U/L Procalcitonin (0.02-0.09) ng/mL Urine Protein (Negative) Urine Ketones (Negative) Urine Blood (Negative) Ur Leukocyte Esterase (Negative) Urine RBC (0-5) /hpf Urine WBC (0-5) /hpf Urine Bacteria (None) /hpf Urine Mucus (None) /hpf Urine Yeast (Budding) (None) /hpf Microbiology - Last 24 Hours (Table) 03/04/21 12:55 Urine Culture - Preliminary Urine,Voided Diabetes panel 03/04/21 03/05/21 Range/Units 18:04 05:55 Sodium 138 (137-145) mmol/L Potassium 3.6 4.0 (3.5-5.1) mmol/L Chloride 105 (98-107) mmol/L Carbon Dioxide 28 (22-30) mmol/L BUN 23 H (9-20) mg/dL Creatinine 0.49 L (0.66-1.25) mg/dL Glucose 72 L (74-99) mg/dL Calcium 7.7 L (8.4-10.2) mg/dL AST 20 (17-59) U/L ALT 13 (4-49) U/L Alkaline Phosphatase 91 (38-126) U/L Total Protein 4.9 L (6.3-8.2) g/dL Albumin 2.3 L (3.5-5.0) g/dL Calcium panel 03/05/21 Range/Units 05:55 Calcium 7.7 L (8.4-10.2) mg/dL Albumin 2.3 L (3.5-5.0) g/dL Pituitary panel 03/04/21 03/05/21 Range/Units 18:04 05:55 Sodium 138 (137-145) mmol/L Potassium 3.6 4.0 (3.5-5.1) mmol/L Chloride 105 (98-107) mmol/L Carbon Dioxide 28 (22-30) mmol/L BUN 23 H (9-20) mg/dL Creatinine 0.49 L (0.66-1.25) mg/dL Glucose 72 L (74-99) mg/dL Calcium 7.7 L (8.4-10.2) mg/dL Adrenal panel 03/04/21 03/05/21 Range/Units 18:04 05:55 Sodium 138 (137-145) mmol/L Potassium 3.6 4.0 (3.5-5.1) mmol/L Chloride 105 (98-107) mmol/L Carbon Dioxide 28 (22-30) mmol/L BUN 23 H (9-20) mg/dL Creatinine 0.49 L (0.66-1.25) mg/dL Glucose 72 L (74-99) mg/dL Calcium 7.7 L (8.4-10.2) mg/dL Total Bilirubin 0.6 (0.2-1.3) mg/dL AST 20 (17-59) U/L ALT 13 (4-49) U/L Alkaline Phosphatase 91 (38-126) U/L Total Protein 4.9 L (6.3-8.2) g/dL Albumin 2.3 L (3.5-5.0) g/dL - Imaging CT scan - abdomen: report reviewed, image reviewed CT scan - pelvis: report reviewed, image reviewed US - abdomen: report reviewed, image reviewed Assessment and Plan Assessment: Impression: Left-sided hydronephrosis, mild secondary to recent left uretero scopy and laser lithotripsy to an obstructing stone. Status post stent removal. GI bleed. Marked kyphoscoliosis with chronic pain. Urine retention. Recommendations: The mild hydronephrosis is to be expected on the left side as he recently underwent a left ureteroscopy stone removal and stent placement and subsequent removal. The urine retention is probably related to the GI bleeding immobility related to that. The patient has recuperated from his GI illness then the catheter can be removed for a voiding trial. The abnormal urinalysis is hard to interpret as he has had a recent urologic manipulation on top of that his had an indwelling catheter for several days. The significance of this is difficult to say. Since he has an elevated white count is on ceftriaxone. Nothing further urologic would need to be done other than interpret the cultures and make sure he is on appropriate antibiotic.
--- NOTE | 2021-03-05 11:56 | P.PN ---
Subjective Progress Note Date: 03/05/21 This is a 75-year-old gentleman with history of COPD, dementia with recent ureteral stent placement, peripheral vascular disease on Plavix who is transferred from [facility] with complaints of bloody bowel movements and dark red blood and abdominal cramping pain. Patient also has some hematuria. He was also noted to have new-onset atrial fibrillation with rapid ventricular response. Patient was treated with IV amiodarone and metoprolol. His anticoagulation is held because of GI bleeding and hematuria. His hemoglobin remained stable. Patient has several loose bowel movements last night. He is also complaining of severe joint pains and showing some signs of withdrawal. Patient is initiated on methadone by family physician. His heart rate is in the 100s to 110 range. I'm going to increase the dose of the amiodarone to 600 mg. Some of the tachycardia could be related to withdrawal. We will hold off on anticoagulation until cleared by urology and also general surgery. His INR has become normal range. Further recommendations depend upon the clinical course. 03/05/2021: This patient seemed to be more quite uncomfortable. The heart rate is in the 100s. White count has come down somewhat. He is being treated with antibiotic empirically. Patient's diet is being advanced. His blood pressure is more stable. From cardiac standpoint. We'll continue current medical therapy. Patient has a niece of cardiomyopathy. I may add small dose of CATA inhibitor. Rest of the medication to be continued Objective - Vital Signs Vital signs: Vital Signs Temp 97.7 F 03/05/21 11:48 Pulse 102 H 03/05/21 11:48 Resp 18 03/05/21 11:48 BP 122/86 03/05/21 11:48 Pulse Ox 97 03/05/21 11:48 Intake & Output 03/04/21 03/05/21 03/05/21 18:59 06:59 18:59 Intake Total 1808 970 Output Total 950 400 Balance 858 -400 970 Weight 56.2 kg Intake: IV 950 970 Invasive Line 1 10 Invasive Line 3 10 Sodium Chloride 0.9% 1, 900 900 000 ml @ 75 mls/hr IV . [id number] RANJEET Rx#:[id number] cefTRIAXone 1 gm In 50 50 Sodium Chloride 0.9% 50 ml @ 100 mls/hr IVPB Q24HR RANJEET Rx#:[id number] Oral 858 Output: Urine 950 400 Uretheral (Moore) 100 Other: Voiding Method Indwelling Catheter Indwelling Catheter Indwelling Catheter # Bowel Movements 1 - Exam Patient is agitated, complaining of generalized pain, tachycardic. Neck is supple. No JVD. Heart S1 and S2 heard. No Sigmund murmurs or gallops. No significant edema. 03/05/2021. Patient appears to be less agitated. Patient continues to be slightly tachycardic. No JVD or peripheral edema - Labs CBC & Chem 7: 03/05/21 05:55 03/05/21 05:55 Labs: Abnormal Lab Results - Last 24 Hours (Table) 03/04/21 03/04/21 03/05/21 Range/Units 10:30 12:55 05:55 WBC 19.4 H (3.8-10.6) k/uL RBC 3.37 L (4.30-5.90) m/uL Hgb 10.9 L (13.0-17.5) gm/dL Hct 34.9 L (39.0-53.0) % MCV 103.8 H (80.0-100.0) fL Neutrophils # 18.2 H (1.3-7.7) k/uL Lymphocytes # 0.4 L (1.0-4.8) k/uL APTT (22.0-30.0) sec BUN (9-20) mg/dL Creatinine (0.66-1.25) mg/dL Glucose (74-99) mg/dL Calcium (8.4-10.2) mg/dL Magnesium (1.6-2.3) mg/dL Total Protein (6.3-8.2) g/dL Albumin (3.5-5.0) g/dL Amylase (30-110) U/L Procalcitonin 0.32 H (0.02-0.09) ng/mL Urine Protein 1+ H (Negative) Urine Ketones Trace H (Negative) Urine Blood Large H (Negative) Ur Leukocyte Esterase Large H (Negative) Urine RBC 65 H (0-5) /hpf Urine WBC 161 H (0-5) /hpf Urine Bacteria Rare H (None) /hpf Urine Mucus Few H (None) /hpf Urine Yeast (Budding) Moderate H (None) /hpf 12/25/21 12/25/21 Range/Units 05:55 05:55 WBC (3.8-10.6) k/uL RBC (4.30-5.90) m/uL Hgb (13.0-17.5) gm/dL Hct (39.0-53.0) % MCV (80.0-100.0) fL Neutrophils # (1.3-7.7) k/uL Lymphocytes # (1.0-4.8) k/uL APTT 31.6 H (22.0-30.0) sec BUN 23 H (9-20) mg/dL Creatinine 0.49 L (0.66-1.25) mg/dL Glucose 72 L (74-99) mg/dL Calcium 7.7 L (8.4-10.2) mg/dL Magnesium 1.5 L (1.6-2.3) mg/dL Total Protein 4.9 L (6.3-8.2) g/dL Albumin 2.3 L (3.5-5.0) g/dL Amylase <30 L (30-110) U/L Procalcitonin (0.02-0.09) ng/mL Urine Protein (Negative) Urine Ketones (Negative) Urine Blood (Negative) Ur Leukocyte Esterase (Negative) Urine RBC (0-5) /hpf Urine WBC (0-5) /hpf Urine Bacteria (None) /hpf Urine Mucus (None) /hpf Urine Yeast (Budding) (None) /hpf Microbiology - Last 24 Hours (Table) 03/04/21 12:55 Urine Culture - Preliminary Urine,Voided Assessment and Plan (1) Acute GI bleeding Current Visit: Yes Status: Acute Code(s): K92.2 - GASTROINTESTINAL HEMORRHAGE, UNSPECIFIED SNOMED Code(s): 33505577 (2) Atrial fibrillation Current Visit: Yes Status: Acute Code(s): I48.91 - UNSPECIFIED ATRIAL FIBRILLATION SNOMED Code(s): 16419227 (3) Cardiomyopathy Current Visit: Yes Status: Acute Code(s): I42.9 - CARDIOMYOPATHY, UNSPECIFIED SNOMED Code(s): 22144468 Plan: Continue current medical therapy. If blood pressure remains stable, we will consider adding CATA inhibitor. Will taper down the amiodarone dose in a week
--- NOTE | 2021-03-05 12:09 | P.PN ---
Cornelio Thomason is a 75-year-old white male well known to me. He was in the hospital last month for abdominal pain. He was found to have right sided hydronephrosis and stone. He underwent a uretal stent placement and stone retrieval. He had a Goldstein catheter placed and had some gross hematuria noted.HE is a resident of [facility] since 04/2020. Staff contacted me early this morning about several large blood clots passed per rectum. Nalini not had anything like this before. He is not on any Coumadin or other anticoagulation. At the nursing facility he was found to be tachycardic and borderline hypotensive. He was sent to the emergency room to be seen in evaluated. His INR was found to be greater than 10. Hemoglobin at that time was 11.7. He was significantly hypokalemic a 2.4. His heart rate was tachycardic and found to be in atrial fibrillation per EKG.His last colonoscopy was 5+ years ago. Since nalini been in the facility does not drink it does not have any issues other than the recent pain from hydronephrosis and stone. Currently he denies any chest pains pressures or shortness of breath. He has midepigastric abdominal pain. Hes been on Plavix for SVT and NSTEMI since April 2020 March 03, 2021:Cardiology is following this patient for his new onset atrial fibrillation. General surgery is following him for the G.I. bleed Vital signs remain stable. Heart rate is controlled. Patient afebrile. Pulse ox symmetry high 90s on room air. Laboratory studies show that hemoglobin is stable today at 13. Platelets are 508. Chemistry show an ongoing hypokalemia of 2.7 and a low magnesium of 1.3. Total protein and albumin are Low. ALT and AST are normal. Alkaline phosphatase is normal. Ultrasound of the liver showed questionable heterogeneously. PTINR is normal now at 1.1.He was transfused one unit of packed red blood cells yesterday. Cardiology &.General surgery evaluation is pending for today. He is being trans referred over from IV amiodarone to oral amiodarone. Potassium and magnesium protocol are ordered for replacement. Overall he feels OK. He continues to have some midepigastric abdominal pain to palpation. He has some back pain due to significant scoliosis. He denies any nausea or vomiting. Denies any chest pain or shortness of breath at this time. 03/04/2021: Staff report patient acting out this morning complaining of joint aches and pains. Yelling a lot 1 and care. He also had considerable diarrhea. After his Tylenol with codeine dose though he seemed to have improved. I believe he may be suffering from withdrawals. I will restart his methadone at a lower dose than previous to help control his symptoms. He continues to have some mild abdominal pain. Now more on the left side than the right. He denies any chest pains, shortness breath, nausea or vomiting this time. Stools have been brown in color. Vitals were normal overnight however he is been tachycardic this morning. Rest her rate and blood pressures and controlled. Pulse oximetry is normal 96% on room air. Laboratory studies showed to be discounted 22.3 with hemoglobin 12.1 hematocrit 38 platelets are 585. Neutrophil count is now 21,000. INR is normal is 41.1. His potassium is 5.8 this morning. He has C ALT and alkaline phosphatase are normal. Consultation from hematology reviewed regarding his hypercoagulable state. General surgery notes reviewed. They're considering endoscopy before discharge. Cardiology is following for the new onset atrial fibrillation. He remains on Tylenol and Tylenol with Codeine No. 3, 2 every 4 hours when necessary. He has albuterol ordered. He remains on amiodarone and metoprolol for heart rate control. He continues on his home medications ibuprofen around. He remains on pantoprazole for GI prophylaxis and bleeding. He continues on tamsulosin for his left-sided hydronephrosis with recent stent placement. Electrolytes and magnesium have been replaced. 03/05/2021: Patient seems much more calm and relaxed today I restarted his methadone. I did this a lower dose with and decrease the frequency of his Tylenol No. 4. It appears that his symptoms of crying out in pain joint pains, diarrhea are much more consistent with opioid withdrawal then anything else l ast time. He is been on methadone for a considerable amount of time. He does have leukocytosis and I started him on ceftriaxone for. Notes from cardiology regarding stage fibrillation cardiopathy, surgery regarding his urinary lithotripsy, stone removal and hydronephrosis reviewed, and surgical notes reviewed with a planned colonoscopy later this admission. Carlin himself feels much better. He has no significant complaints today. They Goldstein catheter still in place this time. Vital show his heart rate borderline tachycardia in the upper 90s. Temperature remains afebrile. Blood pressure remains controlled. Pulse oximetry is normal. Labs today show improvement in his leukocytosis to 19.4-10.9 and platelets are normal. There continues to be a left shift with absolute neutrophil count 19.2. INR today is normal at 1.1. PTT is slightly elevated at 31.6. Electrolytes are essentially normal testosterone exception of a BUN 23 creatinine 0.49. Liver function tests are normal. Total protein and albumin are decreased. Pro- calcitonin was elevated at 0.32. Urinalysis showed large leukocytes, rare bacteria few mucus and a moderate amount of yeast. Cultures pending He remains on the Tylenol with Codeine for breakthrough pain, methadone 5 mg every 8 hours for his pain from rotoscoliosis back pain. Metoprolol, Amiodarone per cardiology for A. fib heart rate control. Ceftriaxone for antibiotic coverage, Wellbutrin and Zoloft, and tamsulosin for urethral dilatation, Objective - Vital Signs Vital signs: Vital Signs Temp 97.7 F 03/05/21 11:48 Pulse 102 H 03/05/21 11:48 Resp 18 03/05/21 11:48 BP 122/86 03/05/21 11:48 Pulse Ox 97 03/05/21 11:48 Intake & Output 03/04/21 03/05/21 03/05/21 18:59 06:59 18:59 Intake Total 1808 970 Output Total 950 400 Balance 858 -400 970 Weight 56.2 kg Intake: IV 950 970 Invasive Line 1 10 Invasive Line 3 10 Sodium Chloride 0.9% 1, 900 900 000 ml @ 75 mls/hr IV . [id number] [facility] Rx#:[id number] cefTRIAXone 1 gm In 50 50 Sodium Chloride 0.9% 50 ml @ 100 mls/hr IVPB Q24HR [facility] Rx#:[id number] Oral 858 Output: Urine 950 400 Uretheral (Goldstein) 100 Other: Voiding Method Indwelling Catheter Indwelling Catheter Indwelling Catheter # Bowel Movements 1 - Exam General: The patient is awake in no distress, and appears fatigued. 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 Cardiovascular: S1S2is normal, There is a tachy rate and apparent regular rhythm. No murmur, rub or gallop is appreciated. Respiratory: Lungs clear to auscultation bilaterally, respirations are non- labored, breath sounds are equal. No wheezes, rales or crackles. Gastrointestinal: Soft,non distended non tender abdomen without masses or organomegaly noted. There is no rebound tenderness or guarding present. Bowel sounds are unremarkable. Musculoskeletal: Limited ROM (post polio syndrome), thoracic spine contracted, lower extremities with muscle atrophy. no tenderness, There is no pedal edema. There is no calf tenderness or swelling. No cords were appreciated. Wheelchair dependent, can transfer independently. Neurological: CNII-XII intact, there are no obvious motor or sensory deficits.Coordination appears grossly intact. Speech is normal. He is awake alert and oriented 3 today. groin: goldstein to gravity, blood noted Skin: Bilateral chronic vascular leg wounds, resolved at this time. left lower back pressure ulcer dressing intact (stage 3), right elbow and coccyx show stage I pressure ulcers developing - Labs CBC & Chem 7: 03/05/21 05:55 03/05/21 05:55 Labs: Abnormal Lab Results - Last 24 Hours (Table) 03/04/21 03/04/21 03/05/21 Range/Units 10:30 12:55 05:55 WBC 19.4 H (3.8-10.6) k/uL RBC 3.37 L (4.30-5.90) m/uL Hgb 10.9 L (13.0-17.5) gm/dL Hct 34.9 L (39.0-53.0) % MCV 103.8 H (80.0-100.0) fL Neutrophils # 18.2 H (1.3-7.7) k/uL Lymphocytes # 0.4 L (1.0-4.8) k/uL APTT (22.0-30.0) sec BUN (9-20) mg/dL Creatinine (0.66-1.25) mg/dL Glucose (74-99) mg/dL Calcium (8.4-10.2) mg/dL Magnesium (1.6-2.3) mg/dL Total Protein (6.3-8.2) g/dL Albumin (3.5-5.0) g/dL Amylase (30-110) U/L Procalcitonin 0.32 H (0.02-0.09) ng/mL Urine Protein 1+ H (Negative) Urine Ketones Trace H (Negative) Urine Blood Large H (Negative) Ur Leukocyte Esterase Large H (Negative) Urine RBC 65 H (0-5) /hpf Urine WBC 161 H (0-5) /hpf Urine Bacteria Rare H (None) /hpf Urine Mucus Few H (None) /hpf Urine Yeast (Budding) Moderate H (None) /hpf 03/05/21 03/05/21 Range/Units 05:55 05:55 WBC (3.8-10.6) k/uL RBC (4.30-5.90) m/uL Hgb (13.0-17.5) gm/dL Hct (39.0-53.0) % MCV (80.0-100.0) fL Neutrophils # (1.3-7.7) k/uL Lymphocytes # (1.0-4.8) k/uL APTT 31.6 H (22.0-30.0) sec BUN 23 H (9-20) mg/dL Creatinine 0.49 L (0.66-1.25) mg/dL Glucose 72 L (74-99) mg/dL Calcium 7.7 L (8.4-10.2) mg/dL Magnesium 1.5 L (1.6-2.3) mg/dL Total Protein 4.9 L (6.3-8.2) g/dL Albumin 2.3 L (3.5-5.0) g/dL Amylase <30 L (30-110) U/L Procalcitonin (0.02-0.09) ng/mL Urine Protein (Negative) Urine Ketones (Negative) Urine Blood (Negative) Ur Leukocyte Esterase (Negative) Urine RBC (0-5) /hpf Urine WBC (0-5) /hpf Urine Bacteria (None) /hpf Urine Mucus (None) /hpf Urine Yeast (Budding) (None) /hpf Microbiology - Last 24 Hours (Table) 03/04/21 12:55 Urine Culture - Preliminary Urine,Voided Assessment and Plan (1) Acute GI bleeding Current Visit: Yes Status: Acute Code(s): K92.2 - GASTROINTESTINAL HEMORRHAGE, UNSPECIFIED SNOMED Code(s): 65219513 (2) Hypokalemia Current Visit: Yes Status: Acute Code(s): E87.6 - HYPOKALEMIA SNOMED Code(s): 20210311 (3) New onset atrial fibrillation Current Visit: Yes Status: Acute Code(s): I48.91 - UNSPECIFIED ATRIAL FIBRILLATION SNOMED Code(s): 07803910 (4) Elevated INR Current Visit: Yes Status: Acute Code(s): R79.1 - ABNORMAL COAGULATION PROFILE SNOMED Code(s): 311633547 (5) custodial prescription opiate use Current Visit: Yes Status: Acute Code(s): Z79.891 - ASSISTED (CURRENT) USE OF OPIATE ANALGESIC SNOMED Code(s): 120904441 (6) Stage III pressure ulcer of back Current Visit: Yes Status: Acute Code(s): L89.103 - PRESSURE ULCER OF UNSPECIFIED PART OF BACK, STAGE 3 SNOMED Code(s): 106148595 (7) Protein calorie malnutrition Current Visit: Yes Status: Acute Code(s): E46 - UNSPECIFIED PROTEIN-CALORIE MALNUTRITION SNOMED Code(s): 161166308 (8) Fecal impaction Current Visit: No Status: Acute Code(s): K56.41 - FECAL IMPACTION SNOMED Code(s): 72126008 (9) Post-polio syndrome Current Visit: No Status: Acute Code(s): G14 - POSTPOLIO SYNDROME SNOMED Code(s): 99816862 (10) Venous stasis ulcer of left lower extremity Current Visit: No Status: Acute Code(s): I83.029 - VARICOSE VEINS OF LEFT LOWER EXTREMITY W ULCER OF UNSP SITE SNOMED Code(s): 007251478 (11) Venous stasis ulcer of right lower extremity Current Visit: No Status: Acute Code(s): I83.019 - VARICOSE VEINS OF RIGHT LOWER EXTREMITY W ULCER OF UNSP SITE SNOMED Code(s): 748087829 (12) GERD (gastroesophageal reflux disease) Current Visit: Yes Status: Acute Code(s): K21.9 - GASTRO-ESOPHAGEAL REFLUX DISEASE WITHOUT ESOPHAGITIS SNOMED Code(s): 035902712 (13) Hypomagnesemia Current Visit: Yes Status: Acute Code(s): E83.42 - HYPOMAGNESEMIA SNOMED Code(s): 540411947 (14) Cardiomyopathy Current Visit: Yes Status: Acute Code(s): I42.9 - CARDIOMYOPATHY, UNSPECIFIED SNOMED Code(s): 86047716 (15) Hydronephrosis Current Visit: No Status: Acute Code(s): N13.30 - UNSPECIFIED HYDRONEPHROSIS SNOMED Code(s): 55763449 (16) Leukocytosis Current Visit: Yes Status: Acute Code(s): D72.829 - ELEVATED WHITE BLOOD CELL COUNT, UNSPECIFIED SNOMED Code(s): 426386031 (17) UTI (urinary tract infection) Current Visit: Yes Status: Acute Code(s): N39.0 - URINARY TRACT INFECTION, SITE NOT SPECIFIED SNOMED Code(s): 73160860 Plan: wait for further recommendations from urology, cardiolog, general surgery, Hematology Expected colonoscopy and/or endoscopy from general surgery in the next several days Continue Rocephin, He had 1 dose of fluconazole 150 mg 1 to the noted yeast in the urine, Continue magnesium and potassium replacement Yesterday's elevated potassium of 5.8 and repeated at 3.6, today is 4.0. Repeat labs in a.m. Continue methadone at 5 mg every 8 hours and Tylenol No. 4 one or 2 tablets every 6 hours as needed for breakthrough pain I will reevaulate in 24 hours
[2021-03-05] MEDS ORDERED: FLUCONAZOLE 150 MG TAB PO SCH (12:15)
[2021-03-05] MEDS: FLUCONAZOLE 150 MG TAB PO SCH (18:07)
[2021-03-06] MEDS: Acetaminophen-Codeine 300-30mg TAB PO PRN (04:51)
[2021-03-06] MEDS: SODIUM CHLORIDE 0.9% 1,000 ML IV SCH ×2 (04:52→18:12)
[2021-03-06] MEDS: buPROPion XL 300 MG TAB.ER.24H PO SCH (06:23)
[2021-03-06 08:01] LABS: Basophils % (A) 0 %; Eosinophils % (A) 0 %; HCT 36.8 % (39.0-53.0); HGB 11.6 gm/dL (13.0-17.5); Hypochromasia Slight; Lymphocytes # (A) 0.3 k/uL (1.0-4.8); Lymphocytes % (A) 1 %; MCH 33.3 pg (25.0-35.0); MCHC 31.5 g/dL (31.0-37.0); MCV 105.7 fL (80.0-100.0); Macrocytosis Moderate; Mean Platelet Volume 8.2; Monocytes # (A) 0.5 k/uL (0-1.0); Monocytes % (A) 2 %; Neutrophils # (A) 22.4 k/uL (1.3-7.7); Neutrophils % (A) 96 %; Platelet Count 483 k/uL (150-450); RBC 3.48 m/uL (4.30-5.90); WBC 23.4 k/uL (3.8-10.6)
[2021-03-06 08:15] LABS: INR 1.1 (<1.2); Partial Thromboplastin Time 32.2 sec (22.0-30.0); Prothrombin Time 11.6 sec (9.0-12.0)
[2021-03-06 08:20] LABS: African American GFR (CKD) >90 (>60 ml/min/1.73 sqM); Anion Gap 7 mmol/L; Blood Urea Nitrogen 23 mg/dL (9-20); Calcium 7.5 mg/dL (8.4-10.2); Carbon Dioxide 24 mmol/L (22-30); Chloride 104 mmol/L (98-107); Glucose 92 mg/dL (74-99); Magnesium 1.4 mg/dL (1.6-2.3); Non-African American GFR(CKD) >90 (>60 ml/min/1.73 sqM); Potassium 3.7 mmol/L (3.5-5.1); Sodium 135 mmol/L (137-145)
[2021-03-06] MEDS: TAMSULOSIN 0.4 MG CAP.ER.24H PO SCH (08:32)
[2021-03-06] MEDS: METOPROLOL SUCCINATE (ER) 50 MG TAB.ER.24H PO SCH (08:32)
[2021-03-06] MEDS: METHADONE 5 MG TAB PO SCH ×4 (08:32→23:36)
[2021-03-06] MEDS: SERTRALINE 100 MG TAB PO SCH (08:35)
[2021-03-06] MEDS: AMIODARONE 200 MG TAB PO SCH ×4 (08:35→22:19)
[2021-03-06] MEDS: DOCUSATE 100 MG CAP PO SCH ×2 (08:35→22:19)
[2021-03-06] MEDS: PANTOPRAZOLE 40 MG TABLET PO SCH (08:35)
[2021-03-06] MEDS: FLUCONAZOLE 150 MG TAB PO SCH (08:36)
--- NOTE | 2021-03-06 09:48 | P.PN ---
Subjective Progress Note Date: 03/06/21 This is a 75-year-old gentleman with history of COPD, dementia with recent ureteral stent placement, peripheral vascular disease on Plavix who is transferred from [facility] with complaints of bloody bowel movements and dark red blood and abdominal cramping pain. Patient also has some hematuria. He was also noted to have new-onset atrial fibrillation with rapid ventricular response. Patient was treated with IV amiodarone and metoprolol. His anticoagulation is held because of GI bleeding and hematuria. His hemoglobin remained stable. Patient has several loose bowel movements last night. He is also complaining of severe joint pains and showing some signs of withdrawal. Patient is initiated on methadone by family physician. His heart rate is in the 100s to 110 range. I'm going to increase the dose of the amiodarone to 600 mg. Some of the tachycardia could be related to withdrawal. We will hold off on anticoagulation until cleared by urology and also general surgery. His INR has become normal range. Further recommendations depend upon the clinical course. 03/05/2021: This patient seemed to be more quite uncomfortable. The heart rate is in the 100s. White count has come down somewhat. He is being treated with antibiotic empirically. Patient's diet is being advanced. His blood pressure is more stable. From cardiac standpoint. We'll continue current medical therapy. Patient has a niece of cardiomyopathy. I may add small dose of CATA inhibitor. Rest of the medication to be continued. 03/06/2021: This patient is admitted with GI bleeding, hematuria, and ureteral stent placement. She is also being treated for possible UTI. Patient has history of atrial fibrillation. Currently is on amiodarone and metoprolol with heart rate in the 90s. Patient was also started on Diflucan for fungal urinary tract infection. Patient's EKGs to be followed closely for QT interval prolongation because of concomitant use of amiodarone. Amiodarone dose to be gradually cut back to 200 mg. He seemed to be more quieter and doesn't appear to be acute distress. There is a plan for possible endoscopy. Anti-cognition to be reinitiated when cleared by surgery Objective - Vital Signs Vital signs: Vital Signs Temp 97.7 F 03/06/21 08:30 Pulse 99 03/06/21 08:30 Resp 16 03/06/21 08:30 BP 106/80 12/26/21 08:30 Pulse Ox 98 03/06/21 08:30 Intake & Output 03/05/21 03/06/21 03/06/21 18:59 06:59 18:59 Intake Total 1226 Output Total 360 Balance 1226 -360 Intake: IV 990 Invasive Line 1 10 Invasive Line 3 10 Invasive Line 4 20 Sodium Chloride 0.9% 1, 900 000 ml @ 75 mls/hr IV . [id number] [facility] Rx#:[id number] cefTRIAXone 1 gm In 50 Sodium Chloride 0.9% 50 ml @ 100 mls/hr IVPB Q24HR [facility] Rx#:[id number] Oral 236 Output: Urine 360 Uretheral (Moore) 360 Other: Voiding Method Indwelling Catheter Indwelling Catheter # Bowel Movements 1 - Exam Patient is agitated, complaining of generalized pain, tachycardic. Neck is supple. No JVD. Heart S1 and S2 heard. No Sigmund murmurs or gallops. No significant edema. 03/05/2021. Patient appears to be less agitated. Patient continues to be slightly tachycardic. No JVD or peripheral edema. 03/06/2021GENERAL EXAM: Patient is alert and oriented and doesn't appear to be in any acute distress HEENT: Normocephalic. Normal reaction of pupils, equal size, normal range of extraocular motion. No erythema or exudates in the throat. NECK: No masses, no nuchal rigidity. CHEST: No chest wall deformity. LUNGS: Equal air entry with no crackles or wheeze. HEART: Irregular heart sounds ABDOMEN: No hepatosplenomegaly, normal bowel sounds, no guarding or rigidity. SKIN: No rashes CENTRAL NERVOUS SYSTEM: No focal deficits. EXTREMITIES: No cyanosis, clubbing or edema. - Labs CBC & Chem 7: 03/06/21 07:17 03/06/21 07:17 Labs: Abnormal Lab Results - Last 24 Hours (Table) 03/06/21 03/06/21 03/06/21 Range/Units 07:17 07:17 07:17 WBC 23.4 H (3.8-10.6) k/uL RBC 3.48 L (4.30-5.90) m/uL Hgb 11.6 L (13.0-17.5) gm/dL Hct 36.8 L (39.0-53.0) % MCV 105.7 H (80.0-100.0) fL Plt Count 483 H (150-450) k/uL Neutrophils # 22.4 H (1.3-7.7) k/uL Lymphocytes # 0.3 L (1.0-4.8) k/uL APTT 32.2 H (22.0-30.0) sec Sodium 135 L (137-145) mmol/L BUN 23 H (9-20) mg/dL Creatinine 0.54 L (0.66-1.25) mg/dL Calcium 7.5 L (8.4-10.2) mg/dL Magnesium 1.4 L (1.6-2.3) mg/dL Microbiology - Last 24 Hours (Table) 03/04/21 12:55 Urine Culture - Preliminary Urine,Voided Yeast species 03/04/21 11:50 Blood Culture - Preliminary Blood No Growth after 24 hours Assessment and Plan (1) Acute GI bleeding Current Visit: Yes Status: Acute Code(s): K92.2 - GASTROINTESTINAL HEMO RRHAGE, UNSPECIFIED SNOMED Code(s): 40011233 (2) Atrial fibrillation Current Visit: Yes Status: Acute Code(s): I48.91 - UNSPECIFIED ATRIAL FIBRILLATION SNOMED Code(s): 67760232 (3) Cardiomyopathy Current Visit: Yes Status: Acute Code(s): I42.9 - CARDIOMYOPATHY, UNSPECIFIED SNOMED Code(s): 60836675 Plan: Continue current medical therapy. Monitor EKGs for acute prolongation. Consider restarting anticoagulation when cleared by surgery and urology
--- NOTE | 2021-03-06 10:40 | P.PN ---
Subjective Progress Note Date: 03/06/21 Principal diagnosis: Proctitis Patient doing well today. Appears much more comfortable. White blood cell count of 14 remains elevated at 23,000. Urine culture shows yeast. Blood cultures negative thus far. Denies abdominal pain. No rectal bleeding. Hemoglobin stable at 11.6. Objective - Vital Signs Vital signs: Vital Signs Temp 97.7 F 03/06/21 08:30 Pulse 99 03/06/21 08:30 Resp 16 03/06/21 08:30 BP 106/80 03/06/21 08:30 Pulse Ox 98 03/06/21 08:30 Intake & Output 03/05/21 03/06/21 03/06/21 18:59 06:59 18:59 Intake Total 1226 275 Output Total 360 Balance 1226 -360 275 Intake: IV 990 275 Invasive Line 1 10 Invasive Line 3 10 Invasive Line 4 20 Sodium Chloride 0.9% 1, 900 225 000 ml @ 75 mls/hr IV . [id number] [facility] Rx#:[id number] cefTRIAXone 1 gm In 50 50 Sodium Chloride 0.9% 50 ml @ 100 mls/hr IVPB Q24HR [facility] Rx#:[id number] Oral 236 Output: Urine 360 Uretheral (Moore) 360 Other: Voiding Method Indwelling Catheter Indwelling Catheter Indwelling Catheter # Bowel Movements 1 - Exam Abdomen: Soft, nondistended, nontender - Labs CBC & Chem 7: 03/06/21 07:17 03/06/21 07:17 Labs: Abnormal Lab Results - Last 24 Hours (Table) 03/06/21 03/06/21 03/06/21 Range/Units 07:17 07:17 07:17 WBC 23.4 H (3.8-10.6) k/uL RBC 3.48 L (4.30-5.90) m/uL Hgb 11.6 L (13.0-17.5) gm/dL Hct 36.8 L (39.0-53.0) % MCV 105.7 H (80.0-100.0) fL Plt Count 483 H (150-450) k/uL Neutrophils # 22.4 H (1.3-7.7) k/uL Lymphocytes # 0.3 L (1.0-4.8) k/uL APTT 32.2 H (22.0-30.0) sec Sodium 135 L (137-145) mmol/L BUN 23 H (9-20) mg/dL Creatinine 0.54 L (0.66-1.25) mg/dL Calcium 7.5 L (8.4-10.2) mg/dL Magnesium 1.4 L (1.6-2.3) mg/dL Microbiology - Last 24 Hours (Table) 03/04/21 12:55 Urine Culture - Preliminary Urine,Voided Yeast species 03/04/21 11:50 Blood Culture - Preliminary Blood No Growth after 24 hours Assessment and Plan (1) Hematochezia Narrative/Plan: Patient has had no further bleeding. Hemoglobin is stable. White blood cell count remains elevated. Tentatively plan colonoscopy or flexible sigmoidoscopy to evaluate proctitis identified on initial CAT scan. Continue workup of leukocytosis for now. Will follow. Current Visit: Yes Status: Acute Code(s): K92.1 - MELENA SNOMED Code(s): 020826072
--- NOTE | 2021-03-06 11:33 | XR ---
EXAMINATION TYPE: XR chest 2V DATE OF EXAM: 03/06/2021 COMPARISON: 01/17/2020 HISTORY: 75 years Male. STUDY INDICATION GIVEN: leukocytosis . TECHNIQUE: Frontal and lateral chest radiographs. IMPRESSION: Hyperinflated lungs with bibasilar left greater than right airspace opacities and/or atelectasis. Inc reased in the interval. Small right pleural effusion. No effusion on the left. No pneumothorax seen. Moderate stable enlargement of the heart. Otherwise osteopenia. S-shaped scoliosis. No acute fracture or dislocation seen.
--- NOTE | 2021-03-06 12:44 | P.PN ---
Cornelio Thomason is a 75-year-old white male well known to me. He was in the hospital last month for abdominal pain. He was found to have right sided hydronephrosis and stone. He underwent a uretal stent placement and stone retrieval. He had a Goldstein catheter placed and had some gross hematuria noted.HE is a resident of [facility] since 04/2020. Staff contacted me early this morning about several large blood clots passed per rectum. Nalini not had anything like this before. He is not on any Coumadin or other anticoagulation. At the nursing facility he was found to be tachycardic and borderline hypotensive. He was sent to the emergency room to be seen in evaluated. His INR was found to be greater than 10. Hemoglobin at that time was 11.7. He was significantly hypokalemic a 2.4. His heart rate was tachycardic and found to be in atrial fibrillation per EKG.His last colonoscopy was 5+ years ago. Since nalini been in the facility does not drink it does not have any issues other than the recent pain from hydronephrosis and stone. Currently he denies any chest pains pressures or shortness of breath. He has midepigastric abdominal pain. Hes been on Plavix for SVT and NSTEMI since April 2020 March 03, 2021:Cardiology is following this patient for his new onset atrial fibrillation. General surgery is following him for the G.I. bleed Vital signs remain stable. Heart rate is controlled. Patient afebrile. Pulse ox symmetry high 90s on room air. Laboratory studies show that hemoglobin is stable today at 13. Platelets are 508. Chemistry show an ongoing hypokalemia of 2.7 and a low magnesium of 1.3. Total protein and albumin are Low. ALT and AST are normal. Alkaline phosphatase is normal. Ultrasound of the liver showed questionable heterogeneously. PTINR is normal now at 1.1.He was transfused one unit of packed red blood cells yesterday. Cardiology &.General surgery evaluation is pending for today. He is being trans referred over from IV amiodarone to oral amiodarone. Potassium and magnesium protocol are ordered for replacement. Overall he feels OK. He continues to have some midepigastric abdominal pain to palpation. He has some back pain due to significant scoliosis. He denies any nausea or vomiting. Denies any chest pain or shortness of breath at this time. 03/04/2021: Staff report patient acting out this morning complaining of joint aches and pains. Yelling a lot 1 and care. He also had considerable diarrhea. After his Tylenol with codeine dose though he seemed to have improved. I believe he may be suffering from withdrawals. I will restart his methadone at a lower dose than previous to help control his symptoms. He continues to have some mild abdominal pain. Now more on the left side than the right. He denies any chest pains, shortness breath, nausea or vomiting this time. Stools have been brown in color. Vitals were normal overnight however he is been tachycardic this morning. Rest her rate and blood pressures and controlled. Pulse oximetry is normal 96% on room air. Laboratory studies showed to be discounted 22.3 with hemoglobin 12.1 hematocrit 38 platelets are 585. Neutrophil count is now 21,000. INR is normal is 41.1. His potassium is 5.8 this morning. He has C ALT and alkaline phosphatase are normal. Consultation from hematology reviewed regarding his hypercoagulable state. General surgery notes reviewed. They're considering endoscopy before discharge. Cardiology is following for the new onset atrial fibrillation. He remains on Tylenol and Tylenol with Codeine No. 3, 2 every 4 hours when necessary. He has albuterol ordered. He remains on amiodarone and metoprolol for heart rate control. He continues on his home medications ibuprofen around. He remains on pantoprazole for GI prophylaxis and bleeding. He continues on tamsulosin for his left-sided hydronephrosis with recent stent placement. Electrolytes and magnesium have been replaced. 03/05/2021: Patient seems much more calm and relaxed today I restarted his methadone. I did this a lower dose with and decrease the frequency of his Tylenol No. 4. It appears that his symptoms of crying out in pain joint pains, diarrhea are much more consistent with opioid withdrawal then anything else l ast time. He is been on methadone for a considerable amount of time. He does have leukocytosis and I started him on ceftriaxone for. Notes from cardiology regarding stage fibrillation cardiopathy, surgery regarding his urinary lithotripsy, stone removal and hydronephrosis reviewed, and surgical notes reviewed with a planned colonoscopy later this admission. Carlin himself feels much better. He has no significant complaints today. They Goldstein catheter still in place this time. Vital show his heart rate borderline tachycardia in the upper 90s. Temperature remains afebrile. Blood pressure remains controlled. Pulse oximetry is normal. Labs today show improvement in his leukocytosis to 19.4-10.9 and platelets are normal. There continues to be a left shift with absolute neutrophil count 19.2. INR today is normal at 1.1. PTT is slightly elevated at 31.6. Electrolytes are essentially normal testosterone exception March 06, 2021: patient remains calm and relaxed. He is on his methadone for pain and Tylenol #3 before for breakthrough pain Goldstein continues. He denies any significant complaints. He remains on ceftriaxone and now Diflucan for leukocytosis and positive urine cultures. Cardiology is following for his HR and Atrial fibrillation and recommended anticoagulation once his G.I. bleeding is controlled.They are aware of the Diflucan. Daily EKG is to monitor for QT prolongation Surgery is planning colonoscopy and EGD soon. Urology is signed off. They recommended a trial discontinuation of the Goldstein catheter. Vital signs remain stable. He is a febrile.Leukocytosis slightly worse than todayBlood chemistries and INR are stable. Blood cultures negative times 24 hour s, you're in culture is growing 50 to 100 K yeast.Chest x-ray shows atelectasis. Medication's otherwise remain unchanged from yesterday. Objective - Vital Signs Vital signs: Vital Signs Temp 97.7 F 03/06/21 08:30 Pulse 62 03/06/21 12:00 Resp 16 03/06/21 12:00 BP 123/76 03/06/21 12:00 Pulse Ox 95 03/06/21 12:00 Intake & Output 03/05/21 03/06/21 03/06/21 18:59 06:59 18:59 Intake Total 1226 275 Output Total 360 Balance 1226 -360 275 Intake: IV 990 275 Invasive Line 1 10 Invasive Line 3 10 Invasive Line 4 20 Sodium Chloride 0.9% 1, 900 225 000 ml @ 75 mls/hr IV . [id number] [facility] Rx#:[id number] cefTRIAXone 1 gm In 50 50 Sodium Chloride 0.9% 50 ml @ 100 mls/hr IVPB Q24HR [facility] Rx#:[id number] Oral 236 Output: Urine 360 Uretheral (Goldstein) 360 Other: Voiding Method Indwelling Catheter Indwelling Catheter Indwelling Catheter # Bowel Movements 1 - Exam General: The patient is awake in no distress, and appears fatigued. 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 Cardiovascular: S1S2is normal, There is a tachy rate and apparent regular rhythm. No murmur, rub or gallop is appreciated. Respiratory: Lungs clear to auscultation bilaterally, respirations are non- labored, breath sounds are equal. No wheezes, rales or crackles. Gastrointestinal: Soft,non distended non tender abdomen without masses or o rganomegaly noted. There is no rebound tenderness or guarding present. Bowel sounds are unremarkable. Musculoskeletal: Limited ROM (post polio syndrome), thoracic spine contracted, lower extremities with muscle atrophy. no tenderness, There is no pedal edema. There is no calf tenderness or swelling. No cords were appreciated. Wheelchair dependent, can transfer independently. Neurological: CNII-XII intact, there are no obvious motor or sensory deficits.Coordination appears grossly intact. Speech is normal. He is awake alert and oriented 3 today. groin: goldstein to gravity, Urine is now straw color Skin: Bilateral chronic vascular leg wounds, resolved at this time. left lower back pressure ulcer dressing intact (stage 3), right elbow and coccyx show stage I pressure ulcers developing - Labs CBC & Chem 7: 03/06/21 07:17 03/06/21 07:17 Labs: Abnormal Lab Results - Last 24 Hours (Table) 03/06/21 03/06/21 03/06/21 Range/Units 07:17 07:17 07:17 WBC 23.4 H (3.8-10.6) k/uL RBC 3.48 L (4.30-5.90) m/uL Hgb 11.6 L (13.0-17.5) gm/dL Hct 36.8 L (39.0-53.0) % MCV 105.7 H (80.0-100.0) fL Plt Count 483 H (150-450) k/uL Neutrophils # 22.4 H (1.3-7.7) k/uL Lymphocytes # 0.3 L (1.0-4.8) k/uL APTT 32.2 H (22.0-30.0) sec Sodium 135 L (137-145) mmol/L BUN 23 H (9-20) mg/dL Creatinine 0.54 L (0.66-1.25) mg/dL Calcium 7.5 L (8.4-10.2) mg/dL Magnesium 1.4 L (1.6-2.3) mg/dL Microbiology - Last 24 Hours (Table) 03/04/21 12:55 Urine Culture - Preliminary Urine,Voided Yeast species 03/04/21 11:50 Blood Culture - Preliminary Blood No Growth after 24 hours Assessment and Plan (1) Acute GI bleeding Current Visit: Yes Status: Acute Code(s): K92.2 - GASTROINTESTINAL HEMORRHAGE, UNSPECIFIED SNOMED Code(s): 90727291 (2) Hypokalemia Current Visit: Yes Status: Acute Code(s): E87.6 - HYPOKALEMIA SNOMED Code(s): 41496898 (3) New onset atrial fibrillation Current Visit: Yes Status: Acute Code(s): I48.91 - UNSPECIFIED ATRIAL FIBRILLATION SNOMED Code(s): 17378101 (4) Elevated INR Current Visit: Yes Status: Acute Code(s): R79.1 - ABNORMAL COAGULATION PROFILE SNOMED Code(s): 044215414 (5) termite inspector prescription opiate use Current Visit: Yes Status: Acute Code(s): Z79.891 - MCC (CURRENT) USE OF OPIATE ANALGESIC SNOMED Code(s): 006723559 (6) Stage III pressure ulcer of back Current Visit: Yes Status: Acute Code(s): L89.103 - PRESSURE ULCER OF UNSPECIFIED PART OF BACK, STAGE 3 SNOMED Code(s): 212901510 (7) Protein calorie malnutrition Current Visit: Yes Status: Acute Code(s): E46 - UNSPECIFIED PROTEIN-CALORIE MALNUTRITION SNOMED Code(s): 780816487 (8) Fecal impaction Current Visit: No Status: Acute Code(s): K56.41 - FECAL IMPACTION SNOMED Code(s): 80908873 (9) Post-polio syndrome Current Visit: No Status: Acute Code(s): G14 - POSTPOLIO SYNDROME SNOMED Code(s): 99196560 (10) Venous stasis ulcer of left lower extremity Current Visit: No Status: Acute Code(s): I83.029 - VARICOSE VEINS OF LEFT LOWER EXTREMITY W ULCER OF UNSP SITE SNOMED Code(s): 560443698 (11) Venous stasis ulcer of right lower extremity Current Visit: No Status: Acute Code(s): I83.019 - VARICOSE VEINS OF RIGHT LOWER EXTREMITY W ULCER OF UNSP SITE SNOMED Code(s): 823963781 (12) GERD (gastroesophageal reflux disease) Current Visit: Yes Status: Acute Code(s): K21.9 - GASTRO-ESOPHAGEAL REFLUX DISEASE WITHOUT ESOPHAGITIS SNOMED Code(s): 575990720 (13) Hypomagnesemia Current Visit: Yes Status: Acute Code(s): E83.42 - HYPOMAGNESEMIA SNOMED Code(s): 870917608 (14) Cardiomyopathy Current Visit: Yes Status: Acute Code(s): I42.9 - CARDIOMYOPATHY, UNSPECIFIED SNOMED Code(s): 22739577 (15) Hydronephrosis Current Visit: No Status: Acute Code(s): N13.30 - UNSPECIFIED HYDRONEPHROSIS SNOMED Code(s): 53555261 (16) Leukocytosis Current Visit: Yes Status: Acute Code(s): D72.829 - ELEVATED WHITE BLOOD CELL COUNT, UNSPECIFIED SNOMED Code(s): 517618104 (17) UTI (urinary tract infection) Current Visit: Yes Status: Acute Code(s): N39.0 - URINARY TRACT INFECTION, SITE NOT SPECIFIED SNOMED Code(s): 93902297 Plan: wait for further recommendations from urology, cardiolog, general surgery, Hematology Expected colonoscopy and/or endoscopy from general surgery in the next several days Continue Rocephin,and fluconazole Daily EKGs to monitor for cutie prolongation Continue magnesium and potassium replacement Repeat labs in a.m. Continue current medication ordered. Discontinue Goldstein with a voiding trial today. I will reevaulate in 24 hours
[2021-03-06] MEDS ORDERED: SODIUM CHLORIDE 0.9% 500 ML 250 ML IV ONE ×2 (20:23→20:25)
[2021-03-06] MEDS: ACETAMINOPHEN TAB 325 MG TAB PO PRN (23:36)
[2021-03-07 02:56] LABS: HCT 34.5 % (39.0-53.0); HGB 10.7 gm/dL (13.0-17.5); Hypochromasia Moderate; MCHC 30.9 g/dL (31.0-37.0); MCV 106.9 fL (80.0-100.0); Macrocytosis Moderate; Mean Platelet Volume 8.2; Platelet Count 363 k/uL (150-450); RBC 3.23 m/uL (4.30-5.90); RDW 14.4 % (11.5-15.5); WBC 20.6 k/uL (3.8-10.6)
[2021-03-07] MEDS ORDERED: SODIUM CHLORIDE 0.9% 500 ML 500 ML IV ONE (04:15)
[2021-03-07] MEDS: buPROPion XL 300 MG TAB.ER.24H PO SCH (06:03)
[2021-03-07] MEDS: SODIUM CHLORIDE 0.9% 1,000 ML IV SCH (06:05)
[2021-03-07 07:23] LABS: Basophils % (A) 0 %; Eosinophils # (A) 0.1 k/uL (0-0.7); Eosinophils % (A) 0 %; HCT 35.9 % (39.0-53.0); HGB 11.1 gm/dL (13.0-17.5); Hypochromasia Slight; Lymphocytes # (A) 0.4 k/uL (1.0-4.8); Lymphocytes % (A) 2 %; MCH 33.1 pg (25.0-35.0); MCHC 31.1 g/dL (31.0-37.0); MCV 106.5 fL (80.0-100.0); Macrocytosis Moderate; Mean Platelet Volume 8.3; Monocytes # (A) 0.5 k/uL (0-1.0); Monocytes % (A) 3 %; Neutrophils # (A) 18.8 k/uL (1.3-7.7); Neutrophils % (A) 94 %; Platelet Count 388 k/uL (150-450); RBC 3.37 m/uL (4.30-5.90); RDW 14.3 % (11.5-15.5)
[2021-03-07 07:35] LABS: African American GFR (CKD) >90 (>60 ml/min/1.73 sqM); Anion Gap 6 mmol/L; Blood Urea Nitrogen 27 mg/dL (9-20); Calcium 7.3 mg/dL (8.4-10.2); Carbon Dioxide 26 mmol/L (22-30); Chloride 105 mmol/L (98-107); Glucose 102 mg/dL (74-99); Non-African American GFR(CKD) >90 (>60 ml/min/1.73 sqM); Potassium 3.5 mmol/L (3.5-5.1); Sodium 137 mmol/L (137-145)
[2021-03-07 07:38] LABS: INR 1.1 (<1.2); Prothrombin Time 11.4 sec (9.0-12.0)
[2021-03-07] MEDS: PANTOPRAZOLE 40 MG TABLET PO SCH (08:51)
[2021-03-07] MEDS: METHADONE 5 MG TAB PO SCH ×3 (08:51→18:06)
[2021-03-07] MEDS: TAMSULOSIN 0.4 MG CAP.ER.24H PO SCH (08:51)
[2021-03-07] MEDS: DOCUSATE 100 MG CAP PO SCH ×2 (08:51→20:55)
[2021-03-07] MEDS: SERTRALINE 100 MG TAB PO SCH (08:51)
[2021-03-07] MEDS: FLUCONAZOLE 150 MG TAB PO SCH (08:52)
--- NOTE | 2021-03-07 08:57 | P.PN ---
Subjective Progress Note Date: 03/07/21 Principal diagnosis: Paroxysmal atrial fibrillation The patient is a pleasant 75-year-old gentleman who was brought from an extended care facility to the hospital for further evaluation of gastrointestinal bleeding. He was found to be in atrial fibrillation which is new with the diagnosis of the patient. An echocardiogram was performed and revealed an EF between 45-50%. The patient was seen this morning. He is somewhat poor historian. He seems to be asymptomatic at this point. He is slightly lethargic as well. The pressure has been soft. I'm going to decrease the dose of metoprolol in view of the low blood pressure. General surgery on the case regarding the GI bleeding. Once the patient is cleared he might need to be started on oral anticoagulation at a low-dose. Meanwhile we will continue the current dose of amiodarone and decrease the dose of metoprolol. Objective - Vital Signs Vital signs: Vital Signs Temp 97.5 F L 03/07/21 03:00 Pulse 106 H 03/07/21 03:00 Resp 16 03/06/21 23:32 BP 97/66 03/07/21 06:13 Pulse Ox 98 03/06/21 23:32 Intake & Output 03/06/21 03/07/21 03/07/21 18:59 06:59 18:59 Intake Total 778 Output Total 225 Balance 553 Intake: IV 275 Sodium Chloride 0.9% 1, 225 000 ml @ 75 mls/hr IV . [id number] [facility] Rx#:[id number] cefTRIAXone 1 gm In 50 Sodium Chloride 0.9% 50 ml @ 100 mls/hr IVPB Q24HR [facility] Rx#:[id number] Oral 503 Output: Urine 225 Other: Voiding Method Indwelling Catheter # Voids 1 0 # Bowel Movements 1 - Constitutional General appearance: Present: no acute distress - Respiratory Respiratory: bilateral: CTA - Cardiovascular Rhythm: irregularly irregular - Labs CBC & Chem 7: 03/07/21 06:51 03/07/21 06:51 Labs: Abnormal Lab Results - Last 24 Hours (Table) 03/07/21 03/07/21 03/07/21 Range/Units 02:41 06:51 06:51 WBC 20.6 H 20.0 H (3.8-10.6) k/uL RBC 3.23 L 3.37 L (4.30-5.90) m/uL Hgb 10.7 L 11.1 L (13.0-17.5) gm/dL Hct 34.5 L 35.9 L (39.0-53.0) % MCV 106.9 H 106.5 H (80.0-100.0) fL MCHC 30.9 L (31.0-37.0) g/dL Neutrophils # 18.8 H (1.3-7.7) k/uL Lymphocytes # 0.4 L (1.0-4.8) k/uL BUN 27 H (9-20) mg/dL Creatinine 0.59 L (0.66-1.25) mg/dL Glucose 102 H (74-99) mg/dL Calcium 7.3 L (8.4-10.2) mg/dL Microbiology - Last 24 Hours (Table) 03/04/21 12:55 Urine Culture - Final Urine,Voided Makayla albicans 03/04/21 11:50 Blood Culture - Preliminary Blood No Growth after 48 hours Assessment and Plan Assessment: Assessment #1 paroxysmal atrial fibrillation. #2 gastrointestinal bleeding #3 mild cardiomyopathy #4 multiple comorbid conditions Plan #1 consider starting the patient on anticoagulation once is safe from the surgical standpoint overview #2 decrease the dose of beta hamida #3 follow-up with the patient
[2021-03-07] MEDS: AMIODARONE 200 MG TAB PO SCH ×2 (09:01→20:55)
[2021-03-07] MEDS: METOPROLOL SUCCINATE (ER) 50 MG TAB.ER.24H PO SCH (09:02)
[2021-03-07] MEDS: METOPROLOL SUCCINATE (ER) 25 MG TAB.ER.24H PO SCH (09:06)
--- NOTE | 2021-03-07 11:02 | CDI ---
Documentation Clarification Form Date: 03/07/2021 10:32:49 AM From: Elodia Flores RN, CCDS Admit Date: 03/02/2021 07:30:00 AM Patient Name: Carlin Garduno Visit Number: [id number] Discharge Date: ATTENTION: The Clinical Documentation Specialists (CDI) and [facility] Coding Staff appreciate your assistance in clarifying documentation. Please respond to the clarification below the line at the bottom and electronically sign. The CDI & [facility] Coding staff will review the response and follow-up if needed. Please note: Queries are made part of the Legal Health Record. If you have any questions, please contact the author of this message via ITS. Dr. Holland Nye UTI is documented on 03/05/21 and subsequent progress notes. Additional clarification regarding this diagnosis is requested. History/Risk Factors: Neurologic Disorder, COPD, Post-Polio Syndrome, Osteoarthritis, Scoliosis/deformity, Atrial Fibrillation Clinical Indicators: 75-year-old male present to ER from long-term care facility after he passed 2 bloody bowel movements with dark red blood. intermediate staff also noticed blood in patient's Moore catheter output, he did have recent ureteral stent placement for ureteral stone, CT abdomen/Pelvis: Mild left hydronephrosis 03/02 Vital Signs: 95/81 97 111 18 97 % RA 03/02 WBC: 8.9, Neutrophils 7.9 INR >10.0 03/04 WBC 22.3 Neutrophils 21.0 03/04 Urinalysis: Ur Leukocyte Esterase Large Urine Yeast (Budding) Moderate (H) 03/04 Urine Culture: Makayla albicans Treatment Rocephin 1 GM IVPB Q 24 HR Monitor CBC daily Monitor I/O Please clarify if there is an additional diagnosis associated with the UTI: [ X ] UTI only POA [ ] UTI Secondary to Moore Catheter POA [ ] Contaminated specimen [ ] Other, please specify [ ] Unable to determine (Template Last Revised: May 2020) MTDD
[2021-03-07 16:36] LABS: % Iron Saturation 9.26 (15.00-50.00)
--- NOTE | 2021-03-07 19:18 | P.PN ---
Subjective Progress Note Date: 03/07/21 Principal diagnosis: Abdominal pain and gross hematochezia 75-year-old male patient presented to the hospital emergency room for evaluation of abdominal pain and passed blood clots from the rectum. Patient in the hospital month before with right-sided pain where he received renal stent stone retrieval for hydronephrosis and a stone. Emergency room the patient was found to have an INR greater than 10 with a hemoglobin of 11.7 at that time. Unfortunately patient was also found to be hypokalemic with a potassium of 2.4 user to be tachycardic and in atrial fib per the EKG. Patient was not on anticoagulants prior to this event. Currently the patient is resting comfortably in bed with no complaints of pain, shortness of breath or difficulty breathing, chest pain or pressure. Cardiology is reducing his metoprolol dose and maintaining his amiodarone dose due to lower blood pressures. Objective - Vital Signs Vital signs: Vital Signs Temp 98.0 F 03/07/21 16:00 Pulse 83 03/07/21 16:00 Resp 16 03/07/21 16:00 BP 88/54 03/07/21 17:30 Pulse Ox 92 L 03/07/21 16:00 Intake & Output 03/07/21 03/07/21 03/08/21 06:59 18:59 06:59 Intake Total 1370 Balance 1370 Intake: IV 600 Sodium Chloride 0.9% 1, 600 000 ml @ 75 mls/hr IV . [id number] [facility] Rx#:[id number] Intake, IV Titration 50 Amount cefTRIAXone 1 gm In 50 Sodium Chloride 0.9% 50 ml @ 100 mls/hr IVPB Q24HR [facility] Rx#:[id number] Oral 720 Other: Voiding Method Indwelling Catheter # Voids 0 2 - Exam GENERAL: Elderly gentleman that is awake and alert and in no acute distress, patient noted to have scoliosis. HEAD: Atraumatic, normocephalic. EYES: Pupils equal round and reactive to light, extraocular movements intact, sclera anicteric, conjunctiva are normal. ENT:nares patent, oropharynx clear without exudates. Moist mucous membranes. NECK: Normal range of motion, supple without lymphadenopathy or JVD, no thyromegaly LUNGS: Breath sounds clear to auscultation bilaterally and equal. No wheezes rales or rhonchi. HEART: Regular rate and rhythm without murmurs, rubs or gallops.S1S2 Normal ABDOMEN: Soft, nontender, normoactive bowel sounds. No guarding, no rebound. No masses appreciated. EXTREMITIES: Range of motion limited due to scoliosis, +1 pitting edema noted in right manjarrez. No clubbing or cyanosis. NEUROLOGICAL: Cranial nerves II through XII grossly intact. Normal speech, wheelchair dependent. PSYCH: Normal mood, normal affect. SKIN: Warm, Dry, normal turgor, right elbow coccygeal developing stage I pressure ulcer, dressing in left lower back noted to have a stage III ulcer. - Labs CBC & Chem 7: 03/07/21 06:51 03/07/21 06:51 Labs: Abnormal Lab Results - Last 24 Hours (Table) 03/07/21 03/07/21 03/07/21 Range/Units 02:41 06:51 06:51 WBC 20.6 H 20.0 H (3.8-10.6) k/uL RBC 3.23 L 3.37 L (4.30-5.90) m/uL Hgb 10.7 L 11.1 L (13.0-17.5) gm/dL Hct 34.5 L 35.9 L (39.0-53.0) % MCV 106.9 H 106.5 H (80.0-100.0) fL MCHC 30.9 L (31.0-37.0) g/dL Neutrophils # 18.8 H (1.3-7.7) k/uL Lymphocytes # 0.4 L (1.0-4.8) k/uL BUN 27 H (9-20) mg/dL Creatinine 0.59 L (0.66-1.25) mg/dL Glucose 102 H (74-99) mg/dL Calcium 7.3 L (8.4-10.2) mg/dL Iron (65-175) ug/dL TIBC (228-460) ug/dL % Saturation (15.00-50.00) Transferrin (204.0-354.0) mg/dL Ferritin (22.0-322.0) ng/mL Vitamin B12 (200.0-944.0) pg/mL 03/07/21 Range/Units 06:51 WBC (3.8-10.6) k/uL RBC (4.30-5.90) m/uL Hgb (13.0-17.5) gm/dL Hct (39.0-53.0) % MCV (80.0-100.0) fL MCHC (31.0-37.0) g/dL Neutrophils # (1.3-7.7) k/uL Lymphocytes # (1.0-4.8) k/uL BUN (9-20) mg/dL Creatinine (0.66-1.25) mg/dL Glucose (74-99) mg/dL Calcium (8.4-10.2) mg/dL Iron 11 L (65-175) ug/dL TIBC 117 L (228-460) ug/dL % Saturation 9.26 L (15.00-50.00) Transferrin 83.3 L (204.0-354.0) mg/dL Ferritin 638.0 H (22.0-322.0) ng/mL Vitamin B12 1991.0 H (200.0-944.0) pg/mL Microbiology - Last 24 Hours (Table) 03/04/21 11:50 Blood Culture - Preliminary Blood No Growth after 72 hours 03/04/21 12:55 Urine Culture - Final Urine,Voided Makayla albicans Assessment and Plan (1) Acute GI bleeding Current Visit: Yes Status: Acute Code(s): K92.2 - GASTROINTESTINAL HEMORRHAGE, UNSPECIFIED SNOMED Code(s): 77236881 (2) Atrial fibrillation Current Visit: Yes Status: Acute Code(s): I48.91 - UNSPECIFIED ATRIAL FIBRILLATION SNOMED Code(s): 32598176 (3) Elevated INR Current Visit: Yes Status: Acute Code(s): R79.1 - ABNORMAL COAGULATION PROFILE SNOMED Code(s): 165995586 (4) Hematochezia Current Visit: Yes Status: Acute Code(s): K92.1 - MELENA SNOMED Code(s): 651752775 (5) Hypokalemia Current Visit: Yes Status: Acute Code(s): E87.6 - HYPOKALEMIA SNOMED Code(s): 20024626 (6) Leukocytosis Current Visit: Yes Status: Acute Code(s): D72.829 - ELEVATED WHITE BLOOD CELL COUNT, UNSPECIFIED SNOMED Code(s): 708042100 (7) director long term care prescription opiate use Current Visit: Yes Status: Acute Code(s): Z79.891 - RETIREMENT (CURRENT) USE OF OPIATE ANALGESIC SNOMED Code(s): 888670571 (8) New onset atrial fibrillation Current Visit: Yes Status: Acute Code(s): I48.91 - UNSPECIFIED ATRIAL FIBRILLATION SNOMED Code(s): 20880358 (9) Protein calorie malnutrition Current Visit: Yes Status: Acute Code(s): E46 - UNSPECIFIED PROTEIN-CALORIE MALNUTRITION SNOMED Code(s): 276459516 (10) Stage III pressure ulcer of back Current Visit: Yes Status: Acute Code(s): L89.103 - PRESSURE ULCER OF UNSP ECIFIED PART OF BACK, STAGE 3 SNOMED Code(s): 671690445 (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 Current Visit: No Status: Acute Code(s): G14 - POSTPOLIO SYNDROME SNOMED Code(s): 64644940 (12) Venous insufficiency Current Visit: No Status: Acute Code(s): I87.2 - VENOUS INSUFFICIENCY (CHRONIC) (PERIPHERAL) SNOMED Code(s): 00324681 Plan: We'll continue current medication regimen as prescribed Planned CAT scan and colonoscopy with surgery Continue with current antibiotic regimen We'll continue monitor labs and vitals and treat accordingly We will continue to follow closely and reevaluate again tomorrow Time with Patient: Greater than 30
[2021-03-08] MEDS: METHADONE 5 MG TAB PO SCH ×4 (00:18→23:17)
[2021-03-08] MEDS: SODIUM CHLORIDE 0.9% 1,000 ML IV SCH ×3 (00:19→20:09)
[2021-03-08] MEDS: buPROPion XL 300 MG TAB.ER.24H PO SCH (06:08)
--- NOTE | 2021-03-08 07:21 | P.PN ---
Subjective Progress Note Date: 03/07/21 CHIEF COMPLAINT: GI bleed HISTORY OF PRESENT ILLNESS: The patient is a 75-year-old male admitted for c rampy abdominal pain including GI bleed with bloody stools. Patient has proctitis per computed tomography scan. Reports she is doing better today. Abdominal pain is improved. ROS: No reports of nausea and vomiting. No fevers or chills. PHYSICAL EXAM: VITAL SIGNS: Reviewed CONSTITUTIONAL: Well developed and in no acute distress. EYES: Conjuctivae without sclera icterus. Extraocular movements grossly intact. HEAD, EARS, NOSE, THROAT: Moist buccal mucosa. Head is atraumatic, normocephalic . Hears conversational speech. No nasal drainage. RESPIRATORY: Non-labored respirations and equal bilateral excursions. CARDIOVASCULAR: Palpable 2+ radial pulses. ABDOMEN: No peritonitis. MUSCULOSKELETAL: No clubbing. No cyanosis. SKIN: Good skin turgor. Well perfused. NEUROLOGIC: Cranial nerves II through XII grossly intact. No focal or lateralizing signs. PSYCH: Appropriate affect. Alert and oriented to person, place and time. CLINICAL LABS: Reviewed. WBC elevated over 20,000. Hemoglobin stable 10.7-11.1 with anemia MICRO: Urine culture positive for makayla albicans ASSESSMENT: 1. Sepsis with abdominal pain 2. Gastrointestinal bleeding with proctitis 3. Anemia PLAN: 1. Conservative management with serial hemoglobins. 2. Management of sepsis advised Objective - Vital Signs Vital signs: Vital Signs Temp 98.0 F 03/07/21 16:00 Pulse 83 03/07/21 16:00 Resp 16 03/07/21 16:00 BP 88/54 03/07/21 17:30 Pulse Ox 92 L 03/07/21 16:00 Intake & Output 03/07/21 03/07/21 03/08/21 06:59 18:59 06:59 Intake Total 1370 Balance 1370 Intake: IV 600 Sodium Chloride 0.9% 1, 600 000 ml @ 75 mls/hr IV . [id number] [facility] Rx#:[id number] Intake, IV Titration 50 Amount cefTRIAXone 1 gm In 50 Sodium Chloride 0.9% 50 ml @ 100 mls/hr IVPB Q24HR [facility] Rx#:[id number] Oral 720 Other: Voiding Method Indwelling Catheter # Voids 0 2 - Labs CBC & Chem 7: 03/07/21 06:51 03/07/21 06:51 Labs: Abnormal Lab Results - Last 24 Hours (Table) 03/07/21 03/07/21 03/07/21 Range/Units 02:41 06:51 06:51 WBC 20.6 H 20.0 H (3.8-10.6) k/uL RBC 3.23 L 3.37 L (4.30-5.90) m/uL Hgb 10.7 L 11.1 L (13.0-17.5) gm/dL Hct 34.5 L 35.9 L (39.0-53.0) % MCV 106.9 H 106.5 H (80.0-100.0) fL MCHC 30.9 L (31.0-37.0) g/dL Neutrophils # 18.8 H (1.3-7.7) k/uL Lymphocytes # 0.4 L (1.0-4.8) k/uL BUN 27 H (9-20) mg/dL Creatinine 0.59 L (0.66-1.25) mg/dL Glucose 102 H (74-99) mg/dL Calcium 7.3 L (8.4-10.2) mg/dL Iron (65-175) ug/dL TIBC (228-460) ug/dL % Saturation (15.00-50.00) Transferrin (204.0-354.0) mg/dL Ferritin (22.0-322.0) ng/mL Vitamin B12 (200.0-944.0) pg/mL 03/07/21 Range/Units 06:51 WBC (3.8-10.6) k/uL RBC (4.30-5.90) m/uL Hgb (13.0-17.5) gm/dL Hct (39.0-53.0) % MCV (80.0-100.0) fL MCHC (31.0-37.0) g/dL Neutrophils # (1.3-7.7) k/uL Lymphocytes # (1.0-4.8) k/uL BUN (9-20) mg/dL Creatinine (0.66-1.25) mg/dL Glucose (74-99) mg/dL Calcium (8.4-10.2) mg/dL Iron 11 L (65-175) ug/dL TIBC 117 L (228-460) ug/dL % Saturation 9.26 L (15.00-50.00) Transferrin 83.3 L (204.0-354.0) mg/dL Ferritin 638.0 H (22.0-322.0) ng/mL Vitamin B12 1991.0 H (200.0-944.0) pg/mL Microbiology - Last 24 Hours (Table) 03/04/21 11:50 Blood Culture - Preliminary Blood No Growth after 72 hours 03/04/21 12:55 Urine Culture - Final Urine,Voided Makayla albicans
[2021-03-08] MEDS: PANTOPRAZOLE 40 MG TABLET PO SCH (09:13)
[2021-03-08] MEDS: TAMSULOSIN 0.4 MG CAP.ER.24H PO SCH (09:13)
[2021-03-08] MEDS: SERTRALINE 100 MG TAB PO SCH (09:13)
[2021-03-08] MEDS: AMIODARONE 200 MG TAB PO SCH ×2 (09:13→20:08)
[2021-03-08] MEDS: DOCUSATE 100 MG CAP PO SCH ×2 (09:20→20:08)
--- NOTE | 2021-03-08 10:27 | P.PN ---
Subjective Progress Note Date: 03/08/21 Principal diagnosis: Paroxysmal atrial fibrillation The patient is a pleasant 75-year-old gentleman who was brought from an extended care facility to the hospital for further evaluation of gastrointestinal bleeding. He was found to be in atrial fibrillation which is new with the diagnosis of the patient. An echocardiogram was performed and revealed an EF between 45-50%. The patient was seen this morning. He stated that he is feeling better. Hemodynamically he is a stable with marginal low blood pressure but above 90 mmHg twice a day yesterday I decrease the dose of metoprolol on him. He is not on any anticoagulation because of the GI bleeding. That continues to be investigated. From the cardiac standpoint of view, would continue the current medical regimen. Consider oral anticoagulation once is safe. Otherwise the patient can be discharged home Objective - Vital Signs Vital signs: Vital Signs Temp 97.7 F 03/08/21 04:00 Pulse 72 03/08/21 04:00 Resp 16 03/08/21 04:00 BP 90/58 03/08/21 06:58 Pulse Ox 96 03/08/21 04:00 Intake & Output 03/07/21 03/08/21 03/08/21 18:59 06:59 18:59 Intake Total 1370 60 240 Balance 1370 60 240 Intake: IV 600 Sodium Chloride 0.9% 1, 600 000 ml @ 75 mls/hr IV . [id number] [facility] Rx#:[id number] Intake, IV Titration 50 Amount cefTRIAXone 1 gm In 50 Sodium Chloride 0.9% 50 ml @ 100 mls/hr IVPB Q24HR [facility] Rx#:[id number] Oral 720 60 240 Other: Voiding Method Indwelling Catheter # Voids 2 2 - Labs CBC & Chem 7: 03/07/21 06:51 03/07/21 06:51 Labs: Abnormal Lab Results - Last 24 Hours (Table) 03/07/21 03/07/21 Range/Units 06:51 06:51 Magnesium 1.3 L (1.5-2.4) mg/dL Iron 11 L (65-175) ug/dL TIBC 117 L (228-460) ug/dL % Saturation 9.26 L (15.00-50.00) Transferrin 83.3 L (204.0-354.0) mg/dL Ferritin 638.0 H (22.0-322.0) ng/mL Vitamin B12 1991.0 H (200.0-944.0) pg/mL Microbiology - Last 24 Hours (Table) 03/04/21 11:50 Blood Culture - Preliminary Blood No Growth after 72 hours
--- NOTE | 2021-03-08 11:57 | CDI ---
Documentation Clarification Form Date: 03/08/2021 11:26:58 AM From: Elodia Flores RN,CCDS Admit Date: 03/02/2021 07:30:00 AM Patient Name: Carlin Garduno Visit Number: [id number] Discharge Date: ATTENTION: The Clinical Documentation Specialists (CDI) and [facility] Coding Staff appreciate your assistance in clarifying documentation. Please respond to the clarification below the line at the bottom and electronically sign. The CDI & [facility] Coding staff will review the response and follow-up if needed. Please note: Queries are made part of the Legal Health Record. If you have any questions, please contact the author of this message via ITS. Dr. Holland Nye The patient presented with the following clinical indicators. Additional clarification regarding the etiology/cause of the clinical indicators is requested. 03/07 Surgery progress notes (Dr. Whitman): Sepsis with abdominal pain. Management of sepsis advised History/Risk Factors: Neurologic Disorder, COPD, Post-Polio Syndrome, Osteoarthritis, Scoliosis/deformity, Atrial Fibrillation UTI and urinary retention with Moore (02/20/21) Clinical Indicators: 75-year-old male present to ER from long-term care facility after he passed 2 bloody bowel movements with dark red blood. [facility] staff also noticed blood in patient's Moore catheter output, he did have recent ureteral stent placement for ureteral stone, He was ruled in for UTI per progress note on 03/05/21. 03/05 attending progress notes 03/02 Vital Signs: 95/81 97 111 18 97 % RA 03/02 WBC: 8.9, Neutrophils 7.9 INR >10.0 03/04 WBC 22.3 Neutrophils 21.0; Vital signs: 90/57 131 24 97.2 96 % RA (07:50) 03/04 Urinalysis: Ur Leukocyte Esterase Large Urine Yeast (Budding) Moderate (H) 03/04 Urine Culture: Makayla albicans 03/04 Blood culture negative after 72 hrs Treatment: Rocephin 1 GM IVPB Q 24 HR) Fluconazole 150 MG PO (03/05-03/07 .9NS 500 ML Bolus X2 (03/02) .9NS @ 75 MLS/HR 03/02-03/07 Monitor CBC daily Monitor I/O In your professional opinion, please clarify if these findings signify one of the following conditions: [ ] Sepsis POA [ ] Sepsis, Not POA [ ] Sepsis ruled out [ ] Severe Sepsis with organ failure [ ] Septic Shock [ ] SIRS, without underlying infectious process [ ] Other, please specify [ X ] Unable to determine SIRS Criteria: 2 or more of the following may indicate SIRS -Temperature < 96.8F (36C) or > 101.0F (38.3C) -Heart Rate > 90 bpm -Respiratory Rate > 20 breaths/min or PaCO2 < 32 mmHg -White Blood Cell Count > 12,000 or < 4,000 cells/mm3 or > 10% bands (Template Last Reviewed: April 2020) MTDD
[2021-03-08 12:39] VITALS: BMI 19.5
[2021-03-08] MEDS: METOPROLOL SUCCINATE (ER) 25 MG TAB.ER.24H PO SCH (16:50)
--- NOTE | 2021-03-08 17:15 | P.PN ---
Subjective Progress Note Date: 03/08/21 Principal diagnosis: Abdominal pain and gross hematochezia 75-year-old male patient presented to the hospital emergency room for evaluation of abdominal pain and passed blood clots from the rectum. Patient in the hospital month before with right-sided pain where he received renal stent stone retrieval for hydronephrosis and a stone. Emergency room the patient was found to have an INR greater than 10 with a hemoglobin of 11.7 at that time. Unfortunately patient was also found to be hypokalemic with a potassium of 2.4 user to be tachycardic and in atrial fib per the EKG. Patient was not on anticoagulants prior to this event. Currently the patient is resting comfortably in bed with no complaints of pain, shortness of breath or difficulty breathing, chest pain or pressure. Cardiology is reducing his metoprolol dose and maintaining his amiodarone dose due to lower blood pressures./ 03/08/2021 patient resting comfortably but at this time and elected out of bed. Patient denies any abdominal pain, nausea vomiting or diarrhea, shortness of breath or difficulty breathing, chest pain or pressure. Patient has been without anticoagulation and has not had a bloody stool and his hemoglobin has remained stable. There was a tentative plan of possible flexible sigmoidoscopy or colonoscopy for evaluation of abdominal pain and bloody stools but has not happened yet. Vitals have been stable and no new lab work was completed for today. Objective - Vital Signs Vital signs: Vital Signs Temp 98.1 F 03/08/21 08:00 Pulse 113 H 03/08/21 08:00 Resp 17 03/08/21 08:00 BP 84/65 03/08/21 08:00 Pulse Ox 98 03/08/21 08:00 Intake & Output 03/07/21 03/08/21 03/08/21 18:59 06:59 18:59 Intake Total 1370 60 240 Balance 1370 60 240 Weight 56.8 kg Intake: IV 600 Sodium Chloride 0.9% 1, 600 000 ml @ 75 mls/hr IV . [id number] Rx#:[id number] Intake, IV Titration 50 Amount cefTRIAXone 1 gm In 50 Sodium Chloride 0.9% 50 ml @ 100 mls/hr IVPB Q24HR [facility] Rx#:[id number] Oral 720 60 240 Other: Voiding Method Indwelling Catheter # Voids 2 2 2 - Exam GENERAL: Elderly gentleman that is awake and alert and in no acute distress, patient noted to have scoliosis. HEAD: Atraumatic, normocephalic. EYES: Pupils equal round and reactive to light, extraocular movements intact, sclera anicteric, conjunctiva are normal. ENT:nares patent, oropharynx clear without exudates. Moist mucous membranes. NECK: Normal range of motion, supple without lymphadenopathy or JVD, no thyromegaly LUNGS: Breath sounds clear to auscultation bilaterally and equal. No wheezes rales or rhonchi. HEART: Regular rate and rhythm without murmurs, rubs or gallops.S1S2 Normal ABDOMEN: Soft, nontender, normoactive bowel sounds. No guarding, no rebound. No masses appreciated. EXTREMITIES: Range of motion limited due to scoliosis, +1 pitting edema noted in right manjarrez. No clubbing or cyanosis. Dependent edema noted in left elbow NEUROLOGICAL: Cranial nerves II through XII grossly intact. Normal speech, wheelchair dependent. PSYCH: Normal mood, normal affect. SKIN: Warm, Dry, normal turgor, right elbow developing stage I pressure ulcer, dressing in left lower back noted to have a stage III ulcer. - Labs CBC & Chem 7: 03/07/21 06:51 03/07/21 06:51 Labs: Abnormal Lab Results - Last 24 Hours (Table) 03/07/21 03/07/21 Range/Units 06:51 06:51 Magnesium 1.3 L (1.5-2.4) mg/dL RBC Folate 955 H (280 - 791) ng/mL Microbiology - Last 24 Hours (Table) 03/04/21 11:50 Blood Culture - Preliminary Blood No Growth after 96 hours Assessment and Plan (1) Acute GI bleeding Current Visit: Yes Status: Acute Code(s): K92.2 - GASTROINTESTINAL HE MORRHAGE, UNSPECIFIED SNOMED Code(s): 58136414 (2) Atrial fibrillation Current Visit: Yes Status: Acute Code(s): I48.91 - UNSPECIFIED ATRIAL FIBRILLATION SNOMED Code(s): 30688042 (3) Elevated INR Current Visit: Yes Status: Acute Code(s): R79.1 - ABNORMAL COAGULATION PROFILE SNOMED Code(s): 683749005 (4) Hematochezia Current Visit: Yes Status: Acute Code(s): K92.1 - MELENA SNOMED Code(s): 966861620 (5) Hypokalemia Current Visit: Yes Status: Acute Code(s): E87.6 - HYPOKALEMIA SNOMED Cod e(s): 02772394 (6) Leukocytosis Current Visit: Yes Status: Acute Code(s): D72.829 - ELEVATED WHITE BLOOD CELL COUNT, UNSPECIFIED SNOMED Code(s): 814640420 (7) termite helper prescription opiate use Current Visit: Yes Status: Acute Code(s): Z79.891 - IMPLEMENTATION ENGINEER (CURRENT) USE OF OPIATE ANALGESIC SNOMED Code(s): 214408234 (8) New onset atrial fibrillation Current Visit: Yes Status: Acute Code(s): I48.91 - UNSPECIFIED ATRIAL FIBRILLATION SNOMED Code(s): 96985287 (9) Protein calorie malnutrition Current Visit: Yes Status: Acute Code(s): E46 - UNSPECIFIED PROTEIN-CALORIE MALNUTRITION SNOMED Code(s): 083922070 (10) Stage III pressure ulcer of back Current Visit: Yes Status: Acute Code(s): L89.103 - PRESSURE ULCER OF UNSPECIFIED PART OF BACK, STAGE 3 SNOMED Code(s): 286856576 (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 Current Visit: No Status: Acute Code(s): G14 - POSTPOLIO SYNDROME SNOMED Code(s): 35568045 (12) Venous insufficiency Current Visit: No Status: Acute Code(s): I87.2 - VENOUS INSUFFICIENCY (CHRONIC) (PERIPHERAL) SNOMED Code(s): 23186863 Plan: We'll continue current medication regimen as prescribed As are his been no bloody stools and hemoglobin remaining stable we'll initiate affix then 5 mg by mouth twice daily Tentative colonoscopy with surgery Continue with current antibiotic regimen We'll continue monitor labs and vitals and treat accordingly We will continue to follow closely and reevaluate again tomorrow Time with Patient: Greater than 30
[2021-03-08] MEDS: APIXABAN 5 MG TAB PO SCH (20:08)
[2021-03-09] MEDS: buPROPion XL 300 MG TAB.ER.24H PO SCH (05:39)
[2021-03-09 08:39] LABS: INR 1.1 (<1.2); Partial Thromboplastin Time 23.4 sec (22.0-30.0); Prothrombin Time 11.5 sec (9.0-12.0)
[2021-03-09 08:59] LABS: ALT 13 U/L (4-49); AST 21 U/L (17-59); African American GFR (CKD) >90 (>60 ml/min/1.73 sqM); Albumin 2.3 g/dL (3.5-5.0); Alkaline Phosphatase 103 U/L (38-126); Anion Gap 6 mmol/L; Blood Urea Nitrogen 17 mg/dL (9-20); Calcium 7.3 mg/dL (8.4-10.2); Carbon Dioxide 21 mmol/L (22-30); Chloride 107 mmol/L (98-107); Glucose 89 mg/dL (74-99); Non-African American GFR(CKD) >90 (>60 ml/min/1.73 sqM); Potassium 3.2 mmol/L (3.5-5.1); Sodium 134 mmol/L (137-145); Total Bilirubin 0.6 mg/dL (0.2-1.3)
[2021-03-09 09:05] LABS: Basophils % (A) 1 %; Eosinophils % (A) 0 %; HCT 35.4 % (39.0-53.0); HGB 10.5 gm/dL (13.0-17.5); Hypochromasia Marked; Lymphocytes # (A) 0.2 k/uL (1.0-4.8); Lymphocytes % (A) 3 %; MCH 33.4 pg (25.0-35.0); MCHC 29.8 g/dL (31.0-37.0); Macrocytosis Marked; Mean Platelet Volume 8.8; Monocytes # (A) 0.4 k/uL (0-1.0); Monocytes % (A) 5 %; Neutrophils # (A) 7.4 k/uL (1.3-7.7); Neutrophils % (A) 89 %; Platelet Count 309 k/uL (150-450); RBC 3.16 m/uL (4.30-5.90); RDW 15.2 % (11.5-15.5); WBC 8.3 k/uL (3.8-10.6)
[2021-03-09 09:06] LABS: MCV 112.2 fL (80.0-100.0)
--- NOTE | 2021-03-09 09:37 | P.PN ---
Subjective Progress Note Date: 03/09/21 Principal diagnosis: Paroxysmal atrial fibrillation The patient is a pleasant 75-year-old gentleman who was brought from an extended care facility to the hospital for further evaluation of gastrointestinal bleeding. He was found to be in atrial fibrillation which is new with the diagnosis of the patient. An echocardiogram was performed and revealed an EF between 45-50%. The patient was seen this morning. He is feeling better. He denies any symptoms of chest pain or chest discomfort. The blood pressure continues to be marginal is asymptomatic. He is currently on amiodarone as well as Toprol-XL. He was started on oral anticoagulation by the primary care team yesterday. Objective - Vital Signs Vital signs: Vital Signs Temp 97.5 F L 03/09/21 03:19 Pulse 92 03/09/21 03:19 Resp 20 03/09/21 03:19 BP 84/58 03/09/21 03:19 Pulse Ox 97 03/09/21 03:19 Intake & Output 03/08/21 03/09/21 03/09/21 18:59 06:59 18:59 Intake Total 480 80 Balance 480 80 Weight 56.8 kg Intake: Oral 480 80 Other: Voiding Method Diaper Diaper Incontinent Incontinent # Voids 2 1 - Constitutional General appearance: Present: no acute distress - Respiratory Respiratory: bilateral: diminished - Cardiovascular Rhythm: irregularly irregular Heart sounds: normal: S1, S2 - Labs CBC & Chem 7: 03/09/21 07:22 03/09/21 08:05 Labs: Abnormal Lab Results - Last 24 Hours (Table) 03/07/21 03/09/21 03/09/21 Range/Units 06:51 07:22 08:05 RBC 3.16 L (4.30-5.90) m/uL Hgb 10.5 L (13.0-17.5) gm/dL Hct 35.4 L (39.0-53.0) % MCV 112.2 H D (80.0-100.0) fL MCHC 29.8 L (31.0-37.0) g/dL Macrocytosis Marked A Sodium 134 L (137-145) mmol/L Potassium 3.2 L (3.5-5.1) mmol/L Carbon Dioxide 21 L (22-30) mmol/L Creatinine 0.58 L (0.66-1.25) mg/dL Calcium 7.3 L (8.4-10.2) mg/dL Total Protein 5.0 L (6.3-8.2) g/dL Albumin 2.3 L (3.5-5.0) g/dL RBC Folate 955 H (280 - 791) ng/mL Microbiology - Last 24 Hours (Table) 03/04/21 11:50 Blood Culture - Preliminary Blood No Growth after 96 hours Assessment and Plan Assessment: Assessment #1 paroxysmal atrial fibrillation. #2 gastrointestinal bleeding #3 mild cardiomyopathy #4 multiple comorbid conditions Plan #1 continue the current medical regimen #2 discharge in the next 24 hours
[2021-03-09 09:41] LABS: Anisocytosis (M) Present; Poikilocytosis (M) Present
[2021-03-09] MEDS: DOCUSATE 100 MG CAP PO SCH ×2 (09:41→20:01)
[2021-03-09] MEDS: TAMSULOSIN 0.4 MG CAP.ER.24H PO SCH (09:41)
[2021-03-09] MEDS: PANTOPRAZOLE 40 MG TABLET PO SCH (09:41)
[2021-03-09] MEDS: AMIODARONE 200 MG TAB PO SCH ×2 (09:41→20:01)
[2021-03-09] MEDS: METHADONE 5 MG TAB PO SCH ×3 (09:41→23:51)
[2021-03-09] MEDS: APIXABAN 5 MG TAB PO SCH ×2 (09:41→20:01)
[2021-03-09] MEDS: SERTRALINE 100 MG TAB PO SCH (09:41)
[2021-03-09] MEDS: METOPROLOL SUCCINATE (ER) 25 MG TAB.ER.24H PO SCH (09:41)
--- NOTE | 2021-03-09 12:03 | P.PN ---
Progress Note - Text Progress Note Date: 03/08/21 The patient states he feels better. His diarrhea has improved. He states he has minimal rectal bleeding. On exam vital signs are stable. Abdomen soft. GI bleed most likely related to colitis. Patient white count is 20. He will be observed.
--- NOTE | 2021-03-09 12:04 | P.PN ---
Progress Note - Text Progress Note Date: 03/09/21 Patient states he feels significantly better today. He's had some diarrhea. On exam vital signs are stable. Abdomen soft. Patient's previous leukocytosis has resolved. His white count 7. Patient is clinically improving. We will continue observing him.
[2021-03-09] MEDS: SODIUM CHLORIDE 0.9% 1,000 ML IV SCH ×2 (17:05→23:51)
--- NOTE | 2021-03-09 17:49 | P.PN ---
Subjective Progress Note Date: 03/09/21 Principal diagnosis: Abdominal pain and gross hematochezia 75-year-old male patient presented to the hospital emergency room for evaluation of abdominal pain and passed blood clots from the rectum. Patient in the hospital month before with right-sided pain where he received renal stent stone retrieval for hydronephrosis and a stone. Emergency room the patient was found to have an INR greater than 10 with a hemoglobin of 11.7 at that time. Unfortunately patient was also found to be hypokalemic with a potassium of 2.4 user to be tachycardic and in atrial fib per the EKG. Patient was not on anticoagulants prior to this event. Currently the patient is resting comfortably in bed with no complaints of pain, shortness of breath or difficulty breathing, chest pain or pressure. Cardiology is reducing his metoprolol dose and maintaining his amiodarone dose due to lower blood pressures./ 03/08/2021 patient resting comfortably but at this time and elected out of bed. Patient denies any abdominal pain, nausea vomiting or diarrhea, shortness of breath or difficulty breathing, chest pain or pressure. Patient has been without anticoagulation and has not had a bloody stool and his hemoglobin has remained stable. There was a tentative plan of possible flexible sigmoidoscopy or colonoscopy for evaluation of abdominal pain and bloody stools but has not happened yet. Vitals have been stable and no new lab work was completed for today. 03/09/2021 patient resting comfortably in bed eating supper at this time. Patient denies any chest pain pressure, shortness of breath, difficulty breathing, nausea, vomiting or diarrhea. He has been started on Apixaban 5 mg by mouth twice a day with the first dose yesterday at 9 PM. Patient has not had another bowel movement since that time there's been no signs of bleeding. Patient's abdomen is soft nontender and is looking forward to going home. Most recent lab work reveals a corrected leukocytosis with a white blood cell count 8.3, hemoglobin 10.5, hematocrit 35.4. Chemistry reveals sodium 134, potassium at 3.2 will be supplemented, BUS 17, creatinine of 0.58. Magnesium had been supplemented for a 1.3 on the we will recheck the electrolytes for the morning. Most recent blood pressure reveals a 72/39, 94% on room air, respiratory rate 19, pulse rate 102, he is afebrile 98.0. Objective - Vital Signs Vital signs: Vital Signs Temp 98.0 F 03/09/21 12:00 Pulse 102 H 03/09/21 14:00 Resp 19 03/09/21 14:00 BP 72/39 03/09/21 12:00 Pulse Ox 94 L 03/09/21 12:00 Intake & Output 03/08/21 03/09/21 03/09/21 18:59 06:59 18:59 Intake Total 480 80 Balance 480 80 Weight 56.8 kg Intake: Oral 480 80 Other: Voiding Method Diaper Diaper Diaper Incontinent Incontinent Incontinent # Voids 2 1 1 - Exam GENERAL: Elderly gentleman that is awake and alert and in no acute distress, patient noted to have scoliosis and postpolio. HEAD: Atraumatic, normocephalic. EYES: Pupils equal round and reactive to light, extraocular movements intact, sclera anicteric, conjunctiva are normal. ENT:nares patent, oropharynx clear without exudates. Moist mucous membranes. NECK: Normal range of motion, supple without lymphadenopathy or JVD, no thyromegaly LUNGS: Breath sounds clear to auscultation bilaterally and equal. No wheezes rales or rhonchi. HEART: Regular rate and rhythm without murmurs, rubs or gallops.S1S2 Normal ABDOMEN: Soft, nontender, normoactive bowel sounds. No guarding, no rebound. No masses appreciated. EXTREMITIES: Range of motion limited due to scoliosis, +1 pitting edema noted in right manjarrez. No clubbing or cyanosis. Dependent edema noted in left elbow NEUROLOGICAL: Cranial nerves II through XII grossly intact. Normal speech, wheelchair dependent. PSYCH: Normal mood, normal affect. SKIN: Warm, Dry, normal turgor, right elbow developing stage I pressure ulcer, dressing in left lower back noted to have a stage III ulcer. - Labs CBC & Chem 7: 03/09/21 07:22 03/09/21 08:05 Labs: Abnormal Lab Results - Last 24 Hours (Table) 03/09/21 03/09/21 Range/Units 07:22 08:05 RBC 3.16 L (4.30-5.90) m/uL Hgb 10.5 L (13.0-17.5) gm/dL Hct 35.4 L (39.0-53.0) % MCV 112.2 H D (80.0-100.0) fL MCHC 29.8 L (31.0-37.0) g/dL Lymphocytes # 0.2 L (1.0-4.8) k/uL Macrocytosis Marked A Sodium 134 L (137-145) mmol/L Potassium 3.2 L (3.5-5.1) mmol/L Carbon Dioxide 21 L (22-30) mmol/L Creatinine 0.58 L (0.66-1.25) mg/dL Calcium 7.3 L (8.4-10.2) mg/dL Total Protein 5.0 L (6.3-8.2) g/dL Albumin 2.3 L (3.5-5.0) g/dL Microbiology - Last 24 Hours (Table) 03/04/21 11:50 Blood Culture - Preliminary Blood No Growth after 120 hours Assessment and Plan (1) Acute GI bleeding Current Visit: Yes Status: Acute Code(s): K92.2 - GASTROINTESTINAL HEMOR RHAGE, UNSPECIFIED SNOMED Code(s): 58097832 (2) Atrial fibrillation Current Visit: Yes Status: Acute Code(s): I48.91 - UNSPECIFIED ATRIAL FIBRILLATION SNOMED Code(s): 82716355 (3) Elevated INR Current Visit: Yes Status: Acute Code(s): R79.1 - ABNORMAL COAGULATION PROFILE SNOMED Code(s): 678527858 (4) Hematochezia Current Visit: Yes Status: Acute Code(s): K92.1 - MELENA SNOMED Code(s): 819602618 (5) Hypokalemia Current Visit: Yes Status: Acute Code(s): E87.6 - HYPOKALEMIA SNOMED Code(s): 92797847 (6) Leukocytosis Current Visit: Yes Status: Acute Code(s): D72.829 - ELEVATED WHITE BLOOD CELL COUNT, UNSPECIFIED SNOMED Code(s): 540904838 (7) project archivist prescription opiate use Current Visit: Yes Status: Acute Code(s): Z79.891 - SEWER (CURRENT) USE OF OPIATE ANALGESIC SNOMED Code(s): 540047551 (8) New onset atrial fibrillation Current Visit: Yes Status: Acute Code(s): I48.91 - UNSPECIFIED ATRIAL FIBRILLATION SNOMED Code(s): 54291141 (9) Protein calorie malnutrition Current Visit: Yes Status: Acute Code(s): E46 - UNSPECIFIED PROTEIN-CALORIE MALNUTRITION SNOMED Code(s): 757713795 (10) Stage III pressure ulcer of back Current Visit: Yes Status: Acute Code(s): L89.103 - PRESSURE ULCER OF UNSPECIFIED PART OF BACK, STAGE 3 SNOMED Code(s): 756975677 (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 Current Visit: No Status: Acute Code(s): G14 - POSTPOLIO SYNDROME SNOMED Code(s): 67587504 (12) Venous insufficiency Current Visit: No Status: Acute Code(s): I87.2 - VENOUS INSUFFICIENCY (CHRONIC) (PERIPHERAL) SNOMED Code(s): 25080564 Plan: We'll continue current medication regimen as prescribed No bloody stools Continue the Apixaban as prescribed We'll supplement potassium CBC and urine with magnesium in the morning Tentative colonoscopy with surgery Continue with current antibiotic regimen We'll continue monitor labs and vitals and treat accordingly We will continue to follow closely and reevaluate again tomorrow Time with Patient: Greater than 30
[2021-03-09] MEDS ORDERED: Potassium Replacement Protocol 1 EACH MISC MISCELLANE PRN (17:50)
[2021-03-09] MEDS: POTASSIUM CHLORIDE ER 20 MEQ TAB.ER PO SCH ×2 (20:01→23:51)
[2021-03-10] MEDS: buPROPion XL 300 MG TAB.ER.24H PO SCH (04:49)
--- NOTE | 2021-03-10 07:46 | P.PN ---
Subjective Progress Note Date: 03/10/21 Principal diagnosis: Paroxysmal atrial fibrillation The patient is a pleasant 75-year-old gentleman who was brought from an extended care facility to the hospital for further evaluation of gastrointestinal bleeding. He was found to be in atrial fibrillation which is new with the diagnosis of the patient. An echocardiogram was performed and revealed an EF between 45-50%. The patient was seen this morning. Overall he seems to be stable was marginally low blood pressure which has been the same but he is asymptomatic. He is on oral anticoagulation which was started 2 days ago and he seems to be tolerating that fairly well. He is also on beta hamida. From the cardiac standpoint of view, the patient can be discharged home Objective - Vital Signs Vital signs: Vital Signs Temp 97.8 F 03/10/21 03:12 Pulse 98 03/10/21 03:12 Resp 18 03/10/21 03:12 BP 85/50 03/10/21 03:12 Pulse Ox 97 03/10/21 03:12 Intake & Output 03/09/21 03/10/21 03/10/21 18:59 06:59 18:59 Intake Total 80 Balance 80 Intake: Oral 80 Other: Voiding Method Diaper Diaper Incontinent Incontinent # Voids 1 1 - Constitutional General appearance: Present: no acute distress - Respiratory Respiratory: bilateral: diminished - Cardiovascular Rhythm: irregularly irregular - Labs CBC & Chem 7: 03/09/21 07:22 03/09/21 08:05 Labs: Abnormal Lab Results - Last 24 Hours (Table) 03/09/21 03/09/21 Range/Units 07:22 08:05 RBC 3.16 L (4.30-5.90) m/uL Hgb 10.5 L (13.0-17.5) gm/dL Hct 35.4 L (39.0-53.0) % MCV 112.2 H D (80.0-100.0) fL MCHC 29.8 L (31.0-37.0) g/dL Lymphocytes # 0.2 L (1.0-4.8) k/uL Macrocytosis Marked A Sodium 134 L (137-145) mmol/L Potassium 3.2 L (3.5-5.1) mmol/L Carbon Dioxide 21 L (22-30) mmol/L Creatinine 0.58 L (0.66-1.25) mg/dL Calcium 7.3 L (8.4-10.2) mg/dL Total Protein 5.0 L (6.3-8.2) g/dL Albumin 2.3 L (3.5-5.0) g/dL Microbiology - Last 24 Hours (Table) 03/04/21 11:50 Blood Culture - Preliminary Blood No Growth after 120 hours Assessment and Plan Assessment: Assessment #1 paroxysmal atrial fibrillation. #2 gastrointestinal bleeding #3 mild cardiomyopathy #4 multiple comorbid conditions Plan #1 continue the current medical regimen #2 the patient can be discharged home #3 we'll follow-up with the patient on when necessary
[2021-03-10 08:03] LABS: HCT 30.8 % (39.0-53.0); HGB 9.9 gm/dL (13.0-17.5); Hypochromasia Slight; MCH 33.2 pg (25.0-35.0); MCHC 32.2 g/dL (31.0-37.0); Macrocytosis Slight; Mean Platelet Volume 8.3; Platelet Count 305 k/uL (150-450); RBC 2.98 m/uL (4.30-5.90); RDW 15.8 % (11.5-15.5); WBC 6.7 k/uL (3.8-10.6)
[2021-03-10 08:11] LABS: African American GFR (CKD) >90 (>60 ml/min/1.73 sqM); Anion Gap 8 mmol/L; Blood Urea Nitrogen 15 mg/dL (9-20); Calcium 7.4 mg/dL (8.4-10.2); Carbon Dioxide 22 mmol/L (22-30); Chloride 106 mmol/L (98-107); Glucose 88 mg/dL (74-99); Magnesium 1.2 mg/dL (1.6-2.3); Non-African American GFR(CKD) >90 (>60 ml/min/1.73 sqM); Potassium 3.4 mmol/L (3.5-5.1); Sodium 136 mmol/L (137-145)
[2021-03-10 08:16] LABS: MCV 103.1 fL (80.0-100.0)
--- NOTE | 2021-03-10 08:48 | P.PN ---
Subjective Progress Note Date: 03/10/21 Principal diagnosis: Abdominal pain and gross hematochezia 75-year-old male patient presented to the hospital emergency room for evaluation of abdominal pain and passed blood clots from the rectum. Patient in the hospital month before with right-sided pain where he received renal stent stone retrieval for hydronephrosis and a stone. Emergency room the patient was found to have an INR greater than 10 with a hemoglobin of 11.7 at that time. Unfortunately patient was also found to be hypokalemic with a potassium of 2.4 user to be tachycardic and in atrial fib per the EKG. Patient was not on anticoagulants prior to this event. Currently the patient is resting comfortably in bed with no complaints of pain, shortness of breath or difficulty breathing, chest pain or pressure. Cardiology is reducing his metoprolol dose and maintaining his amiodarone dose due to lower blood pressures./ 03/08/2021 patient resting comfortably but at this time and elected out of bed. Patient denies any abdominal pain, nausea vomiting or diarrhea, shortness of breath or difficulty breathing, chest pain or pressure. Patient has been without anticoagulation and has not had a bloody stool and his hemoglobin has remained stable. There was a tentative plan of possible flexible sigmoidoscopy or colonoscopy for evaluation of abdominal pain and bloody stools but has not happened yet. Vitals have been stable and no new lab work was completed for today. 03/09/2021 patient resting comfortably in bed eating supper at this time. Patient denies any chest pain pressure, shortness of breath, difficulty breathing, nausea, vomiting or diarrhea. He has been started on Apixaban 5 mg by mouth twice a day with the first dose yesterday at 9 PM. Patient has not had another bowel movement since that time there's been no signs of bleeding. Patient's abdomen is soft nontender and is looking forward to going home. Most recent lab work reveals a corrected leukocytosis with a white blood cell count 8.3, hemoglobin 10.5, hematocrit 35.4. Chemistry reveals sodium 134, potassium at 3.2 will be supplemented, BUS 17, creatinine of 0.58. Magnesium had been supplemented for a 1.3 on the we will recheck the electrolytes for the morning. Most recent blood pressure reveals a 72/39, 94% on room air, respiratory rate 19, pulse rate 102, he is afebrile 98.0. 03/10/2021 patient resting comfortably in bed at this time. Patient denies any chest pain pressure, shortness of breath or difficulty breathing, nausea vomiting or diarrhea. Patient appears to be tolerating anticoagulation this time as her's been no bloody stools or other signs of bleeding. Blood pressure is moderately low risk asymptomatic and has been more towards his baseline. Patient states he is ready to go home and he feels good at this time and we will discharge back to his place of residence. Objective - Vital Signs Vital signs: Vital Signs Temp 97.8 F 03/10/21 03:12 Pulse 98 03/10/21 03:12 Resp 18 03/10/21 03:12 BP 85/50 03/10/21 03:12 Pulse Ox 97 03/10/21 03:12 Intake & Output 03/09/21 03/10/21 03/10/21 18:59 06:59 18:59 Intake Total 80 Balance 80 Intake: Oral 80 Other: Voiding Method Diaper Diaper Incontinent Incontinent # Voids 1 1 - Exam GENERAL: Elderly gentleman that is awake and alert and in no acute distress, patient noted to have scoliosis and postpolio. HEAD: Atraumatic, normocephalic. EYES: Pupils equal round and reactive to light, extraocular movements intact, sclera anicteric, conjunctiva are normal. ENT:nares patent, oropharynx clear without exudates. Moist mucous membranes. NECK: Normal range of motion, supple without lymphadenopathy or JVD, no thyromegaly LUNGS: Breath sounds clear to auscultation bilaterally and equal. No wheezes rales or rhonchi. HEART: irregular rate and rhythm without murmurs, rubs or gallops.S1S2 Normal ABDOMEN: Soft, nontender, normoactive bowel sounds. No guarding, no rebound. No masses appreciated. EXTREMITIES: Range of motion limited due to scoliosis, +1 pitting edema noted in right manjarrez. No clubbing or cyanosis. Dependent edema noted in left elbow NEUROLOGICAL: Cranial nerves II through XII grossly intact. Normal speech, wheelchair dependent. PSYCH: Normal mood, normal affect. SKIN: Warm, Dry, normal turgor, right elbow developing stage I pressure ulcer, dressing in left lower back noted to have a stage III ulcer. - Labs CBC & Chem 7: 03/10/21 07:18 03/10/21 07:18 Labs: Abnormal Lab Results - Last 24 Hours (Table) 03/09/21 03/09/21 03/10/21 Range/Units 07:22 08:05 07:18 RBC 3.16 L 2.98 L (4.30-5.90) m/uL Hgb 10.5 L 9.9 L (13.0-17.5) gm/dL Hct 35.4 L 30.8 L (39.0-53.0) % MCV 112.2 H D 103.1 H D (80.0-100.0) fL MCHC 29.8 L (31.0-37.0) g/dL RDW 15.8 H (11.5-15.5) % Lymphocytes # 0.2 L (1.0-4.8) k/uL Macrocytosis Marked A Sodium 134 L (137-145) mmol/L Potassium 3.2 L (3.5-5.1) mmol/L Carbon Dioxide 21 L (22-30) mmol/L Creatinine 0.58 L (0.66-1.25) mg/dL Calcium 7.3 L (8.4-10.2) mg/dL Magnesium (1.6-2.3) mg/dL Total Protein 5.0 L (6.3-8.2) g/dL Albumin 2.3 L (3.5-5.0) g/dL 03/10/21 Range/Units 07:18 RBC (4.30-5.90) m/uL Hgb (13.0-17.5) gm/dL Hct (39.0-53.0) % MCV (80.0-100.0) fL MCHC (31.0-37.0) g/dL RDW (11.5-15.5) % Lymphocytes # (1.0-4.8) k/uL Macrocytosis Sodium 136 L (137-145) mmol/L Potassium 3.4 L (3.5-5.1) mmol/L Carbon Dioxide (22-30) mmol/L Creatinine 0.51 L (0.66-1.25) mg/dL Calcium 7.4 L (8.4-10.2) mg/dL Magnesium 1.2 L (1.6-2.3) mg/dL Total Protein (6.3-8.2) g/dL Albumin (3.5-5.0) g/dL Microbiology - Last 24 Hours (Table) 03/04/21 11:50 Blood Culture - Preliminary Blood No Growth after 120 hours Assessment and Plan (1) Acute GI bleeding Current Visit: Yes Status: Acute Code(s): K92.2 - GASTROINTESTINAL HEMORRHAGE, UNSPECIFIED SNOMED Code(s): 06357100 (2) Atrial fibrillation Current Visit: Yes Status: Acute Code(s): I48.91 - UNSPECIFIED ATRIAL FIBRILLATION SNOMED Code(s): 07075970 (3) Elevated INR Current Visit: Yes Status: Acute Code(s): R79.1 - ABNORMAL COAGULATION PROFILE SNOMED Code(s): 656365009 (4) Hematochezia Current Visit: Yes Status: Acute Code(s): K92.1 - MELENA SNOMED Code(s): 4 60795672 (5) Hypokalemia Current Visit: Yes Status: Acute Code(s): E87.6 - HYPOKALEMIA SNOMED Code(s): 06979924 (6) Leukocytosis Current Visit: Yes Status: Acute Code(s): D72.829 - ELEVATED WHITE BLOOD CELL COUNT, UNSPECIFIED SNOMED Code(s): 531363594 (7) [facility] prescription opiate use Current Visit: Yes Status: Acute Code(s): Z79.891 - PENITENTIARY (CURRENT) USE OF OPIATE ANALGESIC SNOMED Code(s): 803981477 (8) New onset atrial fibrillation Current Visit: Yes Status: Acute Code(s): I48.91 - UNSPECIFIED ATRIAL FIBRILLATION SNOMED Code(s): 03607673 (9) Protein calorie malnutrition Current Visit: Yes Status: Acute Code(s): E46 - UNSPECIFIED PROTEIN-CALORIE MALNUTRITION SNOMED Code(s): 695782161 (10) Stage III pressure ulcer of back Current Visit: Yes Status: Acute Code(s): L89.103 - PRESSURE ULCER OF UNSPECIFIED PART OF BACK, STAGE 3 SNOMED Code(s): 403954252 (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
[2021-03-10] MEDS: METHADONE 5 MG TAB PO SCH ×2 (09:24→16:18)
[2021-03-10] MEDS: APIXABAN 5 MG TAB PO SCH (09:24)
[2021-03-10] MEDS: TAMSULOSIN 0.4 MG CAP.ER.24H PO SCH (09:24)
[2021-03-10] MEDS: DOCUSATE 100 MG CAP PO SCH (09:24)
[2021-03-10] MEDS: SERTRALINE 100 MG TAB PO SCH (09:24)
[2021-03-10] MEDS: PANTOPRAZOLE 40 MG TABLET PO SCH (09:24)
[2021-03-10] MEDS: METOPROLOL SUCCINATE (ER) 25 MG TAB.ER.24H PO SCH (09:24)
[2021-03-10] MEDS: AMIODARONE 200 MG TAB PO SCH (09:25)
--- NOTE | 2021-03-10 09:55 | CDI ---
Documentation Clarification Form Date: 03/10/2021 09:17:51 AM From: Elodia Flores RN, CCDS Admit Date: 03/02/2021 07:30:00 AM Patient Name: Carlin Garduno Visit Number: [id number] Discharge Date: ATTENTION: The Clinical Documentation Specialists (CDI) and [facility] Coding Staff appreciate your assistance in clarifying documentation. Please respond to the clarification below the line at the bottom and electronically sign. The CDI & [facility] Coding staff will review the response and follow-up if needed. Please note: Queries are made part of the Legal Health Record. If you have any questions, please contact the author of this message via ITS. Dr. Alida Nelson Unspecified anemia is documented in the progress note on 03/07/21. Additional specificity regarding the type and acuity of anemia is requested. 03/02 Surgical-Consult: Acute GI BLEED 03/07 Surgery progress note: Gastrointestinal bleeding with proctitis. Anemia History/Risk Factors: Neurologic Disorder, COPD, Post-Polio Syndrome, Osteoarthritis, Scoliosis/deformity, Atrial Fibrillation Clinical indicators: 75-year-old male present to ER from long-term care facility with abdominal cramping. and he passed 2 bloody bowel movements with dark red blood. [facility] also noticed blood in patient's Moore catheter output, he did have recent ureteral stent placement for ureteral stone. He has a history of atrial fibrillation and has been on Coumadin. INR on admission >10.0. 03/02 Vital signs 95/81 111 18 97.8 03/02 Stool Occult Blood Negative 03/02 HGB 11.7, HCT 36.2 03/07 HGB 10.7, HCT 34.5 03/10 HGB 9.9, HCT 30.8 Treatment: Telemetry monitoring Monitor for signs or symptoms of bleeding Serial Hemoglobin Vitamin K 10 MG IVPB (03/02) Transfuse 1 Unit PRBC .9NS @75 MLS/HR IV Please clarify the type and acuity of anemia: [ ] Acute blood loss anemia [ ] Acute on chronic blood loss anemia [ X ] Unable to determine [ ] Other, please specify (Template Last Revised: April 2020) 03/10/21 @ 1100 - no longer following patient directly. MTDD
[2021-03-10] MEDS ORDERED: Potassium Replacement Protocol 1 EACH MISC MISCELLANE PRN (10:38)
--- NOTE | 2021-03-10 12:08 | P.DS ---
Providers Date of admission: 03/02/21 07:30 Expected date of discharge: 03/10/21 Attending physician: Holland Nye Consults: 03/02/21 07:31 Consult Physician Routine Consulting Provider: Ja Padgett Consult Reason/Comments: GI bleeding Do you want consulting provider notified?: Yes 03/02/21 07:32 Consult Physician Routine Consulting Provider: Matilde Parker Consult Reason/Comments: New-onset atrial fibrillation, with rapid ventricular rate Do you want consulting provider notified?: Yes 03/02/21 17:19 Consult Physician Routine Consulting Provider: Angelo Almaraz Consult Reason/Comments: elevaetd INR NO coumadin use Do you want consulting provider notified?: Yes 03/04/21 11:32 Consult Physician Routine Consulting Provider: Ramón Patel Consult Reason/Comments: hydronephrosis and recent stent Do you want consulting provider notified?: Yes Primary care physician: Holland Nye - Discharge Diagnosis(es) (1) Acute GI bleeding Current Visit: Yes Status: Acute (2) Atrial fibrillation Current Visit: Yes Status: Acute (3) Elevated INR Current Visit: Yes Status: Acute (4) Hematochezia Current Visit: Yes Status: Acute (5) Hypokalemia Current Visit: Yes Status: Acute (6) Leukocytosis Current Visit: Yes Status: Acute (7) care home prescription opiate use Current Visit: Yes Status: Acute (8) New onset atrial fibrillation Current Visit: Yes Status: Acute (9) Protein calorie malnutrition Current Visit: Yes Status: Acute (10) Stage III pressure ulcer of back Current Visit: Yes Status: Acute (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 Then noted to dark bloody stools and in witness blood in his undergarments. On presentation to the emergency room patient was noted to be in atrial fib and his EKG, INR of greater than 10 with a hemoglobin of 11.7 hypokalemic when she has been supplemented, scoliosis is scoliosis, and venous insufficiency. Cardiology was consulted for atrial fibrillation patient has been placed on a pixel band and amiodarone and is tolerating the Effexor and at this time. Surgery was consulted for GI bleed and with watchful wait weaning his resolved at this time. He did develop a le ukocytosis which has resolved over the past 2 days. Urine culture did reveal candidiasis albicans in his urine culture and she was treated for that earlier in stay. Currently patient is alert and oriented following commands and will be discharged back to his ECF with follow-ups with primary care next week with Dr. Nye. Health Concerns: we'll continue to monitor hemoglobin and hematocrit. Will redraw labs at follow-up office visit. Patient Condition at Discharge: Stable Plan - Discharge Summary Discharge Rx Participant: No New Discharge Prescriptions: New Apixaban [Eliquis] 5 mg PO BID 30 Days #60 tab Amiodarone [Cordarone] 200 mg PO BID 30 Days #60 tab Metoprolol Succinate (ER) [Toprol XL] 25 mg PO DAILY 30 Days #30 tab Acetaminophen-Codeine 300-30mg [Tylenol w/codeine #3] 2 each PO Q4HR PRN tab PRN Reason: Pain Continue Sertraline HCl [Zoloft] 100 mg PO DAILY@0800 Methadone [Dolophine] 10 mg PO Q6H Healthshake 1 dose PO TID@0800,1200,1800 Sertraline [Zoloft] 50 mg PO DAILY@0800 buPROPion HCL [Wellbutrin XL] 300 mg PO DAILY@0500 Tamsulosin [Flomax] 0.4 mg PO DAILY Docusate [Colace] 100 mg PO BID Acetaminophen Tab [Tylenol] 650 mg PO Q6H PRN PRN Reason: Fever And/ Or Pain Albuterol Nebulized [Ventolin Nebulized] 2.5 mg INHALATION RT-QID PRN PRN Reason: Shortness Of Breath Magic Cup 1 dose PO TID@0800,1200,1800 Sennosides-Docusate Sodium [Senokot-S] 1 tab PO DAILY Magnesium Hydroxide [Milk of Magnesia] 2,400 mg PO DAILY PRN PRN Reason: Constipation Omeprazole 20 mg PO DAILY Discontinued Proheal 30 ml PO BID Cefuroxime Axetil [Ceftin] 500 mg PO BID 7 Days #14 tab Clopidogrel [Plavix] 75 mg PO DAILY@0800 Metoprolol Succinate (ER) [Toprol XL] 12.5 mg PO DAILY@0800 Multivitamins, Thera [Multivitamin (formulary)] 1 tab PO DAILY Discharge Medication List Sertraline HCl [Zoloft] 100 mg PO DAILY@0800 12/24/14 [History] Methadone [Dolophine] 10 mg PO Q6H 11/04/15 [History] Albuterol Nebulized [Ventolin Nebulized] 2.5 mg INHALATION RT-QID PRN 02/22/21 [History] Healthshake 1 dose PO TID@0800,1200,1800 02/22/21 [History] Magic Cup 1 dose PO TID@0800,1200,1800 02/22/21 [History] Magnesium Hydroxide [Milk of Magnesia] 2,400 mg PO DAILY PRN 02/22/21 [History] Sennosides-Docusate Sodium [Senokot-S] 1 tab PO DAILY 02/22/21 [History] Sertraline [Zoloft] 50 mg PO DAILY@0800 02/22/21 [History] buPROPion HCL [Wellbutrin XL] 300 mg PO DAILY@0500 02/22/21 [History] Acetaminophen Tab [Tylenol] 650 mg PO Q6H PRN 03/02/21 [History] Docusate [Colace] 100 mg PO BID 03/02/21 [History] Omeprazole 20 mg PO DAILY 03/02/21 [History] Tamsulosin [Flomax] 0.4 mg PO DAILY 03/02/21 [History] Acetaminophen-Codeine 300-30mg [Tylenol w/codeine #3] 2 each PO Q4HR PRN tab 03/10/21 [Rx] Amiodarone [Cordarone] 200 mg PO BID 30 Days #60 tab 03/10/21 [Rx] Apixaban [Eliquis] 5 mg PO BID 30 Days #60 tab 03/10/21 [Rx] Metoprolol Succinate (ER) [Toprol XL] 25 mg PO DAILY 30 Days #30 tab 03/10/21 [Rx] Follow up Appointment(s)/Referral(s): Holland Nye MD [Primary Care Provider] - 1-2 days Darren Clark MD [STAFF PHYSICIAN] - 2 Weeks Activity/Diet/Wound Care/Special Instructions: as tolerated with diet as previous. Discharge Disposition: TRANSFER TO SNF/ECF Plan of Treatment: patient will be discharged to residence ([place]) and will follow-up in the office next week and Dr. Nye. We'll have CBC drawn to assess for anemia.
[2021-03-10 12:20] VITALS: RESP 18
[2021-03-10] MEDS: POTASSIUM CHLORIDE ER 20 MEQ TAB.ER PO SCH ×2 (12:20→12:22)
--- NOTE | 2021-03-10 12:56 | P.PN ---
Progress Note - Text Progress Note Date: 03/10/21 patient feels better. He is being discharged home today. On exam vital signs are stable. Abdomen soft. There is no significant tenderness. resolved colitis/GI bleed. Patient will follow-up one week.
[2021-03-10 16:18] VITALS: BP 102/68; PULSE 68; TEMP 98.1
== END 2021-03-10 18:14 | DRG 377 ==
LOC: EC 05:51 → 3SCARD 07:30
PROVIDERS: ADMIT Family Medicine; ATTEND Family Medicine
DX: K92.2 Gastrointestinal hemorrhage, unspecified (principal); L89.103 Pressure ulcer of unspecified part of back, stage 3; L89.93 Pressure ulcer of unspecified site, stage 3; N13.6 Pyonephrosis; B37.41 Candidal cystitis and urethritis; D68.59 Other primary thrombophilia; I31.3 Pericardial effusion (noninflammatory); I42.8 Other cardiomyopathies; I47.1 Supraventricular tachycardia; I48.19 Other persistent atrial fibrillation; L97.929 Non-pressure chronic ulcer of unspecified part of left lower leg with unspecified severity; L97.919 Non-pressure chronic ulcer of unspecified part of right lower leg with unspecified severity; E44.0 Moderate protein-calorie malnutrition; J98.11 Atelectasis; Z16.24 Resistance to multiple antibiotics; Z20.822 Contact with and (suspected) exposure to COVID-19; R31.0 Gross hematuria; D64.9 Anemia, unspecified; E83.42 Hypomagnesemia; E87.6 Hypokalemia; F03.90 Unspecified dementia, unspecified severity, without behavioral disturbance, psychotic disturbance, mood disturbance, and anxiety; G14 Postpolio syndrome; G89.29 Other chronic pain; I73.9 Peripheral vascular disease, unspecified; M41.9 Scoliosis, unspecified; I83.019 Varicose veins of right lower extremity with ulcer of unspecified site; I83.029 Varicose veins of left lower extremity with ulcer of unspecified site; I87.2 Venous insufficiency (chronic) (peripheral); J44.9 Chronic obstructive pulmonary disease, unspecified; K52.9 Noninfective gastroenteritis and colitis, unspecified; K56.41 Fecal impaction; M19.90 Unspecified osteoarthritis, unspecified site; L98.9 Disorder of the skin and subcutaneous tissue, unspecified; M54.9 Dorsalgia, unspecified; Z98.1 Arthrodesis status; Z96.641 Presence of right artificial hip joint; Z87.891 Personal history of nicotine dependence; Z87.442 Personal history of urinary calculi; Z82.49 Family history of ischemic heart disease and other diseases of the circulatory system; Z79.899 Other long term (current) drug therapy; Z79.02 Long term (current) use of antithrombotics/antiplatelets; Z79.01 Long term (current) use of anticoagulants; M25.50 Pain in unspecified joint; K21.00 Gastro-esophageal reflux disease with esophagitis, without bleeding; Z68.20 Body mass index [BMI] 20.0-20.9, adult; I95.9 Hypotension, unspecified; D53.9 Nutritional anemia, unspecified
CPT/HCPCS: 36415; 71046; 74174; 76700; 80048; 80053; 80306; 81001; 82150; 82272; 82607; 82728; 82747; 83540; 83550; 83605; 83690; 83735; 84132; 84134; 84145; 84443; 84484; 85025; 85027; 85610; 85730; 86850; 86900; 86901; 86920; 87040; 87086; 87635; 93005; 93306; 96374; 99291

== ENCOUNTER 2021-03-10 22:42 | Emergency (ER) | payer MEDICARE ==
[2021-03-10] MEDS ORDERED: TOPICAL SKIN ADHESIVE 1 EACH AMP TOPICAL ONE (23:09)
--- NOTE | 2021-03-10 23:10 | ED ---
Wound/Laceration HPI <Kati Zavala - Last Filed: 03/11/21 00:37> - General Source: patient, EMS, RN notes reviewed, old records reviewed Mode of arrival: EMS Limitations: no limitations - History of Present Illness -: minutes(s) Extremity Location: Left: Lower Leg Place: home Patient Tetanus UTD: Yes Context: accidental Associated Symptoms: none Treatments Prior to Arrival: bandage <Juaquin Dodge - Last Filed: 03/11/21 03:19> - General Chief Complaint: Wound/Laceration Stated Complaint: LT leg lac Time Seen by Provider: 03/10/21 22:48 - History of Present Illness Initial Comments: This is a 75-year-old male presenting for left leg laceration from [place]. Patient is presented for evaluation regarding significant laceration with bleeding, per EMS bleeding is now controlled patient is a mildly poor story without complaint (Juaquin Dodge) - Related Data Home Medications Medication Instructions Recorded Confirmed Sertraline HCl [Zoloft] 100 mg PO DAILY@0800 12/24/14 03/02/21 Methadone [Dolophine] 10 mg PO Q6H 11/04/15 03/02/21 Albuterol Nebulized [Ventolin 2.5 mg INHALATION RT-QID PRN 02/22/21 03/02/21 Nebulized] Healthshake 1 dose PO TID@0800,1200,1800 02/22/21 03/02/21 Magic Cup 1 dose PO TID@0800,1200,1800 02/22/21 03/02/21 Magnesium Hydroxide [Milk of 2,400 mg PO DAILY PRN 02/22/21 03/02/21 Magnesia] Sennosides-Docusate Sodium 1 tab PO DAILY 02/22/21 03/02/21 [Senokot-S] Sertraline [Zoloft] 50 mg PO DAILY@0800 02/22/21 03/02/21 buPROPion HCL [Wellbutrin XL] 300 mg PO DAILY@0500 02/22/21 03/02/21 Acetaminophen Tab [Tylenol] 650 mg PO Q6H PRN 03/02/21 03/02/21 Docusate [Colace] 100 mg PO BID 03/02/21 03/02/21 Omeprazole 20 mg PO DAILY 03/02/21 03/02/21 Tamsulosin [Flomax] 0.4 mg PO DAILY 03/02/21 03/02/21 Previous Rx's Medication Instructions Recorded Acetaminophen-Codeine 300-30mg 2 each PO Q4HR PRN tab 03/10/21 [Tylenol w/codeine #3] Amiodarone [Cordarone] 200 mg PO BID 30 Days #60 tab 03/10/21 Apixaban [Eliquis] 5 mg PO BID 30 Days #60 tab 03/10/21 Metoprolol Succinate (ER) [Toprol 25 mg PO DAILY 30 Days #30 tab 03/10/21 XL] Cephalexin [Keflex] 500 mg PO BID #14 cap 03/11/21 Allergies Allergy/AdvReac Type Severity Reaction Status Date / Time aspirin AdvReac Intermediate ringing in Verified 03/10/21 22:59 the ears Antihistamines - Alkylamine AdvReac Mild shaking Verified 03/10/21 22:59 Review of Systems ROS Other: All systems not noted in ROS Statement are negative. <Kati Zavala - Last Filed: 03/11/21 00:37> ROS Other: All systems not noted in ROS Statement are negative. <Juaquin Dodge - Last Filed: 03/11/21 03:19> ROS Statement: Those systems with pertinent positive or pertinent negative responses have been documented in the HPI. Past Medical History Past Medical History: COPD, GERD/Reflux, Musculoskeletal Disorder, Neurologic Disorder, Osteoarthritis (OA), Pneumonia, Skin Disorder, Vascular Disorder Additional Past Medical History / Comment(s): Diagnosed with childhood polio at age 7 yrs, scoliosis/deformity, osteopenia, chronic back pain but pt denies cervical injury/pain d/t fall as stated in previous medical records, vascular disorder/has had wounds to bilateral feet and legs in past, current L back ulcer/staff at [facility] state it is a stage II/they use Posterbee every 3 days, pt has skin wounds L knee, ankylosis spondylosis, constipation/last BM 02/20/21, diverticulitis, History of Any Multi-Drug Resistant Organisms: MRSA Date of last positivie culture/infection: 09/03/18 MDRO Source:: left LEG Past Surgical History: Back Surgery, Bowel Resection, Joint Replacement, Orthopedic Surgery Additional Past Surgical History / Comment(s): Back laminectomy, spinal fusion as a child, pt denies cervical surgery as documented in previous record, total R hip arthroplasty, multiple bilateral legs/feet surgery, back pain procedures, bowel resection d/t diverticulitis, colonoscopy, incontinence of urine/stool. Past Anesthesia/Blood Transfusion Reactions: No Reported Reaction Past Psychological History: Unable to Obtain Smoking Status: Former smoker Past Alcohol Use History: None Reported Past Drug Use History: None Reported - Past Family History Father Family Medical History: Coronary Artery Disease (CAD) Additional Family Medical History / Comment(s): heart arrythymia Brother(s) Family Medical History: Cancer <Juaquin Dodge - Last Filed: 03/11/21 03:19> General Exam Limitations: no limitations General appearance: alert, in no apparent distress Head exam: Present: atraumatic, normocephalic, normal inspection Eye exam: Present: normal appearance, PERRL, EOMI. Absent: scleral icterus, conjunctival injection, periorbital swelling ENT exam: Present: normal exam, mucous membranes moist Neck exam: Present: normal inspection. Absent: tenderness, meningismus, lymphad enopathy Respiratory exam: Present: normal lung sounds bilaterally. Absent: respiratory distress, wheezes, rales, rhonchi, stridor Cardiovascular Exam: Present: normal rhythm, tachycardia, normal heart sounds. Absent: systolic murmur, diastolic murmur, rubs, gallop, clicks GI/Abdominal exam: Present: soft, normal bowel sounds. Absent: distended, tenderness, guarding, rebound, rigid Extremities exam: Present: normal inspection, full ROM, normal capillary refill, other (15 cm laceration left lower extremity). Absent: tenderness, pedal edema, joint swelling, calf tenderness Back exam: Present: normal inspection Neurological exam: Present: alert, oriented X3, CN II-XII intact Psychiatric exam: Present: normal affect, normal mood Skin exam: Present: warm, dry, intact, normal color. Absent: rash <Juaquin Dodge - Last Filed: 03/11/21 03:19> Course <Juaquin Dodge Last Filed: 03/11/21 03:19> Vital Signs 03/10/21 03/11/21 22:56 00:48 Temperature 97.2 F L 97.8 F Pulse Rate 128 H 102 H Respiratory 18 22 Rate Blood Pressure 92/72 98/68 O2 Sat by Pulse 97 97 Oximetry - Reevaluation(s) Reevaluation #1: 03/11/21 03:18 Medical record is reviewed (Juaquin Dodge) Reevaluation #2: 03/11/21 03:18 Patient is repaired without difficulty patient is without complaint (Juaquin Dodge) Procedures - Laceration Laceration #1 Consent Obtained: verbal consent Indication: laceration Site: lower extremity (left lower leg) Size (cm): 15 Depth: simple, single layer Anesthetic Used: lidocaine 1% Anesthesia Technique: local infiltration Amount (mls): 20 Pre-repair: wound explored, irrigated extensively Type of Sutures: nylon Size of Sutures: 4-0 Number of Sutures: 17 Technique: simple, interrupted Patient Tolerated Procedure: well, no complications <Kati Zavala - Last Filed: 03/11/21 00:37> Medical Decision Making <Juaquin Dodge - Last Filed: 03/11/21 03:19> - Medical Decision Making 75 male to the emergency department with left leg laceration repaired here in the emergency department. At this time patient can be discharged home return if symptoms worsen physical No injury without any other injury (Juaquin Dodge) Disposition Is patient prescribed a controlled substance at d/c from ED?: No Time of Disposition: 00:38 <Kati Zavala - Last Filed: 03/11/21 00:37> Is patient prescribed a controlled substance at d/c from ED?: No <Juaquin Dodge - Last Filed: 03/11/21 03:19> Clinical Impression: Laceration of left leg, Laceration Disposition: HOME SELF-CARE Condition: Good Instructions (If sedation given, give patient instructions): Care For Your Stitches (ED), Laceration (ED) Additional Instructions: Cleanse wound twice daily with warm water and antibacterial soap. Have sutures removed in 2 weeks. Follow up with primary care physician as soon as possible. Return for any new, worsening, or concerning symptoms. Prescriptions: Cephalexin [Keflex] 500 mg PO BID #14 cap Referrals: Holland Nye MD [Primary Care Provider] - 1-2 days
[2021-03-10] MEDS ORDERED: LIDOCAINE 1% INJ 10MG/ML (20 ML MDV) SQ ONE (23:33)
[2021-03-10] MEDS ORDERED: BACITRACIN OINT 1 EACH PACKET TOPICAL STA (23:46)
[2021-03-11 00:49] VITALS: BP 98/68; PULSE 102; RESP 22; TEMP 97.8
== END 2021-03-11 01:39 | disposition home or self-care (01) ==
LOC: EC 22:42
DX: S81.812A Laceration without foreign body, left lower leg, initial encounter (principal); J44.9 Chronic obstructive pulmonary disease, unspecified; K21.9 Gastro-esophageal reflux disease without esophagitis; M19.90 Unspecified osteoarthritis, unspecified site; Z87.891 Personal history of nicotine dependence; Z79.01 Long term (current) use of anticoagulants; Z79.51 Long term (current) use of inhaled steroids; Z79.899 Other long term (current) drug therapy; Z88.6 Allergy status to analgesic agent; W22.8XXA Striking against or struck by other objects, initial encounter; Y92.009 Unspecified place in unspecified non-institutional (private) residence as the place of occurrence of the external cause
CPT/HCPCS: 99283; 12005; J2001